=== PATIENT | female | born 1955 | race Caucasian/White ===

== ENCOUNTER 2022-11-21 08:20 | Outpatient (CLI) | payer MEDICARE, SELFPAY ==
[2022-11-21 09:29] LABS: EXAGEN MAILED SPECIMEN
[2022-11-21 10:18] LABS: Absolute Lymphocyte Count 1.66 X10^3/uL (0.83-4.51); Absolute Neutrophil Count 4.2 X10^3/uL (2.0-7.7); Basophil# 0.05 X10^3/uL; Basophil% 0.8 % (0-1); Eosinophil# 0.12 X10^3/uL; Eosinophils% 1.9 % (0-5); Hematocrit 39.2 % (37-47); Hemoglobin 12.9 g/dL (12.0-15.0); Lymphocyte # 1.66 X10^3/ul (0.83-4.51); Mean Corp Hgb Conc 32.9 g/dL (32-36); Mean Corpuscular Hgb 33.3 pg (27.0-32.0); Mean Corpuscular Volume 101.3 fL (81-99); Mean Platelet Vol. 9.1 fl (6.2-12.0); Monocyte# 0.36 X10^3/uL; Monocyte% 5.6 % (0-10); NRBC Flagged by Analyzer 0 % (0-5); Neutrophil # 4.19 X10^3/uL (2.7-7.7); Neutrophil % 65.5 % (47-70); Platelet Count 225 K/mm3 (150-450); RBC Distribution Width CV 12.3 % (11.6-14.6); RBC Distribution Width SD 46.5 fl (35.1-43.9); Red Blood Count 3.87 M/mm3 (4.2-5.4); White Blood Count 6.4 K/mm3 (4.4-11.0)
[2022-11-21 10:28] LABS: Color, Urine Yellow (Yellow); Glucose, Dipstick Normal (Normal); Ketone-Dipstick Negative (Negative); Leukocyte Esterase-Dipstick 25 /ul (Negative); Nitrite-Dipstick Negative (Negative); Occult Blood-Urine Negative /ul (Negative); Protein-Dipstick Negative (Negative); Urine Bilirubin Dipstick Negative (Negative); Urine Clarity Clear (Clear); Urine Urobilinogen Normal (Normal); Urine pH 6.5 (5.0 - 8.0)
[2022-11-21 10:38] LABS: International Normalized Ratio 1.1; Prothrombin Time (Protime)PT. 13.8 SECONDS (11.7-14.9)
[2022-11-21 10:39] LABS: ALB/GLOB Ratio 0.9 RATIO (0.9-2.4); AST(SGOT) 14 U/L (15-37); Alanine Aminotransfer ALT/SGPT 13 U/L (13-56); Albumin, Serum 3.7 g/dL (3.2-5.0); Alkaline Phosphatase 82 U/L (45-117); Anion Gap 4 (5-15); BUN 15 mg/dL (7-18); BUN/Creat Ratio 17.9 RATIO (10-20); Calcium,Total 9.2 mg/dL (8.5-10.1); Chloride 110 mmol/L (98-107); Creatinine, Serum 0.84 mg/dL (0.55-1.02); EST Glomerular Filtration Rate 72 mL/min (>60); Est Glom Filt Rate - Afr Amer 87 mL/min (>60); Globulin 4.3 g/dL (2.2-4.2); Glucose 90 mg/dL (74-106); Partial Thromboplast Time 30.1 Seconds (24.1-36.2); Potassium 3.7 mmol/L (3.5-5.1); Sodium Level 140 mmol/L (136-145)
[2022-11-21 10:48] LABS: Protein:Creat Ratio 202 mg/g CRE (0-200)
[2022-11-21 11:09] LABS: Hepatitis B Surface Antibody Reactive; Hepatitis B Surface Antigen Non-Reactive (Nonreactive); Hepatitis C Antibody Non-Reactive (Nonreactive)
[2022-11-22 16:10] LABS: Dilute Prothrombin Time (dPT) 37.4 sec (0.0-47.6); Hexagonal Phase Phospholipid 5 sec (0-11); Interpretation Comment: (.); PTT-LA 38.8 sec (0.0-43.5); Thrombin Time 16.9 sec (0.0-23.0); dPT Confirm Ratio 0.96 Ratio (0.00-1.34)
== END 2022-11-21 23:59 | disposition home or self-care (01) ==
LOC: MTLAB 08:24
PROVIDERS: Referring Provider Internal Medicine Rheumatology; Visit Provider Internal Medicine Rheumatology
DX: M05.79 Rheumatoid arthritis with rheumatoid factor of multiple sites without organ or systems involvement (principal); Z79.899 Other long term (current) drug therapy; R76.8 Other specified abnormal immunological findings in serum; M25.50 Pain in unspecified joint; M25.40 Effusion, unspecified joint; E03.9 Hypothyroidism, unspecified
CPT/HCPCS: 36415; 80053; 81002; 82570; 84156; 85025; 85598; 85610; 85730; 86706; 86803; 87340

== ENCOUNTER → 2022-12-12 | Outpatient (CLI) | payer MEDICARE, SELFPAY ==
[2022-12-12 15:16] LABS: Absolute Lymphocyte Count 2.52 X10^3/uL (0.83-4.51); Absolute Neutrophil Count 5.4 X10^3/uL (2.0-7.7); Basophil# 0.05 X10^3/uL; Basophil% 0.6 % (0-1); Eosinophil# 0.08 X10^3/uL; Eosinophils% 0.9 % (0-5); Hematocrit 39.4 % (37-47); Hemoglobin 12.6 g/dL (12.0-15.0); Lymphocyte # 2.52 X10^3/ul (0.83-4.51); Lymphocyte % 29.5 % (19-41); Mean Corpuscular Hgb 33.5 pg (27.0-32.0); Mean Corpuscular Volume 104.8 fL (81-99); Mean Platelet Vol. 9.1 fl (6.2-12.0); Monocyte# 0.45 X10^3/uL; Monocyte% 5.3 % (0-10); NRBC Flagged by Analyzer 0 % (0-5); Neutrophil # 5.43 X10^3/uL (2.7-7.7); Neutrophil % 63.5 % (47-70); Platelet Count 259 K/mm3 (150-450); RBC Distribution Width CV 12.5 % (11.6-14.6); RBC Distribution Width SD 48.3 fl (35.1-43.9); Red Blood Count 3.76 M/mm3 (4.2-5.4); White Blood Count 8.6 K/mm3 (4.4-11.0)
[2022-12-12 15:28] LABS: ALB/GLOB Ratio 0.9 RATIO (0.9-2.4); AST(SGOT) 19 U/L (15-37); Alanine Aminotransfer ALT/SGPT 17 U/L (13-56); Albumin, Serum 3.6 g/dL (3.2-5.0); Alkaline Phosphatase 73 U/L (45-117); Anion Gap 3 (5-15); BUN 18 mg/dL (7-18); BUN/Creat Ratio 19.7 RATIO (10-20); Calcium,Total 9.4 mg/dL (8.5-10.1); Chloride 111 mmol/L (98-107); Creatinine, Serum 0.92 mg/dL (0.55-1.02); EST Glomerular Filtration Rate 65 mL/min (>60); Est Glom Filt Rate - Afr Amer 79 mL/min (>60); Globulin 4.2 g/dL (2.2-4.2); Glucose 89 mg/dL (74-106); Potassium 4.9 mmol/L (3.5-5.1); Protein, Total 7.8 g/dL (6.4-8.2); Sodium Level 139 mmol/L (136-145)
== END | disposition home or self-care (01) ==
LOC: MTLAB 13:19
PROVIDERS: Referring Provider Internal Medicine Rheumatology; Visit Provider Internal Medicine Rheumatology
DX: M05.79 Rheumatoid arthritis with rheumatoid factor of multiple sites without organ or systems involvement (principal); R76.8 Other specified abnormal immunological findings in serum; Z79.899 Other long term (current) drug therapy
CPT/HCPCS: 36415; 80053; 85025

== ENCOUNTER → 2023-01-25 | Outpatient (CLI) | payer MEDICARE, SELFPAY ==
[2023-01-25 15:23] LABS: Absolute Lymphocyte Count 1.85 X10^3/uL (0.83-4.51); Absolute Neutrophil Count 3.9 X10^3/uL (2.0-7.7); Basophil# 0.05 X10^3/uL; Basophil% 0.8 % (0-1); Eosinophil# 0.06 X10^3/uL; Hemoglobin 12.5 g/dL (12.0-15.0); Lymphocyte # 1.85 X10^3/ul (0.83-4.51); Lymphocyte % 29.8 % (19-41); Mean Corp Hgb Conc 33.8 g/dL (32-36); Mean Corpuscular Hgb 34.9 pg (27.0-32.0); Mean Corpuscular Volume 103.4 fL (81-99); Mean Platelet Vol. 9.1 fl (6.2-12.0); Monocyte# 0.29 X10^3/uL; Monocyte% 4.7 % (0-10); NRBC Flagged by Analyzer 0 % (0-5); Neutrophil # 3.94 X10^3/uL (2.7-7.7); Neutrophil % 63.5 % (47-70); Platelet Count 213 K/mm3 (150-450); RBC Distribution Width CV 13.1 % (11.6-14.6); RBC Distribution Width SD 49.7 fl (35.1-43.9); Red Blood Count 3.58 M/mm3 (4.2-5.4); White Blood Count 6.2 K/mm3 (4.4-11.0)
[2023-01-25 15:57] LABS: AST(SGOT) 14 U/L (15-37); Alanine Aminotransfer ALT/SGPT 20 U/L (13-56); Albumin, Serum 3.6 g/dL (3.2-5.0); Alkaline Phosphatase 66 U/L (45-117); Anion Gap 6 (5-15); BUN 15 mg/dL (7-18); BUN/Creat Ratio 19.4 RATIO (10-20); Calcium,Total 8.8 mg/dL (8.5-10.1); Chloride 110 mmol/L (98-107); Creatinine, Serum 0.77 mg/dL (0.55-1.02); EST Glomerular Filtration Rate 80 mL/min (>60); Est Glom Filt Rate - Afr Amer 96 mL/min (>60); Globulin 3.7 g/dL (2.2-4.2); Glucose 94 mg/dL (74-106); Potassium 3.9 mmol/L (3.5-5.1); Protein, Total 7.3 g/dL (6.4-8.2); Sodium Level 141 mmol/L (136-145)
== END | disposition home or self-care (01) ==
LOC: MTLAB 13:56
PROVIDERS: Referring Provider Internal Medicine Rheumatology; Visit Provider Internal Medicine Rheumatology
DX: M05.79 Rheumatoid arthritis with rheumatoid factor of multiple sites without organ or systems involvement (principal); R76.8 Other specified abnormal immunological findings in serum; Z79.899 Other long term (current) drug therapy
CPT/HCPCS: 36415; 80053; 85025

== ENCOUNTER → 2023-04-12 | Outpatient (CLI) | payer MEDICARE, SELFPAY ==
[2023-04-12 15:00] LABS: Absolute Lymphocyte Count 2.16 X10^3/uL (0.83-4.51); Basophil# 0.06 X10^3/uL; Basophil% 1.1 % (0-1); Eosinophils% 1.8 % (0-5); Hematocrit 38.7 % (37-47); Hemoglobin 12.6 g/dL (12.0-15.0); Lymphocyte # 2.16 X10^3/ul (0.83-4.51); Lymphocyte % 38.3 % (19-41); Mean Corp Hgb Conc 32.6 g/dL (32-36); Mean Corpuscular Hgb 35.2 pg (27.0-32.0); Mean Corpuscular Volume 108.1 fL (81-99); Mean Platelet Vol. 9.1 fl (6.2-12.0); Monocyte# 0.27 X10^3/uL; Monocyte% 4.8 % (0-10); NRBC Flagged by Analyzer 0 % (0-5); Neutrophil # 3.04 X10^3/uL (2.7-7.7); Neutrophil % 53.8 % (47-70); Platelet Count 241 K/mm3 (150-450); RBC Distribution Width CV 12.5 % (11.6-14.6); RBC Distribution Width SD 49.3 fl (35.1-43.9); Red Blood Count 3.58 M/mm3 (4.2-5.4); White Blood Count 5.6 K/mm3 (4.4-11.0)
[2023-04-12 15:31] LABS: ALB/GLOB Ratio 0.9 RATIO (0.9-2.4); AST(SGOT) 14 U/L (15-37); Alanine Aminotransfer ALT/SGPT 17 U/L (13-56); Albumin, Serum 3.3 g/dL (3.2-5.0); Alkaline Phosphatase 68 U/L (45-117); Anion Gap 3 (5-15); BUN 12 mg/dL (7-18); BUN/Creat Ratio 17.3 RATIO (10-20); Calcium,Total 8.7 mg/dL (8.5-10.1); Chloride 111 mmol/L (98-107); Creatinine, Serum 0.69 mg/dL (0.55-1.02); EST Glomerular Filtration Rate 90 mL/min (>60); Est Glom Filt Rate - Afr Amer 109 mL/min (>60); Globulin 3.8 g/dL (2.2-4.2); Glucose 93 mg/dL (74-106); Potassium 4.2 mmol/L (3.5-5.1); Protein, Total 7.1 g/dL (6.4-8.2); Sodium Level 140 mmol/L (136-145)
== END | disposition home or self-care (01) ==
LOC: MTLAB 13:47
PROVIDERS: Referring Provider Internal Medicine Rheumatology; Visit Provider Internal Medicine Rheumatology
DX: M05.79 Rheumatoid arthritis with rheumatoid factor of multiple sites without organ or systems involvement (principal); R76.8 Other specified abnormal immunological findings in serum; E03.9 Hypothyroidism, unspecified; M81.0 Age-related osteoporosis without current pathological fracture; Z79.899 Other long term (current) drug therapy
CPT/HCPCS: 36415; 80053; 85025

== ENCOUNTER → 2023-06-28 | Outpatient (CLI) | payer MEDICARE, SELFPAY ==
[2023-06-28 16:30] LABS: Thyroid Stim Hormone (TSH) 0.54 uIU/mL (0.358-3.74)
== END | disposition home or self-care (01) ==
LOC: MFPLAB 14:13
PROVIDERS: PCP Family Medicine; Visit Provider Family Medicine
DX: E03.9 Hypothyroidism, unspecified (principal)
CPT/HCPCS: 36415; 84443

== ENCOUNTER → 2023-07-19 | Outpatient (CLI) | payer MEDICARE, SELFPAY ==
[2023-07-19 12:08] LABS: Absolute Lymphocyte Count 1.85 X10^3/uL (0.83-4.51); Absolute Neutrophil Count 3.4 X10^3/uL (2.0-7.7); Basophil# 0.05 X10^3/uL; Basophil% 0.9 % (0-1); Eosinophil# 0.14 X10^3/uL; Eosinophils% 2.5 % (0-5); Hematocrit 40.9 % (37-47); Hemoglobin 13.4 g/dL (12.0-15.0); Lymphocyte # 1.85 X10^3/ul (0.83-4.51); Lymphocyte % 32.7 % (19-41); Mean Corp Hgb Conc 32.8 g/dL (32-36); Mean Corpuscular Hgb 34.1 pg (27.0-32.0); Mean Corpuscular Volume 104.1 fL (81-99); Mean Platelet Vol. 9.6 fl (6.2-12.0); Monocyte# 0.23 X10^3/uL; Monocyte% 4.1 % (0-10); NRBC Flagged by Analyzer 0 % (0-5); Neutrophil # 3.38 X10^3/uL (2.7-7.7); Neutrophil % 59.6 % (47-70); Platelet Count 208 K/mm3 (150-450); RBC Distribution Width CV 12.5 % (11.6-14.6); RBC Distribution Width SD 47.8 fl (35.1-43.9); Red Blood Count 3.93 M/mm3 (4.2-5.4); White Blood Count 5.7 K/mm3 (4.4-11.0)
[2023-07-19 12:52] LABS: ALB/GLOB Ratio 0.9 RATIO (0.9-2.4); AST(SGOT) 20 U/L (15-37); Alanine Aminotransfer ALT/SGPT 15 U/L (13-56); Albumin, Serum 3.7 g/dL (3.2-5.0); Alkaline Phosphatase 72 U/L (45-117); Anion Gap 5 (5-15); BUN 20 mg/dL (7-18); BUN/Creat Ratio 23.6 RATIO (10-20); Calcium,Total 9.2 mg/dL (8.5-10.1); Chloride 113 mmol/L (98-107); Creatinine, Serum 0.85 mg/dL (0.55-1.02); EST Glomerular Filtration Rate 71 mL/min (>60); Est Glom Filt Rate - Afr Amer 86 mL/min (>60); Globulin 3.9 g/dL (2.2-4.2); Glucose 99 mg/dL (74-106); Potassium 4.6 mmol/L (3.5-5.1); Protein, Total 7.6 g/dL (6.4-8.2); Sodium Level 142 mmol/L (136-145)
== END | disposition home or self-care (01) ==
LOC: MTLAB 10:27
PROVIDERS: PCP Family Medicine; Referring Provider Internal Medicine Rheumatology; Visit Provider Internal Medicine Rheumatology
DX: M05.79 Rheumatoid arthritis with rheumatoid factor of multiple sites without organ or systems involvement (principal); R76.8 Other specified abnormal immunological findings in serum; Z79.899 Other long term (current) drug therapy
CPT/HCPCS: 36415; 80053; 85025

== ENCOUNTER → 2023-10-24 | Outpatient (CLI) | payer MEDICARE, SELFPAY ==
[2023-10-24 10:27] LABS: Absolute Lymphocyte Count 1.75 X10^3/uL (0.83-4.51); Absolute Neutrophil Count 3.4 X10^3/uL (2.0-7.7); Basophil# 0.05 X10^3/uL; Basophil% 0.9 % (0-1); Eosinophil# 0.14 X10^3/uL; Eosinophils% 2.4 % (0-5); Hematocrit 37.4 % (37-47); Hemoglobin 12.1 g/dL (12.0-15.0); Lymphocyte # 1.75 X10^3/ul (0.83-4.51); Lymphocyte % 30.5 % (19-41); Mean Corp Hgb Conc 32.4 g/dL (32-36); Mean Corpuscular Hgb 33.3 pg (27.0-32.0); Mean Platelet Vol. 9.4 fl (6.2-12.0); Monocyte# 0.35 X10^3/uL; Monocyte% 6.1 % (0-10); NRBC Flagged by Analyzer 0 % (0-5); Neutrophil # 3.42 X10^3/uL (2.7-7.7); Neutrophil % 59.8 % (47-70); Platelet Count 269 K/mm3 (150-450); RBC Distribution Width CV 12.7 % (11.6-14.6); RBC Distribution Width SD 47.8 fl (35.1-43.9); Red Blood Count 3.63 M/mm3 (4.2-5.4); White Blood Count 5.7 K/mm3 (4.4-11.0)
[2023-10-24 11:17] LABS: ALB/GLOB Ratio 0.9 RATIO (0.9-2.4); AST(SGOT) 16 U/L (15-37); Alanine Aminotransfer ALT/SGPT 16 U/L (13-56); Albumin, Serum 3.5 g/dL (3.2-5.0); Alkaline Phosphatase 71 U/L (45-117); Anion Gap 6 (5-15); BUN 22 mg/dL (7-18); BUN/Creat Ratio 28.6 RATIO (10-20); Chloride 111 mmol/L (98-107); Creatinine, Serum 0.77 mg/dL (0.55-1.02); EST Glomerular Filtration Rate 80 mL/min (>60); Est Glom Filt Rate - Afr Amer 97 mL/min (>60); Glucose 101 mg/dL (74-106); Potassium 4.3 mmol/L (3.5-5.1); Protein, Total 7.5 g/dL (6.4-8.2); Sodium Level 139 mmol/L (136-145)
== END | disposition home or self-care (01) ==
PROVIDERS: PCP Family Medicine; Referring Provider Internal Medicine Rheumatology; Visit Provider Internal Medicine Rheumatology
DX: M05.79 Rheumatoid arthritis with rheumatoid factor of multiple sites without organ or systems involvement (principal); R76.8 Other specified abnormal immunological findings in serum; Z79.899 Other long term (current) drug therapy
CPT/HCPCS: 36415; 80053; 85025

== ENCOUNTER → 2023-12-11 | Outpatient (CLI) | payer MEDICARE, SELFPAY ==
[2023-12-11 18:12] LABS: Cholesterol 156 mg/dL (200); High Density Lipoprotein 60 mg/dL; Triglycerides 56 mg/dL; Very Low Density Lipoprotein 11 mg/dL (5-40)
== END | disposition home or self-care (01) ==
LOC: MFPLAB 14:53
PROVIDERS: PCP Family Medicine; Visit Provider Family Medicine
DX: Z00.00 Encounter for general adult medical examination without abnormal findings (principal); Z12.11 Encounter for screening for malignant neoplasm of colon
CPT/HCPCS: 36415; 80061

== ENCOUNTER → 2023-12-26 | Outpatient (CLI) | payer MEDICARE, SELFPAY ==
--- NOTE | 2023-12-26 08:56 | BI_ITS ---
MAMMOGRAPHY - BILATERAL SCREENING REASON FOR EXAM: Female, 68 years old. Routine annual screening examination. PERTINENT HISTORY: Non-contributory. Occasional axillary tenderness. TECHNIQUE: Digital bilateral breast edd (3D mammographic acquisition) in the CC and MLO projections. 2-D mediolateral oblique (MLO) and craniocaudad (CC) views of both breasts were obtained. CAD: Full Field Digital Mammography with Computer Added Detection was performed. COMPARISON: Comparison is made with prior chest examination dated August 29, 2021. FINDINGS: Breast Composition: The breasts are heterogeneously dense, which may obscure small masses. There are no dominant masses or suspicious calcifications. No other significant abnormalities are identified. There has been no significant change since the prior study. BI/SCRN MAMM (CAD)W/EDD BILAT IMPRESSION: Stable bilateral screening mammogram. Yearly follow-up mammogram recommended. (A) ASSESSMENT CATEGORY: BIRADS Category 1: Negative. A letter regarding these results will be sent to the patient by the facility within 30 days. Approximately 10% of breast cancers are not detected by mammography. A normal mammogram should not delay biopsy of a clinically suspicious abnormality. [id number] Electronically Signed: Charles Muhammad MD at 15:15 EDT ,
== END | disposition home or self-care (01) ==
LOC: OPBI 08:55
PROVIDERS: PCP Family Medicine; Referring Provider Family Medicine; Visit Provider Family Medicine
DX: Z12.31 Encounter for screening mammogram for malignant neoplasm of breast (principal)
CPT/HCPCS: 77063; 77067

== ENCOUNTER → 2024-01-28 | Outpatient (CLI) | payer MEDICARE, SELFPAY ==
[2024-01-28 15:16] LABS: Absolute Lymphocyte Count 1.67 X10^3/uL (0.83-4.51); Basophil# 0.06 X10^3/uL; Basophil% 1.1 % (0-1); Eosinophil# 0.17 X10^3/uL; Eosinophils% 3.2 % (0-5); Hematocrit 37.7 % (37-47); Hemoglobin 12.3 g/dL (12.0-15.0); Lymphocyte # 1.67 X10^3/ul (0.83-4.51); Lymphocyte % 31.5 % (19-41); Mean Corp Hgb Conc 32.6 g/dL (32-36); Mean Corpuscular Hgb 32.8 pg (27.0-32.0); Mean Corpuscular Volume 100.5 fL (81-99); Mean Platelet Vol. 9.3 fl (6.2-12.0); Monocyte# 0.36 X10^3/uL; Monocyte% 6.8 % (0-10); NRBC Flagged by Analyzer 0 % (0-5); Neutrophil # 3.03 X10^3/uL (2.7-7.7); Neutrophil % 57.2 % (47-70); Platelet Count 264 K/mm3 (150-450); RBC Distribution Width CV 12.8 % (11.6-14.6); RBC Distribution Width SD 47.5 fl (35.1-43.9); Red Blood Count 3.75 M/mm3 (4.2-5.4); White Blood Count 5.3 K/mm3 (4.4-11.0)
[2024-01-28 15:49] LABS: ALB/GLOB Ratio 0.8 RATIO (0.9-2.4); AST(SGOT) 15 U/L (15-37); Alanine Aminotransfer ALT/SGPT 14 U/L (13-56); Albumin, Serum 3.5 g/dL (3.2-5.0); Alkaline Phosphatase 81 U/L (45-117); Anion Gap 7 (5-15); BUN 14 mg/dL (7-18); BUN/Creat Ratio 17.8 RATIO (10-20); Calcium,Total 9.3 mg/dL (8.5-10.1); Chloride 110 mmol/L (98-107); Creatinine, Serum 0.78 mg/dL (0.55-1.02); EST Glomerular Filtration Rate 78 mL/min (>60); Est Glom Filt Rate - Afr Amer 94 mL/min (>60); Globulin 4.3 g/dL (2.2-4.2); Glucose 82 mg/dL (74-106); Potassium 4.6 mmol/L (3.5-5.1); Protein, Total 7.8 g/dL (6.4-8.2); Sodium Level 141 mmol/L (136-145)
== END | disposition home or self-care (01) ==
LOC: MTLAB 11:04
PROVIDERS: PCP Family Medicine; Referring Provider Internal Medicine Rheumatology; Visit Provider Internal Medicine Rheumatology
DX: M05.79 Rheumatoid arthritis with rheumatoid factor of multiple sites without organ or systems involvement (principal); R76.8 Other specified abnormal immunological findings in serum; Z79.899 Other long term (current) drug therapy
CPT/HCPCS: 36415; 80053; 85025

== ENCOUNTER → 2024-04-23 | Outpatient (CLI) | payer MEDICARE, SELFPAY ==
[2024-04-23 12:19] LABS: Absolute Lymphocyte Count 1.39 X10^3/uL (0.83-4.51); Absolute Neutrophil Count 5.2 X10^3/uL (2.0-7.7); Basophil# 0.05 X10^3/uL; Basophil% 0.7 % (0-1); Eosinophils% 1.4 % (0-5); Hematocrit 36.8 % (37-47); Hemoglobin 12.2 g/dL (12.0-15.0); Lymphocyte # 1.39 X10^3/ul (0.83-4.51); Lymphocyte % 19.7 % (19-41); Mean Corp Hgb Conc 33.2 g/dL (32-36); Mean Corpuscular Hgb 33.5 pg (27.0-32.0); Mean Corpuscular Volume 101.1 fL (81-99); Mean Platelet Vol. 9.3 fl (6.2-12.0); Monocyte# 0.35 X10^3/uL; NRBC Flagged by Analyzer 0 % (0-5); Neutrophil # 5.15 X10^3/uL (2.7-7.7); Neutrophil % 72.8 % (47-70); Platelet Count 225 K/mm3 (150-450); RBC Distribution Width CV 12.5 % (11.6-14.6); RBC Distribution Width SD 46.6 fl (35.1-43.9); Red Blood Count 3.64 M/mm3 (4.2-5.4); White Blood Count 7.1 K/mm3 (4.4-11.0)
[2024-04-23 12:45] LABS: ALB/GLOB Ratio 0.9 RATIO (0.9-2.4); AST(SGOT) 18 U/L (15-37); Alanine Aminotransfer ALT/SGPT 15 U/L (13-56); Albumin, Serum 3.7 g/dL (3.2-5.0); Alkaline Phosphatase 78 U/L (45-117); Anion Gap 4 (5-15); BUN 16 mg/dL (7-18); BUN/Creat Ratio 20.4 RATIO (10-20); Chloride 111 mmol/L (98-107); Creatinine, Serum 0.78 mg/dL (0.55-1.02); EST Glomerular Filtration Rate 78 mL/min (>60); Est Glom Filt Rate - Afr Amer 94 mL/min (>60); Glucose 92 mg/dL (74-106); Protein, Total 7.7 g/dL (6.4-8.2); Sodium Level 139 mmol/L (136-145)
== END | disposition home or self-care (01) ==
LOC: MTLAB 09:25
PROVIDERS: PCP Family Medicine; Referring Provider Internal Medicine Rheumatology; Visit Provider Internal Medicine Rheumatology
DX: M05.79 Rheumatoid arthritis with rheumatoid factor of multiple sites without organ or systems involvement (principal); R76.8 Other specified abnormal immunological findings in serum; Z79.899 Other long term (current) drug therapy
CPT/HCPCS: 36415; 80053; 85025

== ENCOUNTER → 2024-07-15 | Outpatient (CLI) | payer MEDICARE, SELFPAY ==
[2024-07-15 11:54] LABS: Color, Urine Yellow (Yellow); Glucose, Dipstick Normal (Normal); Ketone-Dipstick Negative (Negative); Leukocyte Esterase-Dipstick Negative /ul (Negative); Nitrite-Dipstick Negative (Negative); Occult Blood-Urine Negative /ul (Negative); Protein-Dipstick Negative (Negative); Urine Bilirubin Dipstick Negative (Negative); Urine Clarity Clear (Clear); Urine Urobilinogen Normal (Normal)
[2024-07-15 12:36] LABS: Absolute Lymphocyte Count 1.58 X10^3/uL (0.83-4.51); Absolute Neutrophil Count 4.2 X10^3/uL (2.0-7.7); Basophil# 0.05 X10^3/uL; Basophil% 0.8 % (0-1); Eosinophil# 0.12 X10^3/uL; Eosinophils% 1.9 % (0-5); Hematocrit 37.3 % (37-47); Hemoglobin 12.6 g/dL (12.0-15.0); Lymphocyte # 1.58 X10^3/ul (0.83-4.51); Lymphocyte % 24.8 % (19-41); Mean Corp Hgb Conc 33.8 g/dL (32-36); Mean Corpuscular Hgb 33.8 pg (27.0-32.0); Mean Platelet Vol. 9.4 fl (6.2-12.0); Monocyte# 0.38 X10^3/uL; NRBC Flagged by Analyzer 0 % (0-5); Neutrophil # 4.24 X10^3/uL (2.7-7.7); Neutrophil % 66.3 % (47-70); Platelet Count 245 K/mm3 (150-450); RBC Distribution Width CV 12.3 % (11.6-14.6); RBC Distribution Width SD 44.9 fl (35.1-43.9); Red Blood Count 3.73 M/mm3 (4.2-5.4); White Blood Count 6.4 K/mm3 (4.4-11.0)
[2024-07-15 12:43] LABS: ALB/GLOB Ratio 0.8 RATIO (0.9-2.4); AST(SGOT) 16 U/L (15-37); Alanine Aminotransfer ALT/SGPT 15 U/L (13-56); Albumin, Serum 3.6 g/dL (3.2-5.0); Alkaline Phosphatase 78 U/L (45-117); Anion Gap 6 (5-15); BUN 13 mg/dL (7-18); BUN/Creat Ratio 16.9 RATIO (10-20); Calcium,Total 9.5 mg/dL (8.5-10.1); Chloride 108 mmol/L (98-107); Creatinine, Serum 0.77 mg/dL (0.55-1.02); EST Glomerular Filtration Rate 80 mL/min (>60); Est Glom Filt Rate - Afr Amer 96 mL/min (>60); Globulin 4.3 g/dL (2.2-4.2); Glucose 87 mg/dL (74-106); Potassium 4.1 mmol/L (3.5-5.1); Protein, Total 7.9 g/dL (6.4-8.2); Sodium Level 139 mmol/L (136-145)
[2024-07-15 12:55] LABS: Protein, Urine (Random) < 6.0 mg/dL (<11.9)
== END | disposition home or self-care (01) ==
LOC: MTLAB 10:26
PROVIDERS: PCP Family Medicine; Referring Provider Internal Medicine Rheumatology; Visit Provider Internal Medicine Rheumatology
DX: M05.79 Rheumatoid arthritis with rheumatoid factor of multiple sites without organ or systems involvement (principal); R76.8 Other specified abnormal immunological findings in serum; Z79.899 Other long term (current) drug therapy
CPT/HCPCS: 36415; 80053; 81002; 82570; 84156; 85025

== ENCOUNTER → 2024-10-08 | Outpatient (CLI) | payer MEDICARE, SELFPAY ==
[2024-10-08 15:29] LABS: Absolute Lymphocyte Count 2.04 X10^3/uL (0.83-4.51); Absolute Neutrophil Count 3.2 X10^3/uL (2.0-7.7); Basophil# 0.05 X10^3/uL; Basophil% 0.9 % (0-1); Eosinophil# 0.13 X10^3/uL; Eosinophils% 2.3 % (0-5); Hematocrit 36.3 % (37-47); Lymphocyte # 2.04 X10^3/ul (0.83-4.51); Lymphocyte % 35.6 % (19-41); Mean Corp Hgb Conc 33.1 g/dL (32-36); Mean Corpuscular Hgb 33.2 pg (27.0-32.0); Mean Corpuscular Volume 100.6 fL (81-99); Mean Platelet Vol. 9.1 fl (6.2-12.0); Monocyte# 0.35 X10^3/uL; Monocyte% 6.1 % (0-10); NRBC Flagged by Analyzer 0 % (0-5); Neutrophil # 3.15 X10^3/uL (2.7-7.7); Neutrophil % 54.9 % (47-70); Platelet Count 218 K/mm3 (150-450); RBC Distribution Width CV 12.5 % (11.6-14.6); RBC Distribution Width SD 46.3 fl (35.1-43.9); Red Blood Count 3.61 M/mm3 (4.2-5.4); White Blood Count 5.7 K/mm3 (4.4-11.0)
[2024-10-08 15:47] LABS: Color, Urine Yellow (Yellow); Glucose, Dipstick Normal (Normal); Ketone-Dipstick Negative (Negative); Leukocyte Esterase-Dipstick 25 /ul (Negative); Nitrite-Dipstick Negative (Negative); Occult Blood-Urine Negative /ul (Negative); Protein-Dipstick Negative (Negative); Specific Gravity, Urine 1.015 (1.002-1.030); Urine Bilirubin Dipstick Negative (Negative); Urine Clarity Clear (Clear); Urine Urobilinogen Normal (Normal)
[2024-10-08 15:55] LABS: Protein, Urine (Random) 9.7 mg/dL (0.0-12.0); Protein:Creat Ratio 114 mg/g CRE (0-200)
[2024-10-08 16:10] LABS: ALB/GLOB Ratio 1.1 RATIO (0.9-2.4); AST(SGOT) 17 U/L (<=31); Alanine Aminotransfer ALT/SGPT 7 U/L (<=34); Albumin, Serum 3.9 g/dL (3.4-4.8); Alkaline Phosphatase 75 U/L (35-104); Anion Gap 10 (5-15); BUN 10 mg/dL (4-19); BUN/Creat Ratio 13.4 RATIO (10-20); Calcium,Total 9.4 mg/dL (7.6-11.0); Chloride 107 mmol/L (98-108); Creatinine, Serum 0.73 mg/dL (0.70-1.20); EST Glomerular Filtration Rate 90 (>60); Globulin 3.5 g/dL (2.2-4.2); Glucose 99 mg/dL (70-99); Potassium 4.4 mmol/L (3.3-5.1); Protein, Total 7.4 g/dL (5.9-8.4); Sodium Level 140 mmol/L (133-145); Total Bilirubin 0.26 mg/dL (0.00-1.30)
== END | disposition home or self-care (01) ==
LOC: MTLAB 13:54
PROVIDERS: PCP Family Medicine; Referring Provider Internal Medicine Rheumatology; Visit Provider Internal Medicine Rheumatology
DX: M05.79 Rheumatoid arthritis with rheumatoid factor of multiple sites without organ or systems involvement (principal); R76.8 Other specified abnormal immunological findings in serum; Z79.899 Other long term (current) drug therapy
CPT/HCPCS: 36415; 80053; 81002; 82570; 84156; 85025

== ENCOUNTER → 2024-10-28 | Outpatient (CLI) | payer MEDICARE, SELFPAY ==
--- NOTE | 2024-10-28 15:05 | RAD_ITS ---
PROCEDURE: CHEST PA AND LATERAL 10/28/2024 REASON FOR EXAM: CONCERN FOR PNEUMONIA TECHNIQUE: Frontal and lateral views of the chest. COMPARISON: None available FINDINGS: Approximate 4.6 cm masslike right perihilar opacity mid lung on the frontal and appears marginated by the major fissure on the lateral may represent a pneumonia however mass is not excluded. A 9 mm nodule is seen at the right lower lung. Appearance of background of emphysema with hyperinflation. The left lung appears clear. The cardiac and mediastinal contours appear within limits. The visualized osseous structures appear within limits. No pleural effusion identified. RAD/Chest PA and Lateral IMPRESSION: Perihilar masslike right midlung opacity and right lower lung 9 mm nodule or de nsity as above. May further evaluate with chest CT. Clinically correlate Appearance of background of pulmonary emphysema. Reading Location: [id number]
== END | disposition home or self-care (01) ==
LOC: MTRAD 15:05
PROVIDERS: PCP Family Medicine; Referring Provider Family Medicine; Visit Provider Family Medicine
DX: R05.8 Other specified cough (principal)
CPT/HCPCS: 71046

== ENCOUNTER → 2024-11-20 | Outpatient (CLI) | payer MEDICARE, SELFPAY ==
--- NOTE | 2024-11-20 18:21 | CT_ITS ---
PROCEDURE: CHEST WITHOUT CONTRAST 11/20/2024 REASON FOR EXAM: OPACITY IN LUNGS SEEN ON CHEST X-RAY TECHNIQUE: Chest CT without contrast. Coronal and Sagittal reconstruction series were provided. One or more dose reduction techniques were used (e.g., Automated exposure control, adjustment of the mA and/or kV according to patient size, use of iterative reconstruction technique RADIATION DOSE SUMMARY: CTDlvol: 6.15 mGy DLP: 239.88 mGycm COMPARISON: Prior chest radiograph dated October 28, 2024. FINDINGS: Hardware: None Lymph nodes: Calcified bilateral hilar lymph nodes. Small mediastinal lymph nodes. Heart and Vasculature: The heart is nonenlarged. Coronary Artery Calcifications: Present Lungs and Airways: There is a 4.4 cm x 2.9 cm mass in the posterior aspect of the superior segment of the right lower lobe as seen on axial image number 68 mild increased markings in surrounding the mass most likely representing scarring. There is also evidence of a 8.6 mm calcified granuloma in the posterior aspect of the right lower lobe as seen on axial image number 81. There is also evidence of a 1.1 cm spiculated mass in the posterior medial segment of the right lower lobe. Mild scarring in the posterior aspect of the lingular segment of the left upper lobe. Pleura: No pleural effusion. Upper Abdomen: Unremarkable. Bones: Degenerative changes of the thoracic spine. CT/Chest without Contrast IMPRESSION: Coronary artery calcification (CAC) is is present 4.4 cm 2.9 cm mass in the posterior aspect of the superior segment of the right lower lobe. Biopsy recommended. 1.1 cm spiculated nodule in the posterior medial segment of the right lower lob e. 8.6 mm calcified granuloma in the posterior aspect of the right lower lobe. Reading Location: [place] [id number]
== END | disposition home or self-care (01) ==
LOC: CT 04-02 12:19
PROVIDERS: PCP Family Medicine; Referring Provider Family Medicine; Visit Provider Family Medicine
DX: R05.8 Other specified cough (principal)
CPT/HCPCS: 71250

== ENCOUNTER → 2024-12-03 | Outpatient (CLI) | payer MEDICARE, SELFPAY ==
--- OUTSIDE RECORDS SUMMARY | 2024-12-03 21:00 | XMS RPT_ITS | CCD ---
Author Organization [facility] Care Team Providers Care Research Food Technologist Name Role Phone Unavailable Primary Care Provider Unavailabl e HUNTER FERRARO Referring Unavailable HUNTER FERRARO Referring Unavailable Dania Beck MD Primary Care Provider Ayad HARRISON, Dr. Miller Attending Provider Ayad HARRISON, Dr. Miller Referring Provider Dania Beck MD Attending Provider Dania Beck MD Referring Provider Kiran, Chalon Primary Care Unavailable Kiran, Chalon Attending Unavailable Kiran, Chalon Referring Unavailable Kiran, Chalon Primary Care Unavailable Kiran, Chalon Attending Unavailable Kiran, Chalon Referring Unavailable Kiran, Chalon Primary Care Unavailable Kiran, Chalon Attending Unavailable Kiran, Chalon Referring Unavailable Kiran, Chalon Primary Care Unavailable Kiran, Chalon Attending Unavailable Vellanki, Angela Referring Unavailable Kiran, Chalon Primary Care Unavailable Vellanki, Angela Attending Unavailable Vellanki, Angela Referring Unavailable Kiran, Chalon Primary Care Unavailable Vellanki, Angela Attending Unavailable Vellanki, Angela Referring Unavailable Kiran, Chalon Primary Care Unavailable Vellanki, Angela Attending Unavailable Vellanki, Angela Referring Unavailable Vellanki, Angela Attending Unavailable Kiran, Chalon Primary Care Unavailable Kiran, Chalon Referring Unavailable Kiran, Chalon Primary Care Unavailable Kiran, Chalon Attending Unavailable Kiran , Dania Primary Care Provider [phone] Ayad HARRISON, Dr. Miller Attending Provider Ayad HARRISON, Dr. Miller Referring Provider Kehinde CRESPO-CToya Attending Provider Medications Current Medications Medication Drug Class(es) Dates Sig (Normalized) Sig (Original) 0.4 ml adalimumab 100 mg/ml prefilled syringe (1 source) Tumor Necrosis Factor Andres Start: 5 Adalimumab (Humira(Cf)) 40 mg/0.4 mL syringe kit Active 40 mg SC EVERY WEEK December 03, 2024 12:00am [id number] 200 actuat albuterol 0.09 mg/actuat metered dose inhaler (1 source) beta2-Adrenergic Agonist Start: 5 Albuterol Sulfate 90 mcg/actuation HFA aerosol inhaler Active 2 NMA INHALATION THREE TIMES A DAY as needed December 03, 2024 12:00am DULoxetine 60 mg delayed release oral capsule (1 source) Serotonin and Norepinephrine Reuptake Inhibitor Start: 5 take 1 capsule by mouth once daily Duloxetine 60 mg capsule,delayed release(DR/EC) Active 60 mg PO daily December 03, 2024 12:00am folic acid 1 mg oral tablet (1 source) Start: 5 take 1 tablet by mouth once daily Folic Acid 1 mg tablet Active 1 mg PO daily December 03, 2024 12:00am hydroxychloroquine sulfate 200 mg oral tablet (1 source) Antimalarial, Antirheumatic Agent Start: 5 Hydroxychloroquine 200 mg tablet Active 300 mg PO daily December 03, 2024 12:00am Ipratropium Patterson 42 mcg (0.06 %) spray,non-aerosol (1 source) Start: 5 Ipratropium Patterson 42 mcg (0.06 %) spray,non-aerosol Active 2 NMA INTRANASAL TWICE A DAY as needed December 03, 2024 12:00am levothyroxine sodium 0.112 mg oral tablet (1 source) l-Thyroxine Start: 5 take 1 tablet by mouth once daily Levothyroxine 112 mcg tablet Active 112 ug PO daily December 03, 2024 12:00am methotrexate 2.5 mg oral tablet (1 source) Folate Analog Metabolic Inhibitor Start: 5 Methotrexate Sodium 2.5 mg tablet Active 15 mg PO EVERY WEEK December 03, 2024 12:00am Problems Active Problems Problem Classification Problem Date Documented Da te Episodic/Chronic Chronic obstructive pulmonary disease and bronchiectasis (1 source) Chronic obstructive lung disease; Translations: [Chronic obstructive pulmonary disease, unspecified] 12-03-2024 Chronic Other eye disorders (2 sources) Limited eye movement; 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, unspecified orbit] 08-17-2023 Chronic Other eye disorders (1 source) Myopathy of extraocular muscles, unspecified orbit; Translations: [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, unspecified laterality] Onset: 08-17-2023 Chronic Other screening for suspected conditions (not mental disorders or infectious disease) (2 sources) CT of chest abnormal; Translations: [Abnormal findings on diagnostic imaging of other specified body structures] 12-03-2024 Chronic Rheumatoid arthritis and related disease (5 sources) Rheumatoid arthritis - ankle and/or foot; Translations: [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] Onset: 08-17-2023 08-17-2023 Chronic Thyroid disorders (1 source) Hypothyroidism; Translations: [Hypothyroidism, unspecified] 12-03-2024 Chronic Thyroid disorders (1 source) Disorder of thyroid, unspecified; Translations: [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, unspecified laterality] Onset: 08-17-2023 Episodic Unclassified (2 sources) Other specified cough; Translations: [Other specified cough] Onset: 11-02-2024 Past or Other Problems Problem Classification Problem Date Documented Da te Episodic/Chronic Other screening for suspected conditions (not mental disorders or infectious disease) (1 source) Encounter for screening mammogram for malignant neoplasm of breast; Translations: [Encounter for screening mammogram for malignant neoplasm of breast] Onset: 01-17-2024 Episodic Results Test Name Value Interpretation Reference Range Facility Chest without Contraston Chest without Contrast [facility] Imaging Services [address] [place] [address] Chest without Contrast MR#: [id number] Acct: [id number] Name: BLACK SHORT Rep #: [id number] : 1955 F 69 From: Charles boswell MD PCP: Dr. Dania Beck MD Status: PRE CLI Study: Chest without Contrast Date of Exam: 11/20/24 Exam# [id number] Ordering Dr: Dania Beck MD PROCEDURE: CHEST WITHOUT CONTRAST 11/20/2024 REASON FOR EXAM: OPACITY IN LUNGS SEEN ON CHEST X-RAY TECHNIQUE: Chest CT without contrast. Coronal and Sagittal reconstruction series were provided. One or more dose reduction techniques were used (e.g., Automated exposure control, adjustment of the mA and/or kV according to patient size, use of iterative reconstruction technique RADIATION DOSE SUMMARY: CTDlvol: 6.15 mGy DLP: 239.88 mGycm COMPARISON: Prior chest radiograph dated October 28, 2024. FINDINGS: Hardware: None Lymph nodes: Calcified bilateral hilar lymph nodes. Small mediastinal lymph nodes. Heart and Vasculature: The heart is nonenlarged. Coronary Artery Calcifications: Present Lungs and Airways: There is a 4.4 cm x 2.9 cm mass in the posterior aspect of the superior segment of the right lower lobe as seen on axial image number 68 mild increased markings in surrounding the mass most likely representing scarring. There is also evidence of a 8.6 mm calcified granuloma in the posterior aspect of the right lower lobe as seen on axial image number 81. There is also evidence of a 1.1 cm spiculated mass in the posterior medial segment of the right lower lobe. Mild scarring in the posterior aspect of the lingular segment of the left upper lobe. Pleura: No pleural effusion. Upper Abdomen: Unremarkable. Bones: Degenerative changes of the thoracic spine. CT/Chest without Contrast IMPRESSION: Coronary artery calcification (CAC) is is present 4.4 cm 2.9 cm mass in the posterior aspect of the superior segment of the right lower lobe. Biopsy recommended. 1.1 cm spiculated nodule in the posterior medial segment of the right lower lobe. 8.6 mm calcified granuloma in the posterior aspect of the right lower lobe. Reading Location: [place] [address] CC: Dr. Dania Beck MD Chemic Mangler: Signed Normal [facility] Chest PA and Lateralon 10-28 Chest PA and Lateral [facility] Imaging Services [address], [place] [id number] Chest PA and Lateral MR#: [id number] Acct: [id number] Name: BLACK SHORT Rep #: [id number] : 1955 F 69 From: Gilles Tamez MD PCP: Dr. Dania Beck MD Status: REG CLI Study: Chest PA and Lateral Date of Exam: 10/28/24 Exam# [id number] Ordering Dr: Dania Beck MD PROCEDURE: CHEST PA AND LATERAL 10/28/2024 REASON FOR EXAM: CONCERN FOR PNEUMONIA TECHNIQUE: Frontal and lateral views of the chest. COMPARISON: None available FINDINGS: Approximate 4.6 cm masslike right perihilar opacity mid lung on the frontal and appears marginated by the major fissure on the lateral may represent a pneumonia however mass is not excluded. A 9 mm nodule is seen at the right lower lung. Appearance of background of emphysema with hyperinflation. The left lung appears clear. The cardiac and mediastinal contours appear within limits. The visualized osseous structures appear within limits. No pleural effusion identified. RAD/Chest PA and Lateral IMPRESSION: Perihilar masslike right midlung opacity and right lower lung 9 mm nodule or density as above. May further evaluate with chest CT. Clinically correlate Appearance of background of pulmonary emphysema. Reading Location: [facility] CC: Dr. Dania Beck MD Chemic Mangler: Signed Normal [facility] Absolute lymphocyte countOrd ered By: Angela Lion on 10-08-2024 Lymphocytes Auto (Unsp spec) [#/Vol] 2.04 10*3/uL 0.83-4.51 [facility] Absolute neutrophil countOrd ered By: Angela Lion on 10-08-2024 Neutrophils (Bld) [#/Vol] 3.2 10*3/uL 2.0-7.7 [facility] Anion gap in Serum or Plasma Ordered By: Angela Lion on 10-08-2024 Anion gap [Moles/Vol] 10 mmol/L 5-15 [facility] Automated lymphocyte count a s percentage of total leukocytesOrdered By: Angela Lion on 10-08-2024 Lymphocytes/100 WBC Auto (Unsp spec) 35.6 % 19-41 [facility] BUN/creatinine ratioOrdered By: Angela Lion on 10-08-2024 Urea nitrogen/Creatinine [Mass ratio] 13.4 mg/mg 10-20 [facility] Basophil percentageOrdered B y: Angela Lion on 10-08-2024 Basophils/100 WBC (Bld) 0.9 % 0-1 [facility] Bilirubin Test strip Ql (U)O rdered By: Angela Lion on 10-08-2024 Bilirubin Ql (U) Negative Negative [facility] Bilirubin, totalOrdered By: Angela Lion on 10-08-2024 Bilirubin [Mass/Vol] 0.26 mg/dL 0.00-1.30 [facility] CBC W/Diff, Automatedon Absolute Lymph 2.04 X10 3/uL Normal 0.83-4.51 [facility] Comment on above: Performed By: #### L 100.0100, L500.4050 #### [facility] [address] [place], [address] Absolute Neut 3.2 X10 3/uL Normal 2.0-7.7 [facility] Comment on above: Performed By: #### L 100.0100, L500.4050 #### [facility] [address] [place], [address] Basophils/100 WBC (Bld) 0.9 % Normal 0-1 [facility] Comment on above: Performed By: #### L 100.0100, L500.4050 #### [facility] [address] [place], [address] Eosinophils/100 WBC (Bld) 2.3 % Normal 0-5 [facility] Comment on above: Performed By: #### L 100.0100, L500.4050 #### [facility] [address] [place], [address] Erythrocyte distribution width (RBC) [Ratio] 12.5 % Normal 11.6-14.6 [facility] Comment on above: Performed By: #### L 100.0100, L500.4050 #### [facility] [address] [place], [address] Hematocrit (Bld) [Volume fraction] 36.3 % Low 37-47 [facility] Comment on above: Performed By: #### L 100.0100, L500.4050 #### [facility] [address] [place], [address] Hemoglobin (Bld) [Mass/Vol] 12.0 g/dL Normal 12.0-15.0 [facility] Comment on above: Performed By: #### L 100.0100, L500.4050 #### [facility] [address] [place], [address] IG% 0.200 Normal 0.0-0.9 [facility] Comment on above: Result Comment: IG% - Immature Granulocytes (promyelocytes, myelocytes and metamyelocytes) > 1% indicates that a LEFT SHIFT is Present. Performed By: #### L 100.0100, L500.4050 #### [facility] [address] [place], [address] Lymphocytes/100 WBC (Bld) 35.6 % Normal 19-41 [facility] Comment on above: Performed By: #### L 100.0100, L500.4050 #### [facility] [address] [place], [address] MCH (RBC) [Entitic mass] 33.2 pg High 27.0-32.0 [facility] Comment on above: Performed By: #### L 100.0100, L500.4050 #### [facility] [address] [place], [address] MCHC (RBC) [Mass/Vol] 33.1 g/dL Normal 32-36 [facility] Comment on above: Performed By: #### L 100.0100, L500.4050 #### [facility] [address] [place], [address] MCV (RBC) [Entitic vol] 100.6 fL High 81-99 [facility] Comment on above: Performed By: #### L 100.0100, L500.4050 #### [facility] [address] [place], [address] Monocytes/100 WBC (Bld) 6.1 % Normal 0-10 [facility] Comment on above: Performed By: #### L 100.0100, L500.4050 #### [facility] [address] [place], [address] Neutrophils/100 WBC (Bld) 54.9 % Normal 47-70 [facility] Comment on above: Performed By: #### L 100.0100, L500.4050 #### [facility] [address] [place], [address] Nucleated RBC (Bld) [#/Vol] 0 10*3/uL Normal 0-5 [facility] Comment on above: Performed By: #### L 100.0100, L500.4050 #### [facility] [address] [place], [address] Platelet mean volume (Bld) [Entitic vol] 9.1 fL Normal 6.2-12.0 [facility] Comment on above: Performed By: #### L 100.0100, L500.4050 #### [facility] [address] [place], [address] Platelets (Bld) [#/Vol] 218 10*3/uL Normal 150-450 [facility] Comment on above: Performed By: #### L 100.0100, L500.4050 #### [facility] [address] [place], [address] RBC (Bld) [#/Vol] 3.61 10*6/uL Low 4.2-5.[address] [facility] Comment on above: Performed By: #### L 100.0100, L500.4050 #### [facility] [address] [place], [address] RDW SD 46.3 fl High 35.1-43.9 [facility] Comment on above: Performed By: #### L 100.0100, L500.4050 #### [facility] [address] [place], [address] WBC (Bld) [#/Vol] 5.7 10*3/uL Normal 4.4-11.0 [facility] Comment on above: Performed By: #### L 100.0100, L500.4050 #### [facility] [address] [place], [address] Carbon dioxide, total [Moles /volume] in Central venous bloodOrdered By: Angela Lion on 10-08-2024 CO2 [Moles/Vol] 23.0 mmol/L 21.0-32.0 [facility] Chloride assayOrdered By: Arias Lion on 10-08-2024 Chloride [Moles/Vol] 107 mmol/L 98-108 [facility] Comprehensive Metabolic Prof ilon 10-08-2024 Albumin [Mass/Vol] 3.9 g/dL Normal 3.4-4.8 [facility] Comment on above: Performed By: #### L 100.0100, L500.4050 #### [facility] [address] [place], [address] Albumin/Globulin [Mass ratio] 1.1 {ratio} Normal 0.9-2.4 [facility] Comment on above: Performed By: #### L 100.0100, L500.4050 #### [facility] [address] [place], [address] ALK PHOS 75 U/L Normal 35-104 [facility] Comment on above: Performed By: #### L 100.0100, L500.4050 #### [facility] [address] [place], [address] ALT [Catalytic activity/Vol] 7 U/L Normal <=34 [facility] Comment on above: Performed By: #### L 100.0100, L500.4050 #### [facility] [address] [place], [address] AST [Catalytic activity/Vol] 17 U/L Normal <=31 [facility] Comment on above: Performed By: #### L 100.0100, L500.4050 #### [facility] [address] [place], [address] Bilirubin [Mass/Vol] 0.26 mg/dL Normal 0.00-1.30 [facility] Comment on above: Performed By: #### L 100.0100, L500.4050 #### [facility] [address] [place], [address] BUN/CRE 13.4 RATIO Normal 10-20 [facility] Comment on above: Performed By: #### L 100.0100, L500.4050 #### [facility] [address] [place], [address] Calcium [Mass/Vol] 9.4 mg/dL Normal 7.6-11.0 [facility] Comment on above: Performed By: #### L 100.0100, L500.4050 #### [facility] [address] [place], [address] Chloride [Moles/Vol] 107 mmol/L Normal 98-108 [facility] Comment on above: Performed By: #### L 100.0100, L500.4050 #### [facility] [address] [place], [address] CO2 [Moles/Vol] 23.0 mmol/L Normal 21.0-32.0 [facility] Comment on above: Performed By: #### L 100.0100, L500.4050 #### [facility] [address] [place], [address] Creatinine [Mass/Vol] 0.73 mg/dL Normal 0.70-1.20 [facility] Comment on above: Performed By: #### L 100.0100, L500.4050 #### [facility] [address] [place], [address] GAP 10 Normal 5-15 [facility] Comment on above: Performed By: #### L 100.0100, L500.4050 #### [facility] [address] [place], [address] GFR/1.73 sq M.predicted among non-blacks MDRD (S/P/Bld) [Vol rate/Area] 90 mL/min/{1.73_m2} Normal >60 [facility] Comment on above: Result Comment: mL/m in/1.73m2 CKD-EPI Creatinine Equation (2020) Performed By: #### L 100.0100, L500.4050 #### [facility] [address] [place], [address] Globulin (S) [Mass/Vol] 3.5 g/dL Normal 2.2-4.2 [facility] Comment on above: Performed By: #### L 100.0100, L500.4050 #### [facility] [address] [place], [address] Glucose [Mass/Vol] 99 mg/dL Normal 70-99 [facility] Comment on above: Performed By: #### L 100.0100, L500.4050 #### [facility] [address] [place], [address] Potassium [Moles/Vol] 4.4 mmol/L Normal 3.3-5.1 [facility] Comment on above: Performed By: #### L 100.0100, L500.4050 #### [facility] [address] [place], [address] Sodium [Moles/Vol] 140 mmol/L Normal 133-145 [facility] Comment on above: Performed By: #### L 100.0100, L500.4050 #### [facility] [address] [place], [address] T PROT 7.4 g/dL Normal 5.9-8.4 [facility] Comment on above: Performed By: #### L 100.0100, L500.4050 #### [facility] [address] [place], [address] Urea nitrogen [Mass/Vol] 10 mg/dL Normal 4-19 [facility] Comment on above: Performed By: #### L 100.0100, L500.4050 #### [facility] [address] [place], [address] Eosinophil percentageOrdered By: Angela Lion on 10-08-2024 Eosinophils/100 WBC (Bld) 2.3 % 0-5 [facility] Erythrocyte distribution wid th ratioOrdered By: Angela Lion on 10-08-2024 Erythrocyte distribution width (RBC) [Ratio] 12.5 % 11.6-14.6 [facility] Erythrocyte distribution wid th standard deviationOrdered By: Angela Lion on 10-08-2024 Erythrocyte distribution width (RBC) [Ratio] 46.3 fl High 35.1-43.9 [facility] Glomerular filtration rate ( GFR) estimation/1.73 sq m using serum, plasma, or whole bOrdered By: Angela Lion on 10-08-2024 GFR/1.73 sq M.predicted among non-blacks MDRD (S/P/Bld) [Vol rate/Area] 90 mL/min/{1.73_m2} >60 [facility] Comment on above: mL/min/1.73m2 CKD-EP I Creatinine Equation (2020) Hematocrit Auto (Bld) [Volum e fraction]Ordered By: Angela Lion on 10-08-2024 Hematocrit (Bld) [Volume fraction] 36.3 % Low 37-47 [facility] Hemoglobin measurementOrdere d By: Angela Lion on 10-08-2024 Hemoglobin (Bld) [Mass/Vol] 12.0 g/dL 12.0-15.0 [facility] Immature granulocytes/100 WB C Auto (Bld)Ordered By: Angela Lion on 10-08-2024 Immature granulocytes/100 WBC (Bld) 0.200 % 0.0-0.9 [facility] Comment on above: IG% - Immature Granu locytes (promyelocytes, myelocytes and metamyelocytes) > 1% indicates that a LEFT SHIFT is Present. Ketones Test strip Ql (U)Ord ered By: Angela Lion on 10-08-2024 Ketones Ql (U) Negative Negative [facility] - Chemistry and C hemistry - challengeOrdered By: Angela Lion on 10-08-2024 AST [Catalytic activity/Vol] 17 U/L <32 [facility] MCV (mean corpuscular volume ) determinationOrdered By: Angela Lion on 10-08-2024 MCV (RBC) [Entitic vol] 100.6 fL High 81-99 [facility] Mean corpuscular hemoglobin (MCH) determinationOrdered By: Angela Lion on 10-08-2024 MCH (RBC) [Entitic mass] 33.2 pg High 27.0-32.0 [facility] Mean corpuscular hemoglobin concentration (MCHC) determinationOrdered By: Angela Lion on 10-08-2024 MCHC (RBC) [Mass/Vol] 33.1 g/dL 32-36 [facility] Mean platelet volume determi nationOrdered By: Angela Lion on 10-08-2024 Platelet mean volume (Bld) [Entitic vol] 9.1 fL 6.2-12.0 [facility] Monocyte percentageOrdered B y: Angela Lion on 10-08-2024 Monocytes/100 WBC (Bld) 6.1 % 0-10 [facility] Neutrophil percentageOrdered By: Angela Lion on 10-08-2024 Neutrophils/100 WBC (Bld) 54.9 % 47-70 [facility] Nitrite Test strip Ql (U)Ord ered By: Angela Lion on 10-08-2024 Nitrite Ql (U) Negative Negative [facility] Nucleated red blood cell per centageOrdered By: Angela Lion on 10-08-2024 Nucleated RBC/100 WBC (Bld) [Ratio] 0 % 0-5 [facility] Platelet countOrdered By: Arias Lion on 10-08-2024 Platelets (Bld) [#/Vol] 218 10*3/uL 150-450 [facility] Potassium measurement (mass/ volume)Ordered By: Angela Lion on 10-08-2024 Potassium (Unsp spec) [Mass/Vol] 4.4 mmol/L 3.3-5.1 [facility] Protein Test strip Ql (U)Ord ered By: Angela Loin on 10-08-2024 Protein Ql (U) Negative Negative [facility] Protein+Creatinine Ratio,Uri neon 10-08-2024 PROT:CRE RATIO 114 mg/g CRE Normal 0-200 [facility] Comment on above: Performed By: #### L 100.0100, L500.4050 #### [facility] [address] [place], [address] Protein (U) [Mass/Vol] 9.7 mg/dL Normal 0.0-12.0 [facility] Comment on above: Performed By: #### L 100.0100, L500.4050 #### [facility] [address] [place], [address] UR CREAT 85.20 mg/dL Normal 28.00-217.00 [facility] Comment on above: Performed By: #### L 100.0100, L500.4050 #### [facility] [address] [place], [address] RBC Auto (Bld) [#/Vol]Ordere d By: Angela Lion on 10-08-2024 RBC (Bld) [#/Vol] 3.61 10*6/uL Low 4.2-5.[address] [facility] Random urine creatinine ant urement (mass/volume)Ordered By: Angela Lion on 10-08-2024 Creatinine Unsp time (U) [Mass/Vol] 85.20 mg/dL 28.00-217.00 [facility] Serum creatinine measurement (mass/volume)Ordered By: Angela Lion on 10-08-2024 Creatinine [Mass/Vol] 0.73 mg/dL 0.70-1.20 [facility] Serum globulin measurementOr dered By: Angela Lion on 10-08-2024 Globulin (S) [Mass/Vol] 3.5 g/dL 2.2-4.2 [facility] Serum glucose measurement (m ass/volume)Ordered By: Angela Lion on 10-08-2024 Glucose [Mass/Vol] 99 mg/dL 70-99 [facility] Serum or plasma alanine sierra otransferase (ALT) measurementOrdered By: Angela Lion on 10-08-2024 ALT [Catalytic activity/Vol] 7 U/L <35 [facility] Serum or plasma albumin ant urement (mass/volume)Ordered By: Angela Lion on 10-08-2024 Albumin [Mass/Vol] 3.9 g/dL 3.4-4.8 [facility] Serum or plasma albumin/glob ulin mass ratioOrdered By: Angela Lion on 10-08-2024 Albumin/Globulin [Mass ratio] 1.1 {ratio} 0.9-2.4 [facility] Serum or plasma alkaline hailee sphatase measurementOrdered By: Angela Lion on 10-08-2024 ALP [Catalytic activity/Vol] 75 U/L 35-104 [facility] Serum or plasma calcium ant urement (mass/volume)Ordered By: Angela Lion on 10-08-2024 Calcium [Mass/Vol] 9.4 mg/dL 7.6-11.0 [facility] Serum or plasma urea nitroge n measurement (mass/volume)Ordered By: Angela Lion on 10-08-2024 Urea nitrogen [Mass/Vol] 10 mg/dL 4-19 [facility] Sodium levelOrdered By: Alis Lion on 10-08-2024 Sodium [Moles/Vol] 140 mmol/L 133-145 [facility] Total proteinOrdered By: Edmund Lion on 10-08-2024 Protein [Mass/Vol] 7.4 g/dL 5.9-8.4 [facility] Urinalysis, Routine (Dipstic k)on 10-08-2024 BILIRUBIN URINE Negative Normal Negative [facility] [facility] Comment on above: Order Comment: Urine , Random Performed By: #### L 100.0100, L500.4050 #### [facility] [address] [place], [address] Clarity (U) Clear Normal Clear [facility] Comment on above: Order Comment: Urine , Random Performed By: #### L 100.0100, L500.4050 #### [facility] [address] [place], [address] Color (U) Yellow Normal Yellow [facility] Comment on above: Order Comment: Urine , Random Performed By: #### L 100.0100, L500.4050 #### [facility] [address] [place], [address] GLUCOSE, UR Normal Normal Normal [facility] Comment on above: Order Comment: Urine , Random Performed By: #### L 100.0100, L500.4050 #### [facility] [address] [place], [address] KETONE UR Negative Normal Negative [facility] Comment on above: Order Comment: Urine , Random Performed By: #### L 100.0100, L500.4050 #### [facility] [address] [place], [address] LEUK ESTERASE 25 /ul Abnormal Negative [facility] Comment on above: Order Comment: Urine , Random Performed By: #### L 100.0100, L500.4050 #### [facility] [address] [place], [address] Nitrite Ql (U) Negative Normal Negative [facility] Comment on above: Order Comment: Urine , Random Performed By: #### L 100.0100, L500.4050 #### [facility] [address] [place], [address] OCCULT BLOOD-UR Negative Normal Negative [facility] Comment on above: Order Comment: Urine , Random Performed By: #### L 100.0100, L500.4050 #### [facility] [address] [place], [address] pH UR 6.0 Normal 5.0 - 8.0 [facility] Comment on above: Order Comment: Urine , Random Performed By: #### L 100.0100, L500.4050 #### [facility] [address] [place], [address] PROT DIPSTX Negative Normal Negative [facility] Comment on above: Order Comment: Urine , Random Performed By: #### L 100.0100, L500.4050 #### [facility] [address] [place], [address] SP.GR. DIPSTX 1.015 Normal 1.002-1.030 [facility] Comment on above: Order Comment: Urine , Random Performed By: #### L 100.0100, L500.4050 #### [facility] [address] [place], [address] UROBILI Normal Normal Normal [facility] Comment on above: Order Comment: Urine , Random Performed By: #### L 100.0100, L500.4050 #### [facility] [address] [place], [address] Urine clarityOrdered By: Edmund Lion on 10-08-2024 Clarity (U) Clear Clear [facility] Urine color determinationOrd ered By: Angela Lion on 10-08-2024 Color (U) Yellow Yellow [facility] Urine glucose detectionOrder ed By: Angela Lion on 10-08-2024 Glucose Ql (U) Normal mg/dl Normal [facility] Urine leukocyte esterase det ection by dipstickOrdered By: Angela Lion on 10-08-2024 Leukocyte esterase Test strip Ql (U) 25 /ul High Negative [facility] Urine pHOrdered By: Angela campa on 10-08-2024 pH (U) 6.0 [pH] 5.0 - 8.0 [facility] Urine protein measurement (m ass/volume)Ordered By: Angela Lion on 10-08-2024 Protein (U) [Mass/Vol] 9.7 mg/dL 0.0-12.0 [facility] Urine protein/creatinine mas s ratioOrdered By: Angela Lion on 10-08-2024 Protein/Creatinine (U) [Mass ratio] 114 mg/g CRE 0-200 [facility] Urine specific gravity measu rementOrdered By: Angela Lion on 10-08-2024 Specific gravity (U) [Rel density] 1.015 1.002-1.030 [facility] Urine urobilinogen measureme ntOrdered By: Angela Lion on 10-08-2024 Urobilinogen Ql (U) Normal mg/dl Normal [facility] White blood cell (WBC) count Ordered By: Angela Lion on 10-08-2024 WBC (Bld) [#/Vol] 5.7 10*3/uL 4.4-11.0 [facility] Absolute lymphocyte countOrd ered By: Angela Lion on 07-15-2024 Lymphocytes Auto (Unsp spec) [#/Vol] 1.58 10*3/uL 0.83-4.51 [facility] Absolute neutrophil countOrd ered By: Angela Lion on 07-15-2024 Neutrophils (Bld) [#/Vol] 4.2 10*3/uL 2.0-7.7 [facility] Albumin to globulin ratioOrd ered By: Angela Lion on 07-15-2024 Albumin/Globulin [Mass ratio] 0.8 {ratio} Low 0.9-2.4 [facility] Automated lymphocyte count a s percentage of total leukocytesOrdered By: Angela Lion on 07-15-2024 Lymphocytes/100 WBC Auto (Unsp spec) 24.8 % 19-41 [facility] Basophil percentageOrdered B y: Angela Lion on 07-15-2024 Basophils/100 WBC (Bld) 0.8 % 0-1 [facility] Bilirubin Test strip Ql (U)O rdered By: Angela Lion on 07-15-2024 Bilirubin Ql (U) Negative Negative [facility] Bilirubin, totalOrdered By: Angela Lion on 07-15-2024 Bilirubin [Mass/Vol] 0.50 mg/dL 0.20-1.00 [facility] Comment on above: For patients on eltr ombopag therapy, use of Dimension [place] TBIL is not recommended. Blood urea nitrogen (BUN)/cr eatinine ratioOrdered By: Angela Lion on 07-15-2024 Urea nitrogen/Creatinine [Mass ratio] 16.9 mg/mg 10-20 [facility] CBC W/Diff, Automatedon 07-05 Absolute Lymph 1.58 X10 3/uL Normal 0.83-4.51 [facility] Comment on above: Performed By: #### L 400.2010, L501.0900, L100.0100, L500.4050 #### [facility] [address] [place], [address] Absolute Neut 4.2 X10 3/uL Normal 2.0-7.7 [facility] Comment on above: Performed By: #### L 400.2010, L501.0900, L100.0100, L500.4050 #### [facility] [address] [place], [address] Basophils/100 WBC (Bld) 0.8 % Normal 0-1 [facility] Comment on above: Performed By: #### L 400.2010, L501.0900, L100.0100, L500.4050 #### [facility] [address] [place], [address] Eosinophils/100 WBC (Bld) 1.9 % Normal 0-5 [facility] Comment on above: Performed By: #### L 400.2010, L501.0900, L100.0100, L500.4050 #### [facility] [address] [place], [address] Erythrocyte distribution width (RBC) [Ratio] 12.3 % Normal 11.6-14.6 [facility] Comment on above: Performed By: #### L 400, L501.0900, L100.0100, L500.4050 #### [facility] [address] [place], [address] Hematocrit (Bld) [Volume fraction] 37.3 % Normal 37-47 [facility] Comment on above: Performed By: #### L 400, L501.0900, L100.0100, L500.4050 #### [facility] [address] [place], [address] Hemoglobin (Bld) [Mass/Vol] 12.6 g/dL Normal 12.0-15.0 [facility] Comment on above: Performed By: #### L 400, L501.0900, L100.0100, L500.4050 #### [facility] [address] [place], [address] IG% 0.200 Normal 0.0-0.9 [facility] Comment on above: Result Comment: IG% - Immature Granulocytes (promyelocytes, myelocytes and metamyelocytes) > 1% indicates that a LEFT SHIFT is Present. Performed By: #### L 400, L501.0900, L100.0100, L500.4050 #### [facility] [address] [place], [address] Lymphocytes/100 WBC (Bld) 24.8 % Normal 19-41 [facility] Comment on above: Performed By: #### L 400.2010, L501.0900, L100.0100, L500.4050 #### [facility] [address] [place], [address] MCH (RBC) [Entitic mass] 33.8 pg High 27.0-32.0 [facility] Comment on above: Performed By: #### L 400.2010, L501.0900, L100.0100, L500.4050 #### [facility] [address] [place], [address] MCHC (RBC) [Mass/Vol] 33.8 g/dL Normal 32-36 [facility] Comment on above: Performed By: #### L 400, L501.0900, L100.0100, L500.4050 #### [facility] [address] [place], [address] MCV (RBC) [Entitic vol] 100.0 fL High 81-99 [facility] Comment on above: Performed By: #### L 400, L501.0900, L100.0100, L500.4050 #### [facility] [address] [place], [address] Monocytes/100 WBC (Bld) 6.0 % Normal 0-10 [facility] Comment on above: Performed By: #### L 400, L501.0900, L100.0100, L500.4050 #### [facility] [address] [place], [address] Neutrophils/100 WBC (Bld) 66.3 % Normal 47-70 [facility] Comment on above: Performed By: #### L 400, L501.0900, L100.0100, L500.4050 #### [facility] [address] [place], [address] Nucleated RBC (Bld) [#/Vol] 0 10*3/uL Normal 0-5 [facility] Comment on above: Performed By: #### L 400.2010, L501.0900, L100.0100, L500.4050 #### [facility] [address] [place], [address] Platelet mean volume (Bld) [Entitic vol] 9.4 fL Normal 6.2-12.0 [facility] Comment on above: Performed By: #### L 400.2010, L501.0900, L100.0100, L500.4050 #### [facility] [address] [place], [address] Platelets (Bld) [#/Vol] 245 10*3/uL Normal 150-450 [facility] Comment on above: Performed By: #### L 400, L501.0900, L100.0100, L500.4050 #### [facility] [address] [place], [address] RBC (Bld) [#/Vol] 3.73 10*6/uL Low 4.2-5.[address] [facility] Comment on above: Performed By: #### L 400, L501.0900, L100.0100, L500.4050 #### [facility] [address] [place], [address] RDW SD 44.9 fl High 35.1-43.9 [facility] Comment on above: Performed By: #### L 400.2010, L501.0900, L100.0100, L500.4050 #### [facility] [address] [place], [address] WBC (Bld) [#/Vol] 6.4 10*3/uL Normal 4.4-11.0 [facility] Comment on above: Performed By: #### L 400.2010, L501.0900, L100.0100, L500.4050 #### [facility] [address] [place], [address] Carbon dioxide measurementOr dered By: Angela Lion on 07-15-2024 CO2 [Moles/Vol] 25.0 mmol/L 21.0-32.0 [facility] Chloride measurementOrdered By: Angela Lion on 07-15-2024 Chloride [Moles/Vol] 108 mmol/L High 98-107 [facility] Comprehensive Metabolic Prof ilon 07-15-2024 Albumin [Mass/Vol] 3.6 g/dL Normal 3.2-5.0 [facility] Comment on above: Performed By: #### L 100.0100, L500.4050 #### [facility] [address] [place], [address] Albumin/Globulin [Mass ratio] 0.8 {ratio} Low 0.9-2.4 [facility] Comment on above: Performed By: #### L 100.0100, L500.4050 #### [facility] [address] [place], [address] ALK P 78 U/L Normal 45-117 [facility] Comment on above: Performed By: #### L 100.0100, L500.4050 #### [facility] [address] [place], [address] ALT [Catalytic activity/Vol] 15 U/L Normal 13-56 [facility] Comment on above: Performed By: #### L 100.0100, L500.4050 #### [facility] [address] [place], [address] AST [Catalytic activity/Vol] 16 U/L Normal 15-37 [facility] Comment on above: Performed By: #### L 100.0100, L500.4050 #### [facility] [address] [place], [address] Bilirubin [Mass/Vol] 0.50 mg/dL Normal 0.20-1.00 [facility] Comment on above: Result Comment: For patients on eltrombopag therapy, use of Dimension [place] TBIL is not recommended. Performed By: #### L 100.0100, L500.4050 #### [facility] [address] [place], [address] BUN/CRE 16.9 RATIO Normal 10-20 [facility] Comment on above: Performed By: #### L 100.0100, L500.4050 #### [facility] [address] [place], [address] CA,Total 9.5 mg/dL Normal 8.5-10.1 [facility] Comment on above: Performed By: #### L 100.0100, L500.4050 #### [facility] [address] [place], [address] Chloride [Moles/Vol] 108 mmol/L High 98-107 [facility] Comment on above: Performed By: #### L 100.0100, L500.4050 #### [facility] [address] [place], [address] CO2 [Moles/Vol] 25.0 mmol/L Normal 21.0-32.0 [facility] Comment on above: Performed By: #### L 100.0100, L500.4050 #### [facility] [address] [place], [address] Creatinine [Mass/Vol] 0.77 mg/dL Normal 0.55-1.02 [facility] Comment on above: Result Comment: The validity of the calculated GFR GFRAA in patients over 70 years has not been determined. Clinical correlation is essential. Performed By: #### L 100.0100, L500.4050 #### [facility] [address] [place], [address] EST GFR - AA 96 mL/min Normal >60 [facility] Comment on above: Result Comment: Afri can [place] GFR Calc Performed By: #### L 100.0100, L500.4050 #### [facility] [address] [place], [address] GAP 6 Normal 5-15 [facility] Comment on above: Performed By: #### L 100.0100, L500.4050 #### [facility] [address] [place], [address] GFR/1.73 sq M.predicted among non-blacks MDRD (S/P/Bld) [Vol rate/Area] 80 mL/min/{1.73_m2} Normal >60 [facility] Comment on above: Result Comment: Non- GFR Calc Performed By: #### L 100.0100, L500.4050 #### [facility] [address] [place], [address] Globulin (S) [Mass/Vol] 4.3 g/dL High 2.2-4.2 [facility] Comment on above: Performed By: #### L 100.0100, L500.4050 #### [facility] [address] [place], [address] Glucose [Mass/Vol] 87 mg/dL Normal 74-106 [facility] Comment on above: Performed By: #### L 100.0100, L500.4050 #### [facility] [address] [place], [address] Potassium [Moles/Vol] 4.1 mmol/L Normal 3.5-5.1 [facility] Comment on above: Performed By: #### L 100.0100, L500.4050 #### [facility] [address] [place], [address] Sodium [Moles/Vol] 139 mmol/L Normal 136-145 [facility] Comment on above: Performed By: #### L 100.0100, L500.4050 #### [facility] [address] [place], [address] T PROT 7.9 g/dL Normal 6.4-8.2 [facility] Comment on above: Performed By: #### L 100.0100, L500.4050 #### [facility] [address] [place], [address] Urea nitrogen [Mass/Vol] 13 mg/dL Normal 7-18 [facility] Comment on above: Performed By: #### L 100.0100, L500.4050 #### [facility] [address] [place], [address] Eosinophil percentageOrdered By: Angela Lion on 07-15-2024 Eosinophils/100 WBC (Bld) 1.9 % 0-5 [facility] Erythrocyte distribution wid th ratioOrdered By: [facility] Ayad on 07-15-2024 Erythrocyte distribution width (RBC) [Ratio] 12.3 % 11.6-14.6 [facility] Erythrocyte distribution wid th standard deviationOrdered By: Angela Lion on 07-15-2024 Erythrocyte distribution width (RBC) [Ratio] 44.9 fl High 35.1-43.9 [facility] Glomerular filtration rate ( GFR) estimationOrdered By: Angela Lion on 07-15-2024 GFR/1.73 sq M.predicted among non-blacks MDRD (S/P/Bld) [Vol rate/Area] 80 mL/min/{1.73_m2} >60 [facility] Comment on above: Non- GFR Calc Glucose measurementOrdered B y: Angela Lion on 07-15-2024 Glucose [Mass/Vol] 87 mg/dL 74-106 [facility] Hematocrit Auto (Bld) [Volum e fraction]Ordered By: Angela Lion on 07-15-2024 Hematocrit (Bld) [Volume fraction] 37.3 % 37-47 [facility] Hemoglobin measurementOrdere d By: Angela Lion on 07-15-2024 Hemoglobin (Bld) [Mass/Vol] 12.6 g/dL 12.0-15.0 [facility] Immature granulocytes/100 WB C Auto (Bld)Ordered By: Angela Lion on 07-15-2024 Immature granulocytes/100 WBC (Bld) 0.200 % 0.0-0.9 [facility] Comment on above: IG% - Immature Granu locytes (promyelocytes, myelocytes and metamyelocytes) > 1% indicates that a LEFT SHIFT is Present. Ketones Test strip Ql (U)Ord ered By: Angela Lion on 07-15-2024 Ketones Ql (U) Negative Negative [facility] - Chemistry and C hemistry - challengeOrdered By: Angela Lion on 07-15-2024 AST [Catalytic activity/Vol] 16 U/L 15-37 [facility] MCV (mean corpuscular volume ) determinationOrdered By: Angela Lion on 07-15-2024 MCV (RBC) [Entitic vol] 100.0 fL High 81-99 [facility] Mean corpuscular hemoglobin (MCH) determinationOrdered By: Angela Lion on 07-15-2024 MCH (RBC) [Entitic mass] 33.8 pg High 27.0-32.0 [facility] Mean corpuscular hemoglobin concentration (MCHC) determinationOrdered By: Angela Lion on 07-15-2024 MCHC (RBC) [Mass/Vol] 33.8 g/dL 32-36 [facility] Mean platelet volume determi nationOrdered By: Angela Lion on 07-15-2024 Platelet mean volume (Bld) [Entitic vol] 9.4 fL 6.2-12.0 [facility] Monocyte percentageOrdered B y: Angela Lion on 07-15-2024 Monocytes/100 WBC (Bld) 6.0 % 0-10 [facility] Neutrophil percentageOrdered By: Angela Lion on 07-15-2024 Neutrophils/100 WBC (Bld) 66.3 % 47-70 [facility] Nitrite Test strip Ql (U)Ord ered By: Angela Lion on 07-15-2024 Nitrite Ql (U) Negative Negative [facility] Nucleated red blood cell per centageOrdered By: Angela Lion on 07-15-2024 Nucleated RBC/100 WBC (Bld) [Ratio] 0 % 0-5 [facility] Platelet countOrdered By: Arias Lion on 07-15-2024 Platelets (Bld) [#/Vol] 245 10*3/uL 150-450 [facility] Potassium measurementOrdered By: Angela Lion on 07-15-2024 Potassium [Moles/Vol] 4.1 mmol/L 3.5-5.1 [facility] Protein Test strip Ql (U)Ord ered By: Angela Lion on 07-15-2024 Protein Ql (U) Negative Negative [facility] Protein+Creatinine Ratio,Uri neon 07-15-2024 PROT:CRE RATIO TNP Normal 0-200 [facility] Comment on above: Performed By: #### L 100.0100, L500.4050 #### [facility] [address] [place], [address] PROTEIN,UR.RAN. < 6.0 Normal <11.9 [facility] Comment on above: Performed By: #### L 100.0100, L500.4050 #### [facility] [address] [place], [address] UR CREAT 14.40 mg/dL Normal NO RANGE EST. [facility] Comment on above: Performed By: #### L 100.0100, L500.4050 #### [facility] [address] [place], [address] RBC Auto (Bld) [#/Vol]Ordere d By: Angela Lion on 07-15-2024 RBC (Bld) [#/Vol] 3.73 10*6/uL Low 4.2-5.[address] [facility] Serum anion gap measurementO rdered By: Angela Lion on 07-15-2024 Anion gap [Moles/Vol] 6 mmol/L 5-15 [facility] Serum globulin measurementOr dered By: Angela Lion on 07-15-2024 Globulin (S) [Mass/Vol] 4.3 g/dL High 2.2-4.2 [facility] Serum or plasma alanine sierra otransferase (ALT) measurementOrdered By: Angela Lion on 07-15-2024 ALT [Catalytic activity/Vol] 15 U/L 13-56 [facility] Serum or plasma albumin ant urement (mass/volume)Ordered By: Angela Lion on 07-15-2024 Albumin [Mass/Vol] 3.6 g/dL 3.2-5.0 [facility] Serum or plasma alkaline hailee sphatase measurementOrdered By: Angela Lion on 07-15-2024 ALP [Catalytic activity/Vol] 78 U/L 45-117 [facility] Serum or plasma calcium ant urement (mass/volume)Ordered By: Angela Lion on 07-15-2024 Calcium [Mass/Vol] 9.5 mg/dL 8.5-10.1 [facility] Serum or plasma creatinine m easurement (mass/volume)Ordered By: Angela Lion on 07-15-2024 Creatinine [Mass/Vol] 0.77 mg/dL 0.55-1.02 [facility] Comment on above: The validity of the calculated GFR & GFRAA in patients over 70 years has not been determined. Clinical correlation is essential. Serum or plasma urea nitroge n measurement (mass/volume)Ordered By: Angela Lion on 07-15-2024 Urea nitrogen [Mass/Vol] 13 mg/dL 7-18 [facility] Sodium levelOrdered By: Alis Lion on 07-15-2024 Sodium [Moles/Vol] 139 mmol/L 136-145 [facility] Total proteinOrdered By: Edmund Lion on 07-15-2024 Protein [Mass/Vol] 7.9 g/dL 6.4-8.2 [facility] Urinalysis, Routine (Dipstic k)on 07-15-2024 BILIRUBIN URINE Negative Normal Negative [facility] Comment on above: Order Comment: Urine , Random Performed By: #### L 400.2010, L501.0900, L100.0100, L500.4050 #### [facility] [address] [place], [address] Clarity (U) Clear Normal Clear [facility] Comment on above: Order Comment: Urine , Random Performed By: #### L 400.2010, L501.0900, L100.0100, L500.4050 #### [facility] [address] [place], [address] Color (U) Yellow Normal Yellow [facility] Comment on above: Order Comment: Urine , Random Performed By: #### L 400.2010, L501.0900, L100.0100, L500.4050 #### [facility] [address] [place], [address] GLUCOSE, UR Normal Normal Normal [facility] Comment on above: Order Comment: Urine , Random Performed By: #### L 400.2010, L501.0900, L100.0100, L500.4050 #### [facility] [address] [place], [address] KETONE UR Negative Normal Negative [facility] Comment on above: Order Comment: Urine , Random Performed By: #### L 400.2010, L501.0900, L100.0100, L500.4050 #### [facility] [address] [place], [address] LEUK ESTERASE Negative Normal Negative [facility] Comment on above: Order Comment: Urine , Random Performed By: #### L 400.2010, L501.0900, L100.0100, L500.4050 #### [facility] [address] [place], [address] Nitrite Ql (U) Negative Normal Negative [facility] Comment on above: Order Comment: Urine , Random Performed By: #### L 400.2010, L501.0900, L100.0100, L500.4050 #### [facility] [address] [place], [address] OCCULT BLOOD-UR Negative Normal Negative [facility] Comment on above: Order Comment: Urine , Random Performed By: #### L 400.2010, L501.0900, L100.0100, L500.4050 #### [facility] [address] [place], [address] pH UR 7.0 Normal 5.0 - 8.0 [facility] Comment on above: Order Comment: Urine , Random Performed By: #### L 400.2010, L501.0900, L100.0100, L500.4050 #### [facility] [address] [place], [address] PROT DIPSTX Negative Normal Negative [facility] Comment on above: Order Comment: Urine , Random Performed By: #### L 400.2010, L501.0900, L100.0100, L500.4050 #### [facility] [address] [place], [address] SP.GR. DIPSTX 1.010 Normal 1.002-1.030 [facility] Comment on above: Order Comment: Urine , Random Performed By: #### L 400.2010, L501.0900, L100.0100, L500.4050 #### [facility] [address] [place], [address] UROBILI Normal Normal Normal [facility] Comment on above: Order Comment: Urine , Random Performed By: #### L 400.2010, L501.0900, L100.0100, L500.4050 #### [facility] [address] [place], [address] Urine clarityOrdered By: Edmund Lion on 07-15-2024 Clarity (U) Clear Clear [facility] Urine color determinationOrd ered By: Angela Lion on 07-15-2024 Color (U) Yellow Yellow [facility] Urine creatinine measurement (mass/volume)Ordered By: Angela Lion on 07-15-2024 Creatinine (U) [Mass/Vol] 14.40 mg/dL NO RANGE EST. [facility] Urine glucose detectionOrder ed By: Angela Lion on 07-15-2024 Glucose Ql (U) Normal mg/dl Normal [facility] Urine leukocyte esterase det ection by dipstickOrdered By: Angela Lion on 07-15-2024 Leukocyte esterase Test strip Ql (U) Negative Negative [facility] Urine pHOrdered By: Angela Reyes llankdereje on 07-15-2024 pH (U) 7.0 [pH] 5.0 - 8.0 [facility] Urine protein/creatinine mas s ratioOrdered By: Angela Lion on 07-15-2024 Protein/Creatinine (U) [Mass ratio] TNP [facility] Comment on above: Test not performed Urine specific gravity measu rementOrdered By: Angela Lion on 07-15-2024 Specific gravity (U) [Rel density] 1.010 1.002-1.030 [facility] Urine urobilinogen measureme ntOrdered By: Angela Lion on 07-15-2024 Urobilinogen Ql (U) Normal mg/dl Normal [facility] White blood cell (WBC) count Ordered By: Angela Lion on 07-15-2024 WBC (Bld) [#/Vol] 6.4 10*3/uL 4.4-11.0 [facility] CBC W/Diff, Automatedon 11-2 Absolute Lymph 1.39 X10 3/uL Normal 0.83-4.51 [facility] Comment on above: Performed By: #### L 100.0100, L500.4050 #### [facility] [address] [address]. [place], [place], [id number] Absolute Neut 5.2 X10 3/uL Normal 2.0-7.7 [facility] Comment on above: Performed By: #### L 100.0100, L500.4050 #### [facility] [address] [place], [address] Basophils/100 WBC (Bld) 0.7 % Normal 0-1 [facility] Comment on above: Performed By: #### L 100.0100, L500.4050 #### [facility] [address] [place], [address] Eosinophils/100 WBC (Bld) 1.4 % Normal 0-5 [facility] Comment on above: Performed By: #### L 100.0100, L500.4050 #### [facility] [address] [place], [address] Erythrocyte distribution width (RBC) [Ratio] 12.5 % Normal 11.6-14.6 [facility] Comment on above: Performed By: #### L 100.0100, L500.4050 #### [facility] [address] [place], [address] Hematocrit (Bld) [Volume fraction] 36.8 % Low 37-47 [facility] Comment on above: Performed By: #### L 100.0100, L500.4050 #### [facility] [address] [place], [address] Hemoglobin (Bld) [Mass/Vol] 12.2 g/dL Normal 12.0-15.0 [facility] Comment on above: Performed By: #### L 100.0100, L500.4050 #### [facility] [address] [place], [address] IG% 0.400 Normal 0.0-0.9 [facility] Comment on above: Result Comment: IG% - Immature Granulocytes (promyelocytes, myelocytes and metamyelocytes) > 1% indicates that a LEFT SHIFT is Present. Performed By: #### L 100.0100, L500.4050 #### [facility] [address] [place], [address] Lymphocytes/100 WBC (Bld) 19.7 % Normal 19-41 [facility] Comment on above: Performed By: #### L 100.0100, L500.4050 #### [facility] [address] [place], [address] MCH (RBC) [Entitic mass] 33.5 pg High 27.0-32.0 [facility] Comment on above: Performed By: #### L 100.0100, L500.4050 #### [facility] [address] [place], [address] MCHC (RBC) [Mass/Vol] 33.2 g/dL Normal 32-36 [facility] Comment on above: Performed By: #### L 100.0100, L500.4050 #### [facility] [address] [place], [address] MCV (RBC) [Entitic vol] 101.1 fL High 81-99 [facility] Comment on above: Performed By: #### L 100.0100, L500.4050 #### [facility] [address] [place], [address] Monocytes/100 WBC (Bld) 5.0 % Normal 0-10 [facility] Comment on above: Performed By: #### L 100.0100, L500.4050 #### [facility] [address] [place], [address] Neutrophils/100 WBC (Bld) 72.8 % High 47-70 [facility] Comment on above: Performed By: #### L 100.0100, L500.4050 #### [facility] [address] [place], [address] Nucleated RBC (Bld) [#/Vol] 0 10*3/uL Normal 0-5 [facility] Comment on above: Performed By: #### L 100.0100, L500.4050 #### [facility] [address] [place], [address] Platelet mean volume (Bld) [Entitic vol] 9.3 fL Normal 6.2-12.0 [facility] Comment on above: Performed By: #### L 100.0100, L500.4050 #### [facility] [address] [place], [address] Platelets (Bld) [#/Vol] 225 10*3/uL Normal 150-450 [facility] Comment on above: Performed By: #### L 100.0100, L500.4050 #### [facility] [address] [place], [address] RBC (Bld) [#/Vol] 3.64 10*6/uL Low 4.2-5.[address] [facility] Comment on above: Performed By: #### L 100.0100, L500.4050 #### [facility] [address] [place], [address] RDW SD 46.6 fl High 35.1-43.9 [facility] Comment on above: Performed By: #### L 100.0100, L500.4050 #### [facility] [address] [place], [address] WBC (Bld) [#/Vol] 7.1 10*3/uL Normal 4.4-11.0 [facility] Comment on above: Performed By: #### L 100.0100, L500.4050 #### [facility] [address] [place], [address] Comprehensive Metabolic Prof ilon 04-23-2024 Albumin [Mass/Vol] 3.7 g/dL Normal 3.2-5.0 [facility] Comment on above: Performed By: #### L 100.0100, L500.4050 #### [facility] [address] [place], [address] Albumin/Globulin [Mass ratio] 0.9 {ratio} Normal 0.9-2.4 [facility] Comment on above: Performed By: #### L 100.0100, L500.4050 #### [facility] [address] [place], [address] ALK P 78 U/L Normal 45-117 [facility] Comment on above: Performed By: #### L 100.0100, L500.4050 #### [facility] [address] [place], [address] ALT [Catalytic activity/Vol] 15 U/L Normal 13-56 [facility] Comment on above: Performed By: #### L 100.0100, L500.4050 #### [facility] [address] [place], [address] AST [Catalytic activity/Vol] 18 U/L Normal 15-37 [facility] Comment on above: Performed By: #### L 100.0100, L500.4050 #### [facility] [address] [place], [address] Bilirubin [Mass/Vol] 0.40 mg/dL Normal 0.20-1.00 [facility] Comment on above: Result Comment: For patients on eltrombopag therapy, use of Dimension [place] TBIL is not recommended. Performed By: #### L 100.0100, L500.4050 #### [facility] [address] [place], [address] BUN/CRE 20.4 RATIO High 10-20 [facility] Comment on above: Performed By: #### L 100.0100, L500.4050 #### [facility] [address] [place], [address] CA,Total 9.0 mg/dL Normal 8.5-10.1 [facility] Comment on above: Performed By: #### L 100.0100, L500.4050 #### [facility] [address] [place], [address] Chloride [Moles/Vol] 111 mmol/L High 98-107 [facility] Comment on above: Performed By: #### L 100.0100, L500.4050 #### [facility] [address] [place], [address] CO2 [Moles/Vol] 24.0 mmol/L Normal 21.0-32.0 [facility] Comment on above: Performed By: #### L 100.0100, L500.4050 #### [facility] [address] [place], [address] Creatinine [Mass/Vol] 0.78 mg/dL Normal 0.55-1.02 [facility] Comment on above: Result Comment: The validity of the calculated GFR GFRAA in patients over 70 years has not been determined. Clinical correlation is essential. Performed By: #### L 100.0100, L500.4050 #### [facility] [address] [place], [address] EST GFR - AA 94 mL/min Normal >60 [facility] Comment on above: Result Comment: Afri can [place] GFR Calc Performed By: #### L 100.0100, L500.4050 #### [facility] [address] [place], [address] GAP 4 Low 5-15 [facility] Comment on above: Performed By: #### L 100.0100, L500.4050 #### [facility] [address] [place], [address] GFR/1.73 sq M.predicted among non-blacks MDRD (S/P/Bld) [Vol rate/Area] 78 mL/min/{1.73_m2} Normal >60 [facility] Comment on above: Result Comment: Non- GFR Calc Performed By: #### L 100.0100, L500.4050 #### [facility] [address] [place], [address] Globulin (S) [Mass/Vol] 4.0 g/dL Normal 2.2-4.2 [facility] Comment on above: Performed By: #### L 100.0100, L500.4050 #### [facility] [address] [place], [address] Glucose [Mass/Vol] 92 mg/dL Normal 74-106 [facility] Comment on above: Performed By: #### L 100.0100, L500.4050 #### [facility] [address] [place], [address] Potassium [Moles/Vol] 4.0 mmol/L Normal 3.5-5.1 [facility] Comment on above: Performed By: #### L 100.0100, L500.4050 #### [facility] [address] [place], [address] Sodium [Moles/Vol] 139 mmol/L Normal 136-145 [facility] Comment on above: Performed By: #### L 100.0100, L500.4050 #### [facility] [address] [place], [address] T PROT 7.7 g/dL Normal 6.4-8.2 [facility] Comment on above: Performed By: #### L 100.0100, L500.4050 #### [facility] [address] [place], [address] Urea nitrogen [Mass/Vol] 16 mg/dL Normal 7-18 [facility] Comment on above: Performed By: #### L 100.0100, L500.4050 #### [facility] [address] [place], [address] CBC W/Diff, Automatedon 08-2 -2023 Absolute Lymph 1.67 X10 3/uL Normal 0.83-4.51 [facility] Comment on above: Performed By: #### L 100.0100, L500.4050 #### [facility] [address] [place], [address] Absolute Neut 3.0 X10 3/uL Normal 2.0-7.7 [facility] Comment on above: Performed By: #### L 100.0100, L500.4050 #### [facility] [address] [place], [address] Basophils/100 WBC (Bld) 1.1 % High 0-1 [facility] Comment on above: Performed By: #### L 100.0100, L500.4050 #### [facility] [address] [place], [address] Eosinophils/100 WBC (Bld) 3.2 % Normal 0-5 [facility] Comment on above: Performed By: #### L 100.0100, L500.4050 #### [facility] [address] [place], [address] Erythrocyte distribution width (RBC) [Ratio] 12.8 % Normal 11.6-14.6 [facility] Comment on above: Performed By: #### L 100.0100, L500.4050 #### [facility] [address] [place], [address] Hematocrit (Bld) [Volume fraction] 37.7 % Normal 37-47 [facility] Comment on above: Performed By: #### L 100.0100, L500.4050 #### [facility] [address] [place], [address] Hemoglobin (Bld) [Mass/Vol] 12.3 g/dL Normal 12.0-15.0 [facility] Comment on above: Performed By: #### L 100.0100, L500.4050 #### [facility] [address] [place], [address] IG% 0.200 Normal 0.0-0.9 [facility] Comment on above: Result Comment: IG% - Immature Granulocytes (promyelocytes, myelocytes and metamyelocytes) > 1% indicates that a LEFT SHIFT is Present. Performed By: #### L 100.0100, L500.4050 #### [facility] [address] [place], [address] Lymphocytes/100 WBC (Bld) 31.5 % Normal 19-41 [facility] Comment on above: Performed By: #### L 100.0100, L500.4050 #### [facility] [address] [place], [address] MCH (RBC) [Entitic mass] 32.8 pg High 27.0-32.0 [facility] Comment on above: Performed By: #### L 100.0100, L500.4050 #### [facility] [address] [place], [address] MCHC (RBC) [Mass/Vol] 32.6 g/dL Normal 32-36 [facility] Comment on above: Performed By: #### L 100.0100, L500.4050 #### [facility] [address] [place], [address] MCV (RBC) [Entitic vol] 100.5 fL High 81-99 [facility] Comment on above: Performed By: #### L 100.0100, L500.4050 #### [facility] [address] [place], [address] Monocytes/100 WBC (Bld) 6.8 % Normal 0-10 [facility] Comment on above: Performed By: #### L 100.0100, L500.4050 #### [facility] [address] [place], [address] Neutrophils/100 WBC (Bld) 57.2 % Normal 47-70 [facility] Comment on above: Performed By: #### L 100.0100, L500.4050 #### [facility] [address] [place], [address] Nucleated RBC (Bld) [#/Vol] 0 10*3/uL Normal 0-5 [facility] Comment on above: Performed By: #### L 100.0100, L500.4050 #### [facility] [address] [place], [address] Platelet mean volume (Bld) [Entitic vol] 9.3 fL Normal 6.2-12.0 [facility] Comment on above: Performed By: #### L 100.0100, L500.4050 #### [facility] [address] [place], [address] Platelets (Bld) [#/Vol] 264 10*3/uL Normal 150-450 [facility] Comment on above: Performed By: #### L 100.0100, L500.4050 #### [facility] [address] [place], [address] RBC (Bld) [#/Vol] 3.75 10*6/uL Low 4.2-5.[address] [facility] Comment on above: Performed By: #### L 100.0100, L500.4050 #### [facility] [address] [place], [address] RDW SD 47.5 fl High 35.1-43.9 [facility] Comment on above: Performed By: #### L 100.0100, L500.4050 #### [facility] [address] [place], [address] WBC (Bld) [#/Vol] 5.3 10*3/uL Normal 4.4-11.0 [facility] Comment on above: Performed By: #### L 100.0100, L500.4050 #### [facility] [address] [place], [address] Comprehensive Metabolic Prof ilon 01-28-2024 Albumin [Mass/Vol] 3.5 g/dL Normal 3.2-5.0 [facility] Comment on above: Performed By: #### L 100.0100, L500.4050 #### [facility] [address] [place], [address] Albumin/Globulin [Mass ratio] 0.8 {ratio} Low 0.9-2.4 [facility] Comment on above: Performed By: #### L 100.0100, L500.4050 #### [facility] [address] [place], [address] ALK P 81 U/L Normal 45-117 [facility] Comment on above: Performed By: #### L 100.0100, L500.4050 #### [facility] [address] [place], [address] ALT [Catalytic activity/Vol] 14 U/L Normal 13-56 [facility] Comment on above: Performed By: #### L 100.0100, L500.4050 #### [facility] [address] [place], [address] AST [Catalytic activity/Vol] 15 U/L Normal 15-37 [facility] Comment on above: Performed By: #### L 100.0100, L500.4050 #### [facility] [address] [place], [address] Bilirubin [Mass/Vol] 0.40 mg/dL Normal 0.20-1.00 [facility] Comment on above: Result Comment: For patients on eltrombopag therapy, use of Dimension [place] TBIL is not recommended. Performed By: #### L 100.0100, L500.4050 #### [facility] [address] [place], [address] BUN/CRE 17.8 RATIO Normal 10-20 [facility] Comment on above: Performed By: #### L 100.0100, L500.4050 #### [facility] [address] [place], [address] CA,Total 9.3 mg/dL Normal 8.5-10.1 [facility] Comment on above: Performed By: #### L 100.0100, L500.4050 #### [facility] [address] [place], [address] Chloride [Moles/Vol] 110 mmol/L High 98-107 [facility] Comment on above: Performed By: #### L 100.0100, L500.4050 #### [facility] [address] [place], [address] CO2 [Moles/Vol] 24.0 mmol/L Normal 21.0-32.0 [facility] Comment on above: Performed By: #### L 100.0100, L500.4050 #### [facility] [address] [place], [address] Creatinine [Mass/Vol] 0.78 mg/dL Normal 0.55-1.02 [facility] Comment on above: Result Comment: The validity of the calculated GFR GFRAA in patients over 70 years has not been determined. Clinical correlation is essential. Performed By: #### L 100.0100, L500.4050 #### [facility] [address] [place], [address] EST GFR - AA 94 mL/min Normal >60 [facility] Comment on above: Result Comment: Afri can [place] GFR Calc Performed By: #### L 100.0100, L500.4050 #### [facility] [address] [place], [address] GAP 7 Normal 5-15 [facility] Comment on above: Performed By: #### L 100.0100, L500.4050 #### [facility] [address] [place], [address] GFR/1.73 sq M.predicted among non-blacks MDRD (S/P/Bld) [Vol rate/Area] 78 mL/min/{1.73_m2} Normal >60 [facility] Comment on above: Result Comment: Non- GFR Calc Performed By: #### L 100.0100, L500.4050 #### [facility] [address] [place], [address] Globulin (S) [Mass/Vol] 4.3 g/dL High 2.2-4.2 [facility] Comment on above: Performed By: #### L 100.0100, L500.4050 #### [facility] [address] [place], [address] Glucose [Mass/Vol] 82 mg/dL Normal 74-106 [facility] Comment on above: Performed By: #### L 100.0100, L500.4050 #### [facility] [address] [place], [address] Potassium [Moles/Vol] 4.6 mmol/L Normal 3.5-5.1 [facility] Comment on above: Performed By: #### L 100.0100, L500.4050 #### [facility] [address] [place], [address] Sodium [Moles/Vol] 141 mmol/L Normal 136-145 [facility] Comment on above: Performed By: #### L 100.0100, L500.4050 #### [facility] [address] [place], [address] T PROT 7.8 g/dL Normal 6.4-8.2 [facility] Comment on above: Performed By: #### L 100.0100, L500.4050 #### [facility] [address] [place], [address] Urea nitrogen [Mass/Vol] 14 mg/dL Normal 7-18 [facility] Comment on above: Performed By: #### L 100.0100, L500.4050 #### [facility] [address] [place], [address] SCRN MAMM (CAD)W/EDD BILATo n 12-26-2023 SCRN MAMM (CAD)W/EDD BILAT [facility] Imaging Services [address] [place] [address] SCRN MAMM (CAD)W/EDD BILAT MR#: [id number] Acct: [id number] Name: BLACK SHORT Rep #: [id number] : 1955 F 68 From: Charles boswell MD PCP: Dr. Dania Beck MD Status: [facility] Study: SCRN MAMM (CAD)W/EDD BILAT Date of Exam: 12/03 09/25 Exam# [id number] Ordering Dr: Dania Beck MD [id number] MAMMOGRAPHY - BILATERAL SCREENING REASON FOR EXAM: Female, 68 years old. Routine annual screening examination. PERTINENT HISTORY: Non-contributory. Occasional axillary tenderness. TECHNIQUE: Digital bilateral breast edd (3D mammographic acquisition) in the CC and MLO projections. 2-D mediolateral oblique (MLO) and craniocaudad (CC) views of both breasts were obtained. CAD: Full Field Digital Mammography with Computer Added Detection was performed. COMPARISON: Comparison is made with prior chest examination dated August 29, 2021. FINDINGS: Breast Composition: The breasts are heterogeneously dense, which may obscure small masses. There are no dominant masses or suspicious calcifications. No other significant abnormalities are identified. There has been no significant change since the prior study. BI/SCRN MAMM (CAD)W/EDD BILAT IMPRESSION: Stable bilateral screening mammogram. Yearly follow-up mammogram recommended. (A) ASSESSMENT CATEGORY: BIRADS Category 1: Negative. A letter regarding these results will be sent to the patient by the facility within 30 days. Approximately 10% of breast cancers are not detected by mammography. A normal mammogram should not delay biopsy of a clinically suspicious abnormality. [id number] Electronically Signed: Charles Muhammad MD at 15:15 EDT Reading Location ID and State: [address] [place] [address] , Service support , CC: Dr. Dania Beck MD Chemic Mangler: Signed Normal [facility] Lipid Profileon 12-11-2023 Cholesterol [Mass/Vol] 156 mg/dL Normal 200 [facility] Comment on above: Result Comment: <200 mg/dL Desirable 200-240 mg/dL Borderline >240 mg/dL High Risk Performed By: #### L 500.5540 #### [facility] [address] [place], [place], [address] Cholesterol in HDL [Mass/Vol] 60 mg/dL Normal [facility] Comment on above: Result Comment: The drugs N-Acetylcysteine and Metamizole may falsely depress this assay. Reference Range HDL <40 mg/dL Low HDL Cholesterol HDL >or= 60 mg/dL High HDL Cholesterol Performed By: #### L 500.1840 #### [facility] [address] [place], [place], [address] Cholesterol in LDL [Mass/Vol] 85 mg/dL Normal 0-130 [facility] Comment on above: Performed By: #### L 500.4100 #### [facility] [address] [place], [place], [address] Cholesterol in VLDL [Mass/Vol] 11 mg/dL Normal 5-40 [facility] Comment on above: Performed By: #### L 500.4100 #### [facility] [address] [place], [address] Triglyceride [Mass/Vol] 56 mg/dL Normal [facility] Comment on above: Result Comment: The drugs N-Acetylcysteine and Metamizole may falsely depress this assay. Serum Triglycerides Reference Interval Normal <150 mg/dL Borderline high 150 - 199 mg/dL High 200 - 499 mg/dL Very High > or = 500 mg/dL Performed By: #### L 500.4100 #### [facility] [address] [place], [place], [address] Basic metabolic 2000 panelon 08-17-2023 Anion gap [Moles/Vol] 11 mmol/L Normal 9-18 [facility] Comment on above: Order Comment: Speci men Type: BLOOD SPECIMEN Ordering Facility: [facility] Address: [address] [place] [address] Performed By: #### 2 4321-2 #### [facility] CLIA [id number] [address] [place] [address] [place] Calcium [Mass/Vol] 9.8 mg/dL Normal 8.5-10.2 [facility] Comment on above: Order Comment: Speci men Type: BLOOD SPECIMEN Ordering Facility: [facility] Address: [address] [place] [address] Performed By: #### 2 4321-2 #### [facility] CLIA [id number] [address] [place] [address] [place] Chloride [Moles/Vol] 108 mmol/L High 97-105 [facility] Comment on above: Order Comment: Speci men Type: BLOOD SPECIMEN Ordering Facility: [facility] Address: [address] [place] [address] Performed By: #### 2 4321-2 #### [facility] CLIA [id number] [address] [place] [address] [place] CO2 [Moles/Vol] 24 mmol/L Normal 22-30 [facility] Comment on above: Order Comment: Speci men Type: BLOOD SPECIMEN Ordering Facility: [facility] Address: [address] [place] [address] Performed By: #### 2 4321-2 #### [facility] CLIA [id number] [address] [place] [address] [place] Creatinine [Mass/Vol] 0.75 mg/dL Normal 0.58-0.96 [facility] Comment on above: Order Comment: Speci men Type: BLOOD SPECIMEN Ordering Facility: [facility] Address: [address] [place] [address] Performed By: #### 2 4321-2 #### [facility] CLIA [id number] [address] [place] [address] OF [facility] Creatinine and Glomerular filtration rate.predicted panel (S/P/Bld) 88 mL/min/1.73m??? Normal >=60 [facility] Comment on above: Order Comment: Speci men Type: BLOOD SPECIMEN Ordering Facility: [facility] Address: [address] [place] [address] Result Comment: Maria A mated Glomerular Filtration Rate (eGFR) is calculated using the 2020 CKD-EPI creatinine equation. This equation utilizes serum creatinine, sex, and age as parameters. The creatinine assay has traceable calibration to isotope dilution-mass spectrometry. Refer to KDIGO guidelines for clinical interpretation. In patients with unstable renal function, e.g. those with acute kidney injury, the eGFR may not accurately reflect actual GFR. Performed By: #### 2 4321-2 #### [facility] CLIA [id number] [address] [place] [address] [place] Glucose [Mass/Vol] 81 mg/dL Normal 74-99 [facility] Comment on above: Order Comment: Ian jacqueline Type: BLOOD SPECIMEN [facility] Address: [address] [place] [address] Result Comment: The [place] Diabetes Association (ADA) provides guidance for cutoff values for fasting glucose and random glucose. The ADA defines fasting as no caloric intake for at least 8 hours. Fasting plasma glucose results between 100 to 125 mg/dL indicate increased risk for diabetes (prediabetes). Fasting plasma glucose results greater than or equal to 126 mg/dL meet the criteria for diagnosis of diabetes. In the absence of unequivocal hyperglycemia, results should be confirmed by repeat testing. In a patient with classic symptoms of hyperglycemia or hyperglycemic crisis, random plasma glucose results greater than or equal to 200 mg/dL meet the criteria for diagnosis of diabetes. Reference: Standards of Medical Care in Diabetes 2016, [employer]. Diabetes Care. 2016.39(Suppl 1). Performed By: #### 2 4321-2 #### [facility] CLIA [id number] [address] [place] [address] [place] Potassium [Moles/Vol] 4.2 mmol/L Normal 3.7-5.1 [facility] Comment on above: Order Comment: Ian jacqueline Type: BLOOD SPECIMEN [facility] Facility[facility] Address: [address] [place] [address] Performed By: #### 2 4321-2 #### [facility] CLIA [id number] [address] [place] [address] [place] Sodium [Moles/Vol] 143 mmol/L Normal 136-144 [facility] Comment on above: Order Comment: Ian jacqueline Type: BLOOD SPECIMEN Ordering Facility: [facility] Address: [address] [place] [address] Performed By: #### 2 4321-2 #### [facility] CLIA [id number] [address] [place] [address] [place] Urea nitrogen [Mass/Vol] 12 mg/dL Normal 7-21 [facility] Comment on above: Order Comment: Speci men Type: BLOOD SPECIMEN Ordering Facility: [facility] Address: [address] [place] [id number] Performed By: #### 2 4321-2 #### [facility] CLIA [id number] [address] [place] [address] [place] ECG COMPLETEon 08-17-2023 ECG COMPLETE Ventricular Rate : 56 BPM Atrial Rate : 56 BPM P-R Interval : 140 ms QRS Duration : 90 ms Q-T Interval : 456 ms QTC Calculation(Bazett) : 440 ms Calculated P [place] : 76 degrees Calculated R [place] : 71 degrees Calculated T [place] : 54 degrees Sinus bradycardia Otherwise normal ECG No previous ECGs available Confirmed by BOBBI HERNADEZ MD ([id number]) on 08/18/2023 1:16:08 PM NAME : BLACK SHORT PID : [id number] : 1955 Gender : Female Race : ORD : [id number] Procedure Date : Aug 17 2023 13:23:18 Edit Date : Aug 18 2023 13:16:13 Diagnosis: Sinus bradycardia Otherwise normal ECG No previous ECGs available Confirmed by BOBBI HERNADEZ MD ([id number]) on 08/18/2023 1:16:08 PM Test Reason : HCS Location : 7 : [facility] Overread By : BOBBI HERNADEZ MD Edited By : BOBBI HERNADEZ MD Referred By : HUNTER FERRARO Acquired by : KEV GUSMAN [facility] Hgb Bld-mCncon 08-17-2023 Hemoglobin (Bld) [Mass/Vol] 12.8 g/dL Normal 11.5-15.5 [facility] Comment on above: Order Comment: Speci men Type: BLOOD SPECIMEN Ordering Facility: [facility] Address: [address] [place] [address] Performed By: #### 7 18-7 #### [facility] CLIA [id number] [address] [place] [address] Absolute lymphocyte countOrd ered By: Angela Lion on 07-19-2023 Lymphocytes Auto (Unsp spec) [#/Vol] 1.85 10*3/uL 0.83-4.51 [facility] Automated lymphocyte count a s percentage of total leukocytesOrdered By: Angela Lion on 07-19-2023 Lymphocytes/100 WBC Auto (Unsp spec) 32.7 % 19-41 [facility] Basophil percentageOrdered B y: Angela Lion on 07-19-2023 Basophils/100 WBC (Bld) 0.9 % 0-1 [facility] Bilirubin [Mass/Vol] 0.30 mg/dL 0.20-1.00 [facility] Comment on above: For patients on eltr ombopag therapy, use of Dimension [place] TBIL is not recommended. Chloride [Moles/Vol] 113 mmol/L 98-107 [facility] Eosinophils/100 WBC (Bld) 2.5 % 0-5 [facility] Glucose [Mass/Vol] 99 mg/dL 74-106 [facility] Hemoglobin (Bld) [Mass/Vol] 13.4 g/dL 12.0-15.0 [facility] Monocytes/100 WBC (Bld) 4.1 % 0-10 [facility] Neutrophils (Bld) [#/Vol] 3.4 10*3/uL 2.0-7.7 [facility] Neutrophils/100 WBC (Bld) 59.6 % 47-70 [facility] Potassium [Moles/Vol] 4.6 mmol/L 3.5-5.1 [facility] Protein [Mass/Vol] 7.6 g/dL 6.4-8.2 [facility] Sodium [Moles/Vol] 142 mmol/L 136-145 [facility] WBC (Bld) [#/Vol] 5.7 10*3/uL 4.4-11.0 [facility] Determination of erythrocyte mean corpuscular volume (MCV)Ordered By: Angela Lion on 07-19-2023 MCV (RBC) [Entitic vol] 104.1 fL 81-99 [facility] Erythrocyte distribution wid th ratioOrdered By: Angela Lion on 07-19-2023 Erythrocyte distribution width (RBC) [Ratio] 12.5 % 11.6-14.6 [facility] Erythrocyte distribution wid th standard deviationOrdered By: Angela iLon on 07-19-2023 Erythrocyte distribution width (RBC) [Entitic vol] 47.8 fL 35.1-43.9 [facility] Hematocrit Auto (Bld) [Volum e fraction]Ordered By: Angela Lion on 07-19-2023 Hematocrit (Bld) [Volume fraction] 40.9 % 37-47 [facility] Immature granulocytes/100 WB C Auto (Bld)Ordered By: Angeladominick Lion on 07-19-2023 Immature granulocytes/100 WBC (Bld) 0.200 % 0.0-0.9 [facility] Comment on above: IG% - Immature Granu locytes (promyelocytes, myelocytes and metamyelocytes) > 1% indicates that a LEFT SHIFT is Present. Laboratory - Chemistry and C hemistry - challengeOrdered By: [facility] Ayad on 07-19-2023 Albumin/Globulin [Mass ratio] 0.9 {ratio} 0.9-2.4 [facility] ALP [Catalytic activity/Vol] 72 U/L 45-117 [facility] ALT [Catalytic activity/Vol] 15 U/L 13-56 [facility] CO2 [Moles/Vol] 24.0 mmol/L 21.0-32.0 [facility] Globulin (S) [Mass/Vol] 3.9 g/dL 2.2-4.2 [facility] Urea nitrogen/Creatinine [Mass ratio] 23.6 mg/mg 10-20 [facility] Laboratory - Hematology and Cell countsOrdered By: Angeladominick Lion on 07-19-2023 MCH (RBC) [Entitic mass] 34.1 pg 27.0-32.0 [facility] MCHC (RBC) [Mass/Vol] 32.8 g/dL 32-36 [facility] Nucleated RBC/100 WBC (Bld) [Ratio] 0 % 0-5 [facility] Platelet mean volume (Bld) [Entitic vol] 9.6 fL 6.2-12.0 [facility] Platelets (Bld) [#/Vol] 208 10*3/uL 150-450 [facility] No Panel InformationOrdered By: Angela Lion on 07-19-2023 Estimated GFR (MDRD) Amer 86 mL/min >60 [facility] Comment on above: GFR Calc Estimated GFR (MDRD) Non-Af Amer 71 mL/min >60 [facility] Comment on above: Non- GFR Calc RBC Auto (Bld) [#/Vol]Ordere d By: Angela Lion on 07-19-2023 RBC (Bld) [#/Vol] 3.93 10*6/uL 4.2-5.[address] [facility] Serum or plasma calcium ant urement (mass/volume)Ordered By: Angela Lion on 07-19-2023 Calcium [Mass/Vol] 9.2 mg/dL 8.5-10.1 [facility] Serum or plasma creatinine m easurement (mass/volume)Ordered By: Angela Lion on 07-19-2023 Creatinine [Mass/Vol] 0.85 mg/dL 0.55-1.02 [facility] Comment on above: The validity of the calculated GFR & GFRAA in patients over 70 years has not been determined. Clinical correlation is essential. Serum or plasma urea nitroge n measurement (mass/volume)Ordered By: Angela Lion on 07-19-2023 Urea nitrogen [Mass/Vol] 20 mg/dL 7-18 [facility] Thin prep Papanicolaou smear with manual screeningOrdered By: Angela Lion on 07-19-2023 Thin prep Papanicolaou smear with manual screening 3.7 g/dL 3.2-5.0 [facility] Thin prep Papanicolaou smear with manual screening 20 U/L 15-37 [facility] Thin prep Papanicolaou smear with manual screening 5 5-15 [facility] Serum or plasma thyroid stim ulating hormone (TSH) measurement (units/volume)Ordered By: Dania Beck on 06-28-2023 TSH Qn 0.54 uIU/mL 0.358-3.74 [facility] Absolute lymphocyte countOrd ered By: Angela Lion on 04-12-2023 Lymphocytes Auto (Unsp spec) [#/Vol] 2.16 10*3/uL 0.83-4.51 [facility] Basophil percentageOrdered B y: Angela Lion on 04-12-2023 Basophils/100 WBC (Bld) 1.1 % 0-1 [facility] Bilirubin [Mass/Vol] 0.50 mg/dL 0.20-1.00 [facility] Comment on above: For patients on eltr ombopag therapy, use of Dimension [place] TBIL is not recommended. Chloride [Moles/Vol] 111 mmol/L 98-107 [facility] Eosinophils/100 WBC (Bld) 1.8 % 0-5 [facility] Glucose [Mass/Vol] 93 mg/dL 74-106 [facility] Neutrophils (Bld) [#/Vol] 3.0 10*3/uL 2.0-7.7 [facility] Neutrophils/100 WBC (Bld) 53.8 % 47-70 [facility] Potassium [Moles/Vol] 4.2 mmol/L 3.5-5.1 [facility] Protein [Mass/Vol] 7.1 g/dL 6.4-8.2 [facility] Sodium [Moles/Vol] 140 mmol/L 136-145 [facility] WBC (Bld) [#/Vol] 5.6 10*3/uL 4.4-11.0 [facility] Blood erythrocytes count (nu mber/volume)Ordered By: Angela Lion on 04-12-2023 RBC (Bld) [#/Vol] 3.58 10*6/uL 4.2-5.[address] [facility] Blood hemoglobin measurement (mass/volume)Ordered By: Angela Lion on 04-12-2023 Hemoglobin (Bld) [Mass/Vol] 12.6 g/dL 12.0-15.0 [facility] Blood lymphocytes/100 leukoc ytesOrdered By: Angela Lion on 04-12-2023 Lymphocytes/100 WBC (Bld) 38.3 % 19-41 [facility] Blood monocytes/100 leukocyt esOrdered By: Angela Lion on 04-12-2023 Monocytes/100 WBC (Bld) 4.8 % 0-10 [facility] Blood platelet mean volumeOr dered By: Angela Lion on 04-12-2023 Platelet mean volume (Bld) [Entitic vol] 9.1 fL 6.2-12.0 [facility] Determination of erythrocyte mean corpuscular volume (MCV)Ordered By: Angela Lion on 04-12-2023 MCV (RBC) [Entitic vol] 108.1 fL 81-99 [facility] Hematocrit Auto (Bld) [Volum e fraction]Ordered By: Angeladominick Lion on 04-12-2023 Hematocrit (Bld) [Volume fraction] 38.7 % 37-47 [facility] Laboratory - Chemistry and C hemistry - challengeOrdered By: Angeladominick Lion on 04-12-2023 ALP [Catalytic activity/Vol] 68 U/L 45-117 [facility] ALT [Catalytic activity/Vol] 17 U/L 13-56 [facility] CO2 [Moles/Vol] 26.0 mmol/L 21.0-32.0 [facility] Globulin (S) [Mass/Vol] 3.8 g/dL 2.2-4.2 [facility] Urea nitrogen/Creatinine [Mass ratio] 17.3 mg/mg 10-20 [facility] - Hematology and Cell countsOrdered By: [facility] Ayad on 04-12-2023 Erythrocyte distribution width (RBC) [Entitic vol] 49.3 fL 35.1-43.9 [facility] Erythrocyte distribution width (RBC) [Ratio] 12.5 % 11.6-14.6 [facility] Immature granulocytes/100 WBC (Bld) 0.200 % 0.0-0.9 [facility] Comment on above: IG% - Immature Granu locytes (promyelocytes, myelocytes and metamyelocytes) > 1% indicates that a LEFT SHIFT is Present. MCH (RBC) [Entitic mass] 35.2 pg 27.0-32.0 [facility] Nucleated RBC/100 WBC (Bld) [Ratio] 0 % 0-5 [facility] MCHC Auto (RBC) [Mass/Vol]Or dered By: Angeladominick Lion on 04-12-2023 MCHC (RBC) [Mass/Vol] 32.6 g/dL 32-36 [facility] No Panel InformationOrdered By: Angeladominick Lion on 04-12-2023 Estimated GFR (MDRD) Amer 109 mL/min >60 [facility] Comment on above: GFR Calc Estimated GFR (MDRD) Non-Af Amer 90 mL/min >60 [facility] Comment on above: Non- GFR Calc Platelets bldOrdered By: Edmund Lion on 04-12-2023 Platelets (Bld) [#/Vol] 241 10*3/uL 150-450 [facility] Serum or plasma albumin ant urement (mass/volume)Ordered By: Angela Lion on 04-12-2023 Albumin [Mass/Vol] 3.3 g/dL 3.2-5.0 [facility] Serum or plasma albumin/glob ulin mass ratioOrdered By: Angela Lion on 04-12-2023 Albumin/Globulin [Mass ratio] 0.9 {ratio} 0.9-2.4 [facility] Serum or plasma calcium ant urement (mass/volume)Ordered By: Angela Lion on 04-12-2023 Calcium [Mass/Vol] 8.7 mg/dL 8.5-10.1 [facility] Serum or plasma creatinine m easurement (mass/volume)Ordered By: Angela Lion on 04-12-2023 Creatinine [Mass/Vol] 0.69 mg/dL 0.55-1.02 [facility] Comment on above: The validity of the calculated GFR & GFRAA in patients over 70 years has not been determined. Clinical correlation is essential. Serum or plasma urea nitroge n measurement (mass/volume)Ordered By: Angela Lion on 04-12-2023 Urea nitrogen [Mass/Vol] 12 mg/dL 7-18 [facility] Thin prep Papanicolaou smear with manual screeningOrdered By: Angela Lion on 04-12-2023 Thin prep Papanicolaou smear with manual screening 14 U/L 15-37 [facility] Thin prep Papanicolaou smear with manual screening 3 5-15 [facility] Absolute lymphocyte countOrd ered By: Angela Lion on 01-25-2023 Lymphocytes Auto (Unsp spec) [#/Vol] 1.85 10*3/uL 0.83-4.51 [facility] Basophil percentageOrdered B y: Angela Lion on 08-24-2023 Basophils/100 WBC (Bld) 0.8 % 0-1 [facility] Bilirubin [Mass/Vol] 0.40 mg/dL 0.20-1.00 [facility] Comment on above: For patients on eltr ombopag therapy, use of Dimension [place] TBIL is not recommended. Chloride [Moles/Vol] 110 mmol/L 98-107 [facility] Eosinophils/100 WBC (Bld) 1.0 % 0-5 [facility] Glucose [Mass/Vol] 94 mg/dL 74-106 [facility] Neutrophils (Bld) [#/Vol] 3.9 10*3/uL 2.0-7.7 [facility] Neutrophils/100 WBC (Bld) 63.5 % 47-70 [facility] Potassium [Moles/Vol] 3.9 mmol/L 3.5-5.1 [facility] Protein [Mass/Vol] 7.3 g/dL 6.4-8.2 [facility] Sodium [Moles/Vol] 141 mmol/L 136-145 [facility] WBC (Bld) [#/Vol] 6.2 10*3/uL 4.4-11.0 [facility] Blood erythrocytes count (nu mber/volume)Ordered By: Angela Lion on 01-25-2023 RBC (Bld) [#/Vol] 3.58 10*6/uL 4.2-5.[address] [facility] Blood hemoglobin measurement (mass/volume)Ordered By: Angela Lion on 01-25-2023 Hemoglobin (Bld) [Mass/Vol] 12.5 g/dL 12.0-15.0 [facility] Blood lymphocytes/100 leukoc ytesOrdered By: Angela Lion on 01-25-2023 Lymphocytes/100 WBC (Bld) 29.8 % 19-41 [facility] Blood monocytes/100 leukocyt esOrdered By: Angela Lion on 01-25-2023 Monocytes/100 WBC (Bld) 4.7 % 0-10 [facility] Blood platelet mean volumeOr dered By: Angela Lion on 01-25-2023 Platelet mean volume (Bld) [Entitic vol] 9.1 fL 6.2-12.0 [facility] Determination of erythrocyte mean corpuscular volume (MCV)Ordered By: Angela Lion on 01-25-2023 MCV (RBC) [Entitic vol] 103.4 fL 81-99 [facility] Hematocrit Auto (Bld) [Volum e fraction]Ordered By: Angela Lion on 01-25-2023 Hematocrit (Bld) [Volume fraction] 37.0 % 37-47 [facility] Laboratory - Chemistry and C hemistry - challengeOrdered By: Angela Lion on 01-25-2023 ALP [Catalytic activity/Vol] 66 U/L 45-117 [facility] ALT [Catalytic activity/Vol] 20 U/L 13-56 [facility] CO2 [Moles/Vol] 25.0 mmol/L 21.0-32.0 [facility] Globulin (S) [Mass/Vol] 3.7 g/dL 2.2-4.2 [facility] Urea nitrogen/Creatinine [Mass ratio] 19.4 mg/mg 10-20 [facility] - Hematology and Cell countsOrdered By: Angeladominick Lion on 01-25-2023 Erythrocyte distribution width (RBC) [Entitic vol] 49.7 fL 35.1-43.9 [facility] Erythrocyte distribution width (RBC) [Ratio] 13.1 % 11.6-14.6 [facility] Immature granulocytes/100 WBC (Bld) 0.200 % 0.0-0.9 [facility] Comment on above: IG% - Immature Granu locytes (promyelocytes, myelocytes and metamyelocytes) > 1% indicates that a LEFT SHIFT is Present. MCH (RBC) [Entitic mass] 34.9 pg 27.0-32.0 [facility] Nucleated RBC/100 WBC (Bld) [Ratio] 0 % 0-5 [facility] MCHC Auto (RBC) [Mass/Vol]Or dered By: Angela Lion on 01-25-2023 MCHC (RBC) [Mass/Vol] 33.8 g/dL 32-36 [facility] No Panel InformationOrdered By: Angeladominick Lion on 01-25-2023 Estimated GFR (MDRD) Amer 96 mL/min >60 [facility] Comment on above: GFR Calc Estimated GFR (MDRD) Non-Af Amer 80 mL/min >60 [facility] Comment on above: Non- GFR Calc Platelets bldOrdered By: Edmund Lion on 01-25-2023 Platelets (Bld) [#/Vol] 213 10*3/uL 150-450 [facility] Serum or plasma albumin ant urement (mass/volume)Ordered By: Angela Lion on 01-25-2023 Albumin [Mass/Vol] 3.6 g/dL 3.2-5.0 [facility] Serum or plasma albumin/glob ulin mass ratioOrdered By: Angela Lion on 01-25-2023 Albumin/Globulin [Mass ratio] 1.0 {ratio} 0.9-2.4 [facility] Serum or plasma calcium ant urement (mass/volume)Ordered By: Angela Lion on 01-25-2023 Calcium [Mass/Vol] 8.8 mg/dL 8.5-10.1 [facility] Serum or plasma creatinine m easurement (mass/volume)Ordered By: Angela Lion on 01-25-2023 Creatinine [Mass/Vol] 0.77 mg/dL 0.55-1.02 [facility] Comment on above: The validity of the calculated GFR & GFRAA in patients over 70 years has not been determined. Clinical correlation is essential. Serum or plasma urea nitroge n measurement (mass/volume)Ordered By: Angela Lion on 01-25-2023 Urea nitrogen [Mass/Vol] 15 mg/dL 7-18 [facility] Thin prep Papanicolaou smear with manual screeningOrdered By: Angela Lion on 01-25-2023 Thin prep Papanicolaou smear with manual screening 14 U/L 15-37 [facility] Thin prep Papanicolaou smear with manual screening 6 5-15 [facility] Absolute lymphocyte countOrd ered By: Angela Lion on 12-12-2022 Lymphocytes Auto (Unsp spec) [#/Vol] 2.52 10*3/uL 0.83-4.51 [facility] Basophil percentageOrdered B y: Angela Lion on 12-12-2022 Basophils/100 WBC (Bld) 0.6 % 0-1 [facility] Bilirubin [Mass/Vol] 0.30 mg/dL 0.20-1.00 [facility] Comment on above: For patients on eltr ombopag therapy, use of Dimension [place] TBIL is not recommended. Chloride [Moles/Vol] 111 mmol/L 98-107 [facility] Eosinophils/100 WBC (Bld) 0.9 % 0-5 [facility] Glucose [Mass/Vol] 89 mg/dL 74-106 [facility] Neutrophils (Bld) [#/Vol] 5.4 10*3/uL 2.0-7.7 [facility] Neutrophils/100 WBC (Bld) 63.5 % 47-70 [facility] Potassium [Moles/Vol] 4.9 mmol/L 3.5-5.1 [facility] Protein [Mass/Vol] 7.8 g/dL 6.4-8.2 [facility] Sodium [Moles/Vol] 139 mmol/L 136-145 [facility] WBC (Bld) [#/Vol] 8.6 10*3/uL 4.4-11.0 [facility] Blood erythrocytes count (nu mber/volume)Ordered By: Angela Lion on 12-12-2022 RBC (Bld) [#/Vol] 3.76 10*6/uL 4.2-5.[address] [facility] Blood hemoglobin measurement (mass/volume)Ordered By: Angela Lion on 12-12-2022 Hemoglobin (Bld) [Mass/Vol] 12.6 g/dL 12.0-15.0 [facility] Blood lymphocytes/100 leukoc ytesOrdered By: Angela Lion on 12-12-2022 Lymphocytes/100 WBC (Bld) 29.5 % 19-41 [facility] Blood monocytes/100 leukocyt esOrdered By: Angela Lion on 12-12-2022 Monocytes/100 WBC (Bld) 5.3 % 0-10 [facility] Blood platelet mean volumeOr dered By: Angela Lion on 12-12-2022 Platelet mean volume (Bld) [Entitic vol] 9.1 fL 6.2-12.0 [facility] Determination of erythrocyte mean corpuscular volume (MCV)Ordered By: Angela Lion on 12-12-2022 MCV (RBC) [Entitic vol] 104.8 fL 81-99 [facility] Hematocrit Auto (Bld) [Volum e fraction]Ordered By: Angela Lion on 12-12-2022 Hematocrit (Bld) [Volume fraction] 39.4 % 37-47 [facility] - Chemistry and C hemistry - challengeOrdered By: Angeladominick Lion on 12-12-2022 ALP [Catalytic activity/Vol] 73 U/L 45-117 [facility] ALT [Catalytic activity/Vol] 17 U/L 13-56 [facility] CO2 [Moles/Vol] 25.0 mmol/L 21.0-32.0 [facility] Globulin (S) [Mass/Vol] 4.2 g/dL 2.2-4.2 [facility] Urea nitrogen/Creatinine [Mass ratio] 19.7 mg/mg 10-20 [facility] - Hematology and Cell countsOrdered By: Angeladominick Lion on 12-12-2022 Erythrocyte distribution width (RBC) [Entitic vol] 48.3 fL 35.1-43.9 [facility] Erythrocyte distribution width (RBC) [Ratio] 12.5 % 11.6-14.6 [facility] Immature granulocytes/100 WBC (Bld) 0.200 % 0.0-0.9 [facility] Comment on above: IG% - Immature Granu locytes (promyelocytes, myelocytes and metamyelocytes) > 1% indicates that a LEFT SHIFT is Present. MCH (RBC) [Entitic mass] 33.5 pg 27.0-32.0 [facility] Nucleated RBC/100 WBC (Bld) [Ratio] 0 % 0-5 [facility] MCHC Auto (RBC) [Mass/Vol]Or dered By: Angeladominick Lion on 12-12-2022 MCHC (RBC) [Mass/Vol] 32.0 g/dL 32-36 [facility] No Panel InformationOrdered By: Angeladominick Lion on 12-12-2022 Estimated GFR (MDRD) Amer 79 mL/min >60 [facility] Comment on above: GFR Calc Estimated GFR (MDRD) Non-Af Amer 65 mL/min >60 [facility] Comment on above: Non- GFR Calc Platelets bldOrdered By: Edmund Lion on 12-12-2022 Platelets (Bld) [#/Vol] 259 10*3/uL 150-450 [facility] Serum or plasma albumin ant urement (mass/volume)Ordered By: Angela Lion on 12-12-2022 Albumin [Mass/Vol] 3.6 g/dL 3.2-5.0 [facility] Serum or plasma albumin/glob ulin mass ratioOrdered By: Angela Lion on 12-12-2022 Albumin/Globulin [Mass ratio] 0.9 {ratio} 0.9-2.4 [facility] Serum or plasma calcium ant urement (mass/volume)Ordered By: Angela Lion on 12-12-2022 Calcium [Mass/Vol] 9.4 mg/dL 8.5-10.1 [facility] Serum or plasma creatinine m easurement (mass/volume)Ordered By: Angela Lion on 12-12-2022 Creatinine [Mass/Vol] 0.92 mg/dL 0.55-1.02 [facility] Comment on above: The validity of the calculated GFR & GFRAA in patients over 70 years has not been determined. Clinical correlation is essential. Serum or plasma urea nitroge n measurement (mass/volume)Ordered By: Angela Lion on 12-12-2022 Urea nitrogen [Mass/Vol] 18 mg/dL 7-18 [facility] Thin prep Papanicolaou smear with manual screeningOrdered By: Angela Lion on 12-12-2022 Thin prep Papanicolaou smear with manual screening 19 U/L 15-37 [facility] Thin prep Papanicolaou smear with manual screening 3 5-15 [facility] Absolute lymphocyte countOrd ered By: Angela Lion on 11-21-2022 Lymphocytes Auto (Unsp spec) [#/Vol] 1.66 10*3/uL 0.83-4.51 [facility] Basophil percentageOrdered B y: Angela Lion on 11-21-2022 Basophils/100 WBC (Bld) 0.8 % 0-1 [facility] Bilirubin [Mass/Vol] 0.50 mg/dL 0.20-1.00 [facility] Comment on above: For patients on eltr ombopag therapy, use of Dimension [place] TBIL is not recommended. Chloride [Moles/Vol] 110 mmol/L 98-107 [facility] Eosinophils/100 WBC (Bld) 1.9 % 0-5 [facility] Glucose [Mass/Vol] 90 mg/dL 74-106 [facility] Neutrophils (Bld) [#/Vol] 4.2 10*3/uL 2.0-7.7 [facility] Neutrophils/100 WBC (Bld) 65.5 % 47-70 [facility] Potassium [Moles/Vol] 3.7 mmol/L 3.5-5.1 [facility] Protein [Mass/Vol] 8.0 g/dL 6.4-8.2 [facility] Sodium [Moles/Vol] 140 mmol/L 136-145 [facility] WBC (Bld) [#/Vol] 6.4 10*3/uL 4.4-11.0 [facility] Bilirubin Test strip Ql (U)O rdered By: Angela Lion on 11-21-2022 Bilirubin Ql (U) Negative Negative [facility] Blood erythrocytes count (nu mber/volume)Ordered By: Angela Lion on 11-21-2022 RBC (Bld) [#/Vol] 3.87 10*6/uL 4.2-5.[address] [facility] Blood hemoglobin measurement (mass/volume)Ordered By: Angela Lion on 11-21-2022 Hemoglobin (Bld) [Mass/Vol] 12.9 g/dL 12.0-15.0 [facility] Blood lymphocytes/100 leukoc ytesOrdered By: Angela Lion on 11-21-2022 Lymphocytes/100 WBC (Bld) 26.0 % 19-41 [facility] Blood monocytes/100 leukocyt esOrdered By: Angela Lion on 11-21-2022 Monocytes/100 WBC (Bld) 5.6 % 0-10 [facility] Blood platelet mean volumeOr dered By: Angela Lion on 11-21-2022 Platelet mean volume (Bld) [Entitic vol] 9.1 fL 6.2-12.0 [facility] Determination of erythrocyte mean corpuscular volume (MCV)Ordered By: Angela Lion on 11-21-2022 MCV (RBC) [Entitic vol] 101.3 fL 81-99 [facility] Dilute Nba's viper venom timeOrdered By: Angela Lion on 11-21-2022 dRVVT Coag (PPP) [Time] 38.0 s 0.0-47.0 [facility] Hematocrit Auto (Bld) [Volum e fraction]Ordered By: Angela Lion on 11-21-2022 Hematocrit (Bld) [Volume fraction] 39.2 % 37-47 [facility] INR in Blood by Coagulation assayOrdered By: Angela Lion on 11-21-2022 INR Coag (Bld) [Relative time] 1.1 {INR} [facility] Ketones Test strip Ql (U)Ord ered By: Angela Lion on 11-21-2022 Ketones Ql (U) Negative Negative [facility] Laboratory - Chemistry and C hemistry - challengeOrdered By: Angela Lion on 11-21-2022 ALP [Catalytic activity/Vol] 82 U/L 45-117 [facility] ALT [Catalytic activity/Vol] 13 U/L 13-56 [facility] CO2 [Moles/Vol] 26.0 mmol/L 21.0-32.0 [facility] Globulin (S) [Mass/Vol] 4.3 g/dL 2.2-4.2 [facility] Urea nitrogen/Creatinine [Mass ratio] 17.9 mg/mg 10-20 [facility] Laboratory - CoagulationOrde red By: Angela Lion on 11-21-2022 aPTT Coag (Bld) [Time] 30.1 s 24.1-36.2 [facility] PT Coag (PPP) [Time] 13.8 s 11.7-14.9 [facility] Laboratory - Hematology and Cell countsOrdered By: Angela Lion on 11-21-2022 Erythrocyte distribution width (RBC) [Entitic vol] 46.5 fL 35.1-43.9 [facility] Erythrocyte distribution width (RBC) [Ratio] 12.3 % 11.6-14.6 [facility] Immature granulocytes/100 WBC (Bld) 0.200 % 0.0-0.9 [facility] Comment on above: IG% - Immature Granu locytes (promyelocytes, myelocytes and metamyelocytes) > 1% indicates that a LEFT SHIFT is Present. MCH (RBC) [Entitic mass] 33.3 pg 27.0-32.0 [facility] Nucleated RBC/100 WBC (Bld) [Ratio] 0 % 0-5 [facility] - Miscellaneous t estsOrdered By: Angela Lion on 11-21-2022 Service comment (Unsp spec) [Interp] Comment . [facility] Comment on above: Results do not indic ate the presence of a LupusAnticoagulant: abnormal high screening results (PTT-LA,dRVVT, mixing studies), may be due to medication (heparin,warfarin, aspirin), Factor inhibitors, anticardiolipinantibodies, or poor specimen integrity.Performed at: [id number] [id number] Director: Chaya Davis MD, Phone: [phone] MCHC Auto (RBC) [Mass/Vol]Or dered By: Angela Lion on 11-21-2022 MCHC (RBC) [Mass/Vol] 32.9 g/dL 32-36 [facility] Nitrite Test strip Ql (U)Ord ered By: Angela Lion on 11-21-2022 Nitrite Ql (U) Negative Negative [facility] No Panel InformationOrdered By: Angela Lion on 11-21-2022 Miscellaneous Test Comment MAILED SPECIMEN [facility] Estimated GFR (MDRD) Amer 87 mL/min >60 [facility] Comment on above: GFR Calc Estimated GFR (MDRD) Non-Af Amer 72 mL/min >60 [facility] Comment on above: Non- GFR Calc Hepatitis B Surface Antigen Non-Reactive Nonreactive [facility] Hepatitis C Antibody Non-Reactive Nonreactive [facility] Comment on above: Non Reactive: < 0.8 Equivocal: >/= 0.8 to < 1.0 Reactive: >/= 1.0The CDC recommends that a reactive/equivocal HCV antibody result be followed up by the HCV Nucleic Acid Amplificationtest (839039) Platelets bldOrdered By: Edmund Lion on 11-21-2022 Platelets (Bld) [#/Vol] 225 10*3/uL 150-450 [facility] Protein Test strip Ql (U)Ord ered By: Angela Lion on 11-21-2022 Protein Ql (U) Negative Negative [facility] Serum hepatitis B virus surf kyle antibody IgG detectionOrdered By: Angela Lion on 11-21-2022 HBV surface IgG Ql (S) Reactive [facility] Comment on above: Non Reactive: Incons istent with immunity less than <10 mIU/mL Reactive: Consistent with immunity greater than or equal to 10 mIU/mL Serum or plasma albumin ant urement (mass/volume)Ordered By: Angela Lion on 11-21-2022 Albumin [Mass/Vol] 3.7 g/dL 3.2-5.0 [facility] Serum or plasma albumin/glob ulin mass ratioOrdered By: Angela Lion on 11-21-2022 Albumin/Globulin [Mass ratio] 0.9 {ratio} 0.9-2.4 [facility] Serum or plasma calcium ant urement (mass/volume)Ordered By: Angela Lion on 11-21-2022 Calcium [Mass/Vol] 9.2 mg/dL 8.5-10.1 [facility] Serum or plasma creatinine m easurement (mass/volume)Ordered By: Angela Lion on 11-21-2022 Creatinine [Mass/Vol] 0.84 mg/dL 0.55-1.02 [facility] Comment on above: The validity of the calculated GFR & GFRAA in patients over 70 years has not been determined. Clinical correlation is essential. Serum or plasma urea nitroge n measurement (mass/volume)Ordered By: Angela Lion on 11-21-2022 Urea nitrogen [Mass/Vol] 15 mg/dL 7-18 [facility] Thin prep Papanicolaou smear with manual screeningOrdered By: Angela Lion on 11-21-2022 Thin prep Papanicolaou smear with manual screening 14 U/L 15-37 [facility] Thin prep Papanicolaou smear with manual screening 4 5-15 [facility] Thin prep Papanicolaou smear with manual screening 37.4 sec 0.0-47.6 [facility] Thin prep Papanicolaou smear with manual screening 0.96 Ratio 0.00-1.34 [facility] Thin prep Papanicolaou smear with manual screening 38.8 sec 0.0-43.5 [facility] Thin prep Papanicolaou smear with manual screening Comment: . [facility] Comment on above: No lupus anticoagula nt was detected. Thrombin time in platelet po or plasmaOrdered By: Angela Lion on 11-21-2022 Thrombin time Coag (PPP) [Time] 16.9 sec 0.0-23.0 [facility] Urine blood detectionOrdered By: Angela Lion on 11-21-2022 RBC Ql (U) Negative Negative [facility] Urine clarityOrdered By: Edmund Lion on 11-21-2022 Clarity (U) Clear Clear [facility] Urine color determinationOrd ered By: Angela Lion on 11-21-2022 Color (U) Yellow Yellow [facility] Urine creatinine measurement (mass/volume)Ordered By: Angela Lion on 11-21-2022 Creatinine (U) [Mass/Vol] 49.40 mg/dL NO RANGE EST. [facility] Urine glucose detectionOrder ed By: Angela Lion on 11-21-2022 Glucose Ql (U) Normal mg/dl Normal [facility] Urine leukocyte esterase det ection by dipstickOrdered By: Angela Lion on 11-21-2022 Leukocyte esterase Test strip Ql (U) 25 /ul Negative [facility] Urine pHOrdered By: Angela campa on 11-21-2022 pH (U) 6.5 [pH] 5.0 - 8.0 [facility] Urine protein measurement (m ass/volume)Ordered By: Angela Lion on 11-21-2022 Protein (U) [Mass/Vol] 10.0 mg/dL 0.0-11.8 [facility] Urine protein/creatinine mas s ratioOrdered By: Angela Lion on 11-21-2022 Protein/Creatinine (U) [Mass ratio] 202 mg/g CRE 0-200 [facility] Urine specific gravity measu rementOrdered By: Angela Lion on 11-21-2022 Specific gravity (U) [Rel density] 1.010 1.002-1.030 [facility] Urobilinogen Auto test strip Ql (U)Ordered By: Angela Lion on 11-21-2022 Urobilinogen Ql (U) Normal mg/dl Normal [facility] Vital Signs Date Time Vital Sign Value Performing Clinician Faci lity 12-03-2024 10:40-0400 Body height 165.1 cm Dania Beck MD Work Phone: [facility] 12-03-2024 10:40-0400 Body mass index (BMI) [Ratio] 22.3 kg/m2 Dania Beck MD Work Phone: [facility] 12-03-2024 10:40-0400 Body temperature 97.5 [degF] Dania Beck MD Work Phone: [facility] 12-03-2024 10:40-0400 Body weight 60.78 kg Dania Beck MD Work Phone: [facility] 12-03-2024 10:40-0400 Diastolic blood pressure 76 mm[Hg] Dania Beck MD Work Phone: [facility] 12-03-2024 10:40-0400 Heart rate 60 /min Dania Beck MD Work Phone: [facility] 12-03-2024 10:40-0400 Respiratory rate 18 /min Dania Beck MD Work Phone: [facility] 12-03-2024 10:40-0400 SaO2% (BldA) [Mass fraction] 97 % Dania Beck MD Work Phone: [facility] 12-03-2024 10:40-0400 Systolic blood pressure 120 mm[Hg] Dania Beck MD Work Phone: [facility] Encounters Encounter Date Encounter Type Care Provider Facility Start: 12-03-2024 End: 12-03-2024 ambulatory Dania Beck MD Work Phone: -[facility] Start: 12-03-2024 End: 12-03-2024 Patient encounter procedure Toya MIR -[facility] Work Phone: Start: 12-03-2024 [facility] Start: 12-03-[address] Dania Beck MD -Pulmonary Services/Neurology Work Phone: Start: 11-20-2024 ambulatory [facility] Kiran Facility:[facility] Start: 10-28-2024 End: 10-28-2024 ambulatory Dania Beck MD Work Phone: [facility] Work Phone: Start: 10-28-2024 End: 10-28-[address] Dania Beck MD -Radiology [place] Work Phone: Start: 10-28-2024 End: 10-28-2024 [facility] Start: 10-08-2024 End: 10-08-2024 ambulatory Dania Beck MD Work Phone: [facility] Work Phone: Start: 10-08-2024 End: 10-08-[address] Angela Lion MD -Laboratory, [place] Work Phone: Start: 10-08-2024 End: 10-08-[facility] Start: 07-15-2024 End: 07-15-[address] Angela Lion MD -Laboratory, [place] Work Phone: Start: 07-15-2024 End: 07-15-[facility]24 [facility] Start: 04-23-2024 End: 04-23-2024 ambulatory [facility] Facility:[facility] Start: 01-28-2024 End: 01-28-2024 ambulatory [facility] Start: 12-26-2023 End: 12-26-2023 [facility] Start: 12-20-2023 Encounter for genera l adult medical examination without abnormal findings Dania Beck [facility] Start: 12-11-2023 End: 12-11-2023 ambulatory Dania Kiran Facility:[facility] Start: 08-17-2023 [facility] Start: 08-17-2023 End: 08-17-2023 Patient encounter status Hunter Ferraro MD Work Phone: 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] Start: 07-19-2023 End: 07-19-2023 ambulatory [facility] Work Phone: Start: 07-19-2023 End: 07-19-2023 Patient encounter procedure [facility] Work Phone: Start: 06-28-2023 End: 06-28-2023 Patient encounter procedure [facility] Start: 04-12-2023 End: 04-12-2023 ambulatory [facility] Work Phone: Start: 04-12-2023 End: 04-12-2023 Patient encounter procedure [facility] Work Phone: Start: 01-25-2023 End: 01-25-2023 Patient encounter procedure [facility] Work Phone: Start: 12-12-2022 End: 12-12-2022 ambulatory [facility] Work Phone: Start: 12-12-2022 End: 12-12-2022 Patient encounter procedure [facility] Work Phone: Start: 11-21-2022 End: 11-21-2022 Patient encounter procedure [facility] Work Phone: Procedures Date Procedure Procedure Detail Performing Clinician Start: 10-28-2024 X-ray of chest, PA a nd lateral views Dania Beck MD Work Phone: Start: 10-08-2024 Urnls dip stick/tabl et reagent auto microscopy Dania Beck MD Work Phone: Start: 07-15-2024 Measurement of renal function Dania Beck MD Work Phone: Comment on above: GFR Calc Start: 07-15-2024 Random urine protein level Dania Beck MD Work Phone: Start: 07-15-2024 Urnls dip stick/tabl et reagent auto microscopy Dania Beck MD Work Phone: Start: 08-17-2023 Ecg routine ecg w/le ast 12 lds i&r only Hunter Ferraro MD Work Phone: H/O: surgery History of bunio nectomy of both great toes Dania Beck MD Work Phone: H/O: tubal ligation H/O tubal ligation Dina Beck MD Work Phone: Plan of Treatment Date Care Activity Detail Author Start: 08-16-2026 Diabetes Screening Diabetes Screening [facility] Start: 10-10-2023 Screening for malignant neoplasm of breast Mammogram Screening [facility] Start: 06-04-2023 Advance Directive Discussion Advance Directive Discussion [facility] Start: 06-04-2023 Depression Assessment Depression Assessment [facility] Start: 2022 Pneumococcal Vaccine: 65+ (2 of 2 - PCV) Pneumococcal Vaccine: 65+ (2 of 2 - PCV) [facility] Start: 2022 Screening for osteoporosis Bone Density Screening [facility] Start: 06-05-2011 Urine microalbumin profile DTaP,Tdap,Td Vaccine (1 - Tdap) [facility] Start: 2007 Shingrix Vaccine (1 of 2) Shingrix Vaccine (1 of 2) [facility] Start: 2002 Lipid panel Lipid Screening [facility] Start: 2002 Screening for malignant neoplasm of colon [facility] Start: 1975 Hepatitis C screening Hepatitis C Screening 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, unspecified laterality Pre-operative cardiovascular examination 08/17/2023 1:23 PM EDT [facility] Work Phone: Positron emission tomography with computed tomography [facility] Walking distance 6 minutes [facility] Payers Date Payer Category Payer Self-pay 2023 Medicare [employer] MEDICARE [employer] GOLD PLUS [id number] 2023-Present [phone] [address] [address] [place] [address] HMO [id number] 2023 Private Health Insurance [id number] Self-pay [id number] Unknown [id number] Unknown [id number] Unknown [id number] Unknown [id number] Unknown [id number] Unknown [id number] Unknown [id number] Unknown [id number] Unknown [id number] Social History Date Type Detail Facility Tobacco smoking status NHIS Unknown if ever smoked [facility] Work Phone: Start: 1955 Sex Assigned At Female [facility] Tobacco smoking status SCIS Tobacco smoking consumption unknown [facility] Start: 1955 Sex Assigned At Not on file [facility] Gender identity Not on file [facility] Start: 12-03-2024 Tobacco smoking status NHIS Current Heavy tobacco smoker [facility] Radiology Diagnostic study note 10-29-2024 Note Date & Type Note Facility 10-29-2024 Radiology Diagnostic study note [facility] Imaging Services [address] [place] [address] [id number] Chest PA and Lateral MR#: [id number] Acct: [id number] Name: BLACK SHORT Rep #: [id number] : 1955 F 69 From: Hao Tamez MD PCP: Dr. Dania Beck MD Status: REG CL I Study:Chest PA and Lateral Date of Exam: 10/28/24 Exam# [id number] Ordering Dr: Lynette Beck MD PROCEDURE: CHEST PA AND LATERAL 10/28/2024 REASON FOR EXAM: CONCERN FOR PNEUMONIA TECHNIQUE: Frontal and lateral views of the chest. COMPARISON: None available FINDINGS: Approximate 4.6 cm masslike right perihilar opacity mid lung on the frontal and appears marginated by the major fissure on the lateral may represent a pneumonia however mass is not excluded. A 9 mm nodule is seen at the right lower lung. Appearance of background of emphysema with hyperinflation. The left lung appears clear. The cardiac and mediastinal contours appear within limits. The visualized osseous structures appear within limits. No pleural effusion identified. RAD/Chest PA and Lateral IMPRESSION: Perihilar masslike right midlung opacity and right lower lung 9 mm nodule or density as above. May further evaluate with chest CT. Clinically correlate Appearance of background of pulmonary emphysema. Reading Location: [id number] CC: Dr. 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 Chief Complaint and Reason for Visit Chief Complaint Pain PAIN- COPY PCP Chief Complaint Pain Chief Complaint Admit Date PAIN - COPY PCP July 15, 2024 10:25am PAIN- COPY PCP October 08, 2024 1:53pm Chief Complaint Admit Date PAIN - COPY PCP July 15, 2024 10:25am PAIN- COPY PCP October 08, 2024 1:53pm Concern for pneumonia October 28, 2024 3:0 3pm Chief Complaint Admit Date PAIN- COPY PCP October 08, 2024 1:53pm Concern for pneumonia October 28, 2024 3:0 3pm PRODUCTIVE COUGH December 03, 2024 9:22a m RLL Nodule December 03, 2024 10:33 am Reason for Visit Admit Date Abnormal CT scan, chest December 03, 2024 1 0:33am Summary Purpose Family History No Family History Records FoundNo Family History Records Found Advance Directives No Advanced Directives Records FoundNo Advanced Directives Records Found Additional Source Comments Care Teams (unrecognized sec tion and content) Team Status: Active Member Role Status Dates No Primary Care Physician Primary Care Provider Active Team Status: Inactive Member Role Status Dates No Primary Care Physician Primary Care Provider Active Dr. Angela Lion MD Attending Provider, Referring Provider Active Team Status: Active Member Role Status Giovanna Beck MD Primary Care Provider Active Team Status: Inactive Member Role Status Giovanna Beck MD Primary Care Provider, Attending Prov ider Active Team Status: Inactive Member Role Status Giovanna Beck MD Primary Care Provider Active Dr. Angela Lion MD Attending Provider, Referring Provider Active Team Status: Inactive Member Role Status Giovanna Beck MD Primary Care Provider Active St art: July 15, 2024 End: July 15, 2024 Dr. Angela Lion MD Attending Provider Active Start: July 15, 2024 End: July 15, 2024 Dr. Angela Lion MD Referring Provider Active Start: July 15, 2024 End: July 15, 2024 Team Status: Inactive Member Role Status Giovanna Beck MD Primary Care Provider Active St art: October 08, 2024 End: October 08, 2024 Dr. Angela Lion MD Attending Provider Active Start: October 08, 2024 End: October 08, 2024 Dr. Angela Lion MD Referring Provider Active Start: October 08, 2024 End: October 08, 2024 Team Status: Inactive Member Role Status Giovanna Beck MD Primary Care Provider Active St art: October 28, 2024 End: October 28, 2024 Dania Beck MD Attending Provider Active Start : October 28, 2024 End: October 28, 2024 Dania Beck MD Referring Provider Active Start : October 28, 2024 End: October 28, 2024 Team Status: Active Member Role/Relationship Status Giovanna Beck MD Primary Care Provider Active Team Status: Inactive Member Role/Relationship Status Giovanna Beck MD Primary Care Provider Active St art: October 08, 2024 End: October 08, 2024 Dr. Angela Lion MD Attending Provider Active Start: October 08, 2024 End: October 08, 2024 Dr. Angela Lion MD Referring Provider Active Start: October 08, 2024 End: October 08, 2024 Team Status: Inactive Member Role/Relationship Status Giovanna Beck MD Primary Care Provider Active St art: October 28, 2024 End: October 28, 2024 Dania Beck MD Attending Provider Active Start : October 28, 2024 End: October 28, 2024 Dania Beck MD Referring Provider Active Start : October 28, 2024 End: October 28, 2024 Team Status: Active Member Role/Relationship Status Giovanna Beck MD Primary Care Provider Active St art: December 03, 2024 Dania Beck MD Attending Provider Active Start : December 03, 2024 Dania Beck MD Referring Provider Active Start : December 03, 2024 Team Status: Inactive Member Role/Relationship Status Giovanna Beck MD Primary Care Provider Active St art: December 03, 2024 End: December 03, 2024 Dania Beck MD Referring Provider Active Start : December 03, 2024 End: December 03, 2024 Toya Busby TURPENTINE FARMER, TURPENTINE FARMER-C Attending Provider Active Start: December 03, 2024 End: December 03, 2024 Goals (unrecognized section and content) Goals may be documented in a n alternate sectionGoals may be documented in an alternate sectionGoals may be documented in an alternate sectionGoals may be documented in an alternate sectionGoals may be documented in an alternate sectionGoals may be documented in an alternate section Source Comments (unrecognize d section and content) In the event this informatio n is protected by the Federal Confidentiality of Alcohol and Drug Abuse Patient Records regulations: The Federal rules restrict any use of the information to criminally investigate or prosecute any alcohol or drug abuse patient.[facility] event this information is protected by the Federal Confidentiality of Alcohol and Drug Abuse Patient Records regulations: The Federal rules restrict any use of the information to criminally investigate or prosecute any alcohol or drug abuse patient.[facility] INFORMATION SOURCE (unrecogn ized section and content) DATE CREATED AUTHOR 08/18/2023 [facility] DATE CREATED AUTHOR AUTHOR'S WINTERIZ ATJESSICA 12/02/2024 [facility] FOR RECORDS PERTAINING TO PATIENTS WHO ARE OR HAVE BEEN ENROLLED IN A CHEMICAL DEPENDENCY/SUBSTANCEABUSE PROGRAM, SOME INFORMATION MAY BE OMITTED. This clinical summary was aggregated from multiple sources. Caution should be exercised in using it in the provision of clinical care. This summary normalizes information from multiple sources, and as a consequence, information in this document may materially change the coding, format and clinical context of patient data. In addition, data may be omitted in some cases. CLINICAL DECISIONS SHOULD BE BASED ON THE PRIMARY CLINICAL RECORDS. [employer] [facility]. provides no warranty or guarantee of the accuracy or completeness of information in this document.
--- OUTSIDE RECORDS SUMMARY | 2024-12-03 21:00 | XMS RPT_ITS | CCD ---
Author Organization [facility] CliniSypr Care Team Providers Care Crew Foreman Name Role Phone Unavailable Primary Care Provider Unavailabl e HUNTER FERRARO Referring Unavailable HUNTER FERRARO Referring Unavailable Dania Beck MD Primary Care Provider Ayad HARRISON, Dr. Miller Attending Provider Ayad HARRISON, Dr. Miller Referring Provider Dania Beck MD Attending Provider Dania Beck MD Referring Provider [phone] Kiran, Chalon Primary Care Unavailable Kiran, Chalon [...] Unavailable Kiran , Dania Primary Care Provider Ayad HARRISON, Dr. Miller Attending Provider Ayad HARRISON, Dr. Miller Referring Provider Kehinde CRESPO-CToya Attending Provider Medications Current Medications Medication Drug Class(es) Dates Sig (Normalized) Sig (Original) 0.4 ml adalimumab 100 mg/ml prefilled syringe (1 source) Tumor Necrosis Factor Andres Start: 5 Adalimumab (Humira(Cf)) 40 mg/0.4 mL syringe kit Active 40 mg SC EVERY WEEK December 03, 2024 12:00am [id number] 200 actuat albuterol 0.09 mg/actuat metered dose [...] PO daily December 03, 2024 12:00am Ipratropium [place] 42 mcg (0.06 %) spray,non-aerosol (1 source) Start: 5 Ipratropium [place] 42 mcg (0.06 %) spray,non-aerosol Active 2 [...] Facility Chest without Contraston Chest without Contrast [facility] Imaging Services [address] [place] [address] Chest without Contrast MR#: [id number] Acct: [id number] Name: BLACK SHORT Rep #: [id number] : 1955 F 69 From: Charles boswell MD PCP: Dr. Dania Beck MD Status: PRE CLI Study: Chest without Contrast Date of Exam: 11/20/24 Exam# [id number] Ordering Dr: Dania Beck MD PROCEDURE: CHEST [...] of the right lower lobe. 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 Dania Beck MD Status: REG CLI Study: Chest PA and Lateral Date of Exam: 10/28/24 Exam# [id number] Ordering Dr: Dania Beck MD PROCEDURE: CHEST [...] of background of pulmonary emphysema. Reading Location: [facility] CC: Dr. 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 Normal [facility] Absolute lymphocyte countOrd ered By: Angela Lion on 10-08-2024 Lymphocytes Auto (Unsp spec) [#/Vol] 2.04 10*3/uL 0.83-4.51 [facility] Absolute neutrophil countOrd ered By: Angela Lion on 10-08-2024 Neutrophils (Bld) [#/Vol] 3.2 10*3/uL 2.0-7.7 [facility] Anion gap in Serum or Plasma Ordered By: Angela Lion on 10-08-2024 Anion gap [Moles/Vol] 10 mmol/L 5-15 [facility] Automated lymphocyte count a s percentage of total leukocytesOrdered By: Angela Lion on 10-08-2024 Lymphocytes/100 WBC Auto (Unsp spec) 35.6 % 19-41 [facility] BUN/creatinine ratioOrdered By: Angela Lion on 10-08-2024 Urea nitrogen/Creatinine [Mass ratio] 13.4 mg/mg 10-20 [facility] Basophil percentageOrdered B y: Angela Lion on 10-08-2024 Basophils/100 WBC (Bld) 0.9 % 0-1 [facility] Bilirubin Test strip Ql (U)O rdered By: Angela Lion on 10-08-2024 Bilirubin Ql (U) Negative Negative [facility] Bilirubin, totalOrdered By: Angela Lion on 10-08-2024 Bilirubin [Mass/Vol] 0.26 mg/dL 0.00-1.30 [facility] CBC W/Diff, Automatedon Absolute Lymph 2.04 X10 3/uL Normal 0.83-4.51 [facility] Comment on above: Performed By: #### L 100.0100, L500.4050 #### [facility] [address] [place], [address] Absolute Neut 3.2 X10 3/uL Normal 2.0-7.7 [facility] Comment on above: Performed By: #### L 100.0100, L500.4050 #### [facility] [address] [place], [address] Basophils/100 WBC (Bld) 0.9 % Normal 0-1 [facility] Comment on above: Performed By: #### L 100.0100, L500.4050 #### [facility] [address] [place], [address] Eosinophils/100 WBC (Bld) 2.3 % Normal 0-5 [facility] Comment on above: Performed By: #### L 100.0100, L500.4050 #### [facility] [address] [place], [address] Erythrocyte distribution width (RBC) [Ratio] 12.5 % Normal 11.6-14.6 [facility] Comment on above: Performed By: #### L 100.0100, L500.4050 #### [facility] [address] [place], [address] Hematocrit (Bld) [Volume fraction] 36.3 % Low 37-47 [facility] Comment on above: Performed By: #### L 100.0100, L500.4050 #### [facility] [address] [place], [address] Hemoglobin (Bld) [Mass/Vol] 12.0 g/dL Normal 12.0-15.0 [facility] Comment on above: Performed By: #### L 100.0100, L500.4050 #### [facility] [address] [place], [address] IG% 0.200 Normal 0.0-0.9 [facility] Comment on above: Result Comment: IG% - Immature Granulocytes (promyelocytes, myelocytes and metamyelocytes) > 1% indicates that a LEFT SHIFT is Present. Performed By: #### L 100.0100, L500.4050 #### [facility] [address] [place], [address] Lymphocytes/100 WBC (Bld) 35.6 % Normal 19-41 [facility] Comment on above: Performed By: #### L 100.0100, L500.4050 #### [facility] [address] [place], [address] MCH (RBC) [Entitic mass] 33.2 pg High 27.0-32.0 [facility] Comment on above: Performed By: #### L 100.0100, L500.4050 #### [facility] [address] [place], [address] MCHC (RBC) [Mass/Vol] 33.1 g/dL Normal 32-36 [facility] Comment on above: Performed By: #### L 100.0100, L500.4050 #### [facility] [address] [place], [address] MCV (RBC) [Entitic vol] 100.6 fL High 81-99 [facility] Comment on above: Performed By: #### L 100.0100, L500.4050 #### [facility] [address] [place], [address] Monocytes/100 WBC (Bld) 6.1 % Normal 0-10 [facility] Comment on above: Performed By: #### L 100.0100, L500.4050 #### [facility] [address] [place], [address] Neutrophils/100 WBC (Bld) 54.9 % Normal 47-70 [facility] Comment on above: Performed By: #### L 100.0100, L500.4050 #### [facility] [address] [place], [address] Nucleated RBC (Bld) [#/Vol] 0 10*3/uL Normal 0-5 [facility] Comment on above: Performed By: #### L 100.0100, L500.4050 #### [facility] [address] [place], [address] Platelet mean volume (Bld) [Entitic vol] 9.1 fL Normal 6.2-12.0 [facility] Comment on above: Performed By: #### L 100.0100, L500.4050 #### [facility] [address] [place], [address] Platelets (Bld) [#/Vol] 218 10*3/uL Normal 150-450 [facility] Comment on above: Performed By: #### L 100.0100, L500.4050 #### [facility] [address] [place], [address] RBC (Bld) [#/Vol] 3.61 10*6/uL Low 4.2-5.4 [facility] Comment on above: Performed By: #### L 100.0100, L500.4050 #### [facility] [address] [place], [address] RDW SD 46.3 fl High 35.1-43.9 [facility] Comment on above: Performed By: #### L 100.0100, L500.4050 #### [facility] [address] [place], [address] WBC (Bld) [#/Vol] 5.7 10*3/uL Normal 4.4-11.0 [facility] Comment on above: Performed By: #### L 100.0100, L500.4050 #### [facility] [address] [place], [address] Carbon dioxide, total [Moles /volume] in Central venous bloodOrdered By: Angela Lion on 10-08-2024 CO2 [Moles/Vol] 23.0 mmol/L 21.0-32.0 [facility] Chloride assayOrdered By: Arias Lion on 10-08-2024 Chloride [Moles/Vol] 107 mmol/L 98-108 [facility] Comprehensive Metabolic Prof ilon 10-08-2024 Albumin [Mass/Vol] 3.9 g/dL Normal 3.4-4.8 [facility] Comment on above: Performed By: #### L 100.0100, L500.4050 #### [facility] [address] [place], [address] Albumin/Globulin [Mass ratio] 1.1 {ratio} Normal 0.9-2.4 [facility] Comment on above: Performed By: #### L 100.0100, L500.4050 #### [facility] [address] [place], [address] ALK PHOS 75 U/L Normal 35-104 [facility] Comment on above: Performed By: #### L 100.0100, L500.4050 #### [facility] [address] [place], [address] ALT [Catalytic activity/Vol] 7 U/L Normal <=34 [facility] Comment on above: Performed By: #### L 100.0100, L500.4050 #### [facility] [address] [place], [address] AST [Catalytic activity/Vol] 17 U/L Normal <=31 [facility] Comment on above: Performed By: #### L 100.0100, L500.4050 #### [facility] [address] [place], [address] Bilirubin [Mass/Vol] 0.26 mg/dL Normal 0.00-1.30 [facility] Comment on above: Performed By: #### L 100.0100, L500.4050 #### [facility] [address] [place], [address] BUN/CRE 13.4 RATIO Normal 10-20 [facility] Comment on above: Performed By: #### L 100.0100, L500.4050 #### [facility] [address] [place], [address] Calcium [Mass/Vol] 9.4 mg/dL Normal 7.6-11.0 [facility] Comment on above: Performed By: #### L 100.0100, L500.4050 #### [facility] [address] [place], [address] Chloride [Moles/Vol] 107 mmol/L Normal 98-108 [facility] Comment on above: Performed By: #### L 100.0100, L500.4050 #### [facility] [address] [place], [address] CO2 [Moles/Vol] 23.0 mmol/L Normal 21.0-32.0 [facility] Comment on above: Performed By: #### L 100.0100, L500.4050 #### [facility] [address] [place], [address] Creatinine [Mass/Vol] 0.73 mg/dL Normal 0.70-1.20 [facility] Comment on above: Performed By: #### L 100.0100, L500.4050 #### [facility] [address] [place], [address] GAP 10 Normal 5-15 [facility] Comment on above: Performed By: #### L 100.0100, L500.4050 #### [facility] [address] [place], [address] GFR/1.73 sq M.predicted among non-blacks MDRD (S/P/Bld) [Vol rate/Area] 90 mL/min/{1.73_m2} Normal >60 [facility] Comment on above: Result Comment: mL/m in/1.73m2 CKD-EPI Creatinine Equation (2020) Performed By: #### L 100.0100, L500.4050 #### [facility] [address] [place], [address] Globulin (S) [Mass/Vol] 3.5 g/dL Normal 2.2-4.2 [facility] Comment on above: Performed By: #### L 100.0100, L500.4050 #### [facility] [address] [place], [address] Glucose [Mass/Vol] 99 mg/dL Normal 70-99 [facility] Comment on above: Performed By: #### L 100.0100, L500.4050 #### [facility] [address] [place], [address] Potassium [Moles/Vol] 4.4 mmol/L Normal 3.3-5.1 [facility] Comment on above: Performed By: #### L 100.0100, L500.4050 #### [facility] [address] [place], [address] Sodium [Moles/Vol] 140 mmol/L Normal 133-145 [facility] Comment on above: Performed By: #### L 100.0100, L500.4050 #### [facility] [address] [place], [address] T PROT 7.4 g/dL Normal 5.9-8.4 [facility] Comment on above: Performed By: #### L 100.0100, L500.4050 #### [facility] [address] [place], [address] Urea nitrogen [Mass/Vol] 10 mg/dL Normal 4-19 [facility] Comment on above: Performed By: #### L 100.0100, L500.4050 #### [facility] [address] [place], [address] Eosinophil percentageOrdered By: Angela Lion on 10-08-2024 Eosinophils/100 WBC (Bld) 2.3 % 0-5 [facility] Erythrocyte distribution wid th ratioOrdered By: Angela Lion on 10-08-2024 Erythrocyte distribution width (RBC) [Ratio] 12.5 % 11.6-14.6 [facility] Erythrocyte distribution wid th standard deviationOrdered By: Angela Lion on 10-08-2024 Erythrocyte distribution width (RBC) [Ratio] 46.3 fl High 35.1-43.9 [facility] Glomerular filtration rate ( GFR) estimation/1.73 sq m using serum, plasma, or whole bOrdered By: Angela Lion on 10-08-2024 GFR/1.73 sq M.predicted among non-blacks MDRD (S/P/Bld) [Vol rate/Area] 90 mL/min/{1.73_m2} >60 [facility] Comment on above: mL/min/1.73m2 CKD-EP I Creatinine Equation (2020) Hematocrit Auto (Bld) [Volum e fraction]Ordered By: Angela Lion on 10-08-2024 Hematocrit (Bld) [Volume fraction] 36.3 % Low 37-47 [facility] Hemoglobin measurementOrdere d By: Angela Lion on 10-08-2024 Hemoglobin (Bld) [Mass/Vol] 12.0 g/dL 12.0-15.0 [facility] Immature granulocytes/100 WB C Auto (Bld)Ordered By: Angela Lion on 10-08-2024 Immature granulocytes/100 WBC (Bld) 0.200 % 0.0-0.9 [facility] Comment on above: IG% - Immature Granu locytes (promyelocytes, myelocytes and metamyelocytes) > 1% indicates that a LEFT SHIFT is Present. Ketones Test strip Ql (U)Ord ered By: Angela Lion on 10-08-2024 Ketones Ql (U) Negative Negative [facility] - Chemistry and C hemistry - challengeOrdered By: Angela Lion on 10-08-2024 AST [Catalytic activity/Vol] 17 U/L <32 [facility] MCV (mean corpuscular volume ) determinationOrdered By: Angela Lion on 10-08-2024 MCV (RBC) [Entitic vol] 100.6 fL High 81-99 [facility] Mean corpuscular hemoglobin (MCH) determinationOrdered By: Angela Lion on 10-08-2024 MCH (RBC) [Entitic mass] 33.2 pg High 27.0-32.0 [facility] Mean corpuscular hemoglobin concentration (MCHC) determinationOrdered By: Angela Lion on 10-08-2024 MCHC (RBC) [Mass/Vol] 33.1 g/dL 32-36 [facility] Mean platelet volume determi nationOrdered By: Angela Lion on 10-08-2024 Platelet mean volume (Bld) [Entitic vol] 9.1 fL 6.2-12.0 [facility] Monocyte percentageOrdered B y: Angela Lion on 10-08-2024 Monocytes/100 WBC (Bld) 6.1 % 0-10 [facility] Neutrophil percentageOrdered By: Angela Lion on 10-08-2024 Neutrophils/100 WBC (Bld) 54.9 % 47-70 [facility] Nitrite Test strip Ql (U)Ord ered By: Angela Lion on 10-08-2024 Nitrite Ql (U) Negative Negative [facility] Nucleated red blood cell per centageOrdered By: Angela Lion on 10-08-2024 Nucleated RBC/100 WBC (Bld) [Ratio] 0 % 0-5 [facility] Platelet countOrdered By: Arias Lion on 10-08-2024 Platelets (Bld) [#/Vol] 218 10*3/uL 150-450 [facility] Potassium measurement (mass/ volume)Ordered By: Angela Lion on 10-08-2024 Potassium (Unsp spec) [Mass/Vol] 4.4 mmol/L 3.3-5.1 [facility] Protein Test strip Ql (U)Ord ered By: Angela Lion on 10-08-2024 Protein Ql (U) Negative Negative [facility] Protein+Creatinine Ratio,Uri neon 10-08-2024 PROT:CRE RATIO 114 mg/g CRE Normal 0-200 [facility] Comment on above: Performed By: #### L 100.0100, L500.4050 #### [facility] [address] [place], [address] Protein (U) [Mass/Vol] 9.7 mg/dL Normal 0.0-12.0 [facility] Comment on above: Performed By: #### L 100.0100, L500.4050 #### [facility] [address] [place], [address] UR CREAT 85.20 mg/dL Normal 28.00-217.00 [facility] Comment on above: Performed By: #### L 100.0100, L500.4050 #### [facility] [address] [place], [address] RBC Auto (Bld) [#/Vol]Ordere d By: Angela Lion on 10-08-2024 RBC (Bld) [#/Vol] 3.61 10*6/uL Low 4.2-5.4 [facility] Random urine creatinine ant urement (mass/volume)Ordered By: Angela Lion on 10-08-2024 Creatinine Unsp time (U) [Mass/Vol] 85.20 mg/dL 28.00-217.00 [facility] Serum creatinine measurement (mass/volume)Ordered By: Angela Lion on 10-08-2024 Creatinine [Mass/Vol] 0.73 mg/dL 0.70-1.20 [facility] Serum globulin measurementOr dered By: Angela Lion on 10-08-2024 Globulin (S) [Mass/Vol] 3.5 g/dL 2.2-4.2 [facility] Serum glucose measurement (m ass/volume)Ordered By: Angela Lion on 10-08-2024 Glucose [Mass/Vol] 99 mg/dL 70-99 [facility] Serum or plasma alanine sierra otransferase (ALT) measurementOrdered By: Angela Lion on 10-08-2024 ALT [Catalytic activity/Vol] 7 U/L <35 [facility] Serum or plasma albumin ant urement (mass/volume)Ordered By: Angela Lion on 10-08-2024 Albumin [Mass/Vol] 3.9 g/dL 3.4-4.8 [facility] Serum or plasma albumin/glob ulin mass ratioOrdered By: Angela Lion on 10-08-2024 Albumin/Globulin [Mass ratio] 1.1 {ratio} 0.9-2.4 [facility] Serum or plasma alkaline hailee sphatase measurementOrdered By: Angela Lion on 10-08-2024 ALP [Catalytic activity/Vol] 75 U/L 35-104 [facility] Serum or plasma calcium ant urement (mass/volume)Ordered By: Angela Lion on 10-08-2024 Calcium [Mass/Vol] 9.4 mg/dL 7.6-11.0 [facility] Serum or plasma urea nitroge n measurement (mass/volume)Ordered By: Angela Lion on 10-08-2024 Urea nitrogen [Mass/Vol] 10 mg/dL 4-19 [facility] Sodium levelOrdered By: Alis Lion on 10-08-2024 Sodium [Moles/Vol] 140 mmol/L 133-145 [facility] Total proteinOrdered By: Edmund Lion on 10-08-2024 Protein [Mass/Vol] 7.4 g/dL 5.9-8.4 [facility] Urinalysis, Routine (Dipstic k)on 10-08-2024 BILIRUBIN URINE Negative Normal Negative [facility] Comment on above: Order Comment: Urine , Random Performed By: #### L 100.0100, L500.4050 #### [facility] [address] [place], [address] Clarity (U) Clear Normal Clear [facility] Comment on above: Order Comment: Urine , Random Performed By: #### L 100.0100, L500.4050 #### [facility] [address] [place], [address] Color (U) Yellow Normal Yellow [facility] Comment on above: Order Comment: Urine , Random Performed By: #### L 100.0100, L500.4050 #### [facility] [address] [place], [address] GLUCOSE, UR Normal Normal Normal [facility] Comment on above: Order Comment: Urine , Random Performed By: #### L 100.0100, L500.4050 #### [facility] [address] [place], [address] KETONE UR Negative Normal Negative [facility] Comment on above: Order Comment: Urine , Random Performed By: #### L 100.0100, L500.4050 #### [facility] [address] [place], [address] LEUK ESTERASE 25 /ul Abnormal Negative [facility] Comment on above: Order Comment: Urine , Random Performed By: #### L 100.0100, L500.4050 #### [facility] [address] [place], [address] Nitrite Ql (U) Negative Normal Negative [facility] Comment on above: Order Comment: Urine , Random Performed By: #### L 100.0100, L500.4050 #### [facility] [address] [place], [address] OCCULT BLOOD-UR Negative Normal Negative [facility] Comment on above: Order Comment: Urine , Random Performed By: #### L 100.0100, L500.4050 #### [facility] [address] [place], [address] pH UR 6.0 Normal 5.0 - 8.0 [facility] Comment on above: Order Comment: Urine , Random Performed By: #### L 100.0100, L500.4050 #### [facility] [address] [place], [address] PROT DIPSTX Negative Normal Negative [facility] Comment on above: Order Comment: Urine , Random Performed By: #### L 100.0100, L500.4050 #### [facility] [address] [place], [address] SP.GR. DIPSTX 1.015 Normal 1.002-1.030 [facility] Comment on above: Order Comment: Urine , Random Performed By: #### L 100.0100, L500.4050 #### [facility] [address] [place], [address] UROBILI Normal Normal Normal [facility] Comment on above: Order Comment: Urine , Random Performed By: #### L 100.0100, L500.4050 #### [facility] [address] [place], [address] Urine clarityOrdered By: Edmund Lion on 10-08-2024 Clarity (U) Clear Clear [facility] Urine color determinationOrd ered By: Angela Lion on 10-08-2024 Color (U) Yellow Yellow [facility] Urine glucose detectionOrder ed By: Angela Lion on 10-08-2024 Glucose Ql (U) Normal mg/dl Normal [facility] Urine leukocyte esterase det ection by dipstickOrdered By: Angela Lion on 10-08-2024 Leukocyte esterase Test strip Ql (U) 25 /ul High Negative [facility] Urine pHOrdered By: Angela campa on 10-08-2024 pH (U) 6.0 [pH] 5.0 - 8.0 [facility] Urine protein measurement (m ass/volume)Ordered By: Angela Lion on 10-08-2024 Protein (U) [Mass/Vol] 9.7 mg/dL 0.0-12.0 [facility] Urine protein/creatinine mas s ratioOrdered By: Angela Lion on 10-08-2024 Protein/Creatinine (U) [Mass ratio] 114 mg/g CRE 0-200 [facility] Urine specific gravity measu rementOrdered By: Angela Lion on 10-08-2024 Specific gravity (U) [Rel density] 1.015 1.002-1.030 [facility] Urine urobilinogen measureme ntOrdered By: Angela Lion on 10-08-2024 Urobilinogen Ql (U) Normal mg/dl Normal [facility] White blood cell (WBC) count Ordered By: Angela Lion on 10-08-2024 WBC (Bld) [#/Vol] 5.7 10*3/uL 4.4-11.0 [facility] Absolute lymphocyte countOrd ered By: Angela Lion on 07-15-2024 Lymphocytes Auto (Unsp spec) [#/Vol] 1.58 10*3/uL 0.83-4.51 [facility] Absolute neutrophil countOrd ered By: Angela Lion on 07-15-2024 Neutrophils (Bld) [#/Vol] 4.2 10*3/uL 2.0-7.7 [facility] Albumin to globulin ratioOrd ered By: Angela Lion on 07-15-2024 Albumin/Globulin [Mass ratio] 0.8 {ratio} Low 0.9-2.4 [facility] Automated lymphocyte count a s percentage of total leukocytesOrdered By: Angela Lion on 07-15-2024 Lymphocytes/100 WBC Auto (Unsp spec) 24.8 % 19-41 [facility] Basophil percentageOrdered B y: Angela Lion on 07-15-2024 Basophils/100 WBC (Bld) 0.8 % 0-1 [facility] Bilirubin Test strip Ql (U)O rdered By: Angela Lion on 07-15-2024 Bilirubin Ql (U) Negative Negative [facility] Bilirubin, totalOrdered By: Angela Lion on 07-15-2024 Bilirubin [Mass/Vol] 0.50 mg/dL 0.20-1.00 [facility] Comment on above: For patients on eltr ombopag therapy, use of Dimension [place] TBIL is not recommended. Blood urea nitrogen (BUN)/cr eatinine ratioOrdered By: Angela Lion on 07-15-2024 Urea nitrogen/Creatinine [Mass ratio] 16.9 mg/mg 10-20 [facility] CBC W/Diff, Automatedon 07-05 Absolute Lymph 1.58 X10 3/uL Normal 0.83-4.51 [facility] Comment on above: Performed By: #### L 400.2010, L501.0900, L100.0100, L500.4050 #### [facility] [address] [place], [address] Absolute Neut 4.2 X10 3/uL Normal 2.0-7.7 [facility] Comment on above: Performed By: #### L 400.2010, L501.0900, L100.0100, L500.4050 #### [facility] [address] [place], [address] Basophils/100 WBC (Bld) 0.8 % Normal 0-1 [facility] Comment on above: Performed By: #### L 400.2010, L501.0900, L100.0100, L500.4050 #### [facility] [address] [place], [address] Eosinophils/100 WBC (Bld) 1.9 % Normal 0-5 [facility] Comment on above: Performed By: #### L 400.2010, L501.0900, L100.0100, L500.4050 #### [facility] [address] [place], [address] Erythrocyte distribution width (RBC) [Ratio] 12.3 % Normal 11.6-14.6 [facility] Comment on above: Performed By: #### L 400, L501.0900, L100.0100, L500.4050 #### [facility] [address] [place], [address] Hematocrit (Bld) [Volume fraction] 37.3 % Normal 37-47 [facility] Comment on above: Performed By: #### L 400, L501.0900, L100.0100, L500.4050 #### [facility] [address] [place], [address] Hemoglobin (Bld) [Mass/Vol] 12.6 g/dL Normal 12.0-15.0 [facility] Comment on above: Performed By: #### L 400, L501.0900, L100.0100, L500.4050 #### [facility] [address] [place], [address] IG% 0.200 Normal 0.0-0.9 [facility] Comment on above: Result Comment: IG% - Immature Granulocytes (promyelocytes, myelocytes and metamyelocytes) > 1% indicates that a LEFT SHIFT is Present. Performed By: #### L 400, L501.0900, L100.0100, L500.4050 #### [facility] [address] [place], [address] Lymphocytes/100 WBC (Bld) 24.8 % Normal 19-41 [facility] Comment on above: Performed By: #### L 400.2010, L501.0900, L100.0100, L500.4050 #### [facility] [address] [place], [address] MCH (RBC) [Entitic mass] 33.8 pg High 27.0-32.0 [facility] Comment on above: Performed By: #### L 400.2010, L501.0900, L100.0100, L500.4050 #### [facility] [address] [place], [address] MCHC (RBC) [Mass/Vol] 33.8 g/dL Normal 32-36 [facility] Comment on above: Performed By: #### L 400, L501.0900, L100.0100, L500.4050 #### [facility] [address] [place], [address] MCV (RBC) [Entitic vol] 100.0 fL High 81-99 [facility] Comment on above: Performed By: #### L 400, L501.0900, L100.0100, L500.4050 #### [facility] [address] [place], [address] Monocytes/100 WBC (Bld) 6.0 % Normal 0-10 [facility] Comment on above: Performed By: #### L 400, L501.0900, L100.0100, L500.4050 #### [facility] [address] [place], [address] Neutrophils/100 WBC (Bld) 66.3 % Normal 47-70 [facility] Comment on above: Performed By: #### L 400, L501.0900, L100.0100, L500.4050 #### [facility] [address] [place], [address] Nucleated RBC (Bld) [#/Vol] 0 10*3/uL Normal 0-5 [facility] Comment on above: Performed By: #### L 400.2010, L501.0900, L100.0100, L500.4050 #### [facility] [address] [place], [address] Platelet mean volume (Bld) [Entitic vol] 9.4 fL Normal 6.2-12.0 [facility] Comment on above: Performed By: #### L 400.2010, L501.0900, L100.0100, L500.4050 #### [facility] [address] [place], [address] Platelets (Bld) [#/Vol] 245 10*3/uL Normal 150-450 [facility] Comment on above: Performed By: #### L 400, L501.0900, L100.0100, L500.4050 #### [facility] [address] [place], [address] RBC (Bld) [#/Vol] 3.73 10*6/uL Low 4.2-5.4 [facility] Comment on above: Performed By: #### L 400, L501.0900, L100.0100, L500.4050 #### [facility] [address] [place], [address] RDW SD 44.9 fl High 35.1-43.9 [facility] Comment on above: Performed By: #### L 400.2010, L501.0900, L100.0100, L500.4050 #### [facility] [address] [place], [address] WBC (Bld) [#/Vol] 6.4 10*3/uL Normal 4.4-11.0 [facility] Comment on above: Performed By: #### L 400.2010, L501.0900, L100.0100, L500.4050 #### [facility] [address] [place], [address] Carbon dioxide measurementOr dered By: Angela Lion on 07-15-2024 CO2 [Moles/Vol] 25.0 mmol/L 21.0-32.0 [facility] Chloride measurementOrdered By: Angela Lion on 07-15-2024 Chloride [Moles/Vol] 108 mmol/L High 98-107 [facility] Comprehensive Metabolic Prof ilon 07-15-2024 Albumin [Mass/Vol] 3.6 g/dL Normal 3.2-5.0 [facility] Comment on above: Performed By: #### L 100.0100, L500.4050 #### [facility] [address] [place], [address] Albumin/Globulin [Mass ratio] 0.8 {ratio} Low 0.9-2.4 [facility] Comment on above: Performed By: #### L 100.0100, L500.4050 #### [facility] [address] [place], [address] ALK P 78 U/L Normal 45-117 [facility] Comment on above: Performed By: #### L 100.0100, L500.4050 #### [facility] [address] [place], [address] ALT [Catalytic activity/Vol] 15 U/L Normal 13-56 [facility] Comment on above: Performed By: #### L 100.0100, L500.4050 #### [facility] [address] [place], [address] AST [Catalytic activity/Vol] 16 U/L Normal 15-37 [facility] Comment on above: Performed By: #### L 100.0100, L500.4050 #### [facility] [address] [place], [address] Bilirubin [Mass/Vol] 0.50 mg/dL Normal 0.20-1.00 [facility] Comment on above: Result Comment: For patients on eltrombopag therapy, use of Dimension [place] TBIL is not recommended. Performed By: #### L 100.0100, L500.4050 #### [facility] [address] [place], [address] BUN/CRE 16.9 RATIO Normal 10-20 [facility] Comment on above: Performed By: #### L 100.0100, L500.4050 #### [facility] [address] [place], [address] CA,Total 9.5 mg/dL Normal 8.5-10.1 [facility] Comment on above: Performed By: #### L 100.0100, L500.4050 #### [facility] [address] [place], [address] Chloride [Moles/Vol] 108 mmol/L High 98-107 [facility] Comment on above: Performed By: #### L 100.0100, L500.4050 #### [facility] [address] [place], [address] CO2 [Moles/Vol] 25.0 mmol/L Normal 21.0-32.0 [facility] Comment on above: Performed By: #### L 100.0100, L500.4050 #### [facility] [address] [place], [address] Creatinine [Mass/Vol] 0.77 mg/dL Normal 0.55-1.02 [facility] Comment on above: Result Comment: The validity of the calculated GFR GFRAA in patients over 70 years has not been determined. Clinical correlation is essential. Performed By: #### L 100.0100, L500.4050 #### [facility] [address] [place], [address] EST GFR - AA 96 mL/min Normal >60 [facility] Comment on above: Result Comment: Afri can [place] GFR Calc Performed By: #### L 100.0100, L500.4050 #### [facility] [address] [place], [address] GAP 6 Normal 5-15 [facility] Comment on above: Performed By: #### L 100.0100, L500.4050 #### [facility] [address] [place], [address] GFR/1.73 sq M.predicted among non-blacks MDRD (S/P/Bld) [Vol rate/Area] 80 mL/min/{1.73_m2} Normal >60 [facility] Comment on above: Result Comment: Non- GFR Calc Performed By: #### L 100.0100, L500.4050 #### [facility] [address] [place], [address] Globulin (S) [Mass/Vol] 4.3 g/dL High 2.2-4.2 [facility] Comment on above: Performed By: #### L 100.0100, L500.4050 #### [facility] [address] [place], [address] Glucose [Mass/Vol] 87 mg/dL Normal 74-106 [facility] Comment on above: Performed By: #### L 100.0100, L500.4050 #### [facility] [address] [place], [address] Potassium [Moles/Vol] 4.1 mmol/L Normal 3.5-5.1 [facility] Comment on above: Performed By: #### L 100.0100, L500.4050 #### [facility] [address] [place], [address] Sodium [Moles/Vol] 139 mmol/L Normal 136-145 [facility] Comment on above: Performed By: #### L 100.0100, L500.4050 #### [facility] [address] [place], [address] T PROT 7.9 g/dL Normal 6.4-8.2 [facility] Comment on above: Performed By: #### L 100.0100, L500.4050 #### [facility] [address] [place], [address] Urea nitrogen [Mass/Vol] 13 mg/dL Normal 7-18 [facility] Comment on above: Performed By: #### L 100.0100, L500.4050 #### [facility] [address] [place], [address] Eosinophil percentageOrdered By: Angela Lion on 07-15-2024 Eosinophils/100 WBC (Bld) 1.9 % 0-5 [facility] Erythrocyte distribution wid th ratioOrdered By: [facility] Ayad on 07-15-2024 Erythrocyte distribution width (RBC) [Ratio] 12.3 % 11.6-14.6 [facility] Erythrocyte distribution wid th standard deviationOrdered By: Angela Lion on 07-15-2024 Erythrocyte distribution width (RBC) [Ratio] 44.9 fl High 35.1-43.9 [facility] Glomerular filtration rate ( GFR) estimationOrdered By: Angela Lion on 07-15-2024 GFR/1.73 sq M.predicted among non-blacks MDRD (S/P/Bld) [Vol rate/Area] 80 mL/min/{1.73_m2} >60 [facility] Comment on above: Non- GFR Calc Glucose measurementOrdered B y: Angela Lion on 07-15-2024 Glucose [Mass/Vol] 87 mg/dL 74-106 [facility] Hematocrit Auto (Bld) [Volum e fraction]Ordered By: Angela Lion on 07-15-2024 Hematocrit (Bld) [Volume fraction] 37.3 % 37-47 [facility] Hemoglobin measurementOrdere d By: Angela Lion on 07-15-2024 Hemoglobin (Bld) [Mass/Vol] 12.6 g/dL 12.0-15.0 [facility] Immature granulocytes/100 WB C Auto (Bld)Ordered By: Angela Lion on 07-15-2024 Immature granulocytes/100 WBC (Bld) 0.200 % 0.0-0.9 [facility] Comment on above: IG% - Immature Granu locytes (promyelocytes, myelocytes and metamyelocytes) > 1% indicates that a LEFT SHIFT is Present. Ketones Test strip Ql (U)Ord ered By: Angela Lion on 07-15-2024 Ketones Ql (U) Negative Negative [facility] - Chemistry and C hemistry - challengeOrdered By: Angela Lion on 07-15-2024 AST [Catalytic activity/Vol] 16 U/L 15-37 [facility] MCV (mean corpuscular volume ) determinationOrdered By: Angela Lion on 07-15-2024 MCV (RBC) [Entitic vol] 100.0 fL High 81-99 [facility] Mean corpuscular hemoglobin (MCH) determinationOrdered By: Angela Lion on 07-15-2024 MCH (RBC) [Entitic mass] 33.8 pg High 27.0-32.0 [facility] Mean corpuscular hemoglobin concentration (MCHC) determinationOrdered By: Angela Lion on 07-15-2024 MCHC (RBC) [Mass/Vol] 33.8 g/dL 32-36 [facility] Mean platelet volume determi nationOrdered By: Angela Lion on 07-15-2024 Platelet mean volume (Bld) [Entitic vol] 9.4 fL 6.2-12.0 [facility] Monocyte percentageOrdered B y: Angela Lion on 07-15-2024 Monocytes/100 WBC (Bld) 6.0 % 0-10 [facility] Neutrophil percentageOrdered By: Angela Lion on 07-15-2024 Neutrophils/100 WBC (Bld) 66.3 % 47-70 [facility] Nitrite Test strip Ql (U)Ord ered By: Angela Lion on 07-15-2024 Nitrite Ql (U) Negative Negative [facility] Nucleated red blood cell per centageOrdered By: Angela Lion on 07-15-2024 Nucleated RBC/100 WBC (Bld) [Ratio] 0 % 0-5 [facility] Platelet countOrdered By: Arias Lion on 07-15-2024 Platelets (Bld) [#/Vol] 245 10*3/uL 150-450 [facility] Potassium measurementOrdered By: Angela Lion on 07-15-2024 Potassium [Moles/Vol] 4.1 mmol/L 3.5-5.1 [facility] Protein Test strip Ql (U)Ord ered By: Angela Lion on 07-15-2024 Protein Ql (U) Negative Negative [facility] Protein+Creatinine Ratio,Uri neon 07-15-2024 PROT:CRE RATIO TNP Normal 0-200 [facility] Comment on above: Performed By: #### L 100.0100, L500.4050 #### [facility] [address] [place], [address] PROTEIN,UR.RAN. < 6.0 Normal <11.9 [facility] Comment on above: Performed By: #### L 100.0100, L500.4050 #### [facility] [address] [place], [address] UR CREAT 14.40 mg/dL Normal NO RANGE EST. [facility] Comment on above: Performed By: #### L 100.0100, L500.4050 #### [facility] [address] [place], [address] RBC Auto (Bld) [#/Vol]Ordere d By: Angela Lion on 07-15-2024 RBC (Bld) [#/Vol] 3.73 10*6/uL Low 4.2-5.4 [facility] Serum anion gap measurementO rdered By: Angela Lion on 07-15-2024 Anion gap [Moles/Vol] 6 mmol/L 5-15 [facility] Serum globulin measurementOr dered By: Angela Lion on 07-15-2024 Globulin (S) [Mass/Vol] 4.3 g/dL High 2.2-4.2 [facility] Serum or plasma alanine sierra otransferase (ALT) measurementOrdered By: Angela Lion on 07-15-2024 ALT [Catalytic activity/Vol] 15 U/L 13-56 [facility] Serum or plasma albumin ant urement (mass/volume)Ordered By: Angela Lion on 07-15-2024 Albumin [Mass/Vol] 3.6 g/dL 3.2-5.0 [facility] Serum or plasma alkaline hailee sphatase measurementOrdered By: Angela Lion on 07-15-2024 ALP [Catalytic activity/Vol] 78 U/L 45-117 [facility] Serum or plasma calcium ant urement (mass/volume)Ordered By: Angela Lion on 07-15-2024 Calcium [Mass/Vol] 9.5 mg/dL 8.5-10.1 [facility] Serum or plasma creatinine m easurement (mass/volume)Ordered By: Angela Lion on 07-15-2024 Creatinine [Mass/Vol] 0.77 mg/dL 0.55-1.02 [facility] Comment on above: The validity of the calculated GFR & GFRAA in patients over 70 years has not been determined. Clinical correlation is essential. Serum or plasma urea nitroge n measurement (mass/volume)Ordered By: Angela Lion on 07-15-2024 Urea nitrogen [Mass/Vol] 13 mg/dL 7-18 [facility] Sodium levelOrdered By: Alis Lion on 07-15-2024 Sodium [Moles/Vol] 139 mmol/L 136-145 [facility] Total proteinOrdered By: Edmund Lion on 07-15-2024 Protein [Mass/Vol] 7.9 g/dL 6.4-8.2 [facility] Urinalysis, Routine (Dipstic k)on 07-15-2024 BILIRUBIN URINE Negative Normal Negative [facility] Comment on above: Order Comment: Urine , Random Performed By: #### L 400.2010, L501.0900, L100.0100, L500.4050 #### [facility] [address] [place], [address] Clarity (U) Clear Normal Clear [facility] Comment on above: Order Comment: Urine , Random Performed By: #### L 400.2010, L501.0900, L100.0100, L500.4050 #### [facility] [address] [place], [address] Color (U) Yellow Normal Yellow [facility] Comment on above: Order Comment: Urine , Random Performed By: #### L 400.2010, L501.0900, L100.0100, L500.4050 #### [facility] [address] [place], [address] GLUCOSE, UR Normal Normal Normal [facility] Comment on above: Order Comment: Urine , Random Performed By: #### L 400.2010, L501.0900, L100.0100, L500.4050 #### [facility] [address] [place], [address] KETONE UR Negative Normal Negative [facility] Comment on above: Order Comment: Urine , Random Performed By: #### L 400.2010, L501.0900, L100.0100, L500.4050 #### [facility] [address] [place], [address] LEUK ESTERASE Negative Normal Negative [facility] Comment on above: Order Comment: Urine , Random Performed By: #### L 400.2010, L501.0900, L100.0100, L500.4050 #### [facility] [address] [place], [address] Nitrite Ql (U) Negative Normal Negative [facility] Comment on above: Order Comment: Urine , Random Performed By: #### L 400.2010, L501.0900, L100.0100, L500.4050 #### [facility] [address] [place], [address] OCCULT BLOOD-UR Negative Normal Negative [facility] Comment on above: Order Comment: Urine , Random Performed By: #### L 400.2010, L501.0900, L100.0100, L500.4050 #### [facility] [address] [place], [address] pH UR 7.0 Normal 5.0 - 8.0 [facility] Comment on above: Order Comment: Urine , Random Performed By: #### L 400.2010, L501.0900, L100.0100, L500.4050 #### [facility] [address] [place], [address] PROT DIPSTX Negative Normal Negative [facility] Comment on above: Order Comment: Urine , Random Performed By: #### L 400.2010, L501.0900, L100.0100, L500.4050 #### [facility] [address] [place], [address] SP.GR. DIPSTX 1.010 Normal 1.002-1.030 [facility] Comment on above: Order Comment: Urine , Random Performed By: #### L 400.2010, L501.0900, L100.0100, L500.4050 #### [facility] [address] [place], [address] UROBILI Normal Normal Normal [facility] Comment on above: Order Comment: Urine , Random Performed By: #### L 400.2010, L501.0900, L100.0100, L500.4050 #### [facility] [address] [place], [address] Urine clarityOrdered By: Edmund Lion on 07-15-2024 Clarity (U) Clear Clear [facility] Urine color determinationOrd ered By: Angela Lion on 07-15-2024 Color (U) Yellow Yellow [facility] Urine creatinine measurement (mass/volume)Ordered By: Angela Lion on 07-15-2024 Creatinine (U) [Mass/Vol] 14.40 mg/dL NO RANGE EST. [facility] Urine glucose detectionOrder ed By: Angela Lion on 07-15-2024 Glucose Ql (U) Normal mg/dl Normal [facility] Urine leukocyte esterase det ection by dipstickOrdered By: Angela Lion on 07-15-2024 Leukocyte esterase Test strip Ql (U) Negative Negative [facility] Urine pHOrdered By: Angela Reyes llankdereje on 07-15-2024 pH (U) 7.0 [pH] 5.0 - 8.0 [facility] Urine protein/creatinine mas s ratioOrdered By: Angela Lion on 07-15-2024 Protein/Creatinine (U) [Mass ratio] TNP [facility] Comment on above: Test not performed Urine specific gravity measu rementOrdered By: Angela Lion on 07-15-2024 Specific gravity (U) [Rel density] 1.010 1.002-1.030 [facility] Urine urobilinogen measureme ntOrdered By: Angela Lion on 07-15-2024 Urobilinogen Ql (U) Normal mg/dl Normal [facility] White blood cell (WBC) count Ordered By: Angela Lion on 07-15-2024 WBC (Bld) [#/Vol] 6.4 10*3/uL 4.4-11.0 [facility] CBC W/Diff, Automatedon 11-2 Absolute Lymph 1.39 X10 3/uL Normal 0.83-4.51 [facility] Comment on above: Performed By: #### L 100.0100, L500.4050 #### [facility] [address] [place], [place], [address] Absolute Neut 5.2 X10 3/uL Normal 2.0-7.7 [facility] Comment on above: Performed By: #### L 100.0100, L500.4050 #### [facility] [address] [place], [address] Basophils/100 WBC (Bld) 0.7 % Normal 0-1 [facility] Comment on above: Performed By: #### L 100.0100, L500.4050 #### [facility] [address] [place], [address] Eosinophils/100 WBC (Bld) 1.4 % Normal 0-5 [facility] Comment on above: Performed By: #### L 100.0100, L500.4050 #### [facility] [address] [place], [address] Erythrocyte distribution width (RBC) [Ratio] 12.5 % Normal 11.6-14.6 [facility] Comment on above: Performed By: #### L 100.0100, L500.4050 #### [facility] [address] [place], [address] Hematocrit (Bld) [Volume fraction] 36.8 % Low 37-47 [facility] Comment on above: Performed By: #### L 100.0100, L500.4050 #### [facility] [address] [place], [address] Hemoglobin (Bld) [Mass/Vol] 12.2 g/dL Normal 12.0-15.0 [facility] Comment on above: Performed By: #### L 100.0100, L500.4050 #### [facility] [address] [place], [address] IG% 0.400 Normal 0.0-0.9 [facility] Comment on above: Result Comment: IG% - Immature Granulocytes (promyelocytes, myelocytes and metamyelocytes) > 1% indicates that a LEFT SHIFT is Present. Performed By: #### L 100.0100, L500.4050 #### [facility] [address] [place], [address] Lymphocytes/100 WBC (Bld) 19.7 % Normal 19-41 [facility] Comment on above: Performed By: #### L 100.0100, L500.4050 #### [facility] [address] [place], [address] MCH (RBC) [Entitic mass] 33.5 pg High 27.0-32.0 [facility] Comment on above: Performed By: #### L 100.0100, L500.4050 #### [facility] [address] [place], [address] MCHC (RBC) [Mass/Vol] 33.2 g/dL Normal 32-36 [facility] Comment on above: Performed By: #### L 100.0100, L500.4050 #### [facility] [address] [place], [address] MCV (RBC) [Entitic vol] 101.1 fL High 81-99 [facility] Comment on above: Performed By: #### L 100.0100, L500.4050 #### [facility] [address] [place], [address] Monocytes/100 WBC (Bld) 5.0 % Normal 0-10 [facility] Comment on above: Performed By: #### L 100.0100, L500.4050 #### [facility] [address] [place], [address] Neutrophils/100 WBC (Bld) 72.8 % High 47-70 [facility] Comment on above: Performed By: #### L 100.0100, L500.4050 #### [facility] [address] [place], [address] Nucleated RBC (Bld) [#/Vol] 0 10*3/uL Normal 0-5 [facility] Comment on above: Performed By: #### L 100.0100, L500.4050 #### [facility] [address] [place], [address] Platelet mean volume (Bld) [Entitic vol] 9.3 fL Normal 6.2-12.0 [facility] Comment on above: Performed By: #### L 100.0100, L500.4050 #### [facility] [address] [place], [address] Platelets (Bld) [#/Vol] 225 10*3/uL Normal 150-450 [facility] Comment on above: Performed By: #### L 100.0100, L500.4050 #### [facility] [address] [place], [address] RBC (Bld) [#/Vol] 3.64 10*6/uL Low 4.2-5.4 [facility] Comment on above: Performed By: #### L 100.0100, L500.4050 #### [facility] [address] [place], [address] RDW SD 46.6 fl High 35.1-43.9 [facility] Comment on above: Performed By: #### L 100.0100, L500.4050 #### [facility] [address] [place], [address] WBC (Bld) [#/Vol] 7.1 10*3/uL Normal 4.4-11.0 [facility] Comment on above: Performed By: #### L 100.0100, L500.4050 #### [facility] [address] [place], [address] Comprehensive Metabolic Prof ilon 04-23-2024 Albumin [Mass/Vol] 3.7 g/dL Normal 3.2-5.0 [facility] Comment on above: Performed By: #### L 100.0100, L500.4050 #### [facility] [address] [place], [address] Albumin/Globulin [Mass ratio] 0.9 {ratio} Normal 0.9-2.4 [facility] Comment on above: Performed By: #### L 100.0100, L500.4050 #### [facility] [address] [place], [address] ALK P 78 U/L Normal 45-117 [facility] Comment on above: Performed By: #### L 100.0100, L500.4050 #### [facility] [address] [place], [address] ALT [Catalytic activity/Vol] 15 U/L Normal 13-56 [facility] Comment on above: Performed By: #### L 100.0100, L500.4050 #### [facility] [address] [place], [address] AST [Catalytic activity/Vol] 18 U/L Normal 15-37 [facility] Comment on above: Performed By: #### L 100.0100, L500.4050 #### [facility] [address] [place], [address] Bilirubin [Mass/Vol] 0.40 mg/dL Normal 0.20-1.00 [facility] Comment on above: Result Comment: For patients on eltrombopag therapy, use of Dimension [place] TBIL is not recommended. Performed By: #### L 100.0100, L500.4050 #### [facility] [address] [place], [address] BUN/CRE 20.4 RATIO High 10-20 [facility] Comment on above: Performed By: #### L 100.0100, L500.4050 #### [facility] [address] [place], [address] CA,Total 9.0 mg/dL Normal 8.5-10.1 [facility] Comment on above: Performed By: #### L 100.0100, L500.4050 #### [facility] [address] [place], [address] Chloride [Moles/Vol] 111 mmol/L High 98-107 [facility] Comment on above: Performed By: #### L 100.0100, L500.4050 #### [facility] [address] [place], [address] CO2 [Moles/Vol] 24.0 mmol/L Normal 21.0-32.0 [facility] Comment on above: Performed By: #### L 100.0100, L500.4050 #### [facility] [address] [place], [address] Creatinine [Mass/Vol] 0.78 mg/dL Normal 0.55-1.02 [facility] Comment on above: Result Comment: The validity of the calculated GFR GFRAA in patients over 70 years has not been determined. Clinical correlation is essential. Performed By: #### L 100.0100, L500.4050 #### [facility] [address] [place], [address] EST GFR - AA 94 mL/min Normal >60 [facility] Comment on above: Result Comment: Afri can [place] GFR Calc Performed By: #### L 100.0100, L500.4050 #### [facility] [address] [place], [address] GAP 4 Low 5-15 [facility] Comment on above: Performed By: #### L 100.0100, L500.4050 #### [facility] [address] [place], [address] GFR/1.73 sq M.predicted among non-blacks MDRD (S/P/Bld) [Vol rate/Area] 78 mL/min/{1.73_m2} Normal >60 [facility] Comment on above: Result Comment: Non- GFR Calc Performed By: #### L 100.0100, L500.4050 #### [facility] [address] [place], [address] Globulin (S) [Mass/Vol] 4.0 g/dL Normal 2.2-4.2 [facility] Comment on above: Performed By: #### L 100.0100, L500.4050 #### [facility] [address] [place], [address] Glucose [Mass/Vol] 92 mg/dL Normal 74-106 [facility] Comment on above: Performed By: #### L 100.0100, L500.4050 #### [facility] [address] [place], [address] Potassium [Moles/Vol] 4.0 mmol/L Normal 3.5-5.1 [facility] Comment on above: Performed By: #### L 100.0100, L500.4050 #### [facility] [address] [place], [address] Sodium [Moles/Vol] 139 mmol/L Normal 136-145 [facility] Comment on above: Performed By: #### L 100.0100, L500.4050 #### [facility] [address] [place], [address] T PROT 7.7 g/dL Normal 6.4-8.2 [facility] Comment on above: Performed By: #### L 100.0100, L500.4050 #### [facility] [address] [place], [address] Urea nitrogen [Mass/Vol] 16 mg/dL Normal 7-18 [facility] Comment on above: Performed By: #### L 100.0100, L500.4050 #### [facility] [address] [place], [address] CBC W/Diff, Automatedon 08-2 -2023 Absolute Lymph 1.67 X10 3/uL Normal 0.83-4.51 [facility] Comment on above: Performed By: #### L 100.0100, L500.4050 #### [facility] [address] [place], [address] Absolute Neut 3.0 X10 3/uL Normal 2.0-7.7 [facility] Comment on above: Performed By: #### L 100.0100, L500.4050 #### [facility] [address] [place], [address] Basophils/100 WBC (Bld) 1.1 % High 0-1 [facility] Comment on above: Performed By: #### L 100.0100, L500.4050 #### [facility] [address] [place], [address] Eosinophils/100 WBC (Bld) 3.2 % Normal 0-5 [facility] Comment on above: Performed By: #### L 100.0100, L500.4050 #### [facility] [address] [place], [address] Erythrocyte distribution width (RBC) [Ratio] 12.8 % Normal 11.6-14.6 [facility] Comment on above: Performed By: #### L 100.0100, L500.4050 #### [facility] [address] [place], [address] Hematocrit (Bld) [Volume fraction] 37.7 % Normal 37-47 [facility] Comment on above: Performed By: #### L 100.0100, L500.4050 #### [facility] [address] [place], [address] Hemoglobin (Bld) [Mass/Vol] 12.3 g/dL Normal 12.0-15.0 [facility] Comment on above: Performed By: #### L 100.0100, L500.4050 #### [facility] [address], [address] IG% 0.200 Normal 0.0-0.9 [facility] Comment on above: Result Comment: IG% - Immature Granulocytes (promyelocytes, myelocytes and metamyelocytes) > 1% indicates that a LEFT SHIFT is Present. Performed By: #### L 100.0100, L500.4050 #### [facility] [address] [place], [address] Lymphocytes/100 WBC (Bld) 31.5 % Normal 19-41 [facility] Comment on above: Performed By: #### L 100.0100, L500.4050 #### [facility] [address] [place], [address] MCH (RBC) [Entitic mass] 32.8 pg High 27.0-32.0 [facility] Comment on above: Performed By: #### L 100.0100, L500.4050 #### [facility] [address] [place], [address] MCHC (RBC) [Mass/Vol] 32.6 g/dL Normal 32-36 [facility] Comment on above: Performed By: #### L 100.0100, L500.4050 #### [facility] [address] [place], [address] MCV (RBC) [Entitic vol] 100.5 fL High 81-99 [facility] Comment on above: Performed By: #### L 100.0100, L500.4050 #### [facility] [address] [place], [address] Monocytes/100 WBC (Bld) 6.8 % Normal 0-10 [facility] Comment on above: Performed By: #### L 100.0100, L500.4050 #### [facility] [address] [place], [address] Neutrophils/100 WBC (Bld) 57.2 % Normal 47-70 [facility] Comment on above: Performed By: #### L 100.0100, L500.4050 #### [facility] [address] [place], [address] Nucleated RBC (Bld) [#/Vol] 0 10*3/uL Normal 0-5 [facility] Comment on above: Performed By: #### L 100.0100, L500.4050 #### [facility] [address] [place], [address] Platelet mean volume (Bld) [Entitic vol] 9.3 fL Normal 6.2-12.0 [facility] Comment on above: Performed By: #### L 100.0100, L500.4050 #### [facility] [address] [place], [address] Platelets (Bld) [#/Vol] 264 10*3/uL Normal 150-450 [facility] Comment on above: Performed By: #### L 100.0100, L500.4050 #### [facility] [address] [place], [address] RBC (Bld) [#/Vol] 3.75 10*6/uL Low 4.2-5.4 [facility] Comment on above: Performed By: #### L 100.0100, L500.4050 #### [facility] [address] [place], [address] RDW SD 47.5 fl High 35.1-43.9 [facility] Comment on above: Performed By: #### L 100.0100, L500.4050 #### [facility] [address] [place], [address] WBC (Bld) [#/Vol] 5.3 10*3/uL Normal 4.4-11.0 [facility] Comment on above: Performed By: #### L 100.0100, L500.4050 #### [facility] [address], [address] Comprehensive Metabolic Prof ilon 01-28-2024 Albumin [Mass/Vol] 3.5 g/dL Normal 3.2-5.0 [facility] Comment on above: Performed By: #### L 100.0100, L500.4050 #### [facility] [address] [place], [address] Albumin/Globulin [Mass ratio] 0.8 {ratio} Low 0.9-2.4 [facility] Comment on above: Performed By: #### L 100.0100, L500.4050 #### [facility] [address] [place], [address] ALK P 81 U/L Normal 45-117 [facility] Comment on above: Performed By: #### L 100.0100, L500.4050 #### [facility] [address] [place], [address] ALT [Catalytic activity/Vol] 14 U/L Normal 13-56 [facility] Comment on above: Performed By: #### L 100.0100, L500.4050 #### [facility] [address] [place], [address] AST [Catalytic activity/Vol] 15 U/L Normal 15-37 [facility] Comment on above: Performed By: #### L 100.0100, L500.4050 #### [facility] [address] [place], [address] Bilirubin [Mass/Vol] 0.40 mg/dL Normal 0.20-1.00 [facility] Comment on above: Result Comment: For patients on eltrombopag therapy, use of Dimension [place] TBIL is not recommended. Performed By: #### L 100.0100, L500.4050 #### [facility] [address] [place], [address] BUN/CRE 17.8 RATIO Normal 10-20 [facility] Comment on above: Performed By: #### L 100.0100, L500.4050 #### [facility] [address] [place], [address] CA,Total 9.3 mg/dL Normal 8.5-10.1 [facility] Comment on above: Performed By: #### L 100.0100, L500.4050 #### [facility] [address] [place], [address] Chloride [Moles/Vol] 110 mmol/L High 98-107 [facility] Comment on above: Performed By: #### L 100.0100, L500.4050 #### [facility] [address] [place], [address] CO2 [Moles/Vol] 24.0 mmol/L Normal 21.0-32.0 [facility] Comment on above: Performed By: #### L 100.0100, L500.4050 #### [facility] [address] [place], [address] Creatinine [Mass/Vol] 0.78 mg/dL Normal 0.55-1.02 [facility] Comment on above: Result Comment: The validity of the calculated GFR GFRAA in patients over 70 years has not been determined. Clinical correlation is essential. Performed By: #### L 100.0100, L500.4050 #### [facility] [address] [place], [address] EST GFR - AA 94 mL/min Normal >60 [facility] Comment on above: Result Comment: Afri can [place] GFR Calc Performed By: #### L 100.0100, L500.4050 #### [facility] [address] [place], [address] GAP 7 Normal 5-15 [facility] Comment on above: Performed By: #### L 100.0100, L500.4050 #### [facility] [address] [place], [address] GFR/1.73 sq M.predicted among non-blacks MDRD (S/P/Bld) [Vol rate/Area] 78 mL/min/{1.73_m2} Normal >60 [facility] Comment on above: Result Comment: Non- GFR Calc Performed By: #### L 100.0100, L500.4050 #### [facility] [address] [place], [address] Globulin (S) [Mass/Vol] 4.3 g/dL High 2.2-4.2 [facility] Comment on above: Performed By: #### L 100.0100, L500.4050 #### [facility] [address] [place], [address] Glucose [Mass/Vol] 82 mg/dL Normal 74-106 [facility] Comment on above: Performed By: #### L 100.0100, L500.4050 #### [facility] [address] [place], [address] Potassium [Moles/Vol] 4.6 mmol/L Normal 3.5-5.1 [facility] Comment on above: Performed By: #### L 100.0100, L500.4050 #### [facility] [address] [place], [address] Sodium [Moles/Vol] 141 mmol/L Normal 136-145 [facility] Comment on above: Performed By: #### L 100.0100, L500.4050 #### [facility] [address] [place], [address] T PROT 7.8 g/dL Normal 6.4-8.2 [facility] Comment on above: Performed By: #### L 100.0100, L500.4050 #### [facility] [address] [place], [address] Urea nitrogen [Mass/Vol] 14 mg/dL Normal 7-18 [facility] Comment on above: Performed By: #### L 100.0100, L500.4050 #### [facility] [address] [place], [address] SCRN MAMM (CAD)W/EDD BILATo n 12-26-2023 SCRN MAMM (CAD)W/EDD BILAT [facility] Services [address] [place] [address] SCRN MAMM (CAD)W/EDD BILAT MR#: [id number] Acct: [id number] Name: BLACK SHORT Rep #: [id number] : 1955 F 68 From: Charles boswell MD PCP: Dr. Dania Beck MD Status: [facility] Study: SCRN MAMM (CAD)W/EDD BILAT Date of Exam: 12/03 09/25 Exam# [id number] Ordering Dr: Dania Beck MD [id number] MAMMOGRAPHY - BILATERAL SCREENING REASON FOR EXAM: [...] delay biopsy of a clinically suspicious abnormality. [id number] Electronically Signed: Charles Muhammad MD at 15:15 EDT Reading Location ID and State: [address] [place] [address] , Service support , CC: Dr. 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 Normal [facility] Lipid Profileon 12-11-2023 Cholesterol [Mass/Vol] 156 mg/dL Normal 200 [facility] Comment on above: Result Comment: <200 mg/dL Desirable 200-240 mg/dL Borderline >240 mg/dL High Risk Performed By: #### L 500.2360 #### [facility] [address] [place], [place], [address] Cholesterol in HDL [Mass/Vol] 60 mg/dL Normal [facility] Comment on above: Result Comment: The drugs N-Acetylcysteine and Metamizole may falsely depress this assay. Reference Range HDL <40 mg/dL Low HDL Cholesterol HDL >or= 60 mg/dL High HDL Cholesterol Performed By: #### L 500.6170 #### [facility] [address] [place], [place], [address] Cholesterol in LDL [Mass/Vol] 85 mg/dL Normal 0-130 [facility] Comment on above: Performed By: #### L 500.4100 #### [facility] [address] [place], [place], [address] Cholesterol in VLDL [Mass/Vol] 11 mg/dL Normal 5-40 [facility] Comment on above: Performed By: #### L 500.4100 #### [facility] [address] [place], [address] Triglyceride [Mass/Vol] 56 mg/dL Normal [facility] Comment on above: Result Comment: The drugs N-Acetylcysteine and Metamizole may falsely depress this assay. Serum Triglycerides Reference Interval Normal <150 mg/dL Borderline high 150 - 199 mg/dL High 200 - 499 mg/dL Very High > or = 500 mg/dL Performed By: #### L 500.4100 #### [facility] [address] [place], [place], [address] Basic metabolic 2000 panelon 08-17-2023 Anion gap [Moles/Vol] 11 mmol/L Normal 9-18 [facility] Comment on above: Order Comment: Speci men Type: BLOOD SPECIMEN Ordering Facility: [facility] Address: [address] [place] [address] Performed By: #### 2 4321-2 #### [facility] CLIA [id number] [address] [place] [address] [place] Calcium [Mass/Vol] 9.8 mg/dL Normal 8.5-10.2 [facility] Comment on above: Order Comment: Speci men Type: BLOOD SPECIMEN Ordering Facility: [facility] Address: [address] [place] [address] Performed By: #### 2 4321-2 #### [facility] CLIA [id number] [address] [place] [address] [place] Chloride [Moles/Vol] 108 mmol/L High 97-105 [facility] Comment on above: Order Comment: Speci men Type: BLOOD SPECIMEN Ordering Facility: [facility] Address: [address] [place] [address] Performed By: #### 2 4321-2 #### [facility] CLIA [id number] [address] [place] [address] [place] CO2 [Moles/Vol] 24 mmol/L Normal 22-30 [facility] Comment on above: Order Comment: Speci men Type: BLOOD SPECIMEN Ordering Facility: [facility] Address: [address] [place] [address] Performed By: #### 2 4321-2 #### [facility] CLIA [id number] [address] [place] [address] [place] Creatinine [Mass/Vol] 0.75 mg/dL Normal 0.58-0.96 [facility] Comment on above: Order Comment: Speci men Type: BLOOD SPECIMEN Ordering Facility: [facility] Address: [address] [place] [address] Performed By: #### 2 4321-2 #### [facility] CLIA [id number] [address] [place] [address] OF [facility] Creatinine and Glomerular filtration rate.predicted panel (S/P/Bld) 88 mL/min/1.73m??? Normal >=60 [facility] Comment on above: Order Comment: Speci men Type: BLOOD SPECIMEN Ordering Facility: [facility] Address: [address] [place] [address] Result Comment: Maria A mated Glomerular Filtration [...] GFR. Performed By: #### 2 4321-2 #### [facility] CLIA [id number] [address] [place] [address] [place] Glucose [Mass/Vol] 81 mg/dL Normal 74-99 [facility] Comment on above: Order Comment: Ian jacqueline Type: BLOOD SPECIMEN [facility] Address: [address] [place] [address] Result Comment: The [place] Diabetes Association (ADA) provides guidance for cutoff [...] Standards of Medical Care in Diabetes 2016, [place] [employer] Association. Diabetes Care. 2016.39(Suppl 1). Performed By: #### 2 4321-2 #### [facility] CLIA [id number] [address] [place] [address] [place] Potassium [Moles/Vol] 4.2 mmol/L Normal 3.7-5.1 [facility] Comment on above: Order Comment: Ian jacqueline Type: BLOOD SPECIMEN [facility] Address: [address] [place] [address] Performed By: #### 2 4321-2 #### [facility] CLIA [id number] [address] [place] [address] [place] Sodium [Moles/Vol] 143 mmol/L Normal 136-144 [facility] Comment on above: Order Comment: Ian jacqueline Type: BLOOD SPECIMEN Ordering Facility: [facility] Address: [address] [place] [address] Performed By: #### 2 4321-2 #### [facility] CLIA [id number] [address] [place] [address] [place] Urea nitrogen [Mass/Vol] 12 mg/dL Normal 7-21 [facility] Comment on above: Order Comment: Speci men Type: BLOOD SPECIMEN Ordering Facility: [facility] Address: [address] [place] [address] Performed By: #### 2 4321-2 #### [facility] CLIA [id number] [address] [place] [address] [place] ECG COMPLETEon 08-17-2023 ECG COMPLETE Ventricular Rate : 56 BPM Atrial Rate : 56 BPM P-R Interval : 140 ms QRS Duration : 90 ms Q-T Interval : 456 ms QTC Calculation(Bazett) : 440 ms Calculated P [place] : 76 degrees Calculated R [place] : 71 degrees Calculated T [place] : 54 degrees Sinus bradycardia Otherwise normal ECG No previous ECGs available Confirmed by BOBBI HERNADEZ MD ([id number]) on 08/18/2023 1:16:08 PM NAME : BLACK SHORT PID : [id number] : 1955 Gender : Female Race : ORD : [id number] Procedure Date : Aug 17 2023 13:23:18 Edit Date : Aug 18 2023 13:16:13 Diagnosis: Sinus bradycardia Otherwise normal ECG No previous ECGs available Confirmed by BOBBI HERNADEZ MD ([id number]) on 08/18/2023 1:16:08 PM Test Reason : HCS Location : 7 : [facility] Overread By : BOBBI HERNADEZ MD Edited By : BOBBI HERNADEZ MD Referred By : HUNTER FERRARO Acquired by : KEV GUSMAN [facility] Hgb Bld-mCncon 08-17-2023 Hemoglobin (Bld) [Mass/Vol] 12.8 g/dL Normal 11.5-15.5 [facility] Comment on above: Order Comment: Speci men Type: BLOOD SPECIMEN Ordering Facility: [facility] Address: [address] [place] [id number] Performed By: #### 7 18-7 #### [facility] CLIA [id number] [address] [place] [address] Absolute lymphocyte countOrd ered By: Angela Lion on 07-19-2023 Lymphocytes Auto (Unsp spec) [#/Vol] 1.85 10*3/uL 0.83-4.51 [facility] Automated lymphocyte count a s percentage of total leukocytesOrdered By: Angela Lion on 07-19-2023 Lymphocytes/100 WBC Auto (Unsp spec) 32.7 % 19-41 [facility] Basophil percentageOrdered B y: Angela Lion on 07-19-2023 Basophils/100 WBC (Bld) 0.9 % 0-1 [facility] Bilirubin [Mass/Vol] 0.30 mg/dL 0.20-1.00 [facility] Comment on above: For patients on eltr ombopag therapy, use of Dimension [place] TBIL is not recommended. Chloride [Moles/Vol] 113 mmol/L 98-107 [facility] Eosinophils/100 WBC (Bld) 2.5 % 0-5 [facility] Glucose [Mass/Vol] 99 mg/dL 74-106 [facility] Hemoglobin (Bld) [Mass/Vol] 13.4 g/dL 12.0-15.0 [facility] Monocytes/100 WBC (Bld) 4.1 % 0-10 [facility] Neutrophils (Bld) [#/Vol] 3.4 10*3/uL 2.0-7.7 [facility] Neutrophils/100 WBC (Bld) 59.6 % 47-70 [facility] Potassium [Moles/Vol] 4.6 mmol/L 3.5-5.1 [facility] Protein [Mass/Vol] 7.6 g/dL 6.4-8.2 [facility] Sodium [Moles/Vol] 142 mmol/L 136-145 [facility] WBC (Bld) [#/Vol] 5.7 10*3/uL 4.4-11.0 [facility] Determination of erythrocyte mean corpuscular volume (MCV)Ordered By: Angela Lion on 07-19-2023 MCV (RBC) [Entitic vol] 104.1 fL 81-99 [facility] Erythrocyte distribution wid th ratioOrdered By: Angela Lion on 07-19-2023 Erythrocyte distribution width (RBC) [Ratio] 12.5 % 11.6-14.6 [facility] Erythrocyte distribution wid th standard deviationOrdered By: Angela Lion on 07-19-2023 Erythrocyte distribution width (RBC) [Entitic vol] 47.8 fL 35.1-43.9 [facility] Hematocrit Auto (Bld) [Volum e fraction]Ordered By: Angela Lion on 07-19-2023 Hematocrit (Bld) [Volume fraction] 40.9 % 37-47 [facility] Immature granulocytes/100 WB C Auto (Bld)Ordered By: Angeladominick Lion on 07-19-2023 Immature granulocytes/100 WBC (Bld) 0.200 % 0.0-0.9 [facility] Comment on above: IG% - Immature Granu locytes (promyelocytes, myelocytes and metamyelocytes) > 1% indicates that a LEFT SHIFT is Present. Laboratory - Chemistry and C hemistry - challengeOrdered By: [facility] Ayad on 07-19-2023 Albumin/Globulin [Mass ratio] 0.9 {ratio} 0.9-2.4 [facility] ALP [Catalytic activity/Vol] 72 U/L 45-117 [facility] ALT [Catalytic activity/Vol] 15 U/L 13-56 [facility] CO2 [Moles/Vol] 24.0 mmol/L 21.0-32.0 [facility] Globulin (S) [Mass/Vol] 3.9 g/dL 2.2-4.2 [facility] Urea nitrogen/Creatinine [Mass ratio] 23.6 mg/mg 10-20 [facility] Laboratory - Hematology and Cell countsOrdered By: Angeladominick Lion on 07-19-2023 MCH (RBC) [Entitic mass] 34.1 pg 27.0-32.0 [facility] MCHC (RBC) [Mass/Vol] 32.8 g/dL 32-36 [facility] Nucleated RBC/100 WBC (Bld) [Ratio] 0 % 0-5 [facility] Platelet mean volume (Bld) [Entitic vol] 9.6 fL 6.2-12.0 [facility] Platelets (Bld) [#/Vol] 208 10*3/uL 150-450 [facility] No Panel InformationOrdered By: Angela Lion on 07-19-2023 Estimated GFR (MDRD) Amer 86 mL/min >60 [facility] Comment on above: GFR Calc Estimated GFR (MDRD) Non-Af Amer 71 mL/min >60 [facility] Comment on above: Non- GFR Calc RBC Auto (Bld) [#/Vol]Ordere d By: Angela Lion on 07-19-2023 RBC (Bld) [#/Vol] 3.93 10*6/uL 4.2-5.4 [facility] Serum or plasma calcium ant urement (mass/volume)Ordered By: Angela Lion on 07-19-2023 Calcium [Mass/Vol] 9.2 mg/dL 8.5-10.1 [facility] Serum or plasma creatinine m easurement (mass/volume)Ordered By: Angela Lion on 07-19-2023 Creatinine [Mass/Vol] 0.85 mg/dL 0.55-1.02 [facility] Comment on above: The validity of the calculated GFR & GFRAA in patients over 70 years has not been determined. Clinical correlation is essential. Serum or plasma urea nitroge n measurement (mass/volume)Ordered By: Angela Lion on 07-19-2023 Urea nitrogen [Mass/Vol] 20 mg/dL 7-18 [facility] Thin prep Papanicolaou smear with manual screeningOrdered By: Angela Lion on 07-19-2023 Thin prep Papanicolaou smear with manual screening 3.7 g/dL 3.2-5.0 [facility] Thin prep Papanicolaou smear with manual screening 20 U/L 15-37 [facility] Thin prep Papanicolaou smear with manual screening 5 5-15 [facility] Serum or plasma thyroid stim ulating hormone (TSH) measurement (units/volume)Ordered By: Dania Beck on 06-28-2023 TSH Qn 0.54 uIU/mL 0.358-3.74 [facility] Absolute lymphocyte countOrd ered By: Angela Lion on 04-12-2023 Lymphocytes Auto (Unsp spec) [#/Vol] 2.16 10*3/uL 0.83-4.51 [facility] Basophil percentageOrdered B y: Angela Lion on 04-12-2023 Basophils/100 WBC (Bld) 1.1 % 0-1 [facility] Bilirubin [Mass/Vol] 0.50 mg/dL 0.20-1.00 [facility] Comment on above: For patients on eltr ombopag therapy, use of Dimension [place] TBIL is not recommended. Chloride [Moles/Vol] 111 mmol/L 98-107 [facility] Eosinophils/100 WBC (Bld) 1.8 % 0-5 [facility] Glucose [Mass/Vol] 93 mg/dL 74-106 [facility] Neutrophils (Bld) [#/Vol] 3.0 10*3/uL 2.0-7.7 [facility] Neutrophils/100 WBC (Bld) 53.8 % 47-70 [facility] Potassium [Moles/Vol] 4.2 mmol/L 3.5-5.1 [facility] Protein [Mass/Vol] 7.1 g/dL 6.4-8.2 [facility] Sodium [Moles/Vol] 140 mmol/L 136-145 [facility] WBC (Bld) [#/Vol] 5.6 10*3/uL 4.4-11.0 [facility] Blood erythrocytes count (nu mber/volume)Ordered By: Angela Lion on 04-12-2023 RBC (Bld) [#/Vol] 3.58 10*6/uL 4.2-5.4 [facility] Blood hemoglobin measurement (mass/volume)Ordered By: Angela Lion on 04-12-2023 Hemoglobin (Bld) [Mass/Vol] 12.6 g/dL 12.0-15.0 [facility] Blood lymphocytes/100 leukoc ytesOrdered By: Angela Lion on 04-12-2023 Lymphocytes/100 WBC (Bld) 38.3 % 19-41 [facility] Blood monocytes/100 leukocyt esOrdered By: Angela Lion on 04-12-2023 Monocytes/100 WBC (Bld) 4.8 % 0-10 [facility] Blood platelet mean volumeOr dered By: Angela Lion on 04-12-2023 Platelet mean volume (Bld) [Entitic vol] 9.1 fL 6.2-12.0 [facility] Determination of erythrocyte mean corpuscular volume (MCV)Ordered By: Angela Lion on 04-12-2023 MCV (RBC) [Entitic vol] 108.1 fL 81-99 [facility] Hematocrit Auto (Bld) [Volum e fraction]Ordered By: Angeladominick Lion on 04-12-2023 Hematocrit (Bld) [Volume fraction] 38.7 % 37-47 [facility] Laboratory - Chemistry and C hemistry - challengeOrdered By: Angeladominick Lion on 04-12-2023 ALP [Catalytic activity/Vol] 68 U/L 45-117 [facility] ALT [Catalytic activity/Vol] 17 U/L 13-56 [facility] CO2 [Moles/Vol] 26.0 mmol/L 21.0-32.0 [facility] Globulin (S) [Mass/Vol] 3.8 g/dL 2.2-4.2 [facility] Urea nitrogen/Creatinine [Mass ratio] 17.3 mg/mg 10-20 [facility] Laboratory - Hematology and Cell countsOrdered By: [facility] Ayad on 04-12-2023 Erythrocyte distribution width (RBC) [Entitic vol] 49.3 fL 35.1-43.9 [facility] Erythrocyte distribution width (RBC) [Ratio] 12.5 % 11.6-14.6 [facility] Immature granulocytes/100 WBC (Bld) 0.200 % 0.0-0.9 [facility] Comment on above: IG% - Immature Granu locytes (promyelocytes, myelocytes and metamyelocytes) > 1% indicates that a LEFT SHIFT is Present. MCH (RBC) [Entitic mass] 35.2 pg 27.0-32.0 [facility] Nucleated RBC/100 WBC (Bld) [Ratio] 0 % 0-5 [facility] MCHC Auto (RBC) [Mass/Vol]Or dered By: Angeladominick Lion on 04-12-2023 MCHC (RBC) [Mass/Vol] 32.6 g/dL 32-36 [facility] No Panel InformationOrdered By: Angeladominick Lion on 04-12-2023 Estimated GFR (MDRD) Amer 109 mL/min >60 [facility] Comment on above: GFR Calc Estimated GFR (MDRD) Non-Af Amer 90 mL/min >60 [facility] Comment on above: Non- GFR Calc Platelets bldOrdered By: Edmund Lion on 04-12-2023 Platelets (Bld) [#/Vol] 241 10*3/uL 150-450 [facility] Serum or plasma albumin ant urement (mass/volume)Ordered By: Angela Lion on 04-12-2023 Albumin [Mass/Vol] 3.3 g/dL 3.2-5.0 [facility] Serum or plasma albumin/glob ulin mass ratioOrdered By: Angela Lion on 04-12-2023 Albumin/Globulin [Mass ratio] 0.9 {ratio} 0.9-2.4 [facility] Serum or plasma calcium ant urement (mass/volume)Ordered By: Angela Lion on 04-12-2023 Calcium [Mass/Vol] 8.7 mg/dL 8.5-10.1 [facility] Serum or plasma creatinine m easurement (mass/volume)Ordered By: Angela Lion on 04-12-2023 Creatinine [Mass/Vol] 0.69 mg/dL 0.55-1.02 [facility] Comment on above: The validity of the calculated GFR & GFRAA in patients over 70 years has not been determined. Clinical correlation is essential. Serum or plasma urea nitroge n measurement (mass/volume)Ordered By: Angela Lion on 04-12-2023 Urea nitrogen [Mass/Vol] 12 mg/dL 7-18 [facility] Thin prep Papanicolaou smear with manual screeningOrdered By: Angela Lion on 04-12-2023 Thin prep Papanicolaou smear with manual screening 14 U/L 15-37 [facility] Thin prep Papanicolaou smear with manual screening 3 5-15 [facility] Absolute lymphocyte countOrd ered By: Angela Lion on 01-25-2023 Lymphocytes Auto (Unsp spec) [#/Vol] 1.85 10*3/uL 0.83-4.51 [facility] Basophil percentageOrdered B y: Angela Lion on 08-24-2023 Basophils/100 WBC (Bld) 0.8 % 0-1 [facility] Bilirubin [Mass/Vol] 0.40 mg/dL 0.20-1.00 [facility] Comment on above: For patients on eltr ombopag therapy, use of Dimension [place] TBIL is not recommended. Chloride [Moles/Vol] 110 mmol/L 98-107 [facility] Eosinophils/100 WBC (Bld) 1.0 % 0-5 [facility] Glucose [Mass/Vol] 94 mg/dL 74-106 [facility] Neutrophils (Bld) [#/Vol] 3.9 10*3/uL 2.0-7.7 [facility] Neutrophils/100 WBC (Bld) 63.5 % 47-70 [facility] Potassium [Moles/Vol] 3.9 mmol/L 3.5-5.1 [facility] Protein [Mass/Vol] 7.3 g/dL 6.4-8.2 [facility] Sodium [Moles/Vol] 141 mmol/L 136-145 [facility] WBC (Bld) [#/Vol] 6.2 10*3/uL 4.4-11.0 [facility] Blood erythrocytes count (nu mber/volume)Ordered By: Angela Lion on 01-25-2023 RBC (Bld) [#/Vol] 3.58 10*6/uL 4.2-5.4 [facility] Blood hemoglobin measurement (mass/volume)Ordered By: Angela Lion on 01-25-2023 Hemoglobin (Bld) [Mass/Vol] 12.5 g/dL 12.0-15.0 [facility] Blood lymphocytes/100 leukoc ytesOrdered By: Angela Lion on 01-25-2023 Lymphocytes/100 WBC (Bld) 29.8 % 19-41 [facility] Blood monocytes/100 leukocyt esOrdered By: Angela Lion on 01-25-2023 Monocytes/100 WBC (Bld) 4.7 % 0-10 [facility] Blood platelet mean volumeOr dered By: Angela Lion on 01-25-2023 Platelet mean volume (Bld) [Entitic vol] 9.1 fL 6.2-12.0 [facility] Determination of erythrocyte mean corpuscular volume (MCV)Ordered By: Angela Lion on 01-25-2023 MCV (RBC) [Entitic vol] 103.4 fL 81-99 [facility] Hematocrit Auto (Bld) [Volum e fraction]Ordered By: Angela Lion on 01-25-2023 Hematocrit (Bld) [Volume fraction] 37.0 % 37-47 [facility] Laboratory - Chemistry and C hemistry - challengeOrdered By: Angela Lion on 01-25-2023 ALP [Catalytic activity/Vol] 66 U/L 45-117 [facility] ALT [Catalytic activity/Vol] 20 U/L 13-56 [facility] CO2 [Moles/Vol] 25.0 mmol/L 21.0-32.0 [facility] Globulin (S) [Mass/Vol] 3.7 g/dL 2.2-4.2 [facility] Urea nitrogen/Creatinine [Mass ratio] 19.4 mg/mg 10-20 [facility] Laboratory - Hematology and Cell countsOrdered By: Angeladominick Lion on 01-25-2023 Erythrocyte distribution width (RBC) [Entitic vol] 49.7 fL 35.1-43.9 [facility] Erythrocyte distribution width (RBC) [Ratio] 13.1 % 11.6-14.6 [facility] Immature granulocytes/100 WBC (Bld) 0.200 % 0.0-0.9 [facility] Comment on above: IG% - Immature Granu locytes (promyelocytes, myelocytes and metamyelocytes) > 1% indicates that a LEFT SHIFT is Present. MCH (RBC) [Entitic mass] 34.9 pg 27.0-32.0 [facility] Nucleated RBC/100 WBC (Bld) [Ratio] 0 % 0-5 [facility] MCHC Auto (RBC) [Mass/Vol]Or dered By: Angela Lion on 01-25-2023 MCHC (RBC) [Mass/Vol] 33.8 g/dL 32-36 [facility] No Panel InformationOrdered By: Angeladominick Lion on 01-25-2023 Estimated GFR (MDRD) Amer 96 mL/min >60 [facility] Comment on above: GFR Calc Estimated GFR (MDRD) Non-Af Amer 80 mL/min >60 [facility] Comment on above: Non- GFR Calc Platelets bldOrdered By: Edmund Lion on 01-25-2023 Platelets (Bld) [#/Vol] 213 10*3/uL 150-450 [facility] Serum or plasma albumin ant urement (mass/volume)Ordered By: Angela Lion on 01-25-2023 Albumin [Mass/Vol] 3.6 g/dL 3.2-5.0 [facility] Serum or plasma albumin/glob ulin mass ratioOrdered By: Angela Lion on 01-25-2023 Albumin/Globulin [Mass ratio] 1.0 {ratio} 0.9-2.4 [facility] Serum or plasma calcium ant urement (mass/volume)Ordered By: Angela Lion on 01-25-2023 Calcium [Mass/Vol] 8.8 mg/dL 8.5-10.1 [facility] Serum or plasma creatinine m easurement (mass/volume)Ordered By: Angela Lion on 01-25-2023 Creatinine [Mass/Vol] 0.77 mg/dL 0.55-1.02 [facility] Comment on above: The validity of the calculated GFR & GFRAA in patients over 70 years has not been determined. Clinical correlation is essential. Serum or plasma urea nitroge n measurement (mass/volume)Ordered By: Angela Lion on 01-25-2023 Urea nitrogen [Mass/Vol] 15 mg/dL 7-18 [facility] Thin prep Papanicolaou smear with manual screeningOrdered By: Angela Lion on 01-25-2023 Thin prep Papanicolaou smear with manual screening 14 U/L 15-37 [facility] Thin prep Papanicolaou smear with manual screening 6 5-15 [facility] Absolute lymphocyte countOrd ered By: Angela Lion on 12-12-2022 Lymphocytes Auto (Unsp spec) [#/Vol] 2.52 10*3/uL 0.83-4.51 [facility] Basophil percentageOrdered B y: Angela Lion on 12-12-2022 Basophils/100 WBC (Bld) 0.6 % 0-1 [facility] Bilirubin [Mass/Vol] 0.30 mg/dL 0.20-1.00 [facility] Comment on above: For patients on eltr ombopag therapy, use of Dimension [place] TBIL is not recommended. Chloride [Moles/Vol] 111 mmol/L 98-107 [facility] Eosinophils/100 WBC (Bld) 0.9 % 0-5 [facility] Glucose [Mass/Vol] 89 mg/dL 74-106 [facility] Neutrophils (Bld) [#/Vol] 5.4 10*3/uL 2.0-7.7 [facility] Neutrophils/100 WBC (Bld) 63.5 % 47-70 [facility] Potassium [Moles/Vol] 4.9 mmol/L 3.5-5.1 [facility] Protein [Mass/Vol] 7.8 g/dL 6.4-8.2 [facility] Sodium [Moles/Vol] 139 mmol/L 136-145 [facility] WBC (Bld) [#/Vol] 8.6 10*3/uL 4.4-11.0 [facility] Blood erythrocytes count (nu mber/volume)Ordered By: Angela Lion on 12-12-2022 RBC (Bld) [#/Vol] 3.76 10*6/uL 4.2-5.4 [facility] Blood hemoglobin measurement (mass/volume)Ordered By: Angela Lion on 12-12-2022 Hemoglobin (Bld) [Mass/Vol] 12.6 g/dL 12.0-15.0 [facility] Blood lymphocytes/100 leukoc ytesOrdered By: Angela Lion on 12-12-2022 Lymphocytes/100 WBC (Bld) 29.5 % 19-41 [facility] Blood monocytes/100 leukocyt esOrdered By: Angela Lion on 12-12-2022 Monocytes/100 WBC (Bld) 5.3 % 0-10 [facility] Blood platelet mean volumeOr dered By: Angela Lion on 12-12-2022 Platelet mean volume (Bld) [Entitic vol] 9.1 fL 6.2-12.0 [facility] Determination of erythrocyte mean corpuscular volume (MCV)Ordered By: Angela Lion on 12-12-2022 MCV (RBC) [Entitic vol] 104.8 fL 81-99 [facility] Hematocrit Auto (Bld) [Volum e fraction]Ordered By: Angela Lion on 12-12-2022 Hematocrit (Bld) [Volume fraction] 39.4 % 37-47 [facility] Laboratory - Chemistry and C hemistry - challengeOrdered By: Angeladominick Lion on 12-12-2022 ALP [Catalytic activity/Vol] 73 U/L 45-117 [facility] ALT [Catalytic activity/Vol] 17 U/L 13-56 [facility] CO2 [Moles/Vol] 25.0 mmol/L 21.0-32.0 [facility] Globulin (S) [Mass/Vol] 4.2 g/dL 2.2-4.2 [facility] Urea nitrogen/Creatinine [Mass ratio] 19.7 mg/mg 10-20 [facility] Laboratory - Hematology and Cell countsOrdered By: Angeladominick Lion on 12-12-2022 Erythrocyte distribution width (RBC) [Entitic vol] 48.3 fL 35.1-43.9 [facility] Erythrocyte distribution width (RBC) [Ratio] 12.5 % 11.6-14.6 [facility] Immature granulocytes/100 WBC (Bld) 0.200 % 0.0-0.9 [facility] Comment on above: IG% - Immature Granu locytes (promyelocytes, myelocytes and metamyelocytes) > 1% indicates that a LEFT SHIFT is Present. MCH (RBC) [Entitic mass] 33.5 pg 27.0-32.0 [facility] Nucleated RBC/100 WBC (Bld) [Ratio] 0 % 0-5 [facility] MCHC Auto (RBC) [Mass/Vol]Or dered By: Angeladominick Lion on 12-12-2022 MCHC (RBC) [Mass/Vol] 32.0 g/dL 32-36 [facility] No Panel InformationOrdered By: Angeladominick Lion on 12-12-2022 Estimated GFR (MDRD) Amer 79 mL/min >60 [facility] Comment on above: GFR Calc Estimated GFR (MDRD) Non-Af Amer 65 mL/min >60 [facility] Comment on above: Non- GFR Calc Platelets bldOrdered By: Edmund Lion on 12-12-2022 Platelets (Bld) [#/Vol] 259 10*3/uL 150-450 [facility] Serum or plasma albumin ant urement (mass/volume)Ordered By: Angela Lion on 12-12-2022 Albumin [Mass/Vol] 3.6 g/dL 3.2-5.0 [facility] Serum or plasma albumin/glob ulin mass ratioOrdered By: Angela Lion on 12-12-2022 Albumin/Globulin [Mass ratio] 0.9 {ratio} 0.9-2.4 [facility] Serum or plasma calcium ant urement (mass/volume)Ordered By: Angela Lion on 12-12-2022 Calcium [Mass/Vol] 9.4 mg/dL 8.5-10.1 [facility] Serum or plasma creatinine m easurement (mass/volume)Ordered By: Angela Lion on 12-12-2022 Creatinine [Mass/Vol] 0.92 mg/dL 0.55-1.02 [facility] Comment on above: The validity of the calculated GFR & GFRAA in patients over 70 years has not been determined. Clinical correlation is essential. Serum or plasma urea nitroge n measurement (mass/volume)Ordered By: Angela Lion on 12-12-2022 Urea nitrogen [Mass/Vol] 18 mg/dL 7-18 [facility] Thin prep Papanicolaou smear with manual screeningOrdered By: Angela Lion on 12-12-2022 Thin prep Papanicolaou smear with manual screening 19 U/L 15-37 [facility] Thin prep Papanicolaou smear with manual screening 3 5-15 [facility] Absolute lymphocyte countOrd ered By: Angela Lion on 11-21-2022 Lymphocytes Auto (Unsp spec) [#/Vol] 1.66 10*3/uL 0.83-4.51 [facility] Basophil percentageOrdered B y: Angela Lion on 11-21-2022 Basophils/100 WBC (Bld) 0.8 % 0-1 [facility] Bilirubin [Mass/Vol] 0.50 mg/dL 0.20-1.00 [facility] Comment on above: For patients on eltr ombopag therapy, use of Dimension [place] TBIL is not recommended. Chloride [Moles/Vol] 110 mmol/L 98-107 [facility] Eosinophils/100 WBC (Bld) 1.9 % 0-5 [facility] Glucose [Mass/Vol] 90 mg/dL 74-106 [facility] Neutrophils (Bld) [#/Vol] 4.2 10*3/uL 2.0-7.7 [facility] Neutrophils/100 WBC (Bld) 65.5 % 47-70 [facility] Potassium [Moles/Vol] 3.7 mmol/L 3.5-5.1 [facility] Protein [Mass/Vol] 8.0 g/dL 6.4-8.2 [facility] Sodium [Moles/Vol] 140 mmol/L 136-145 [facility] WBC (Bld) [#/Vol] 6.4 10*3/uL 4.4-11.0 [facility] Bilirubin Test strip Ql (U)O rdered By: Angela Lion on 11-21-2022 Bilirubin Ql (U) Negative Negative [facility] Blood erythrocytes count (nu mber/volume)Ordered By: Angela Lion on 11-21-2022 RBC (Bld) [#/Vol] 3.87 10*6/uL 4.2-5.4 [facility] Blood hemoglobin measurement (mass/volume)Ordered By: Angela Lion on 11-21-2022 Hemoglobin (Bld) [Mass/Vol] 12.9 g/dL 12.0-15.0 [facility] Blood lymphocytes/100 leukoc ytesOrdered By: Angela Lion on 11-21-2022 Lymphocytes/100 WBC (Bld) 26.0 % 19-41 [facility] Blood monocytes/100 leukocyt esOrdered By: Angela Lion on 11-21-2022 Monocytes/100 WBC (Bld) 5.6 % 0-10 [facility] Blood platelet mean volumeOr dered By: Angela Lion on 11-21-2022 Platelet mean volume (Bld) [Entitic vol] 9.1 fL 6.2-12.0 [facility] Determination of erythrocyte mean corpuscular volume (MCV)Ordered By: Angela Lion on 11-21-2022 MCV (RBC) [Entitic vol] 101.3 fL 81-99 [facility] Dilute Nba's viper venom timeOrdered By: Angela Lion on 11-21-2022 dRVVT Coag (PPP) [Time] 38.0 s 0.0-47.0 [facility] Hematocrit Auto (Bld) [Volum e fraction]Ordered By: Angela Lion on 11-21-2022 Hematocrit (Bld) [Volume fraction] 39.2 % 37-47 [facility] INR in Blood by Coagulation assayOrdered By: Angela Lion on 11-21-2022 INR Coag (Bld) [Relative time] 1.1 {INR} [facility] Ketones Test strip Ql (U)Ord ered By: Angela Lion on 11-21-2022 Ketones Ql (U) Negative Negative [facility] Laboratory - Chemistry and C hemistry - challengeOrdered By: Angela Lion on 11-21-2022 ALP [Catalytic activity/Vol] 82 U/L 45-117 [facility] ALT [Catalytic activity/Vol] 13 U/L 13-56 [facility] CO2 [Moles/Vol] 26.0 mmol/L 21.0-32.0 [facility] Globulin (S) [Mass/Vol] 4.3 g/dL 2.2-4.2 [facility] Urea nitrogen/Creatinine [Mass ratio] 17.9 mg/mg 10-20 [facility] Laboratory - CoagulationOrde red By: Angela Lion on 11-21-2022 aPTT Coag (Bld) [Time] 30.1 s 24.1-36.2 [facility] PT Coag (PPP) [Time] 13.8 s 11.7-14.9 [facility] Laboratory - Hematology and Cell countsOrdered By: Angela Lion on 11-21-2022 Erythrocyte distribution width (RBC) [Entitic vol] 46.5 fL 35.1-43.9 [facility] Erythrocyte distribution width (RBC) [Ratio] 12.3 % 11.6-14.6 [facility] Immature granulocytes/100 WBC (Bld) 0.200 % 0.0-0.9 [facility] Comment on above: IG% - Immature Granu locytes (promyelocytes, myelocytes and metamyelocytes) > 1% indicates that a LEFT SHIFT is Present. MCH (RBC) [Entitic mass] 33.3 pg 27.0-32.0 [facility] Nucleated RBC/100 WBC (Bld) [Ratio] 0 % 0-5 [facility] - Miscellaneous t estsOrdered By: Angela Lion on 11-21-2022 Service comment (Unsp spec) [Interp] Comment . [facility] Comment on above: Results do not indic ate the presence of a LupusAnticoagulant: abnormal high screening results (PTT-LA,dRVVT, mixing studies), may be due to medication (heparin,warfarin, aspirin), Factor inhibitors, anticardiolipinantibodies, or poor specimen integrity.Performed at: [facility] [id number] Director: Chaya Davis MD, Phone: [phone] MCHC Auto (RBC) [Mass/Vol]Or dered By: Angela Lion on 11-21-2022 MCHC (RBC) [Mass/Vol] 32.9 g/dL 32-36 [facility] Nitrite Test strip Ql (U)Ord ered By: Angela Lion on 11-21-2022 Nitrite Ql (U) Negative Negative [facility] No Panel InformationOrdered By: Angela Lion on 11-21-2022 Miscellaneous Test Comment MAILED SPECIMEN [facility] Estimated GFR (MDRD) Amer 87 mL/min >60 [facility] Comment on above: GFR Calc Estimated GFR (MDRD) Non-Af Amer 72 mL/min >60 [facility] Comment on above: Non- GFR Calc Hepatitis B Surface Antigen Non-Reactive Nonreactive [facility] Hepatitis C Antibody Non-Reactive Nonreactive [facility] Comment on above: Non Reactive: < 0.8 Equivocal: >/= 0.8 to < 1.0 Reactive: >/= 1.0The CDC recommends that a reactive/equivocal HCV antibody result be followed up by the HCV Nucleic Acid Amplificationtest (421978) Platelets bldOrdered By: Edmund Lion on 11-21-2022 Platelets (Bld) [#/Vol] 225 10*3/uL 150-450 [facility] Protein Test strip Ql (U)Ord ered By: Angela Lion on 11-21-2022 Protein Ql (U) Negative Negative [facility] Serum hepatitis B virus surf kyle antibody IgG detectionOrdered By: Angela Lion on 11-21-2022 HBV surface IgG Ql (S) Reactive [facility] Comment on above: Non Reactive: Incons istent with immunity less than <10 mIU/mL Reactive: Consistent with immunity greater than or equal to 10 mIU/mL Serum or plasma albumin ant urement (mass/volume)Ordered By: Angela Lion on 11-21-2022 Albumin [Mass/Vol] 3.7 g/dL 3.2-5.0 [facility] Serum or plasma albumin/glob ulin mass ratioOrdered By: Angela Lion on 11-21-2022 Albumin/Globulin [Mass ratio] 0.9 {ratio} 0.9-2.4 [facility] Serum or plasma calcium ant urement (mass/volume)Ordered By: Angela Lion on 11-21-2022 Calcium [Mass/Vol] 9.2 mg/dL 8.5-10.1 [facility] Serum or plasma creatinine m easurement (mass/volume)Ordered By: Angela Lion on 11-21-2022 Creatinine [Mass/Vol] 0.84 mg/dL 0.55-1.02 [facility] Comment on above: The validity of the calculated GFR & GFRAA in patients over 70 years has not been determined. Clinical correlation is essential. Serum or plasma urea nitroge n measurement (mass/volume)Ordered By: Angela Lion on 11-21-2022 Urea nitrogen [Mass/Vol] 15 mg/dL 7-18 [facility] Thin prep Papanicolaou smear with manual screeningOrdered By: Anglea Lion on 11-21-2022 Thin prep Papanicolaou smear with manual screening 14 U/L 15-37 [facility] Thin prep Papanicolaou smear with manual screening 4 5-15 [facility] Thin prep Papanicolaou smear with manual screening 37.4 sec 0.0-47.6 [facility] Thin prep Papanicolaou smear with manual screening 0.96 Ratio 0.00-1.34 [facility] Thin prep Papanicolaou smear with manual screening 38.8 sec 0.0-43.5 [facility] Thin prep Papanicolaou smear with manual screening Comment: . [facility] Comment on above: No lupus anticoagula nt was detected. Thrombin time in platelet po or plasmaOrdered By: Angela Lion on 11-21-2022 Thrombin time Coag (PPP) [Time] 16.9 sec 0.0-23.0 [facility] Urine blood detectionOrdered By: Angela Lion on 11-21-2022 RBC Ql (U) Negative Negative [facility] Urine clarityOrdered By: Edmund Lion on 11-21-2022 Clarity (U) Clear Clear [facility] Urine color determinationOrd ered By: Angela Lion on 11-21-2022 Color (U) Yellow Yellow [facility] Urine creatinine measurement (mass/volume)Ordered By: Angela Lion on 11-21-2022 Creatinine (U) [Mass/Vol] 49.40 mg/dL NO RANGE EST. [facility] Urine glucose detectionOrder ed By: Angela Lion on 11-21-2022 Glucose Ql (U) Normal mg/dl Normal [facility] Urine leukocyte esterase det ection by dipstickOrdered By: Angela Lion on 11-21-2022 Leukocyte esterase Test strip Ql (U) 25 /ul Negative [facility] Urine pHOrdered By: Angela campa on 11-21-2022 pH (U) 6.5 [pH] 5.0 - 8.0 [facility] Urine protein measurement (m ass/volume)Ordered By: Angela Lion on 11-21-2022 Protein (U) [Mass/Vol] 10.0 mg/dL 0.0-11.8 [facility] Urine protein/creatinine mas s ratioOrdered By: Angela Lion on 11-21-2022 Protein/Creatinine (U) [Mass ratio] 202 mg/g CRE 0-200 [facility] Urine specific gravity measu rementOrdered By: Angela Lion on 11-21-2022 Specific gravity (U) [Rel density] 1.010 1.002-1.030 [facility] Urobilinogen Auto test strip Ql (U)Ordered By: Angela Lion on 11-21-2022 Urobilinogen Ql (U) Normal mg/dl Normal [facility] Vital Signs Date Time Vital Sign Value Performing Clinician Faci lity 12-03-2024 10:40-0400 Body height 165.1 cm Dania Beck MD Work Phone: [facility] 12-03-2024 10:40-0400 Body mass index (BMI) [Ratio] 22.3 kg/m2 Dania Beck MD Work Phone: [facility] 12-03-2024 10:40-0400 Body temperature 97.5 [degF] Dania Beck MD Work Phone: [facility] 12-03-2024 10:40-0400 Body weight 60.78 kg Dania Beck MD Work Phone: [facility] 12-03-2024 10:40-0400 Diastolic blood pressure 76 mm[Hg] Dania Beck MD Work Phone: [facility] 12-03-2024 10:40-0400 Heart rate 60 /min Dania Beck MD Work Phone: [facility] 12-03-2024 10:40-0400 Respiratory rate 18 /min Dania Beck MD Work Phone: [facility] 12-03-2024 10:40-0400 SaO2% (BldA) [Mass fraction] 97 % Dania Beck MD Work Phone: [facility] 12-03-2024 10:40-0400 Systolic blood pressure 120 mm[Hg] Dania Beck MD Work Phone: [facility] Encounters Encounter Date Encounter Type Care Provider Facility Start: 12-03-2024 End: 12-03-2024 ambulatory Dania Beck MD Work Phone: -[facility] Start: 12-03-2024 End: 12-03-2024 Patient encounter procedure Toya MIR -[facility] Work Phone: Start: 12-03-[facility] Start: 12-03-[address] Dania Beck MD -Pulmonary Services/Neurology Work Phone: Start: 11-20-2024 ambulatory [facility] Kiran Facility:[facility] Start: 10-28-2024 End: 10-28-2024 ambulatory Dania Beck MD Work Phone: [facility] Work Phone: Start: 10-28-2024 End: 10-28-[address] Dania Beck MD -Radiology [place] Work Phone: Start: 10-28-2024 End: 10-28-2024 [facility] Start: 10-08-2024 End: 10-08-2024 ambulatory Dania Beck MD Work Phone: [facility] Work Phone: Start: 10-08-2024 End: 10-08-[address] Angela Lion MD -Laboratory, [place] Work Phone: Start: 10-08-2024 End: 10-08-[facility] Start: 07-15-2024 End: 07-15-[address] Angela Lion MD -Laboratory, [place] Work Phone: Start: 07-15-2024 End: 07-15-2024 [facility] Start: 04-23-2024 End: 04-23-2024 ambulatory [facility] Facility:[facility] Start: 01-28-2024 End: 01-28-2024 ambulatory [facility] Start: 12-26-2023 End: 12-26-2023 [facility] Start: 12-20-2023 Encounter for genera l adult medical examination without abnormal findings Dania Beck [facility] Start: 12-11-2023 End: 12-11-2023 ambulatory Dania Kiran Facility:[facility] Start: 08-17-2023 [facility] Start: 08-17-2023 End: 08-17-2023 Patient encounter status Hunter Ferraro MD Work Phone: [facility] Start: 08-17-2023 End: 08-18-2023 Transcribe Orders Hunter Ferraro MD Work Phone: [facility] CARDIAC TESTING Comment on above: Rheu arthrileonel zhou rheu factor of left ank/ft w/o org/sys involv (HCC) (Primary Dx); 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, unspecified laterality; Pre-operative cardiovascular examination Bradley zhou rheu factor of left ank/ft w/o org/sys involv (HCC) [M05.772] Start: 07-19-2023 End: 07-19-2023 ambulatory [facility] Work Phone: Start: 07-19-2023 End: 07-19-2023 Patient encounter procedure [facility] Work Phone: Start: 06-28-2023 End: 06-28-2023 Patient encounter procedure [facility] Start: 04-12-2023 End: 04-12-2023 ambulatory [facility] Work Phone: Start: 04-12-2023 End: 04-12-2023 Patient encounter procedure [facility] Work Phone: Start: 01-25-2023 End: 01-25-2023 Patient encounter procedure [facility] Work Phone: Start: 12-12-2022 End: 12-12-2022 ambulatory [facility] Work Phone: Start: 12-12-2022 End: 12-12-2022 Patient encounter procedure [facility] Work Phone: Start: 11-21-2022 End: 11-21-2022 Patient encounter procedure [facility] Work Phone: Procedures Date Procedure Procedure [...] Author Start: 08-16-2026 Diabetes Screening Diabetes Screening [facility] Start: 10-10-2023 Screening for malignant neoplasm of breast Mammogram Screening [facility] Start: 06-04-2023 Advance Directive Discussion Advance Directive Discussion [facility] Start: 06-04-2023 Depression Assessment Depression Assessment [facility] Start: 2022 Pneumococcal Vaccine: 65+ (2 of 2 - PCV) Pneumococcal Vaccine: 65+ (2 of 2 - PCV) [facility] Start: 2022 Screening for osteoporosis Bone Density Screening [facility] Start: 06-05-2011 Urine microalbumin profile DTaP,Tdap,Td Vaccine (1 - Tdap) [facility] Start: 2007 Shingrix Vaccine (1 of 2) Shingrix Vaccine (1 of 2) [facility] Start: 2002 Lipid panel Lipid Screening [facility] Start: 2002 Screening for malignant neoplasm of colon [facility] Start: 1975 Hepatitis C screening Hepatitis C Screening [facility] ECG COMPLETE ECG COMPLETE ECG Routine 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/o org/sys involv (HCC) 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, unspecified laterality Pre-operative cardiovascular examination 08/17/2023 1:23 PM EDT [facility] Work Phone: Positron emission tomography with computed tomography [facility] Walking distance 6 minutes [facility] Payers Date Payer Category Payer Self-pay 2023 Medicare HU[employer]NA MEDICARE HU[employer]NA GOLD PLUS [id number] 2023-Present [phone] [address] [address] [place] [address] HMO [id number] 2023 Private Health Insurance [id number] Self-pay [id number] Unknown [id number] Unknown [id number] Unknown [id number] Unknown [id number] Unknown [id number] Unknown [id number] Unknown [id number] Unknown [id number] Unknown [id number] Social History Date Type Detail Facility Tobacco smoking status NHIS Unknown if ever smoked [facility] Work Phone: Start: 1955 Sex Assigned At Female [facility] Tobacco smoking status DCIS Tobacco smoking consumption unknown [facility] Start: 1955 Sex Assigned At Not on file [facility] Gender identity Not on file [facility] Start: 12-03-2024 Tobacco smoking status NHIS Current Heavy tobacco smoker [facility] Radiology Diagnostic study note 10-29-2024 Note Date & Type Note Facility 10-29-2024 Radiology Diagnostic study note [facility] Imaging Services [address] [place] [address] [id number] Chest PA and Lateral MR#: [id number] Acct: [id number] Name: BLACK SHORT Rep #: [id number] : 1955 F 69 From: Hao Tamez MD PCP: Dr. Dania Beck MD Status: REG CL I Study:Chest PA and Lateral Date of Exam: 10/28/24 Exam# [id number] Ordering Dr: Lynette Beck MD PROCEDURE: CHEST [...] of background of pulmonary emphysema. Reading Location: [id number] CC: Dr. 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, unspecified laterality Pre-operative cardiovascular examination documented in this encounter [facility] Evaluation note Note Date & Type Note Facility Evaluation note Diagnosis 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/o org/sys involv (HCC) 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, unspecified laterality Pre-operative cardiovascular examination documented in this encounter [facility] Evaluation note Note Date & Type Note Facility Evaluation note Diagnosis Onset Date Resolution Abnormal CT scan, chest acute December 03, 2024 1 0:33am [facility] Work Phone: Reason for referral (narrative) [...] W/LEAST 12 LDS W/I&R Hunter Ferraro MD [address] [place] [address] [facility] [place] [address] Referral ID Status Reason Start Date Expiration Date V isits Requested Visits Authorized [id number] Closed Auto-Generate d Referral 08/17/2023 08/16/2024 1 1 [facility] Reason for referral (narrative) Note Date & Type Note Facility Reason for referral (narrative) No reason for referral information available [facility] Work Phone: Reason for visit Narrative [...] W/LEAST 12 LDS W/I&R Hunter Ferraro MD [address] [place] [address] [facility] [place] [address] Referral ID Status Reason Start Date Expiration Date V isits Requested Visits Authorized [id number] Closed Auto-Generate d Referral 08/17/2023 08/16/2024 1 1 [facility] Chief Complaint and Reason for Visit [...] 2024 End: December 03, 2024 Toya Busby [employer] Attending Provider Active Start: December 03, 2024 [...] or prosecute any alcohol or drug abuse patient.[facility] the event this information is protected by the Federal Confidentiality of Alcohol and Drug Abuse Patient Records regulations: The Federal rules restrict any use of the information to criminally investigate or prosecute any alcohol or drug abuse patient.[facility] INFORMATION SOURCE (unrecogn ized section and content) DATE CREATED AUTHOR 08/18/2023 [facility] DATE CREATED AUTHOR AUTHOR'S WINTERIZ ATJESSICA 12/02/2024 [facility] FOR RECORDS PERTAINING TO PATIENTS WHO ARE [...] BE BASED ON THE PRIMARY CLINICAL RECORDS. [employer] [facility]. provides no warranty or guarantee of the accuracy or completeness of information in this document.
== END | disposition home or self-care (01) ==
LOC: PSN 09:23
PROVIDERS: PCP Family Medicine; Referring Provider Family Medicine; Visit Provider Family Medicine
DX: R05.8 Other specified cough (principal)
CPT/HCPCS: 94060; 94726; 94729

== ENCOUNTER → 2024-12-16 | Outpatient (CLI) | payer MEDICARE, SELFPAY ==
--- NOTE | 2024-12-16 08:30 | PET_ITS ---
PROCEDURE: PET/CT TUMOR BASE -THIGH INIT 12/16/2024 REASON FOR EXAM: 69 y/o F with LUNG TECHNIQUE: Following the intravenous administration of radionucleotide, image acquisition on a dedicated PET/CT unit was performed at one hour post injection. A preliminary CT study encompassing the Skull base, neck, chest, abdomen, pelvis, and proximal thighs was performed for purposes of attenuation correction and anatomic localization. The proximal thighs were also included. The patient's blood glucose level was 73 mg/dL (allowable range: 50-180 mg/dL). RADIOPHARMACEUTICAL: 14.496 MCi 18F-FDG (Fluorodeoxyglucose F18) IV was injected into he patient. RADIATION DOSE SUMMARY: Effective Dose: Approximately 7 mSv for a standard whole-body PET scan Organ Doses: Varies by organ, with higher doses typically to the bladder, liver, and brain COMPARISON: COMPARISON FROM CT, PET OR OTHER PERTINENT EXAMS: . FINDINGS: Physiologic uptake: There may be expected metabolic uptake within the brain, tongue and floor of the mouth and larynx/vocal cords, heart, kayla (many normal individuals have hilar uptake in less than 3 nodes with mildly avid hilar nodes less than 2.7 SUV), liver and spleen, system, and GI tract and symmetric muscle uptake. FDG AVID AND NON-AVID LESIONS. Reported avid SUV values (g/mL*) are maximum SUV. NECK: Small 1 cm subclavicular lesion measures 4.08 SUV t here are no significant neck abnormalities. CHEST: Chest wall- There is a pleural based lesion an to the 8th right (posterior rib) showing 15.36 Max SUV. there are no other significant chest wall abnormalities. Axilla- There are no significant axillary abnormalities. Lung parenchyma- There are no significant lung parenchyma abnormalities. Mediastinum- There are no significant hilar or mediastinal adenopathy. Pleura- There are no significant pleural abnormalities. ABDOMEN: Stomach- No significant abnormalities. Liver- No significant abnormalities. Spleen- No significant abnormalities. Pancrease- No significant abnormalities. Kidneys- No significant abnormalities. Bowel- Normal bowel activity. Spine- No significant abnormalities. PELVIS: Bowel- Normal physiologic bowel activity is identified. Masses- 8 mm nodule deep in the pelvis wxxwnric to the right presacral area measures LOWER EXTREMITIES: Bones- With the use of bone window settings, there are no osteolytic or osteoblastic lesions. There are no FDG avid lesions within the visualized portion of the axial skeleton. PET/PET/CT Tumor Base -Thigh Init IMPRESSION: FDG avid- No significant avid lesions. Suspicious- No significant suspicious abnormalities. Non-FDG avid- No non-FDG avid cysts. Other: No additional comments. Please note the low-dose CT scan was performed to facilitate PET image reconstr uction and anatomic localization and does not replace a diagnostic CT. Any diagnostic CT requested and performed at the time of the PET will be reported separately. Reading Location[facility]
== END | disposition home or self-care (01) ==
LOC: ONC 08:17
PROVIDERS: PCP Family Medicine; Referring Provider Nurse Practitioner Acute Care; Visit Provider Nurse Practitioner Acute Care
DX: R91.8 Other nonspecific abnormal finding of lung field (principal); R93.89 Abnormal findings on diagnostic imaging of other specified body structures
CPT/HCPCS: 78815; A9552

== ENCOUNTER → 2024-12-16 | Outpatient (CLI) | payer MEDICARE, SELFPAY ==
[2024-12-16 12:39] VITALS: PULSE 74; PULSE 78; PULSE 81; PULSE 87; PULSE 88; PULSE 90; PULSE 92; O2SAT 91; O2SAT 92; O2SAT 93; O2SAT 94
--- NOTE | 2024-12-18 08:52 | PCM.PSN.6M ---
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 Assistive device None used: Pre-test Oxygen Delivery Room Air Method Pulse Ox (%) 94 Pulse Rate (60-100 74 beats/min) Dyspnea Carla Scale ( 3 0-10) 1st minute Oxygen Delivery Room Air Method Pulse Ox (%) 93 Pulse Rate (60-100 81 beats/min) Dyspnea Carla Scale ( 3 0-10) Number of Rests 0 Taken Reported Symptoms Increased Work of Breathing 2nd minute Oxygen Delivery Room Air Method Pulse Ox (%) 92 Pulse Rate (60-100 87 beats/min) Dyspnea Carla Scale ( 4 0-10) Number of Rests 0 Taken Reported Symptoms Increased Work of Breathing 3rd minute Oxygen Delivery Room Air Method Pulse Ox (%) 92 Pulse Rate (60-100 88 beats/min) Dyspnea Carla Scale ( 4 0-10) Number of Rests 0 Taken Reported Symptoms Increased Work of Breathing 4th minute Oxygen Delivery Room Air Method Pulse Ox (%) 91 Pulse Rate (60-100 90 beats/min) Dyspnea Carla Scale ( 4 0-10) Number of Rests 0 Taken Reported Symptoms Increased Work of Breathing 5th minute Oxygen Delivery Room Air Method Pulse Ox (%) 91 Pulse Rate (60-100 92 beats/min) Dyspnea Carla Scale ( 4 0-10) Number of Rests 0 Taken Reported Symptoms Increased Work of Breathing 6th minute Oxygen Delivery Room Air Method Pulse Ox (%) 92 Pulse Rate (60-100 92 beats/min) Dyspnea Carla Scale ( 4 0-10) Number of Rests 0 Taken Reported Symptoms Increased Work of Breathing Post-test Oxygen Delivery Room Air Method Pulse Ox (%) 94 Pulse Rate (60-100 78 beats/min) Dyspnea Carla Scale ( 3 0-10) Exertion Carla Scale 6 (6-20) Reported Symptoms Increased Work of Breathing Full Laps Walked 18 Partial Lap, Number 0 of Tiles Walked Total Distance 1062 Walked (ft) Interpretation Interpretation: The patient ambulated 1062 feet over the course of 6 minutes beginning on room air without assistive devices. Pretesting oxygen saturation was noted to be 94% on room air. With ambulation, the armand oxygen saturation was 91%. There was no significant exertional oxygen desaturation. Recommendations Recommendations: There is no indication for the use of supplemental oxygen at this time.
--- NOTE | 2024-12-18 08:52 | PCM.PSN.6M ---
PSN 6 Minute Walk Test 6 Minute Walk Test 6 Minute Walk Test: 6 Minute Walk Test PSN:6-Minute Walk Test Start: 12/16/24 12:38 Freq: Status: Active Protocol: [id number] Document 12/16/24 12:39 [facility] (Rec: 12/16/24 12:42 [facility] [id number]) 6 Minute Walk Test Date Performed 12/16/24 Time Performed 12:15 Height 5 ft 5 in Weight: 135 lb Weight in Pounds 135.[address]: Toya Busby [employer] Assistive device None used: Pre-test Oxygen Delivery Room Air Method Pulse Ox (%) 94 Pulse Rate (60-100 74 beats/min) Dyspnea Carla Scale ( 3 0-10) 1st minute Oxygen Delivery Room Air Method Pulse Ox (%) 93 Pulse Rate (60-100 81 beats/min) Dyspnea Carla Scale ( 3 0-10) Number of Rests 0 Taken Reported Symptoms Increased Work of Breathing 2nd minute Oxygen Delivery Room Air Method Pulse Ox (%) 92 Pulse Rate (60-100 87 beats/min) Dyspnea Carla Scale ( 4 0-10) Number of Rests 0 Taken Reported Symptoms Increased Work of Breathing 3rd minute Oxygen Delivery Room Air Method Pulse Ox (%) 92 Pulse Rate (60-100 88 beats/min) Dyspnea Carla Scale ( 4 0-10) Number of Rests 0 Taken Reported Symptoms Increased Work of Breathing 4th minute Oxygen Delivery Room Air Method Pulse Ox (%) 91 Pulse Rate (60-100 90 beats/min) Dyspnea Carla Scale ( 4 0-10) Number of Rests 0 Taken Reported Symptoms Increased Work of Breathing 5th minute Oxygen Delivery Room Air Method Pulse Ox (%) 91 Pulse Rate (60-100 92 beats/min) Dyspnea Carla Scale ( 4 0-10) Number of Rests 0 Taken Reported Symptoms Increased Work of Breathing 6th minute Oxygen Delivery Room Air Method Pulse Ox (%) 92 Pulse Rate (60-100 92 beats/min) Dyspnea Carla Scale ( 4 0-10) Number of Rests 0 Taken Reported Symptoms Increased Work of Breathing Post-test Oxygen Delivery Room Air Method Pulse Ox (%) 94 Pulse Rate (60-100 78 beats/min) Dyspnea Carla Scale ( 3 0-10) Exertion Carla Scale 6 (6-20) Reported Symptoms Increased Work of Breathing Full Laps Walked 18 Partial Lap, Number 0 of Tiles Walked Total Distance 1062 Walked (ft) Interpretation Interpretation: The patient ambulated 1062 feet over the course of 6 minutes beginning on room air without assistive devices. Pretesting oxygen saturation was noted to be 94% on room air. With ambulation, the armand oxygen saturation was 91%. There was no significant exertional oxygen desaturation. Recommendations Recommendations: There is no indication for the use of supplemental oxygen at this time.
== END | disposition home or self-care (01) ==
LOC: PSN 11:56
PROVIDERS: PCP Family Medicine; Referring Provider Nurse Practitioner Acute Care; Visit Provider Nurse Practitioner Acute Care
DX: J44.9 Chronic obstructive pulmonary disease, unspecified (principal)
CPT/HCPCS: 94618

== ENCOUNTER → 2025-01-16 | Outpatient (CLI) | payer MEDICARE, SELFPAY ==
[2025-01-16 10:30] LABS: Hematocrit 33.1 % (37-47); Hemoglobin 10.9 g/dL (12.0-15.0); Immature Granulocytes Count 0.020 X10^3/uL (0.0-0.0); Mean Corp Hgb Conc 32.9 g/dL (32-36); Mean Corpuscular Volume 100.3 fL (81-99); Mean Platelet Vol. 8.9 fl (6.2-12.0); NRBC Flagged by Analyzer 0 % (0-5); Platelet Count 280 K/mm3 (150-450); RBC Distribution Width CV 13.3 % (11.6-14.6); RBC Distribution Width SD 49.0 fl (35.1-43.9); Red Blood Count 3.30 M/mm3 (4.2-5.4); White Blood Count 7.1 K/mm3 (4.4-11.0)
[2025-01-16 10:59] LABS: AST(SGOT) 16 U/L (<=31); Alanine Aminotransfer ALT/SGPT 8 U/L (<=34); Albumin, Serum 3.8 g/dL (3.4-4.8); Alkaline Phosphatase 85 U/L (35-104); Anion Gap 12 (5-15); BUN 17 mg/dL (4-19); BUN/Creat Ratio 21.5 RATIO (10-20); Calcium,Total 9.2 mg/dL (7.6-11.0); Carbon Dioxide 20.5 mmol/L (21.0-32.0); Chloride 108 mmol/L (98-108); Globulin 3.5 g/dL (2.2-4.2); Glucose 76 mg/dL (70-99); Potassium 3.9 mmol/L (3.3-5.1)
== END | disposition home or self-care (01) ==
LOC: MTLAB 08:58
PROVIDERS: PCP Family Medicine; Referring Provider Internal Medicine Rheumatology; Visit Provider Internal Medicine Rheumatology
DX: M05.79 Rheumatoid arthritis with rheumatoid factor of multiple sites without organ or systems involvement (principal); R76.8 Other specified abnormal immunological findings in serum; Z79.899 Other long term (current) drug therapy
CPT/HCPCS: 36415; 80053; 85025

== ENCOUNTER → 2025-04-13 | Outpatient (CLI) | payer MEDICARE, SELFPAY ==
[2025-04-13 10:33] LABS: Hematocrit 34.2 % (37-47); Hemoglobin 10.9 g/dL (12.0-15.0); Immature Granulocytes Count 0.050 X10^3/uL (0.0-0.0); Mean Corp Hgb Conc 31.9 g/dL (32-36); Mean Corpuscular Volume 100.6 fL (81-99); Mean Platelet Vol. 8.9 fl (6.2-12.0); NRBC Flagged by Analyzer 0 % (0-5); Platelet Count 323 K/mm3 (150-450); RBC Distribution Width CV 13.2 % (11.6-14.6); RBC Distribution Width SD 48.7 fl (35.1-43.9); Red Blood Count 3.40 M/mm3 (4.2-5.4); White Blood Count 9.7 K/mm3 (4.4-11.0)
[2025-04-13 10:54] LABS: AST(SGOT) 15 U/L (<=31); Alanine Aminotransfer ALT/SGPT 8 U/L (<=34); Albumin, Serum 3.7 g/dL (3.4-4.8); Alkaline Phosphatase 69 U/L (35-104); Anion Gap 12 (5-15); BUN 17 mg/dL (4-19); BUN/Creat Ratio 21.2 RATIO (10-20); Calcium,Total 9.0 mg/dL (7.6-11.0); Carbon Dioxide 20.9 mmol/L (21.0-32.0); Chloride 109 mmol/L (98-108); Globulin 3.4 g/dL (2.2-4.2); Glucose 90 mg/dL (70-99); Potassium 3.8 mmol/L (3.3-5.1)
== END | disposition home or self-care (01) ==
LOC: MTLAB 08:47
PROVIDERS: PCP Family Medicine; Referring Provider Internal Medicine Rheumatology; Visit Provider Internal Medicine Rheumatology
DX: Z79.899 Other long term (current) drug therapy (principal); R76.89 Other specified abnormal immunological findings in serum
CPT/HCPCS: 36415; 80053; 85025

== ENCOUNTER → 2025-04-22 | Outpatient (CLI) | payer MEDICARE, SELFPAY ==
[2025-04-22 14:52] LABS: Platelet Count 300 K/mm3 (150-450)
[2025-04-22 15:19] LABS: Prothrombin Time (Protime)PT. 14.1 SECONDS (11.7-14.9)
[2025-04-22 15:21] LABS: Partial Thromboplast Time 26.8 Seconds (24.1-36.2)
== END | disposition home or self-care (01) ==
LOC: PAVLAB 14:42
PROVIDERS: PCP Family Medicine; Referring Provider Nurse Practitioner Acute Care; Visit Provider Nurse Practitioner Acute Care
DX: I48.91 Unspecified atrial fibrillation (principal); R06.02 Shortness of breath
CPT/HCPCS: 36415; 85049; 85610; 85730

== ENCOUNTER 2025-05-08 07:58 | Outpatient (CLI) | payer MEDICARE, SELFPAY ==
--- NOTE | 2025-05-07 09:10 | ASPIGT_PTH ---
PATIENT: BLACK SHORT LOC: CT U#:[id number] AGE/SX: 69/F ROOM: RE05/08/[address]: ADEOLA Vaz : 1955 BED: DIS: 05/08/2025 SPEC #: [id number] RECD: 05/08/25 09:30 STATUS: KEN KENROY #: [id number] JEN: 05/07/25 09:[address]: Toya Busby NP DEPT: SURGICAL PATHOLOGY RECD BY: Dewayne Echols ENTERED: 05/08/25 09:42 SP TYPE: ASP RAD OTHR DR: Dania Beck MD Tissues: A - Lung, NOS Procedures: FNA Specimen Adequacy Immunohistochemical Stains Special Stain Group II Surgery Specimen Level V Imprint (control) IHC Stain ADDITIONAL HEADER OPERATION: CT guided lung biopsy PRE-OP DIAGNOSIS: Right lower lobe nodule, smoker TISSUE SUBMITTED: A- Right lower lobe biopsy MICROSCOPIC DIAGNOSIS A. Lung, right lower lobe nodule, CT-guided biopsy: - Scant atypical squamous epithelium - see note. - IHC for CK5/6 and p40 (positive) and TTF-1 (negative) support the histologic impression. Note: Scant atypical squamous epithelium is suspicious for carcinoma, but not diagnostic. Additional tissue is recommended, if clinically indicated. COMMENT The specimen is evaluated at the time of biopsy by Dr. Wray. Immediate Evaluation = 1. Adequate. 2. Adequate. MICROSCOPIC DESCRIPTION Slides are reviewed. All matched controls reacted appropriately. These tests were developed and their performance characteristics determined by [facility]. They may not have been cleared or approved by the U.[place]. Food and Drug Administration. The FDA has determined that such clearance or approval is not necessary. The above immunohistochemical markers and/or special?stains have been reviewed by the Pathologist. GROSS DESCRIPTION A. Received in formalin labeled the patient's name and date of are multiple anthony-red wispy portions of tissue, collectively measuring 0.5 x 0.3 x <0.1 cm in aggregate. Touch preparations are made. Entirely submitted in 2 cassettes. NV 05/08/2025PT:[id number]
[2025-05-08] VITALS (14 sets, daily range): BP systolic 90–117; BP diastolic 59–77; PULSE 61–68; RESP 14–21; O2SAT 90–99; BMI 22.4
--- NOTE | 2025-05-08 08:03 | CT_ITS ---
PROCEDURE: BIOPSY/INJ OR NEEDLE PLACEMENT 05/08/2025 REASON FOR EXAM: RIGHT LOWER LOBE NODULE SMOKER TECHNIQUE: The procedure as well as the benefits and possible complications including infection, bleeding and pneumothorax were explained to the patient in the patient's has been. Informed consent was obtained. The patient was in the prone position. The overlying skin was prepped and draped in the usual sterile fashion. Conscious sedation was performed. The patient received 2 mg of Versed and 50 mcg of fentanyl intravenously. Conscious sedation was started at 8:54 a.m. and terminated at 9:15 a.m.. The patient was independently monitored by the department nurse. Following local anesthetic application, a 20 gauge core biopsy needle was placed into the right lower lobe nodular mass. 5 core biopsies were obtained. The specimen were deemed adequate by the pathologist. The patient tolerated the procedure well. RADIATION DOSE SUMMARY: CTDlvol: 14.4 mGy DLP: 255.76 mGycm COMPARISON: Prior study dated November 21, 2024. FINDINGS: Successful CT-guided core biopsies of the pulmonary nodular density in the right lower lobe. The patient tolerated the procedure well. CT/Biopsy/Inj or Needle Placement IMPRESSION: Successful CT-guided core biopsies of the pulmonary nodular density in the righ t lower lobe. The patient tolerated the procedure well. No immediate complication noted. Reading Location: [place] [id number]
[2025-05-08 08:23] LABS: Hematocrit 34.8 % (37-47); Hemoglobin 11.2 g/dL (12.0-15.0); Immature Granulocytes Count 0.030 X10^3/uL (0.0-0.0); Mean Corp Hgb Conc 32.2 g/dL (32-36); Mean Corpuscular Volume 99.7 fL (81-99); Mean Platelet Vol. 8.8 fl (6.2-12.0); NRBC Flagged by Analyzer 0 % (0-5); Platelet Count 305 K/mm3 (150-450); RBC Distribution Width CV 13.2 % (11.6-14.6); RBC Distribution Width SD 48.1 fl (35.1-43.9); Red Blood Count 3.49 M/mm3 (4.2-5.4); White Blood Count 6.8 K/mm3 (4.4-11.0)
[2025-05-08 08:27] LABS: Prothrombin Time (Protime)PT. 15.1 SECONDS (11.7-14.9)
[2025-05-08 08:28] LABS: Partial Thromboplast Time 29.8 Seconds (24.1-36.2)
[2025-05-08] MEDS: Midazolam 2 MG/2 ML Syringe IV (08:54)
[2025-05-08] MEDS: 0.9% Saline Lock 10 ML Syringe IV (08:55)
[2025-05-08] MEDS: fentaNYL 100 MCG/2 ML Ampul IV (08:55)
[2025-05-08] MEDS: Lidocaine 2% (20 ml mdv) 20 ML Vial INFILT (09:05)
--- NOTE | 2025-05-08 09:20 | RAD_ITS ---
PROCEDURE: CHEST INSP/EXP 2 VIEW 05/08/2025 REASON FOR EXAM: POST LUNG BIOPSY Immediate post right lung biopsy radiographs. TECHNIQUE: Procedure Code: RADCXRINSPEXP Modality: DX Procedure: CHEST INSP/EXP 2 VIEW Expiration inspiration views. COMPARISON: Prior chest radiograph dated October 28, 2024. FINDINGS: No evidence of pneumothorax on the immediate post right lung biopsy radiographs. RAD/Chest Insp/Exp 2 View IMPRESSION: No evidence of pneumothorax on the immediate post right lung biopsy radiographs . Reading Location: [place] [id number]
--- NOTE | 2025-05-08 11:20 | RAD_ITS ---
PROCEDURE: CHEST INSP/EXP 2 VIEW 05/08/2025 REASON FOR EXAM: 2HR POST LUNG BIOSPY TECHNIQUE: Procedure Code: RADCXRINSPEXP Modality: DX Procedure: CHEST INSP/EXP 2 VIEW Inspiration expiration views were obtained. COMPARISON: Prior study done earlier in the day. FINDINGS: No evidence of pneumothorax in the 2 hour post right lung biopsy radiographs. RAD/Chest Insp/Exp 2 View IMPRESSION: No evidence of pneumothorax on the 2 hour post right lung biopsy radiographs. Reading Location: [place] [id number]
== END 2025-05-08 23:59 | disposition home or self-care (01) ==
PROVIDERS: Radiology Diagnostic Radiology; PCP Family Medicine; Referring Provider Nurse Practitioner Acute Care; Visit Provider Nurse Practitioner Acute Care
DX: Z01.812 Encounter for preprocedural laboratory examination (principal); R91.1 Solitary pulmonary nodule; F17.210 Nicotine dependence, cigarettes, uncomplicated; R91.8 Other nonspecific abnormal finding of lung field; R06.02 Shortness of breath
CPT/HCPCS: 32408; 36415; 71046; 77012; 85025; 85610; 85730; 88172; 88307; 88313; 88341; 88342; 99156; A4216; C2613

== ENCOUNTER → 2025-06-02 | Outpatient (CLI) | payer MEDICARE, SELFPAY ==
--- NOTE | 2025-06-02 07:00 | PET_ITS ---
PROCEDURE: PET/CT TUMOR BASE -THIGH INIT 06/02/2025 REASON FOR EXAM: 70 y/o F with LUNG cancer, right lower lobe TECHNIQUE: Procedure Code: PETPTCTINIT Modality: PT Procedure: PET/CT TUMOR BASE -THIGH INIT Following the intravenous administration of radionucleotide, image acquisition on a dedicated PET/CT unit was performed at one hour post injection. A preliminary CT study encompassing the Skull base, neck, chest, abdomen, pelvis, and proximal thighs was performed for purposes of attenuation correction and anatomic localization. The proximal thighs were also included. The patient's blood glucose level was 101 mg/dL (allowable range: 50-180 mg/dL). RADIOPHARMACEUTICAL: 12.91 mCi 18F-FDG (Fluorodeoxyglucose F18) IV was injected into he patient. RADIATION DOSE SUMMARY: Effective Dose: Approximately 7 mSv for a standard whole-body PET scan Organ Doses: Varies by organ, with higher doses typically to the bladder, liver, and brain COMPARISON: COMPARISON FROM CT, PET OR OTHER PERTINENT EXAMS: PET-CT of 12/16/2024.. FINDINGS: Physiologic uptake: There may be expected metabolic uptake within the brain, tongue and floor of the mouth and larynx/vocal cords, heart, kayla (many normal individuals have hilar uptake in less than 3 nodes with mildly avid hilar nodes less than 2.7 SUV), liver and spleen, system, and GI tract and symmetric muscle uptake. FDG AVID AND NON-AVID LESIONS. Reported avid SUV values (g/mL*) are maximum SUV. NECK: There are no significant neck abnormalities. CHEST: Chest wall- There are no significant chest wall abnormalities. Axilla- There are no significant axillary abnormalities. Lung parenchyma- The hypermetabolic posterior right lower lobe mass has increased substantially in size compared with the study of 12/16/2024, now measured at a proximally 4.0 by 8.2 by 7 cm.. SUV max is 19.6, increased from the prior value of 15.4. Also, adjacent small area of pleural thickening pleural fluid collection does not show hypermetabolic activity. Mediastinum- There are no significant hilar or mediastinal adenopathy. Pleura- There are no significant areas of abnormal pleural activity. ABDOMEN: Moderate aortic calcification is seen; no evidence of abdominal aortic aneurysm.. Stomach- No significant abnormalities. Liver- No significant abnormalities. Spleen- No significant abnormalities. Pancrease- No significant abnormalities. Kidneys- No significant abnormalities. Bowel- Normal bowel activity. Spine- No significant abnormalities. PELVIS: Bowel- Normal physiologic bowel activity is identified. Masses- There are no pelvic masses. Bones- Degenerative changes are seen throughout the spine. With the use of bone window settings, there are no osteolytic or osteoblastic lesions. There are no FDG avid lesions within the visualized portion of the axial skeleton. PET/PET/CT Tumor Base -Thigh Init IMPRESSION: FDG avid- Interval substantial enlargement of the hypermetabolic posterior right lower lo be mass, again highly concerning for malignancy. Other: Moderate aortic calcification; no evidence of abdominal aortic aneurysm. Please note the low-dose CT scan was performed to facilitate PET image reconstr uction and anatomic localization and does not replace a diagnostic CT. Any diagnostic CT requested and performed at the time of the PET will be reported separately. Reading Location: [place] [id number]
--- OUTSIDE RECORDS SUMMARY | 2025-06-02 07:22 | XMS RPT_ITS | CCD ---
Author Organization [facility] Care Team Providers Care Appraisal Technician Name Role Phone Unavailable Primary Care Provider Unavailabl e Kiran HARRISON, Dania Primary Care Provider Ayad HARRISON, Dr. Miller Attending Provider Ayad HARRISON, Dr. Miller Referring Provider Kiran HARRISON, Dania Attending Provider Kiran HARRISON, Dania Referring Provider Kiran HARRISON, Dania Primary Care Provider Ayad HARRISON, Dr. Miller Attending Provider Ayad HARRISON, Dr. Miller Referring Provider Kehinde MOTORCOACH OPERATOR-C, Toya Attending Provider Busby MOTORCOACH OPERATOR-C, Toya Referring Provider Busby MOTORCOACH OPERATOR-C, Toya Other Provider Dr. Christian Estrella DO Attending Provider NATIVIDAD BRADLEY Attending Unavailable Kehinde MOTORCOACH OPERATOR, Toya Attending Unavailable Busby MOTORCOACH OPERATOR, Toya Referring Unavailable Kiran, Chalon Primary Care Unavailable Busby MOTORCOACH OPERATOR, Toya Referring Unavailable Busby MOTORCOACH OPERATOR, Toya Attending Unavailable Kiran, Chalon Primary Care Unavailable Vellanki, Angela Referring Unavailable Vellanki, Angela Attending Unavailable Kiran, Chalon Primary Care Unavailable Kiran, Chalon Attending Unavailable Kiran, Chalon Referring Unavailable Kiran, Chalon Primary Care Unavailable Vellanki, Angela Referring Unavailable Vellanki, Angela Attending Unavailable Kiran, Chalon Primary Care Unavailable Christian Estrella Attending Unavailable Kiran, Chalon Referring Unavailable Kiran, Chalon Primary Care Unavailable Busby MOTORCOACH OPERATOR, Toya Referring Unavailable Christian Estrella Attending Unavailable Busby MOTORCOACH OPERATOR, Toya Consulting Unavailable Kiran, Chalon Primary Care Unavailable Busby MOTORCOACH OPERATOR, Toya Attending Unavailable Kiran, Chalon Referring Unavailable Kiran, Chalon Primary Care Unavailable Kiran, Chalon Primary Care Unavailable Vellanki, Angela Attending Unavailable Vellanki, Angela Referring Unavailable Kiran, Chalon Primary Care Unavailable Vellanki, Angela Attending Unavailable Vellanki, Angela Referring Unavailable Vellanki, Angela Referring Unavailable Vellanki, Angela Attending Unavailable Kiran, Chalon Primary Care Unavailable Kiran, Chalon Attending Unavailable Kiran, Chalon Referring Unavailable Kiran, Chalon Primary Care Unavailable Kiran, Chalon Attending Unavailable Medications Current Medications Medication Drug Class(es) Dates Sig (Normalized) Sig (Original) 0.4 ml adalimumab 100 mg/ml prefilled syringe (5 sources) Tumor Necrosis Factor Andres Start: 5 Adalimumab (Humira(Cf)) 40 mg/0.4 mL syringe kit Active 40 mg SC EVERY WEEK December 03, 2024 12:00am [id number] 200 actuat albuterol 0.09 mg/actuat metered dose inhaler (5 sources) beta2-Adrenergic Agonist Start: 5 Albuterol Sulfate 90 mcg/actuation HFA aerosol inhaler Active 2 NMA INHALATION THREE TIMES A DAY as needed December 03, 2024 12:00am DULoxetine 60 mg delayed release oral capsule (5 sources) Serotonin and Norepinephrine Reuptake Inhibitor Start: 5 take 1 capsule by mouth once daily Duloxetine 60 mg capsule,delayed release(DR/EC) Active 60 mg PO daily December 03, 2024 12:00am folic acid 1 mg oral tablet (5 sources) Start: 5 take 1 tablet by mouth once daily Folic Acid 1 mg tablet Active 1 mg PO daily December 03, 2024 12:00am hydroxychloroquine sulfate 200 mg oral tablet (5 sources) Antimalarial, Antirheumatic Agent Start: 5 Hydroxychloroquine 200 mg tablet Active 300 mg PO daily December 03, 2024 12:00am Ipratropium Butler 42 mcg (0.06 %) spray,non-aerosol (5 sources) Start: 5 Ipratropium Butler 42 mcg (0.06 %) spray,non-aerosol Active 2 NMA INTRANASAL TWICE A DAY as needed December 03, 2024 12:00am levothyroxine sodium 0.112 mg oral tablet (5 sources) l-Thyroxine Start: take 1 tablet by mouth once daily Levothyroxine 112 mcg tablet Active 112 ug PO daily December 03, 2024 12:00am methotrexate 2.5 mg oral tablet (5 sources) Folate Analog Metabolic Inhibitor Start: 5 Methotrexate Sodium 2.5 mg tablet Active 15 mg PO EVERY WEEK December 03, 2024 12:00am Problems Active Problems Problem Classification Problem Date Documented Da te Episodic/Chronic Chronic obstructive pulmonary disease and bronchiectasis (11 sources) Chronic obstructive lung disease; Translations: [Chronic obstructive pulmonary disease, unspecified] Onset: 01-13-2025 12-03-2024 Chronic Comment on above: FEV1 74% of predicte d Deficiency and other anemia (1 source) Anemia, unspecified; Translations: [Anemia, unspecified type] Onset: 04-09-2025 Episodic Non-Hodgkin`s lymphoma (8 sources) History of malignant lymphoma; Translations: [Personal history of non-Hodgkin lymphomas] 12-03-2024 Episodic Other aftercare (1 source) Other chcf (current) drug therapy; Translations: [Other intermediate project manager (current) drug therapy] Onset: 04-13-2025 Episodic Other eye disorders (2 sources) Limited eye movement; 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, unspecified orbit] 08-17-2023 Chronic Other screening for suspected conditions (not mental disorders or infectious disease) (10 sources) CT of chest abnormal; Translations: [Abnormal findings on diagnostic imaging of other specified body structures] 12-03-2024 Chronic Pneumonia (except that caused by tuberculosis or sexually transmitted disease) (1 source) Pneumonia, unspecified organism; Translations: [Pneumonia of right lung due to infectious organism, unspecified part of lung] Onset: 04-09-2025 Episodic Residual codes; unclassified (8 sources) Harmful pattern of use of nicotine; Translations: [Tobacco use] 12-03-2024 Episodic Comment on above: 1 PPD Rheumatoid arthritis and related disease (12 sources) Rheumatoid arthritis - ankle and/or foot; Translations: [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] Onset: 01-23-2025 08-17-2023 Chronic Substance-related disorders (1 source) Nicotine dependence, unspecified, uncomplicated; Translations: [Tobacco use disorder] Onset: 04-09-2025 Chronic Thyroid disorders (5 sources) Hypothyroidism; Translations: [Hypothyroidism, unspecified] 12-03-2024 Chronic Unclassified (2 sources) Other specified cough; Translations: [Other specified cough] Onset: 01-29-2025 Past or Other Problems Problem Classification Problem Date Documented Da te Episodic/Chronic Other lower respiratory disease (1 source) Other nonspecific abnormal finding of lung field; Translations: [Other nonspecific abnormal finding of lung field] Onset: 12-22-2024 Episodic Results Test Name Value Interpretation Reference Range Facility CBC W/Diff, Automatedon 11- Absolute Lymph 1.17 X10 3/uL Normal 0.83-4.51 [facility] Comment on above: Performed By: #### L 500.4050, L100.0100 #### [facility] [address] [place], [address] Absolute Neut 8.1 X10 3/uL High 2.0-7.7 [facility] Comment on above: Performed By: #### L 500.4050, L100.0100 #### [facility] [address] [place], [address] Basophils/100 WBC (Bld) 0.4 % Normal 0-1 [facility] Comment on above: Performed By: #### L 500.4050, L100.0100 #### [facility] [address] [place], [address] Eosinophils/100 WBC (Bld) 0.2 % Normal 0-5 [facility] Comment on above: Performed By: #### L 500.4050, L100.0100 #### [facility] [address] [place], [address] Erythrocyte distribution width (RBC) [Ratio] 13.2 % Normal 11.6-14.6 [facility] Comment on above: Performed By: #### L 500.4050, L100.0100 #### [facility] [address] [place], [address] Hematocrit (Bld) [Volume fraction] 34.2 % Low 37-47 [facility] Comment on above: Performed By: #### L 500.4050, L100.0100 #### [facility] [address] [place], [address] Hemoglobin (Bld) [Mass/Vol] 10.9 g/dL Low 12.0-15.0 [facility] Comment on above: Performed By: #### L 500.4050, L100.0100 #### [facility] [address] [place], [address] IG% 0.500 Normal 0.0-0.9 [facility] Comment on above: Result Comment: IG% - Immature Granulocytes (promyelocytes, myelocytes and metamyelocytes) > 1% indicates that a LEFT SHIFT is Present. Performed By: #### L 500.4050, L100.0100 #### [facility] [address] [place], [address] Lymphocytes/100 WBC (Bld) 12.1 % Low 19-41 [facility] Comment on above: Performed By: #### L 500.4050, L100.0100 #### [facility] [address] [place], [address] MCH (RBC) [Entitic mass] 32.1 pg High 27.0-32.0 [facility] Comment on above: Performed By: #### L 500.4050, L100.0100 #### [facility] [address] [place], [address] MCHC (RBC) [Mass/Vol] 31.9 g/dL Low 32-36 [facility] Comment on above: Performed By: #### L 500.4050, L100.0100 #### [facility] [address] [place], [address] MCV (RBC) [Entitic vol] 100.6 fL High 81-99 [facility] Comment on above: Performed By: #### L 500.4050, L100.0100 #### [facility] [address] [place], [address] Monocytes/100 WBC (Bld) 2.9 % Normal 0-10 [facility] Comment on above: Performed By: #### L 500.4050, L100.0100 #### [facility] [address] [place], [address] Neutrophils/100 WBC (Bld) 83.9 % High 47-70 [facility] Comment on above: Performed By: #### L 500.4050, L100.0100 #### [facility] [address] [place], [address] Nucleated RBC (Bld) [#/Vol] 0 10*3/uL Normal 0-5 [facility] Comment on above: Performed By: #### L 500.4050, L100.0100 #### [facility] [address] [place], [address] Platelet mean volume (Bld) [Entitic vol] 8.9 fL Normal 6.2-12.0 [facility] Comment on above: Performed By: #### L 500.4050, L100.0100 #### [facility] [address] [place], [address] Platelets (Bld) [#/Vol] 323 10*3/uL Normal 150-450 [facility] Comment on above: Performed By: #### L 500.4050, L100.0100 #### [facility] [address] [place], [address] RBC (Bld) [#/Vol] 3.40 10*6/uL Low 4.2-5.4 [facility] Comment on above: Performed By: #### L 500.4050, L100.0100 #### [facility] [address] [place], [address] RDW SD 48.7 fl High 35.1-43.9 [facility] Comment on above: Performed By: #### L 500.4050, L100.0100 #### [facility] [address] [place], [address] WBC (Bld) [#/Vol] 9.7 10*3/uL Normal 4.4-11.0 [facility] Comment on above: Performed By: #### L 500.4050, L100.0100 #### [facility] [address] [place], [address] Comprehensive Metabolic Prof ilon 04-13-2025 Albumin [Mass/Vol] 3.7 g/dL Normal 3.4-4.8 [facility] Comment on above: Performed By: #### L 400.2010, L501.0900, L100.0100, L500.4050 #### [facility] [address] [place], [address] Albumin/Globulin [Mass ratio] 1.1 {ratio} Normal 0.9-2.4 [facility] Comment on above: Performed By: #### L 400.2010, L501.0900, L100.0100, L500.4050 #### [facility] [address] [place], [address] ALK PHOS 69 U/L Normal 35-104 [facility] Comment on above: Performed By: #### L 400.2010, L501.0900, L100.0100, L500.4050 #### [facility] [address] [place], [address] ALT [Catalytic activity/Vol] 8 U/L Normal <=34 [facility] Comment on above: Performed By: #### L 400.2010, L501.0900, L100.0100, L500.4050 #### [facility] [address] [place], [address] AST [Catalytic activity/Vol] 15 U/L Normal <=31 [facility] Comment on above: Performed By: #### L 400.2010, L501.0900, L100.0100, L500.4050 #### [facility] [address] [place], [address] Bilirubin [Mass/Vol] 0.23 mg/dL Normal 0.00-1.[address] [facility] Comment on above: Performed By: #### L 400.2010, L501.0900, L100.0100, L500.4050 #### [facility] [address] [place], [address] BUN/CRE 21.2 RATIO High 10-20 [facility] Comment on above: Performed By: #### L 400.2010, L501.0900, L100.0100, L500.4050 #### [facility] [address] [place], [address] Calcium [Mass/Vol] 9.0 mg/dL Normal 7.6-11.0 [facility] Comment on above: Performed By: #### L 400.2010, L501.0900, L100.0100, L500.4050 #### [facility] [address] [place], [address] Chloride [Moles/Vol] 109 mmol/L High 98-[address] [facility] Comment on above: Performed By: #### L 400.2010, L501.0900, L100.0100, L500.4050 #### [facility] [address] [place], [address] CO2 [Moles/Vol] 20.9 mmol/L Low 21.0-32.0 [facility] Comment on above: Performed By: #### L 400.2010, L501.0900, L100.0100, L500.4050 #### [facility] [address] [place], [address] Creatinine [Mass/Vol] 0.79 mg/dL Normal 0.70-1.20 [facility] Comment on above: Performed By: #### L 400.2010, L501.0900, L100.0100, L500.4050 #### [facility] [address] [place], [address] GAP 12 Normal 5-15 [facility] Comment on above: Performed By: #### L 400, L501.0900, L100.0100, L500.4050 #### [facility] [address] [place], [address] GFR/1.73 sq M.predicted among non-blacks MDRD (S/P/Bld) [Vol rate/Area] 82 mL/min/{1.73_m2} Normal >60 [facility] Comment on above: Result Comment: mL/m in/1.73m2 CKD-EPI Creatinine Equation (2020) Performed By: #### L 400, L501.0900, L100.0100, L500.4050 #### [facility] [address] [place], [address] Globulin (S) [Mass/Vol] 3.4 g/dL Normal 2.2-4.2 [facility] Comment on above: Performed By: #### L 400, L501.0900, L100.0100, L500.4050 #### [facility] [address] [place], [address] Glucose [Mass/Vol] 90 mg/dL Normal 70-99 [facility] Comment on above: Performed By: #### L 400, L501.0900, L100.0100, L500.4050 #### [facility] [address] [place], [address] Potassium [Moles/Vol] 3.8 mmol/L Normal 3.3-5.1 [facility] Comment on above: Performed By: #### L 400.2010, L501.0900, L100.0100, L500.4050 #### [facility] [address] [place], [address] Sodium [Moles/Vol] 142 mmol/L Normal 133-145 [facility] Comment on above: Performed By: #### L 400.2010, L501.0900, L100.0100, L500.4050 #### [facility] [address] [place], [address] T PROT 7.1 g/dL Normal 5.9-8.4 [facility] Comment on above: Performed By: #### L 400.2010, L501.0900, L100.0100, L500.4050 #### [facility] [address] [place], [address] Urea nitrogen [Mass/Vol] 17 mg/dL Normal 4-19 [facility] Comment on above: Performed By: #### L 400.2010, L501.0900, L100.0100, L500.4050 #### [facility] [address] [place], [address] CTA CHEST (NON GATED) W IVCO N PEon 04-10-2025 CTA CHEST (NON GATED) W IVCON PE * * *Final Report* * * DATE OF EXAM: Apr 10 2025 12:33AM [facility] [id number] - CTA CHEST (NON GATED) W IVCON PE / PROCEDURE REASON: Pulmonary embolism (PE) suspected, high prob * * * * Physician Interpretation * * * * EXAMINATION: CHEST CTA (NON GATED) WITH CONTRAST (PULMONARY EMBOLISM PROTOCOL) Clinical History: PE suspected, high pretest probability. Increased shortness of breath. Pain in the back and ribs from coughing. Technique: Spiral CT acquisition of the chest from the thoracic inlet to the upper abdomen following IV contrast. Axial 1 and 3 mm thick slices plus coronal and sagittal reformatted images. MQ: CTCP_5 Contrast: 100 mL Omnipaque [address] Radiation dose: Integrated Dose-length product (DLP) for this visit = 127.1 mGy*cm CT Dose Reduction Employed: Iterative recon and mAs-kVp adjusted using patient size-age CTA: Post-processed images (Maximum intensity Projection (MIP), Volume-rendered (VR), or Surface shaded display images (SSD) were created, reviewed and archived. Comparison: No relevant prior studies available. RESULT: Limitations: None. Evaluation for thromboembolic disease: - Right heart chambers: No thromboembolic disease. - Main pulmonary arteries: No thromboembolic disease. - Lobar pulmonary arteries: No thromboembolic disease. - Segmental pulmonary arteries: No thromboembolic disease. - Subsegmental pulmonary arteries: No thromboembolic disease. - Additional pulmonary artery findings: The main pulmonary artery is normal in caliber. Lines, tubes, and devices: None. Lung parenchyma and airways: There is dense consolidation involving the posterior and superior segment of the right lower lobe with additional patchy consolidation on the posterior inferior aspect of the right lower lobe. There is a calcified granuloma the right lower lobe. There are no endobronchial lesions. No pneumothorax. There is mild centrilobular emphysema. Pleural space: No pleural effusion. No pleural thickening. Lower neck, lymph nodes, and mediastinum: The imaged thyroid gland is normal. No lymphadenopathy in the supraclavicular, axillary, mediastinal, or left hilar regions. There is an enlarged right hilar lymph node measuring 1.9 x 2.0 cm which is likely reactive Heart, pericardium, and thoracic vessels: The thoracic aorta is normal in caliber. The cardiac chambers are normal in size. Scattered coronary artery atherosclerotic calcifications are noted, although the study is not optimized for coronary assessment. No pericardial effusion or thickening. Bones and soft tissues: No acute fracture or osseous lesions are identified. There are degenerative changes in the spine. Upper abdomen: No abnormality in the imaged upper abdomen. Localizer images: No additional findings. IMPRESSION: 1. No CT evidence of pulmonary embolism. 2. Right lower lobe consolidation as detailed above. Findings are compatible with pneumonia. 3. Emphysema. Maintenance Shop Clerk: SAMANTHA Transcribe Date/Time: Apr 10 2025 2:24A Dictated by : JENN ZABALA MD This examination was interpreted and the report reviewed and electronically signed by: JENN ZABALA MD on Apr 10 2025 2:29AM EST [id number] CN Normal [facility] HIGH SENSITIVITY TROPONIN T (SECOND)on 04-10-2025 Troponin T.cardiac High sensitivity method [Mass/Vol] 8 ng/L Normal <12 [facility] Comment on above: Order Comment: Speci men Type: BLOOD SPECIMEN Ordering Facility: [facility] Address: [address] [place] [address] Performed By: #### L [id number] #### [facility] CLIA [id number] [address] [place] [address] [place] CBC W Auto Differential pane l (Bld)on 04-09-2025 Basophils (Bld) [#/Vol] 0.06 10*3/uL Normal <0.11 [facility] Comment on above: Order Comment: Speci men Type: BLOOD SPECIMEN Ordering Facility: [facility] Address: [address] [place] [address] Performed By: #### 5 7021-8 #### [facility] CLIA [id number] [address] [place] [address] [place] Basophils/100 WBC (Bld) 0.6 % Normal [facility] Comment on above: Order Comment: Speci men Type: BLOOD SPECIMEN Ordering Facility: [facility] Address: [address] [place] [address] Performed By: #### 5 7021-8 #### [facility] CLIA [id number] [address] [place] [address] [place] Differential cell count method Nom (Bld) Auto Normal [facility] Comment on above: Order Comment: Speci men Type: BLOOD SPECIMEN Ordering Facility: [facility] Address: [address] [place] [address] Performed By: #### 5 7021-8 #### [facility] CLIA [id number] [address] [place] [address] [place] Eosinophils (Bld) [#/Vol] 0.11 10*3/uL Normal <0.46 [facility] Comment on above: Order Comment: Speci men Type: BLOOD SPECIMEN Ordering Facility: [facility] Address: [address] [place] [address] Performed By: #### 5 7021-8 #### [facility] CLIA [id number] [address] [place] [address] [place] Eosinophils/100 WBC (Bld) 1.1 % Normal [facility] Comment on above: Order Comment: Speci men Type: BLOOD SPECIMEN Ordering Facility: [facility] Address: [address] [place] [address] Performed By: #### 5 7021-8 #### [facility] CLIA [id number] [address] [place] [address] [place] Erythrocyte distribution width (RBC) [Ratio] 13.3 % Normal 11.5-15.0 [facility] Comment on above: Order Comment: Speci men Type: BLOOD SPECIMEN Ordering Facility: [facility] Address: [address] [place] [address] Performed By: #### 5 7021-8 #### [facility] CLIA [id number] [address] [place] [address] [place] Hematocrit (Bld) [Volume fraction] 34.7 % Low 36.0-46.0 [facility] Comment on above: Order Comment: Speci men Type: BLOOD SPECIMEN Ordering Facility: [facility] Address: [address] [place] [address] Performed By: #### 5 7021-8 #### [facility] CLIA [id number] [address] [place] [address] [place] Hemoglobin (Bld) [Mass/Vol] 11.0 g/dL Low 11.5-15.5 [facility] Comment on above: Order Comment: Speci men Type: BLOOD SPECIMEN Ordering Facility: [facility] Address: [address] [place] [address] Performed By: #### 5 7021-8 #### [facility] CLIA [id number] [address] [place] [address] [place] Immature granulocytes (Bld) [#/Vol] 0.03 10*3/uL Normal <0.10 [facility] Comment on above: Order Comment: Speci men Type: BLOOD SPECIMEN Ordering Facility: [facility] Address: [address] [place] [address] Performed By: #### 5 7021-8 #### [facility] CLIA [id number] [address] [place] [address] [place] Immature granulocytes/100 WBC (Bld) 0.3 % Normal [facility] Comment on above: Order Comment: Speci men Type: BLOOD SPECIMEN Ordering Facility: [facility] Address: [address] [place] [address] Performed By: #### 5 7021-8 #### [facility] CLIA [id number] [address] [place] [address] [place] Lymphocytes (Bld) [#/Vol] 1.89 10*3/uL Normal 1.00-4.00 [facility] Comment on above: Order Comment: Speci men Type: BLOOD SPECIMEN Ordering Facility: [facility] Address: [address] [place] [address] Performed By: #### 5 7021-8 #### [facility] CLIA [id number] [address] [place] [address] [place] Lymphocytes/100 WBC (Bld) 19.1 % Normal [facility] Comment on above: Order Comment: Speci men Type: BLOOD SPECIMEN Ordering Facility: [facility] Address: [address] [place] [address] Performed By: #### 5 7021-8 #### [facility] CLIA [id number] [address] [place] [address] [place] MCH (RBC) [Entitic mass] 32.4 pg Normal 26.0-34.0 [facility] Comment on above: Order Comment: Speci men Type: BLOOD SPECIMEN Ordering Facility: [facility] Address: [address] [place] [address] Performed By: #### 5 7021-8 #### [facility] CLIA [id number] [address] [place] [address] [place] MCHC (RBC) [Mass/Vol] 31.7 g/dL Normal 30.5-36.0 [facility] Comment on above: Order Comment: Speci men Type: BLOOD SPECIMEN Ordering Facility: [facility] Address: [address] [place] [address] Performed By: #### 5 7021-8 #### [facility] CLIA [id number] [address] [place] [address] [place] MCV (RBC) [Entitic vol] 102.1 fL High 80.0-100.0 [facility] Comment on above: Order Comment: Speci men Type: BLOOD SPECIMEN Ordering Facility: [facility] Address: [address] [place] [address] Performed By: #### 5 7021-8 #### [facility] CLIA [id number] [address] [place] [address] [place] Monocytes (Bld) [#/Vol] 0.55 10*3/uL Normal <0.87 [facility] Comment on above: Order Comment: Speci men Type: BLOOD SPECIMEN Ordering Facility: [facility] Address: [address] [place] [address] Performed By: #### 5 7021-8 #### [facility] CLIA [id number] [address] [place] [address] [place] Monocytes/100 WBC (Bld) 5.6 % Normal [facility] Comment on above: Order Comment: Speci men Type: BLOOD SPECIMEN Ordering Facility: [facility] Address: [address] [place] [address] Performed By: #### 5 7021-8 #### [facility] CLIA [id number] [address] [place] [address] [place] Neutrophils (Bld) [#/Vol] 7.26 10*3/uL Normal 1.45-7.50 [facility] Comment on above: Order Comment: Speci men Type: BLOOD SPECIMEN Ordering Facility: [facility] Address: [address] [place] [address] Performed By: #### 5 7021-8 #### [facility] CLIA [id number] [address] [place] [address] [place] Neutrophils/100 WBC (Bld) 73.3 % Normal [facility] Comment on above: Order Comment: Speci men Type: BLOOD SPECIMEN Ordering Facility: [facility] Address: [address] [place] [address] Performed By: #### 5 7021-8 #### [facility] CLIA [id number] [address] [place] [address] [place] Nucleated RBC (Bld) [#/Vol] 10*3/uL Normal <0.01 [facility] Comment on above: Order Comment: Speci men Type: BLOOD SPECIMEN Ordering Facility: [facility] Address: [address] [place] [address] Performed By: #### 5 7021-8 #### [facility] CLIA [id number] [address] [place] [address] [place] Nucleated RBC/100 WBC (Bld) [Ratio] 0.0 /100 WBC Normal [facility] Comment on above: Order Comment: Speci men Type: BLOOD SPECIMEN Ordering Facility: [facility] Address: [address] [place] [address] Performed By: #### 5 7021-8 #### [facility] CLIA [id number] [address] [place] [address] [place] Platelet mean volume (Bld) [Entitic vol] 9.5 fL Normal 9.0-12.7 [facility] Comment on above: Order Comment: Speci men Type: BLOOD SPECIMEN Ordering Facility: [facility] Address: [address] [place] [address] Performed By: #### 5 7021-8 #### [facility] CLIA [id number] [address] [place] [address] [place] Platelets (Bld) [#/Vol] 298 10*3/uL Normal 150-400 [facility] Comment on above: Order Comment: Speci men Type: BLOOD SPECIMEN Ordering Facility: [facility] Address: [address] [place] [address] Performed By: #### 5 7021-8 #### [facility] CLIA [id number] [address] [place] [address] [place] RBC (Bld) [#/Vol] 3.40 10*6/uL Low 3.90-5.20 [facility] Comment on above: Order Comment: Speci men Type: BLOOD SPECIMEN Ordering Facility: [facility] Address: [address] [place] [address] Performed By: #### 5 7021-8 #### [facility] CLIA [id number] [address] [place] [address] [place] WBC (Bld) [#/Vol] 9.90 10*3/uL Normal 3.70-11.00 [facility] Comment on above: Order Comment: Speci men Type: BLOOD SPECIMEN Ordering Facility: [facility] Address: [address] [place] [address] Performed By: #### 5 7021-8 #### [facility] CLIA [id number] [address] [place] [address] [place] Comprehensive metabolic 2000 panelon 04-09-2025 Albumin [Mass/Vol] 3.6 g/dL Low 3.9-4.9 [facility] Comment on above: Order Comment: Speci men Type: BLOOD SPECIMEN Ordering Facility: [facility] Address: [address] [place] [address] Performed By: #### L [id number], 62769-8, 06970-0 #### [facility] CLIA [id number] [address] [place] [address] [place] ALP [Catalytic activity/Vol] 75 U/L Normal 34-123 [facility] Comment on above: Order Comment: Speci men Type: BLOOD SPECIMEN Ordering Facility: [facility] Address: [address] [place] [address] Performed By: #### L [id number], 40825-2, 94140-7 #### [facility] CLIA [id number] [address] [place] [address] [place] ALT [Catalytic activity/Vol] 9 U/L Normal 7-38 [facility] Comment on above: Order Comment: Speci men Type: BLOOD SPECIMEN Ordering Facility: [facility] Address: [address] [place] [address] Performed By: #### L [id number], , 50096-4 #### [facility] CLIA [id number] [address] [place] [address] [place] Anion gap [Moles/Vol] 13 mmol/L Normal 8-15 [facility] Comment on above: Order Comment: Speci men Type: BLOOD SPECIMEN Ordering Facility: [facility] Address: [address] [place] [address] Performed By: #### L [id number], , 49028-2 #### [facility] CLIA [id number] [address] [place] [address] [place] AST [Catalytic activity/Vol] 17 U/L Normal 13-35 [facility] Comment on above: Order Comment: Speci men Type: BLOOD SPECIMEN Ordering Facility: [facility] Address: [address] [place] [address] Performed By: #### L [id number], , 63708-7 #### [facility] CLIA [id number] [address] [place] [address] [place] Bilirubin [Mass/Vol] 0.2 mg/dL Normal 0.2-1.3 [facility] Comment on above: Order Comment: Speci men Type: BLOOD SPECIMEN Ordering Facility: [facility] Address: [address] [place] [address] Performed By: #### L [id number], , 15676-9 #### [facility] CLIA [id number] [address] [place] [address] [place] Calcium [Mass/Vol] 9.2 mg/dL Normal 8.5-10.2 [facility] Comment on above: Order Comment: Speci men Type: BLOOD SPECIMEN Ordering Facility: [facility] Address: [address] [place] [address] Performed By: #### L [id number], 32538-0, 87662-2 #### [facility] CLIA [id number] [address] [place] [address] [place] Chloride [Moles/Vol] 108 mmol/L High 98-107 [facility] Comment on above: Order Comment: Speci men Type: BLOOD SPECIMEN Ordering Facility: [facility] Address: [address] [place] [address] Performed By: #### L [id number], 86079-0, 94293-1 #### [facility] CLIA [id number] [address] [place] [address] [place] CO2 [Moles/Vol] 20 mmol/L Low 22-30 [facility] Comment on above: Order Comment: Speci men Type: BLOOD SPECIMEN Ordering Facility: [facility] Address: [address] [place] [address] Performed By: #### L [id number], 68759-9, 57821-0 #### [facility] CLIA [id number] [address] [place] [address] [place] Creatinine [Mass/Vol] 0.94 mg/dL Normal 0.58-0.96 [facility] Comment on above: Order Comment: Speci men Type: BLOOD SPECIMEN Ordering Facility: [facility] Address: [address] [place] [address] Performed By: #### L [id number], 06427-2, 75339-6 #### [facility] CLIA [id number] [address] [place] [address] [place] eGFRcr SerPlBld CKD-EPI 2020 67 mL/min/1.73m??? Normal >=60 [facility] Comment on above: Order Comment: Speci men Type: BLOOD SPECIMEN Ordering Facility: [facility] Address: [address] [place] [address] Result Comment: Maria A mated Glomerular Filtration [...] accurately reflect actual GFR. Performed By: #### L [id number], 00840-9, 34460-2 #### [facility] CLIA [id number] [address] [place] [address] [place] Glucose [Mass/Vol] 80 mg/dL Normal 74-99 [facility] Comment on above: Order Comment: Ian phillips Type: BLOOD SPECIMEN Ordering Facility: [facility] Address: [address] [place] [address] Result Comment: The [place] Diabetes [employer] (ADA) provides guidance for cutoff [...] Standards of Medical Care in Diabetes 2016, [place] [employer]. Diabetes Care. 2016.39(Suppl 1). Performed By: #### L [id number], 44965-5, 55499-9 #### [facility] CLIA [id number] [address] [place] [address] [place] Potassium [Moles/Vol] 4.3 mmol/L Normal 3.7-5.1 [facility] Comment on above: Order Comment: Ian phillips Type: BLOOD SPECIMEN Ordering Facility: [facility] Address: [address] [place] [address] Performed By: #### L [id number], 44161-4, 60691-4 #### [facility] CLIA [id number] [address] [place] [address] [place] Protein [Mass/Vol] 7.6 g/dL Normal 6.3-8.0 [facility] Comment on above: Order Comment: Speci men Type: BLOOD SPECIMEN Ordering Facility: [facility] Address: [address] [place] [address] Performed By: #### L [id number], 71526-5, 60466-2 #### [facility] CLIA [id number] [address] [place] [address] [place] Sodium [Moles/Vol] 141 mmol/L Normal 136-144 [facility] Comment on above: Order Comment: Speci men Type: BLOOD SPECIMEN Ordering Facility: [facility] Address: [address] [place] [address] Performed By: #### L [id number], 90498-9, 10248-0 #### [facility] CLIA [id number] [address] [place] [address] [place] [facility] Urea nitrogen [Mass/Vol] 19 mg/dL Normal 7-21 [facility] Comment on above: Order Comment: Speci men Type: BLOOD SPECIMEN Ordering Facility: [facility] Address: [address] [place] [address] Performed By: #### L [id number], 33750-7, 09189-2 #### [facility] CLIA [id number] [address] [place] [address] [place] [id number] 04-09-2025 ECG01 Ventricular Rate : 66 BPM Atrial Rate : 66 BPM P-R Interval : 150 ms QRS Duration : 78 ms Q-T Interval : 424 ms QTC Calculation(Bazett) : 444 ms Calculated P Mahaffey : 72 degrees Calculated R Mahaffey : 53 degrees Calculated T Mahaffey : 52 degrees Normal sinus rhythm Nonspecific ST abnormality Abnormal ECG When compared with ECG of 17-Aug-2023 13:23, No significant change was found Confirmed by NATIVIDAD BRADLEY DO ([id number]) on 04/10/2025 3:49:59 AM NAME : BLACK SHORT PID : [id number] : 1955 Gender : Female Race : ORD : Procedure Date : Apr 09 2025 23:09:32 Edit Date : Apr 10 2025 03:50:06 Diagnosis: Normal sinus rhythm Nonspecific ST abnormality Abnormal ECG When compared with ECG of 17-Aug-2023 13:23, No significant change was found Confirmed by NATIVIDAD BRADLEY DO ([id number]) on 04/10/2025 3:49:59 AM Test Reason : Location : 3 : ED ED Overread By : NATIVIDAD BRADLEY DO Edited By : NATIVIDAD BRADLEY DO Referred By : , Acquired by : DEEPA ROJAS [facility] ED NOTEon 04-09-2025 ED NOTE HNO ID: [id number] Author: CHANDANA JACKSON HUC Service: ? Author Type: ? Type: ED Notes Filed: 04/10/2025 00:00 Note Text: CT SBAR PRINTED AND PLACED IN ROOM 10 RACK. [facility] ED NOTE HNO ID: [id number] Author: CHANDANA JACKSON HUC Service: ? Author Type: ? Type: ED Notes Filed: 04/09/2025 23:09 Note Text: XRAY SBAR PRINTED AND PLACED IN ROOM 10 RACK. [facility] ED NOTE HNO ID: [id number] Author: LASHAE LOYA, MICHELLE Service: Nursing Author Type: Registered Nurse Type: ED Notes Filed: 04/09/2025 22:15 Note Text: Pt reports that she is having increased shortness of breath over the past few days, but she has been having shortness of breath for the past couple of months. She has had a chest xray, PET scan, follow up with pulmonology. Pt c/o pain in her ribs and back from coughing, and some heaviness in her chest. She has been taking robitussin and motrin but they have not given her any relief. [facility] ED PROV NOTEon 04-09-2025 ED PROV NOTE HNO ID: [id number] Author: NATIVIDAD BRADLEY DO Service: ? Author Type: Physician Type: ED Provider Notes Filed: 04/10/2025 03:50 Note Text: ED Provider Note Patient Name: Black Short : 1955 SERVICE DATE: 04/09/25 History Patient presents with: Cough Shortness of Breath: C/O COUGH THE PAST 5 MONTHS WITH Shortness of Breath THAT STARTED 2 WEEKS AGO AND HAS GOTTEN WORSE HPI This is a pleasant 69-year-old female who presents to the emergency department with shortness of breath. She says she has been noticing this for about the last 5 months. She saw her PCP, had a chest x-ray which was abnormal, had a CT and PET scan she thinks that there was no cancer on those images. She was referred to pulmonology and she said they did not end up putting her on any treatments. She has not had a fever. Her weight has been stable. In the last week she has been feeling shortness of breath with exertion and now in the last 2 days she has been here feeling a heaviness in her chest. The heaviness does not radiate anywhere. It does not make her nauseated sweaty or diaphoretic. She has no history of coronary artery disease. She thinks her mom had coronary disease but she is not sure the nature of it exactly. Mom in her 60s. Patient is a smoker. She denies any risk factors for pulmonary embolus. She has not been having any calf pain. She denies any abdominal pain change in bowel habits urinary symptoms or other complaints. No past medical history on file. No past surgical history on file. No family history on file. Social History[1] ALLERGIES No Known Allergies Review of Systems All other systems reviewed and are negative. Physical Exam Vitals [04/09/25 2201] BP Pulse Temp Temp src Resp SpO2 Weight Height 121/73 73 36.6 ?C (97.9 ?F) Oral 20 98 % 61.1 kg (134 lb 11.2 oz) 1.651 m (5' 5) Physical Exam Vitals reviewed. Constitutional: General: She is not in acute distress. Appearance: She is well-developed. She is not ill-appearing, toxic-appearing or diaphoretic. HENT: Head: Normocephalic. Mouth/Throat: Mouth: Mucous membranes are moist. Eyes: Extraocular Movements: Extraocular movements intact. Cardiovascular: Rate and Rhythm: Normal rate and regular rhythm. Pulmonary: Effort: Pulmonary effort is normal. Breath sounds: Decreased breath sounds and wheezing present. No rhonchi or rales. Abdominal: General: Bowel sounds are normal. Palpations: Abdomen is soft. Musculoskeletal: General: Normal range of motion. Cervical back: Normal range of motion and neck supple. Right lower leg: No tenderness. No edema. Left lower leg: No tenderness. No edema. Skin: Capillary Refill: Capillary refill takes less than 2 seconds. Neurological: General: No focal deficit present. Mental Status: She is alert and oriented to person, place, and time. Cranial Nerves: No cranial nerve deficit. Motor: No weakness. Psychiatric: Mood and Affect: Mood normal. Behavior: Behavior normal. Diagnostic Testing ED Labs Ordered and Reviewed COMPLETE BLOOD COUNT AND DIFFERENTIAL - Abnormal; Notable for the following components: Result Value Ref Range RBC 3.40 (*) 3.90 - 5.20 m/uL Hemoglobin 11.0 (*) 11.5 - 15.5 g/dL Hematocrit 34.7 (*) 36.0 - 46.0 % MCV 102.1 (*) 80.0 - 100.0 fL All other components within normal limits COMPREHENSIVE METABOLIC PANEL - Abnormal; Notable for the following components: Albumin 3.6 (*) 3.9 - 4.9 g/dL Chloride 108 (*) 98 - 107 mmol/L CO2 20 (*) 22 - 30 mmol/L All other components within normal limits NT PRO BNP - Abnormal; Notable for the following components: NT Pro BNP 205 (*) <125 pg/mL All other components within normal limits SEPSIS LACTATE W/ REFLEX (INITIAL) - Normal HIGH SENSITIVITY TROPONIN T (INITIAL) - Normal HIGH SENSITIVITY TROPONIN T (SECOND) - Normal Procedures ED Course / Clinical Impression Clinical Impressions as of 04/10/25 0350 Pneumonia of right lung due to infectious organism, unspecified part of lung Tobacco use disorder Anemia, unspecified type MDM / Disposition / Plan Differential would include but not be limited to pneumonia, CHF, asthma, CAD, malignancy amongst others. I was able to get the imaging that the patient had in November at [facility]. She did have an abnormal CT T of the chest at that time and a biopsy was recommended. She said she followed up with pulmonology and a PET scan was ordered. There is a pleural based lesion near the 8th rib posteriorly. Patient says that she was told in the pulm office that this is not cancer and that she should be seen again in 3 months. She has not yet made that appointment. EKG shows sinus rhythm at [address] segments. Chest x-ray shows no acute process but there is a hazy opacity in the right perihilar region. I did do a CT of the chest given the significant abnormalities on the previous CT several months ago (more content not included)... Normal [facility] HIGH SENSITIVITY TROPONIN T (INITIAL)on 04-09-2025 Troponin T.cardiac High sensitivity method [Mass/Vol] 9 ng/L Normal <12 [facility] Comment on above: Order Comment: Ian phillips Type: BLOOD SPECIMEN Ordering Facility: [facility] Address: [address] [place] [address] Performed By: #### L [id number], 07009-9, 66742-9 #### [facility] CLIA [id number] [address] [place] [address] [place] [facility] Natriuretic peptide.B prohormone N-Terminal [Mass/Vol] 205 pg/mL High <125 [facility] Comment on above: Order Comment: Ian phillips Type: BLOOD SPECIMEN Ordering Facility: [facility] Address: [address] [place] [address] Performed By: #### L [id number], 96288-7, 67212-8 #### [facility] CLIA [id number] [address] [place] [address] [place] SEPSIS LACTATE W/ REFLEX (IN ITIAL)on 04-09-2025 Lactate [Moles/Vol] 0.9 mmol/L Normal <=2.0 [facility] Comment on above: Order Comment: Ian phillips Type: BLOOD SPECIMEN Ordering Facility: [facility] Address: [address] [place] [address] Performed By: #### S LACTR #### [facility] CLIA [id number] [address] [place] [address] [place] XR CHEST 1V FRONTAL PORTon 1 06-09-2024 XR CHEST 1V FRONTAL PORT * * *Final Repo rt* * * DATE OF EXAM: Apr 09 2025 11:39PM UDX [id number] - XR CHEST 1V FRONTAL PORT / PROCEDURE REASON: Shortness of breath * * * * Physician Interpretation * * * * EXAMINATION: CHEST RADIOGRAPH (PORTABLE SINGLE VIEW AP) Exam Date/Time: 04/09/2025 11:39 PM CLINICAL HISTORY: Shortness of breath with pain in the back and the ribs from coughing. MQ: [id number] Comparison: None RESULT: Lines, tubes, and devices: None. Lungs and pleura: Symmetric lung volumes without visible consolidation, pleural effusion, or pneumothorax. Nonspecific hazy opacity underneath the EKG lead over the right hilum. Emphysematous changes. Cardiomediastinal silhouette: Nonenlarged cardiomediastinal silhouette. Other: No acute congestion. Degenerative changes of the shoulders with inferior spurring of the right AC joint. IMPRESSION: 1. No acute congestion. 2. Hazy opacity in the right perihilar region, beneath the EKG lead, concerning for developing infiltrate. Recommend follow-up to resolution with a 2 view chest. 3. Emphysematous changes. Maintenance Shop Clerk: SAMANTHA Transcribe Date/Time: Apr 10 2025 1:15A Dictated by : FAVIAN GONZALEZ MD This examination was interpreted and the report reviewed and electronically signed by: FAVIAN GONZALEZ MD on Apr 10 2025 1:19AM EST [id number] [facility] Absolute lymphocyte countOrd ered By: Angela Lion on 01-16-2025 Lymphocytes Auto (Unsp spec) [#/Vol] 2.28 10*3/uL 0.83-4.51 [facility] Absolute neutrophil countOrd ered By: Angela Lion on 01-16-2025 Neutrophils (Bld) [#/Vol] 4.3 10*3/uL 2.0-7.7 [facility] Anion gap in Serum or Plasma Ordered By: Angela Lion on 01-16-2025 Anion gap [Moles/Vol] 12 mmol/L 10-16 [facility] Automated blood erythrocyte countOrdered By: Anglea Lion on 01-16-2025 RBC (Bld) [#/Vol] 3.30 10*6/uL Low 4.2-5.4 [facility] Comment on above: Performed By: #### L 400.2011, L501.0900, L100.0100, L500.4050 #### [facility] [place], [address] Automated blood hematocrit ( percentage)Ordered By: Angela Lion on 01-16-2025 Hematocrit (Bld) [Volume fraction] 33.1 % Low 37-47 [facility] Comment on above: Performed By: #### L 400.2010, L501.0900, L100.0100, L500.4050 #### [facility] [address] [place], [address] Automated lymphocyte count a s percentage of total leukocytesOrdered By: Angela Lion on 01-16-2025 Lymphocytes/100 WBC Auto (Unsp spec) 32.0 % 19-41 [facility] BUN/creatinine ratioOrdered By: Angela Lion on 01-16-2025 Urea nitrogen/Creatinine [Mass ratio] 21.5 mg/mg High 10-20 [facility] Basophil percentageOrdered B y: Angela Lion on 01-16-2025 Basophils/100 WBC (Bld) 0.4 % Normal 0-1 [facility] Comment on above: Performed By: #### L 400.2010, L501.0900, L100.0100, L500.4050 #### [facility] [address] [place], [address] Bilirubin, totalOrdered By: Angela Lion on 01-16-2025 Bilirubin [Mass/Vol] 0.25 mg/dL Normal 0.00-1.[address] [facility] Comment on above: Performed By: #### L 400.2010, L501.0900, L100.0100, L500.4050 #### [facility] [address] [place], [address] CBC W/Diff, Automatedon 01-02 Absolute Lymph 2.28 X10 3/uL Normal 0.83-4.51 [facility] Comment on above: Performed By: #### L 400.2010, L501.0900, L100.0100, L500.4050 #### [facility] [address] [place], [address] Absolute Neut 4.3 X10 3/uL Normal 2.0-7.7 [facility] Comment on above: Performed By: #### L 400.2010, L501.0900, L100.0100, L500.4050 #### [facility] [address] [place], [address] IG% 0.300 Normal 0.0-0.9 [facility] Comment on above: Result Comment: IG% - Immature Granulocytes (promyelocytes, myelocytes and metamyelocytes) > 1% indicates that a LEFT SHIFT is Present. Performed By: #### L 400.2010, L501.0900, L100.0100, L500.4050 #### [facility] [address] [place], [address] Lymphocytes/100 WBC (Bld) 32.0 % Normal 19-41 [facility] Comment on above: Performed By: #### L 400.2010, L501.0900, L100.0100, L500.4050 #### [facility] [address] [place], [address] Nucleated RBC (Bld) [#/Vol] 0 10*3/uL Normal 0-5 [facility] Comment on above: Performed By: #### L 400, L501.0900, L100.0100, L500.4050 #### [facility] [address] [place], [address] RDW SD 49.0 fl High 35.1-43.9 [facility] Comment on above: Performed By: #### L 400, L501.0900, L100.0100, L500.4050 #### [facility] [address] [place], [address] Carbon dioxide, total [Moles /volume] in Central venous bloodOrdered By: Angela Lion on 01-16-2025 CO2 [Moles/Vol] 20.5 mmol/L Low 21.0-32.0 [facility] Comment on above: Performed By: #### L 400.2010, L501.0900, L100.0100, L500.4050 #### [facility] [address] [place], [address] Chloride assayOrdered By: Arias Lion on 01-16-2025 Chloride [Moles/Vol] 108 mmol/L Normal 98-[address] [facility] Comment on above: Performed By: #### L 400.2010, L501.0900, L100.0100, L500.4050 #### [facility] [address] [place], [address] Comprehensive Metabolic Prof ilon 01-16-2025 ALK PHOS 85 U/L Normal 35-104 [facility] Comment on above: Performed By: #### L 400.2010, L501.0900, L100.0100, L500.4050 #### [facility] [address] [place], [address] BUN/CRE 21.5 RATIO High 10-20 [facility] Comment on above: Performed By: #### L 400.2010, L501.0900, L100.0100, L500.4050 #### [facility] [address] [place], [address] GAP 12 Normal 5-15 [facility] Comment on above: Performed By: #### L 400.2010, L501.0900, L100.0100, L500.4050 #### [facility] [address] [place], [address] Potassium [Moles/Vol] 3.9 mmol/L Normal 3.3-5.1 [facility] Comment on above: Performed By: #### L 400.2010, L501.0900, L100.0100, L500.4050 #### [facility] [address] [place], [address] T PROT 7.3 g/dL Normal 5.9-8.4 [facility] Comment on above: Performed By: #### L 400.2010, L501.0900, L100.0100, L500.4050 #### [facility] [address] [place], [address] Comprehensive Metabolic Prof ilOrdered By: Angela Lion on 01-16-2025 AST [Catalytic activity/Vol] 16 U/L Normal <=31 [facility] Comment on above: Performed By: #### L 400.2010, L501.0900, L100.0100, L500.4050 #### [facility] [address] [place], [address] Eosinophil percentageOrdered By: Angela Lion on 01-16-2025 Eosinophils/100 WBC (Bld) 1.0 % Normal 0-5 [facility] Comment on above: Performed By: #### L 400.2010, L501.0900, L100.0100, L500.4050 #### [facility] [address] [place], [address] Erythrocyte distribution wid th ratioOrdered By: Angela Lion on 01-16-2025 Erythrocyte distribution width (RBC) [Ratio] 13.3 % Normal 11.6-14.6 [facility] Comment on above: Performed By: #### L 400.2010, L501.0900, L100.0100, L500.4050 #### [facility] [address] [place], [address] Erythrocyte distribution wid th standard deviationOrdered By: Angela Lion on 01-16-2025 Erythrocyte distribution width (RBC) [Ratio] 49.0 fl High 35.1-43.9 [facility] Glomerular filtration rate ( GFR) estimation/1.73 sq m using serum, plasma, or whole bOrdered By: Angela Lion on 01-16-2025 GFR/1.73 sq M.predicted among non-blacks MDRD (S/P/Bld) [Vol rate/Area] 84 mL/min/{1.73_m2} Normal >60 [facility] Comment on above: mL/min/1.73m2 CKD-EP I Creatinine Equation (2020) Result Comment: mL/m in/1.73m2 CKD-EPI Creatinine Equation (2020) Performed By: #### L 400.2010, L501.0900, L100.0100, L500.4050 #### [facility] [address] [place], [address] Hemoglobin measurementOrdere d By: Angela Lion on 01-16-2025 Hemoglobin (Bld) [Mass/Vol] 10.9 g/dL Low 12.0-15.0 [facility] Comment on above: Performed By: #### L 400, L501.09, L100.0100, L500.4050 #### [facility] [address] [place], [address] Immature granulocytes/100 WB C Auto (Bld)Ordered By: Angela Lion on 01-16-2025 Immature granulocytes/100 WBC (Bld) 0.300 % 0.0-0.9 [facility] Comment on above: IG% - Immature Granu locytes (promyelocytes, myelocytes and metamyelocytes) > 1% indicates that a LEFT SHIFT is Present. MCV (mean corpuscular volume ) determinationOrdered By: Angela Lion on 01-16-2025 MCV (RBC) [Entitic vol] 100.3 fL High 81-99 [facility] Comment on above: Performed By: #### L 400.2010, L501.09, L100.0100, L500.4050 #### [facility] [address] [place], [address] Mean corpuscular hemoglobin (MCH) determinationOrdered By: Angela Lion on 01-16-2025 MCH (RBC) [Entitic mass] 33.0 pg High 27.0-32.0 [facility] Comment on above: Performed By: #### L 400.2010, L501.0900, L100.0100, L500.4050 #### [facility] [address] [place], [address] Mean corpuscular hemoglobin concentration (MCHC) determinationOrdered By: Angela Lion on 01-16-2025 MCHC (RBC) [Mass/Vol] 32.9 g/dL Normal 32-36 [facility] Comment on above: Performed By: #### L 400.2010, L501.0900, L100.0100, L500.4050 #### [facility] [address] [place], [address] Mean platelet volume determi nationOrdered By: Angela Lion on 01-16-2025 Platelet mean volume (Bld) [Entitic vol] 8.9 fL Normal 6.2-12.0 [facility] Comment on above: Performed By: #### L 400.2010, L501.0900, L100.0100, L500.4050 #### [facility] [address] [place], [address] Monocyte percentageOrdered B y: Angela Lion on 01-16-2025 Monocytes/100 WBC (Bld) 5.8 % Normal 0-10 [facility] Comment on above: Performed By: #### L 400.2010, L501.0900, L100.0100, L500.4050 #### [facility] [address] [place], [address] Neutrophil percentageOrdered By: Angela Lion on 01-16-2025 Neutrophils/100 WBC (Bld) 60.5 % Normal 47-70 [facility] Comment on above: Performed By: #### L 400.2010, L501.0900, L100.0100, L500.4050 #### [facility] [address] [place], [address] Nucleated red blood cell per centageOrdered By: Angela Lion on 01-16-2025 Nucleated RBC/100 WBC (Bld) [Ratio] 0 % 0-5 [facility] Platelet countOrdered By: Arias Lion on 01-16-2025 Platelets (Bld) [#/Vol] 280 10*3/uL Normal 150-450 [facility] Comment on above: Performed By: #### L 400.2010, L501.0900, L100.0100, L500.4050 #### [facility] [address] [place], [address] Potassium measurement (mass/ volume)Ordered By: Angela Lion on 01-16-2025 Potassium (Unsp spec) [Mass/Vol] 3.9 mmol/L 3.3-5.1 [facility] Serum creatinine measurement (mass/volume)Ordered By: Angela Lion on 01-16-2025 Creatinine [Mass/Vol] 0.77 mg/dL Normal 0.70-1.20 [facility] Comment on above: Performed By: #### L 400.2010, L501.0900, L100.0100, L500.4050 #### [facility] [address] [place], [address] Serum globulin measurementOr dered By: Angela Lion on 01-16-2025 Globulin (S) [Mass/Vol] 3.5 g/dL Normal 2.2-4.2 [facility] Comment on above: Performed By: #### L 400.2010, L501.0900, L100.0100, L500.4050 #### [facility] [address] [place], [address] Serum glucose measurement (m ass/volume)Ordered By: Angela Lion on 01-16-2025 Glucose [Mass/Vol] 76 mg/dL Normal 70-99 [facility] Comment on above: Performed By: #### L 400.2010, L501.0900, L100.0100, L500.4050 #### [facility] [address] [place], [address] Serum or plasma alanine sierra otransferase (ALT) measurementOrdered By: Angela Lion on 01-16-2025 ALT [Catalytic activity/Vol] 8 U/L Normal <=34 [facility] Comment on above: Performed By: #### L 400.2010, L501.0900, L100.0100, L500.4050 #### [facility] [address] [place], [address] Serum or plasma albumin ant urement (mass/volume)Ordered By: Angela Lion on 01-16-2025 Albumin [Mass/Vol] 3.8 g/dL Normal 3.4-4.8 [facility] Comment on above: Performed By: #### L 400.2010, L501.09, L100.0100, L500.4050 #### [facility] [address] [place], [address] Serum or plasma albumin/glob ulin mass ratioOrdered By: Angela Lion on 01-16-2025 Albumin/Globulin [Mass ratio] 1.1 {ratio} Normal 0.9-2.4 [facility] Comment on above: Performed By: #### L 400, L501.09, L100.0100, L500.4050 #### [facility] [address] [place], [address] Serum or plasma alkaline hailee sphatase measurementOrdered By: Angela Lion on 01-16-2025 ALP [Catalytic activity/Vol] 85 U/L 35-104 [facility] Serum or plasma calcium ant urement (mass/volume)Ordered By: Angela Lion on 01-16-2025 Calcium [Mass/Vol] 9.2 mg/dL Normal 7.6-11.0 [facility] Comment on above: Performed By: #### L 400, L501.0900, L100.0100, L500.4050 #### [facility] [address] [place], [address] Serum or plasma urea nitroge n measurement (mass/volume)Ordered By: Angela Lion on 01-16-2025 Urea nitrogen [Mass/Vol] 17 mg/dL Normal 4-19 [facility] Comment on above: Performed By: #### L 400.2010, L501.0900, L100.0100, L500.4050 #### [facility] [address] [place], [address] Sodium levelOrdered By: Alis Lion on 01-16-2025 Sodium [Moles/Vol] 141 mmol/L Normal 133-145 [facility] Comment on above: Performed By: #### L 400.2010, L501.0900, L100.0100, L500.4050 #### [facility] [address] [facility] [place], [address] Total proteinOrdered By: Edmund Lion on 01-16-2025 Protein [Mass/Vol] 7.3 g/dL 5.9-8.4 [facility] White blood cell (WBC) count Ordered By: Angela Lion on 01-16-2025 WBC (Bld) [#/Vol] 7.1 10*3/uL Normal 4.4-11.0 [facility] Comment on above: Performed By: #### L 400.2010, L501.09, L100.0100, L500.4050 #### [facility] [address], [address] 6 Minute Walk Teston 025 6 Minute Walk Test y [facility]Neurology [address] [place] [address] MR#: [id number] Acct: [id number] Name: BLACK SHORT Rep #: [id number] : 1955 69 From: Christian Estrella DO Referring Dr: Toya Busby MOTORCOACH OPERATOR MOTORCOACH OPERATOR-C Status: REG CLI Location: PSN Date: Sex: F C PSN 6 Minute Walk Test 6 Minute Walk Test 6 Minute Walk Test: 6 Minute Walk Test PSN:6-Minute Walk Test Start: 12/16/24 12:38 Freq: Status: Active Protocol: RESP.6MINW Document 12/16/24 12:39 [facility] (Rec: 12/16/24 12:42 [facility] [id number]) 6 Minute Walk Test Date Performed 12/16/24 Time Performed 12:15 Height 5 ft 5 in Weight: 135 lb Weight in Pounds 135.[address]: Toya Busby MOTORCOACH OPERATOR Assistive device None used: Pre-test Oxygen Delivery Room Air Method Pulse Ox (%) 94 Pulse Rate (60-100 74 beats/min) Dyspnea Carla Scale ( 3 0-10) 1st minute Oxygen Delivery Room Air Method Pulse Ox (%) 93 Pulse Rate (60-100 81 beats/min) Dyspnea Carla Scale ( 3 0-10) Number of Rests 0 Taken Reported Symptoms Increased Work of Breathing 2nd minute Oxygen Delivery Room Air Method Pulse Ox (%) 92 Pulse Rate (60-100 87 beats/min) Dyspnea Carla Scale ( 4 0-10) Number of Rests 0 Taken Reported Symptoms Increased Work of Breathing 3rd minute Oxygen Delivery Room Air Method Pulse Ox (%) 92 Pulse Rate (60-100 88 beats/min) Dyspnea Carla Scale ( 4 0-10) Number of Rests 0 Taken Reported Symptoms Increased Work of Breathing 4th minute Oxygen Delivery Room Air Method Pulse Ox (%) 91 Pulse Rate (60-100 90 beats/min) Dyspnea Carla Scale ( 4 0-10) Number of Rests 0 Taken Reported Symptoms Increased Work of Breathing 5th minute Oxygen Delivery Room Air Method Pulse Ox (%) 91 Pulse Rate (60-100 92 beats/min) Dyspnea Carla Scale ( 4 0-10) Number of Rests 0 Taken Reported Symptoms Increased Work of Breathing 6th minute Oxygen Delivery Room Air Method Pulse Ox (%) 92 Pulse Rate (60-100 92 beats/min) Dyspnea Carla Scale ( 4 0-10) Number of Rests 0 Taken Reported Symptoms Increased Work of Breathing Post-test Oxygen Delivery Room Air Method Pulse Ox (%) 94 Pulse Rate (60-100 78 beats/min) Dyspnea Carla Scale ( 3 0-10) Exertion Carla Scale 6 (6-20) Reported Symptoms Increased Work of Breathing Full Laps Walked 18 Partial Lap, Number 0 of Tiles Walked Total Distance 1062 Walked (ft) Interpretation Interpretation: The patient ambulated 1062 feet over the course of 6 minutes beginning on room air without assistive devices. Pretesting oxygen saturation was noted to be 94% on room air. With ambulation, the armand oxygen saturation was 91%. There was no significant exertional oxygen desaturation. Recommendations Recommendations: There is no indication for the use of supplemental oxygen at this time. 12/18/2453 Date Christian Estrella DO CC: Date Dictated: 12/18/24851 Date Transcribed: 12/18/24851 Maintenance Shop Clerk: Dr. Christian Estrella DO Signed Normal [facility] Positron emission tomography scan reportOrdered By: Jbaari Recio on 12-18-2024 PT Unspecified body region [facility] Services [address] [place], [place] [address] PET/CT Tumor Base -Thigh Init MR#: [id number] Acct: [id number] Name: BLACK SHORT Rep #: [id number] : 1955 F 69 From: Pet er Elva RUBIO PCP: Dr. Dania Beck MD Status: REG CL I Study:PET/CT Tumor Base -Thigh Init Date of E xam: 12/16/24 Exam# [id number] Ordering Dr: Nas Busby NP MOTORCOACH OPERATOR-C PROCEDURE: PET/CT TUMOR BASE -THIGH INIT 12/16/2024 REASON FOR EXAM: 69 y/o F with LUNG TECHNIQUE: Following the intravenous administration of radionucleotide, image acquisition on a dedicated PET/CT unit was performed at one hour post injection. A preliminary CT study encompassing the Skull base, neck, chest, abdomen, pelvis, and proximal thighs was performed for purposes of attenuation correction and anatomic localization. The proximal thighs were also included. The patient's blood glucose level was 73 mg/dL (allowable range: 50-180 mg/dL). RADIOPHARMACEUTICAL: 14.496 MCi 18F-FDG (Fluorodeoxyglucose F18) IV was injected into he patient. RADIATION DOSE SUMMARY: Effective Dose: Approximately 7 mSv for a standard whole-body PET scan Organ Doses: Varies by organ, with higher doses typically to the bladder, liver,and brain COMPARISON: COMPARISON FROM CT, PET OR OTHER PERTINENT EXAMS: . FINDINGS: Physiologic uptake: There may be expected metabolic uptake within the brain, tongue and floor of the mouth and larynx/vocal cords, heart, kayla (many normal individuals have hilar uptake in less than 3 nodes with mildly avid hilar nodes less than 2.7 SUV), liver and spleen, system, and GI tract and symmetric muscle uptake. FDG AVID AND NON-AVID LESIONS. Reported avid SUV values (g/mL*) are maximum SUV. NECK: Small 1 cm subclavicular lesion measures 4.08 SUV t here are no significant neck abnormalities. CHEST: Chest wall- There is a pleural based lesion an to the 8th right (posterior rib) showing 15.36 Max SUV. there are no other significant chest wall abnormalities. Axilla- There are no significant axillary abnormalities. Lung parenchyma- There are no significant lung parenchyma abnormalities. Mediastinum- There are no significant hilar or mediastinal adenopathy. Pleura- There are no significant pleural abnormalities. ABDOMEN: Stomach- No significant abnormalities. Liver- No significant abnormalities. Spleen- No significant abnormalities. Pancrease- No significant abnormalities. Kidneys- No significant abnormalities. Bowel- Normal bowel activity. Spine- No significant abnormalities. PELVIS: Bowel- Normal physiologic bowel activity is identified. Masses- 8 mm nodule deep in the pelvis wxxwnric to the right presacral area measures LOWER EXTREMITIES: Bones- With the use of bone window settings, there are no osteolytic or osteoblastic lesions. There are no FDG avid lesions within the visualized portion of the axial skeleton. PET/PET/CT Tumor Base -Thigh Init IMPRESSION: FDG avid- No significant avid lesions. Suspicious- No significant suspicious abnormalities. Non-FDG avid- No non-FDG avid cysts. Other: No additional comments. Please note the low-dose CT scan was performed to facilitate PET image reconstruction and anatomic localization and does not replace a diagnostic CT. Any diagnostic CT requested and performed at the time of the PET will be reported separately. Reading Location[facility] CC: CHERIE-Nas Busby; Dr. 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 Clerk: Signed [facility] PET/CT Tumor Base -Thigh Ini ton 12-16-2024 PET/CT Tumor Base -Thigh Init [facility] [address] [place], [place] [id number] PET/CT Tumor Base -Thigh Init MR#: [id number] Acct: [id number] Name: BLACK SHORT Rep #: [id number] : 1955 F 69 From: Jabari Recio DO PCP: Dr. Dania Beck MD Status: REG CLI Study: PET/CT Tumor Base -Thigh Init Date of Exam: Exam# [id number] Ordering Dr: Toya Busby NP MOTORCOACH OPERATOR-C PROCEDURE: PET/CT TUMOR BASE -THIGH INIT 12/16/2024 REASON FOR EXAM: 69 y/o F with LUNG TECHNIQUE: Following the intravenous administration of radionucleotide, image acquisition on a dedicated PET/CT unit was performed at one hour post injection. A preliminary CT study encompassing the Skull base, neck, chest, abdomen, pelvis, and proximal thighs was performed for purposes of attenuation correction and anatomic localization. The proximal thighs were also included. The patient's blood glucose level was 73 mg/dL (allowable range: 50-180 mg/dL). RADIOPHARMACEUTICAL: 14.496 MCi 18F-FDG (Fluorodeoxyglucose F18) IV was injected into he patient. RADIATION DOSE SUMMARY: Effective Dose: Approximately 7 mSv for a standard whole-body PET scan Organ Doses: Varies by organ, with higher doses typically to the bladder, liver, and brain COMPARISON: COMPARISON FROM CT, PET OR OTHER PERTINENT EXAMS: . FINDINGS: Physiologic uptake: There may be expected metabolic uptake within the brain, tongue and floor of the mouth and larynx/vocal cords, heart, kayla (many normal individuals have hilar uptake in less than 3 nodes with mildly avid hilar nodes less than 2.7 SUV), liver and spleen, system, and GI tract and symmetric muscle uptake. FDG AVID AND NON-AVID LESIONS. Reported avid SUV values (g/mL*) are maximum SUV. NECK: Small 1 cm subclavicular lesion measures 4.08 SUV t here are no significant neck abnormalities. CHEST: Chest wall- There is a pleural based lesion an to the 8th right (posterior rib) showing 15.36 Max SUV. there are no other significant chest wall abnormalities. Axilla- There are no significant axillary abnormalities. Lung parenchyma- There are no significant lung parenchyma abnormalities. Mediastinum- There are no significant hilar or mediastinal adenopathy. Pleura- There are no significant pleural abnormalities. ABDOMEN: Stomach- No significant abnormalities. Liver- No significant abnormalities. Spleen- No significant abnormalities. Pancrease- No significant abnormalities. Kidneys- No significant abnormalities. Bowel- Normal bowel activity. Spine- No significant abnormalities. PELVIS: Bowel- Normal physiologic bowel activity is identified. Masses- 8 mm nodule deep in the pelvis wxxwnric to the right presacral area measures LOWER EXTREMITIES: Bones- With the use of bone window settings, there are no osteolytic or osteoblastic lesions. There are no FDG avid lesions within the visualized portion of the axial skeleton. PET/PET/CT Tumor Base -Thigh Init IMPRESSION: FDG avid- No significant avid lesions. Suspicious- No significant suspicious abnormalities. Non-FDG avid- No non-FDG avid cysts. Other: No additional comments. Please note the low-dose CT scan was performed to facilitate PET image reconstruction and anatomic localization and does not replace a diagnostic CT. Any diagnostic CT requested and performed at the time of the PET will be reported separately. Reading Location: [facility] CC: ADEOLA Busby; Dr. Dania Beck MD Maintenance Shop Clerk: Signed Normal [facility] Pulmonary Visit Reporton Pulmonary Visit Report [facility] Pulmonary Medicine of [address] [place] [address] OFFICE VISIT Date of Service: 12/03/24 MR#: [id number] Acct: [id number] Name: BLACK SHORT Rep #: [id number] : 1955 Provider: ADEOLA Busby Age/Sex: 69/F Location: [facility] Status: Signed Assessment and Plan Assessment and Plan (1) Abnormal CT scan, chest: Status: Acute Plan: Several areas of abnormality. Most concerning is the 1.1 cm mass in the posterior medial segment of the right lower lobe. Given that there are multiple areas of abnormality I believe that the next best step would be to perform a pet scan. This case was also discussed with Dr Christian Estrella, who agrees with PET. This will help us determine if the patient would benefit from a CT-guided biopsy, and will help the performing provider locate most optimal area of concern. Return to the office once PET scan is available for review. If the PET scan is negative we will continue monitoring by repeating a diagnostic CT scan in 3 months. If the PET scan is positive we will discuss tissue biopsy. (2) COPD (chronic obstructive pulmonary disease): Status: Chronic Qualifiers: COPD type: emphysema Emphysema type: centrilobular Qualified Code(s): J43.2 - Centrilobular emphysema Comment: FEV1 74% of predicted Plan: Preliminary pulmonary function test indicates at least mild COPD. The patient bided with a sample of Trelegy, she is familiar with the Ellipta device. I asked her to use this medication for a few days or a week. She is to contact the office if she would like a prescription written. She conveys understanding. She was reminded to rinse her mouth out after each use. 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 This complicates exam, plan, care and prognosis. This needs to be kept in consideration when evaluating pulmonary nodules. (4) History of lymphoma: Status: Chronic Plan: Self reported by the patient. This would have occurred while she lived in [place], no records on file. She stated it only needed radiation. This complicates exam, plan, care and prognosis. History of cancer in a current smoker places this patient at more risk for recurrent types of cancer. (5) Nicotine abuse: Status: Chronic Comment: 1 PPD Plan: She seems to be motivated towards smoking cessation at this time. She has previously tried and failed Wellbutrin. The patient is currently on duloxetine, therefore I am hesitant to order Chantix. I did explain that Chantix can be more successful but also can have serious side effects in patients with a history of depression or anxiety. I educated the patient on nicotine withdrawal, and to expect symptoms to last 4 to 7 days after cold turkey. I suggested that she would benefit from some other type of hand to mouth activity, such as using a sucker or a wooden cinnamon stick when she experiences triggers that would normally cause her to want to smoke cigarettes. The patient conveys understanding. Highly encouraged at complete smoking cessation. Currently the patient plans to stop smoking after the 1 pack that I have at home. Orders: Orders PET/CT Tumor Base -Thigh Init Today R91.8 - Other nonspecific abnormal finding of lung field, R93.89 - Abnormal findings on diagnostic imaging of other specified body structures Simple Pulmonary Exercise Test 12/16/24 J44.9 - Chronic obstructive pulmonary disease, unspecified Plan Details Additional Comments: This note was generated with [employer] dictation software. It may contain incorrect words, spelling, and punctuation that were not noted in checking the note before signing. Follow Up: 1 Month HPI RLL Nodule Chief Complaint: test results HPI Comments Details: This patient presents to the office today for initial consultation regarding abnormal CT of the chest complicated by a recent cough with concern for pneumonia while currently being treated for RA. She is ambulatory and on room air. She is accompanied today by her . She recently had a CT scan of the chest, this is the first and only CT scan of the chest that she has never completed. She is aware that there was a lesion in the right lower lobe. She is currently smoking 1 pack/day. In the past she has tried Wellbutrin without success. She has concerns at being successful at quitting smoking. She states that she has 1 more pack left and that is it she is motivated to quit smoking. The patient reports that a few years ag (more content not included)... Normal [facility] Chest without Contraston Chest without Contrast [facility] [address] [place] [id number] Chest without Contrast MR#: [id number] Acct: [id number] Name: BLACK SHORT Rep #: [id number] : 1955 F 69 From: Charles boswell MD PCP: Dr. Dania Beck MD Status: PRE CLI Study: Chest without Contrast Date of Exam: 11/20/24 Exam# [id number] Ordering Dr: Dania Beck MD PROCEDURE: CHEST [...] of the right lower lobe. Reading Location: [place] [address] CC: Dr. Dania Beck MD Maintenance Shop Clerk: Signed Normal [facility] Chest PA and Lateralon 10-28 Chest PA and Lateral [facility] [address] [place], [place] [address] Chest PA and Lateral MR#: [id number] Acct: [id number] Name: BLACK SHORT Rep #: [id number] : 1955 F 69 From: Gilles Tamez MD PCP: Dr. Dania Beck MD Status: REG CLI Study: Chest PA and Lateral Date of Exam: 10/28/24 Exam# [id number] Ordering Dr: Dania Beck MD PROCEDURE: CHEST [...] of background of pulmonary emphysema. Reading Location: [facility] CC: Dr. Dania Beck MD Maintenance Shop Clerk: Signed Normal [facility] Absolute lymphocyte countOrd ered By: Angela Lion on 10-08-2024 Lymphocytes Auto (Unsp spec) [#/Vol] 2.04 10*3/uL 0.83-4.51 [facility] Absolute neutrophil countOrd ered By: Angela Lion on 10-08-2024 Neutrophils (Bld) [#/Vol] 3.2 10*3/uL 2.0-7.7 [facility] Anion gap in Serum or Plasma Ordered By: Angela Lion on 10-08-2024 Anion gap [Moles/Vol] 10 mmol/L 5-15 [facility] Automated lymphocyte count a s percentage of total leukocytesOrdered By: Angela Lion on 10-08-2024 Lymphocytes/100 WBC Auto (Unsp spec) 35.6 % 19- [facility] BUN/creatinine ratioOrdered By: Angela Lion on 10-08-2024 Urea nitrogen/Creatinine [Mass ratio] 13.4 mg/mg 10-20 [facility] Basophil percentageOrdered B y: Angela Lion on 10-08-2024 Basophils/100 WBC (Bld) 0.9 % 0-1 [facility] Bilirubin Test strip Ql (U)O rdered By: Angela Lion on 10-08-2024 Bilirubin Ql (U) Negative Negative [facility] Bilirubin, totalOrdered By: Angela Lion on 10-08-2024 Bilirubin [Mass/Vol] 0.26 mg/dL 0.00-1.[address] [facility] CBC W/Diff, Automatedon Absolute Lymph 2.04 X10 3/uL Normal 0.83-4.51 [facility] Comment on above: Performed By: #### L 400.2010, L501.0900, L100.0100, L500.4050 #### [facility] [address] [place], [address] Absolute Neut 3.2 X10 3/uL Normal 2.0-7.7 [facility] Comment on above: Performed By: #### L 400.2010, L501.0900, L100.0100, L500.4050 #### [facility] [address] [place], [address] Basophils/100 WBC (Bld) 0.9 % Normal 0-1 [facility] Comment on above: Performed By: #### L 400.2010, L501.0900, L100.0100, L500.4050 #### [facility] [address] [place], [address] Eosinophils/100 WBC (Bld) 2.3 % Normal 0-5 [facility] Comment on above: Performed By: #### L 400.2010, L501.0900, L100.0100, L500.4050 #### [facility] [address] [place], [address] Erythrocyte distribution width (RBC) [Ratio] 12.5 % Normal 11.6-14.6 [facility] Comment on above: Performed By: #### L 400.2010, L501.0900, L100.0100, L500.4050 #### [facility] [address] [place], [address] Hematocrit (Bld) [Volume fraction] 36.3 % Low 37-47 [facility] Comment on above: Performed By: #### L 400, L501.0900, L100.0100, L500.4050 #### [facility] [address] [place], [address] Hemoglobin (Bld) [Mass/Vol] 12.0 g/dL Normal 12.0-15.0 [facility] Comment on above: Performed By: #### L 400, L501.0900, L100.0100, L500.4050 #### [facility] [address] [place], [address] IG% 0.200 Normal 0.0-0.9 [facility] Comment on above: Result Comment: IG% - Immature Granulocytes (promyelocytes, myelocytes and metamyelocytes) > 1% indicates that a LEFT SHIFT is Present. Performed By: #### L 400, L501.0900, L100.0100, L500.4050 #### [facility] [address] [place], [address] Lymphocytes/100 WBC (Bld) 35.6 % Normal 19-41 [facility] Comment on above: Performed By: #### L 400, L501.0900, L100.0100, L500.4050 #### [facility] [address] [place], [address] MCH (RBC) [Entitic mass] 33.2 pg High 27.0-32.0 [facility] Comment on above: Performed By: #### L 400.2010, L501.0900, L100.0100, L500.4050 #### [facility] [address] [place], [address] MCHC (RBC) [Mass/Vol] 33.1 g/dL Normal 32-36 [facility] Comment on above: Performed By: #### L 400.2010, L501.0900, L100.0100, L500.4050 #### [facility] [address] [place], [address] MCV (RBC) [Entitic vol] 100.6 fL High 81-99 [facility] Comment on above: Performed By: #### L 400.2010, L501.0900, L100.0100, L500.4050 #### [facility] [address] [place], [address] Monocytes/100 WBC (Bld) 6.1 % Normal 0-10 [facility] Comment on above: Performed By: #### L 400.2010, L501.0900, L100.0100, L500.4050 #### [facility] [address] [place], [address] Neutrophils/100 WBC (Bld) 54.9 % Normal 47-70 [facility] Comment on above: Performed By: #### L 400, L501.0900, L100.0100, L500.4050 #### [facility] [address] [place], [address] Nucleated RBC (Bld) [#/Vol] 0 10*3/uL Normal 0-5 [facility] Comment on above: Performed By: #### L 400.2010, L501.0900, L100.0100, L500.4050 #### [facility] [address] [place], [address] Platelet mean volume (Bld) [Entitic vol] 9.1 fL Normal 6.2-12.0 [facility] Comment on above: Performed By: #### L 400.2010, L501.0900, L100.0100, L500.4050 #### [facility] [address] [place], [address] Platelets (Bld) [#/Vol] 218 10*3/uL Normal 150-450 [facility] Comment on above: Performed By: #### L 400, L501.0900, L100.0100, L500.4050 #### [facility] [address] [place], [address] RBC (Bld) [#/Vol] 3.61 10*6/uL Low 4.2-5.4 [facility] Comment on above: Performed By: #### L 400, L501.0900, L100.0100, L500.4050 #### [facility] [address] [place], [address] RDW SD 46.3 fl High 35.1-43.9 [facility] Comment on above: Performed By: #### L 400.2010, L501.0900, L100.0100, L500.4050 #### [facility] [address] [place], [address] WBC (Bld) [#/Vol] 5.7 10*3/uL Normal 4.4-11.0 [facility] Comment on above: Performed By: #### L 400, L501.0900, L100.0100, L500.4050 #### [facility] [address] [place], [address] Carbon dioxide, total [Moles /volume] in Central venous bloodOrdered By: Angela Lion on 10-08-2024 CO2 [Moles/Vol] 23.0 mmol/L 21.0-32.0 [facility] Chloride assayOrdered By: Arias Lion on 10-08-2024 Chloride [Moles/Vol] 107 mmol/L 98-[address] [facility] Comprehensive Metabolic Prof ilon 10-08-2024 Albumin [Mass/Vol] 3.9 g/dL Normal 3.4-4.8 [facility] Comment on above: Performed By: #### L 400.2010, L501.0900, L100.0100, L500.4050 #### [facility] [address] [place], [address] Albumin/Globulin [Mass ratio] 1.1 {ratio} Normal 0.9-2.4 [facility] Comment on above: Performed By: #### L 400.2010, L501.0900, L100.0100, L500.4050 #### [facility] [address] [place], [address] ALK PHOS 75 U/L Normal 35-104 [facility] Comment on above: Performed By: #### L 400, L501.0900, L100.0100, L500.4050 #### [facility] [address] [place], [address] ALT [Catalytic activity/Vol] 7 U/L Normal <=34 [facility] Comment on above: Performed By: #### L 400.2010, L501.0900, L100.0100, L500.4050 #### [facility] [address] [place], [address] AST [Catalytic activity/Vol] 17 U/L Normal <=31 [facility] Comment on above: Performed By: #### L 400, L501.0900, L100.0100, L500.4050 #### [facility] [address] [place], [address] Bilirubin [Mass/Vol] 0.26 mg/dL Normal 0.00-1.[address] [facility] Comment on above: Performed By: #### L 400.2010, L501.0900, L100.0100, L500.4050 #### [facility] [address] [place], [address] BUN/CRE 13.4 RATIO Normal 10-20 [facility] Comment on above: Performed By: #### L 400, L501.0900, L100.0100, L500.4050 #### [facility] [address] [place], [address] Calcium [Mass/Vol] 9.4 mg/dL Normal 7.6-11.0 [facility] Comment on above: Performed By: #### L 400, L501.0900, L100.0100, L500.4050 #### [facility] [address] [place], [address] Chloride [Moles/Vol] 107 mmol/L Normal 98-[address] [facility] Comment on above: Performed By: #### L 400, L501.0900, L100.0100, L500.4050 #### [facility] [address] [place], [address] CO2 [Moles/Vol] 23.0 mmol/L Normal 21.0-32.0 [facility] Comment on above: Performed By: #### L 400, L501.0900, L100.0100, L500.4050 #### [facility] [address] [place], [address] Creatinine [Mass/Vol] 0.73 mg/dL Normal 0.70-1.20 [facility] Comment on above: Performed By: #### L 400.2010, L501.0900, L100.0100, L500.4050 #### [facility] [address] [place], [address] GAP 10 Normal 5-15 [facility] Comment on above: Performed By: #### L 400.2010, L501.0900, L100.0100, L500.4050 #### [facility] [address] [place], [address] GFR/1.73 sq M.predicted among non-blacks MDRD (S/P/Bld) [Vol rate/Area] 90 mL/min/{1.73_m2} Normal >60 [facility] Comment on above: Result Comment: mL/m in/1.73m2 CKD-EPI Creatinine Equation (2020) Performed By: #### L 400, L501.0900, L100.0100, L500.4050 #### [facility] [address] [place], [address] Globulin (S) [Mass/Vol] 3.5 g/dL Normal 2.2-4.2 [facility] Comment on above: Performed By: #### L 400, L501.0900, L100.0100, L500.4050 #### [facility] [address] [place], [address] Glucose [Mass/Vol] 99 mg/dL Normal 70-99 [facility] Comment on above: Performed By: #### L 400, L501.0900, L100.0100, L500.4050 #### [facility] [address] [place], [address] Potassium [Moles/Vol] 4.4 mmol/L Normal 3.3-5.1 [facility] Comment on above: Performed By: #### L 400, L501.0900, L100.0100, L500.4050 #### [facility] [address] [place], [address] Sodium [Moles/Vol] 140 mmol/L Normal 133-145 [facility] Comment on above: Performed By: #### L 400.2010, L501.0900, L100.0100, L500.4050 #### [facility] [address] [place], [address] T PROT 7.4 g/dL Normal 5.9-8.4 [facility] Comment on above: Performed By: #### L 400.2010, L501.0900, L100.0100, L500.4050 #### [facility] [address] [place], [address] Urea nitrogen [Mass/Vol] 10 mg/dL Normal 4-19 [facility] Comment on above: Performed By: #### L 400.2010, L501.0900, L100.0100, L500.4050 #### [facility] [address] [place], [address] Eosinophil percentageOrdered By: Angela Lion on 10-08-2024 Eosinophils/100 WBC (Bld) 2.3 % 0-5 [facility] Erythrocyte distribution wid th ratioOrdered By: Angela Lion on 10-08-2024 Erythrocyte distribution width (RBC) [Ratio] 12.5 % 11.6-14.6 [facility] Erythrocyte distribution wid th standard deviationOrdered By: Angela Lion on 10-08-2024 Erythrocyte distribution width (RBC) [Ratio] 46.3 fl High 35.1-43.9 [facility] Glomerular filtration rate ( GFR) estimation/1.73 sq m using serum, plasma, or whole bOrdered By: Angela Lion on 10-08-2024 GFR/1.73 sq M.predicted among non-blacks MDRD (S/P/Bld) [Vol rate/Area] 90 mL/min/{1.73_m2} >60 [facility] Comment on above: mL/min/1.73m2 CKD-EP I Creatinine Equation (2020) Hematocrit Auto (Bld) [Volum e fraction]Ordered By: Angela Lion on 10-08-2024 Hematocrit (Bld) [Volume fraction] 36.3 % Low 37-47 [facility] Hemoglobin measurementOrdere d By: Angela Lion on 10-08-2024 Hemoglobin (Bld) [Mass/Vol] 12.0 g/dL 12.0-15.0 [facility] Immature granulocytes/100 WB C Auto (Bld)Ordered By: Angela Lion on 10-08-2024 Immature granulocytes/100 WBC (Bld) 0.200 % 0.0-0.9 [facility] Comment on above: IG% - Immature Granu locytes (promyelocytes, myelocytes and metamyelocytes) > 1% indicates that a LEFT SHIFT is Present. Ketones Test strip Ql (U)Ord ered By: Angela Lion on 10-08-2024 Ketones Ql (U) Negative Negative [facility] - Chemistry and C hemistry - challengeOrdered By: Angela Lion on 10-08-2024 AST [Catalytic activity/Vol] 17 U/L <32 [facility] MCV (mean corpuscular volume ) determinationOrdered By: Angela Lion on 10-08-2024 MCV (RBC) [Entitic vol] 100.6 fL High 81-99 [facility] Mean corpuscular hemoglobin (MCH) determinationOrdered By: Angela Lion on 10-08-2024 MCH (RBC) [Entitic mass] 33.2 pg High 27.0-32.0 [facility] Mean corpuscular hemoglobin concentration (MCHC) determinationOrdered By: Angela Lion on 10-08-2024 MCHC (RBC) [Mass/Vol] 33.1 g/dL 32-36 [facility] Mean platelet volume determi nationOrdered By: Angela Lion on 10-08-2024 Platelet mean volume (Bld) [Entitic vol] 9.1 fL 6.2-12.0 [facility] Monocyte percentageOrdered B y: Angela Lion on 10-08-2024 Monocytes/100 WBC (Bld) 6.1 % 0-10 [facility] Neutrophil percentageOrdered By: Angela Lion on 10-08-2024 Neutrophils/100 WBC (Bld) 54.9 % 47-70 [facility] Nitrite Test strip Ql (U)Ord ered By: Angela Lion on 10-08-2024 Nitrite Ql (U) Negative Negative [facility] Nucleated red blood cell per centageOrdered By: Angela Lion on 10-08-2024 Nucleated RBC/100 WBC (Bld) [Ratio] 0 % 0-5 [facility] Platelet countOrdered By: Arias Lion on 10-08-2024 Platelets (Bld) [#/Vol] 218 10*3/uL 150-450 [facility] Potassium measurement (mass/ volume)Ordered By: Angela Lion on 10-08-2024 Potassium (Unsp spec) [Mass/Vol] 4.4 mmol/L 3.3-5.1 [facility] Protein Test strip Ql (U)Ord ered By: Angela Lion on 10-08-2024 Protein Ql (U) Negative Negative [facility] Protein+Creatinine Ratio,Uri neon 10-08-2024 PROT:CRE RATIO 114 mg/g CRE Normal 0-200 [facility] Comment on above: Performed By: #### L 400.2010, L501.0900, L100.0100, L500.4050 #### [facility] [address] [place], [address] Protein (U) [Mass/Vol] 9.7 mg/dL Normal 0.0-12.0 [facility] Comment on above: Performed By: #### L 400.2010, L501.0900, L100.0100, L500.4050 #### [facility] [address] [place], [address] UR CREAT 85.20 mg/dL Normal 28.00-217.00 [facility] Comment on above: Performed By: #### L 400.2010, L501.0900, L100.0100, L500.4050 #### [facility] [place], [address] RBC Auto (Bld) [#/Vol]Ordere d By: Angela Lion on 10-08-2024 RBC (Bld) [#/Vol] 3.61 10*6/uL Low 4.2-5.4 [facility] Random urine creatinine ant urement (mass/volume)Ordered By: Angela Lion on 10-08-2024 Creatinine Unsp time (U) [Mass/Vol] 85.20 mg/dL 28.00-217.00 [facility] Serum creatinine measurement (mass/volume)Ordered By: Angela Lion on 10-08-2024 Creatinine [Mass/Vol] 0.73 mg/dL 0.70-1.20 [facility] Serum globulin measurementOr dered By: Angela Lion on 10-08-2024 Globulin (S) [Mass/Vol] 3.5 g/dL 2.2-4.2 [facility] Serum glucose measurement (m ass/volume)Ordered By: Angela Lion on 10-08-2024 Glucose [Mass/Vol] 99 mg/dL 70-99 [facility] Serum or plasma alanine sierra otransferase (ALT) measurementOrdered By: Angela Lion on 10-08-2024 ALT [Catalytic activity/Vol] 7 U/L <35 [facility] Serum or plasma albumin ant urement (mass/volume)Ordered By: Angela Lion on 10-08-2024 Albumin [Mass/Vol] 3.9 g/dL 3.4-4.8 [facility] Serum or plasma albumin/glob ulin mass ratioOrdered By: Angela Lion on 10-08-2024 Albumin/Globulin [Mass ratio] 1.1 {ratio} 0.9-2.4 [facility] Serum or plasma alkaline hailee sphatase measurementOrdered By: Angela Lion on 10-08-2024 ALP [Catalytic activity/Vol] 75 U/L 35-104 [facility] Serum or plasma calcium ant urement (mass/volume)Ordered By: Angela Lion on 10-08-2024 Calcium [Mass/Vol] 9.4 mg/dL 7.6-11.0 [facility] Serum or plasma urea nitroge n measurement (mass/volume)Ordered By: Angela Lion on 10-08-2024 Urea nitrogen [Mass/Vol] 10 mg/dL 4-19 [facility] Sodium levelOrdered By: Alis Lion on 10-08-2024 Sodium [Moles/Vol] 140 mmol/L 133-145 [facility] Total proteinOrdered By: Edmund Lion on 10-08-2024 Protein [Mass/Vol] 7.4 g/dL 5.9-8.4 [facility] Urinalysis, Routine (Dipstic k)on 10-08-2024 BILIRUBIN URINE Negative Normal Negative [facility] Comment on above: Order Comment: Urine , Random Performed By: #### L 400.2010, L501.0900, L100.0100, L500.4050 #### [facility] [address] [place], [address] Clarity (U) Clear Normal Clear [facility] Comment on above: Order Comment: Urine , Random Performed By: #### L 400.2010, L501.0900, L100.0100, L500.4050 #### [facility] [address] [place], [address] Color (U) Yellow Normal Yellow [facility] Comment on above: Order Comment: Urine , Random Performed By: #### L 400.2010, L501.0900, L100.0100, L500.4050 #### [facility] [address] [place], [address] GLUCOSE, UR Normal Normal Normal [facility] Comment on above: Order Comment: Urine , Random Performed By: #### L 400.2010, L501.0900, L100.0100, L500.4050 #### [facility] [address] [place], [address] KETONE UR Negative Normal Negative [facility] Comment on above: Order Comment: Urine , Random Performed By: #### L 400.2010, L501.0900, L100.0100, L500.4050 #### [facility] [address] [place], [address] LEUK ESTERASE 25 /ul Abnormal Negative [facility] Comment on above: Order Comment: Urine , Random Performed By: #### L 400.2010, L501.0900, L100.0100, L500.4050 #### [facility] [address] [place], [address] Nitrite Ql (U) Negative Normal Negative [facility] Comment on above: Order Comment: Urine , Random Performed By: #### L 400.2010, L501.0900, L100.0100, L500.4050 #### [facility] [address] [place], [address] OCCULT BLOOD-UR Negative Normal Negative [facility] Comment on above: Order Comment: Urine , Random Performed By: #### L 400.2010, L501.0900, L100.0100, L500.4050 #### [facility] [address] [place], [address] pH UR 6.0 Normal 5.0 - 8.0 [facility] Comment on above: Order Comment: Urine , Random Performed By: #### L 400.2010, L501.0900, L100.0100, L500.4050 #### [facility] [address] [place], [address] PROT DIPSTX Negative Normal Negative [facility] Comment on above: Order Comment: Urine , Random Performed By: #### L 400.2010, L501.0900, L100.0100, L500.4050 #### [facility] [address] [place], [address] SP.GR. DIPSTX 1.015 Normal 1.002-1.030 [facility] Comment on above: Order Comment: Urine , Random Performed By: #### L 400.2010, L501.0900, L100.0100, L500.4050 #### [facility] [address] [place], [address] UROBILI Normal Normal Normal [facility] Comment on above: Order Comment: Urine , Random Performed By: #### L 400.2010, L501.0900, L100.0100, L500.4050 #### [facility] [address] [place], [address] Urine clarityOrdered By: Edmund Lion on 10-08-2024 Clarity (U) Clear Clear [facility] Urine color determinationOrd ered By: Angela Lion on 10-08-2024 Color (U) Yellow Yellow [facility] Urine glucose detectionOrder ed By: Angela Lion on 10-08-2024 Glucose Ql (U) Normal mg/dl Normal [facility] Urine leukocyte esterase det ection by dipstickOrdered By: Angela Lion on 10-08-2024 Leukocyte esterase Test strip Ql (U) 25 /ul High Negative [facility] Urine pHOrdered By: Angela campa on 10-08-2024 pH (U) 6.0 [pH] 5.0 - 8.0 [facility] Urine protein measurement (m ass/volume)Ordered By: Angela Lion on 10-08-2024 Protein (U) [Mass/Vol] 9.7 mg/dL 0.0-12.0 [facility] Urine protein/creatinine mas s ratioOrdered By: Angela Lion on 10-08-2024 Protein/Creatinine (U) [Mass ratio] 114 mg/g CRE 0-200 [facility] Urine specific gravity measu rementOrdered By: Angela Lion on 10-08-2024 Specific gravity (U) [Rel density] 1.015 1.002-1.030 [facility] Urine urobilinogen measureme ntOrdered By: Angela Lion on 10-08-2024 Urobilinogen Ql (U) Normal mg/dl Normal [facility] White blood cell (WBC) count Ordered By: Angela Lion on 10-08-2024 WBC (Bld) [#/Vol] 5.7 10*3/uL 4.4-11.0 [facility] Absolute lymphocyte countOrd ered By: Angela Lion on 07-15-2024 Lymphocytes Auto (Unsp spec) [#/Vol] 1.58 10*3/uL 0.83-4.51 [facility] Absolute neutrophil countOrd ered By: Angeladominick Lion on 07-15-2024 Neutrophils (Bld) [#/Vol] 4.2 10*3/uL 2.0-7.7 [facility] Albumin to globulin ratioOrd ered By: Angeladominick Lion on 07-15-2024 Albumin/Globulin [Mass ratio] 0.8 {ratio} Low 0.9-2.4 [facility] Automated lymphocyte count a s percentage of total leukocytesOrdered By: Angela Lion on 07-15-2024 Lymphocytes/100 WBC Auto (Unsp spec) 24.8 % 19-41 [facility] Basophil percentageOrdered B y: Angela Lion on 07-15-2024 Basophils/100 WBC (Bld) 0.8 % 0-1 [facility] Bilirubin Test strip Ql (U)O rdered By: Angela Lion on 07-15-2024 Bilirubin Ql (U) Negative Negative [facility] Bilirubin, totalOrdered By: Angela Lion on 07-15-2024 Bilirubin [Mass/Vol] 0.50 mg/dL 0.20-1.[address] [facility] [address] [facility] Comment on above: For patients on eltr ombopag therapy, use of Dimension [place] TBIL is not recommended. Blood urea nitrogen (BUN)/cr eatinine ratioOrdered By: Angela Lion on 07-15-2024 Urea nitrogen/Creatinine [Mass ratio] 16.9 mg/mg 10-20 [facility] CBC W/Diff, Automatedon 07-05 Absolute Lymph 1.58 X10 3/uL Normal 0.83-4.51 [facility] Comment on above: Performed By: #### L 400.2010, L501.0900, L100.0100, L500.4050 #### [facility] [address] [place], [address] Absolute Neut 4.2 X10 3/uL Normal 2.0-7.7 [facility] Comment on above: Performed By: #### L 400.2010, L501.0900, L100.0100, L500.4050 #### [facility] [address] [place], [address] Basophils/100 WBC (Bld) 0.8 % Normal 0-1 [facility] Comment on above: Performed By: #### L 400.2010, L501.0900, L100.0100, L500.4050 #### [facility] [address] [place], [address] Eosinophils/100 WBC (Bld) 1.9 % Normal 0-5 [facility] Comment on above: Performed By: #### L 400.2010, L501.0900, L100.0100, L500.4050 #### [facility] [address] [place], [address] Erythrocyte distribution width (RBC) [Ratio] 12.3 % Normal 11.6-14.6 [facility] Comment on above: Performed By: #### L 400.2010, L501.0900, L100.0100, L500.4050 #### [facility] [address] [place], [address] Hematocrit (Bld) [Volume fraction] 37.3 % Normal 37-47 [facility] Comment on above: Performed By: #### L 400, L501.0900, L100.0100, L500.4050 #### [facility] [address] [place], [address] Hemoglobin (Bld) [Mass/Vol] 12.6 g/dL Normal 12.0-15.0 [facility] Comment on above: Performed By: #### L 400.2010, L501.0900, L100.0100, L500.4050 #### [facility] [address] [place], [address] IG% 0.200 Normal 0.0-0.9 [facility] Comment on above: Result Comment: IG% - Immature Granulocytes (promyelocytes, myelocytes and metamyelocytes) > 1% indicates that a LEFT SHIFT is Present. Performed By: #### L 400.2010, L501.0900, L100.0100, L500.4050 #### [facility] [address] [place], [address] Lymphocytes/100 WBC (Bld) 24.8 % Normal 19-41 [facility] Comment on above: Performed By: #### L 400, L501.0900, L100.0100, L500.4050 #### [facility] [address] [place], [address] MCH (RBC) [Entitic mass] 33.8 pg High 27.0-32.0 [facility] Comment on above: Performed By: #### L 400, L501.0900, L100.0100, L500.4050 #### [facility] [address] [place], [address] MCHC (RBC) [Mass/Vol] 33.8 g/dL Normal 32-36 [facility] Comment on above: Performed By: #### L 400, L501.0900, L100.0100, L500.4050 #### [facility] [address] [place], [address] MCV (RBC) [Entitic vol] 100.0 fL High 81-99 [facility] Comment on above: Performed By: #### L 400, L501.0900, L100.0100, L500.4050 #### [facility] [address] [place], [address] Monocytes/100 WBC (Bld) 6.0 % Normal 0-10 [facility] Comment on above: Performed By: #### L 400.2010, L501.0900, L100.0100, L500.4050 #### [facility] [address] [place], [address] Neutrophils/100 WBC (Bld) 66.3 % Normal 47-70 [facility] Comment on above: Performed By: #### L 400.2010, L501.0900, L100.0100, L500.4050 #### [facility] [address] [place], [address] Nucleated RBC (Bld) [#/Vol] 0 10*3/uL Normal 0-5 [facility] Comment on above: Performed By: #### L 400, L501.0900, L100.0100, L500.4050 #### [facility] [address] [place], [address] Platelet mean volume (Bld) [Entitic vol] 9.4 fL Normal 6.2-12.0 [facility] Comment on above: Performed By: #### L 400, L501.0900, L100.0100, L500.4050 #### [facility] [address] [place], [address] Platelets (Bld) [#/Vol] 245 10*3/uL Normal 150-450 [facility] Comment on above: Performed By: #### L 400, L501.0900, L100.0100, L500.4050 #### [facility] [address] [place], [address] RBC (Bld) [#/Vol] 3.73 10*6/uL Low 4.2-5.4 [facility] Comment on above: Performed By: #### L 400.2010, L501.0900, L100.0100, L500.4050 #### [facility] [address] [place], [address] RDW SD 44.9 fl High 35.1-43.9 [facility] Comment on above: Performed By: #### L 400, L501.0900, L100.0100, L500.4050 #### [facility] [address] [place], [address] WBC (Bld) [#/Vol] 6.4 10*3/uL Normal 4.4-11.0 [facility] Comment on above: Performed By: #### L 400, L501.0900, L100.0100, L500.4050 #### [facility] [address] [place], [address] Carbon dioxide measurementOr dered By: Angela Lion on 07-15-2024 CO2 [Moles/Vol] 25.0 mmol/L 21.0-32.0 [facility] Chloride measurementOrdered By: Angela Lion on 07-15-2024 Chloride [Moles/Vol] 108 mmol/L High 98-[address] [facility] Comprehensive Metabolic Prof ilon 07-15-2024 Albumin [Mass/Vol] 3.6 g/dL Normal 3.2-5.0 [facility] Comment on above: Performed By: #### L 400, L501.0900, L100.0100, L500.4050 #### [facility] [address] [place], [address] Albumin/Globulin [Mass ratio] 0.8 {ratio} Low 0.9-2.4 [facility] Comment on above: Performed By: #### L 400, L501.0900, L100.0100, L500.4050 #### [facility] [address] [place], [address] ALK P 78 U/L Normal 45-117 [facility] Comment on above: Performed By: #### L 400.2010, L501.0900, L100.0100, L500.4050 #### [facility] [address] [place], [address] ALT [Catalytic activity/Vol] 15 U/L Normal 13-56 [facility] Comment on above: Performed By: #### L 400.2010, L501.0900, L100.0100, L500.4050 #### [facility] [address] [place], [address] AST [Catalytic activity/Vol] 16 U/L Normal 15-37 [facility] Comment on above: Performed By: #### L 400, L501.0900, L100.0100, L500.4050 #### [facility] [address] [place], [address] Bilirubin [Mass/Vol] 0.50 mg/dL Normal 0.20-1.[address] [facility] Comment on above: Result Comment: For patients on eltrombopag therapy, use of Dimension [place] TBIL is not recommended. Performed By: #### L 400, L501.0900, L100.0100, L500.4050 #### [facility] [address] [place], [address] BUN/CRE 16.9 RATIO Normal 10-20 [facility] Comment on above: Performed By: #### L 400, L501.0900, L100.0100, L500.4050 #### [facility] [address] [place], [address] CA,Total 9.5 mg/dL Normal 8.5-10.1 [facility] Comment on above: Performed By: #### L 400, L501.0900, L100.0100, L500.4050 #### [facility] [address] [place], [address] Chloride [Moles/Vol] 108 mmol/L High 98-[address] [facility] Comment on above: Performed By: #### L 400.2010, L501.0900, L100.0100, L500.4050 #### [facility] [address] [place], [address] CO2 [Moles/Vol] 25.0 mmol/L Normal 21.0-32.0 [facility] Comment on above: Performed By: #### L 400, L501.0900, L100.0100, L500.4050 #### [facility] [address] [place], [address] Creatinine [Mass/Vol] 0.77 mg/dL Normal 0.55-1.02 [facility] Comment on above: Result Comment: The validity of the calculated GFR GFRAA in patients over 70 years has not been determined. Clinical correlation is essential. Performed By: #### L 400.2010, L501.0900, L100.0100, L500.4050 #### [facility] [address] [place], [address] EST GFR - AA 96 mL/min Normal >60 [facility] Comment on above: Result Comment: Afri can [place] GFR Calc Performed By: #### L 400, L501.0900, L100.0100, L500.4050 #### [facility] [address] [place], [address] GAP 6 Normal 5-15 [facility] Comment on above: Performed By: #### L 400, L501.0900, L100.0100, L500.4050 #### [facility] [address] [place], [address] GFR/1.73 sq M.predicted among non-blacks MDRD (S/P/Bld) [Vol rate/Area] 80 mL/min/{1.73_m2} Normal >60 [facility] Comment on above: Result Comment: Non- GFR Calc Performed By: #### L 400.2010, L501.0900, L100.0100, L500.4050 #### [facility] [address] [place], [address] Globulin (S) [Mass/Vol] 4.3 g/dL High 2.2-4.2 [facility] Comment on above: Performed By: #### L 400, L501.0900, L100.0100, L500.4050 #### [facility] [address] [place], [address] Glucose [Mass/Vol] 87 mg/dL Normal 74-106 [facility] Comment on above: Performed By: #### L 400, L501.0900, L100.0100, L500.4050 #### [facility] [address] [place], [address] Potassium [Moles/Vol] 4.1 mmol/L Normal 3.5-5.1 [facility] Comment on above: Performed By: #### L 400, L501.0900, L100.0100, L500.4050 #### [facility] [address] [place], [address] Sodium [Moles/Vol] 139 mmol/L Normal 136-145 [facility] Comment on above: Performed By: #### L 400, L501.0900, L100.0100, L500.4050 #### [facility] [address] [place], [address] T PROT 7.9 g/dL Normal 6.4-8.2 [facility] Comment on above: Performed By: #### L 400, L501.0900, L100.0100, L500.4050 #### [facility] [facility] [address] [place], [address] Urea nitrogen [Mass/Vol] 13 mg/dL Normal 7-18 [facility] Comment on above: Performed By: #### L 400.2011, L501.0900, L100.0100, L500.4050 #### [facility] [address] [place], [address] Eosinophil percentageOrdered By: Angela Lion on 07-15-2024 Eosinophils/100 WBC (Bld) 1.9 % 0-5 [facility] Erythrocyte distribution wid th ratioOrdered By: Angeladominick Lion on 07-15-2024 Erythrocyte distribution width (RBC) [Ratio] 12.3 % 11.6-14.6 [facility] Erythrocyte distribution wid th standard deviationOrdered By: Angela Lion on 07-15-2024 Erythrocyte distribution width (RBC) [Ratio] 44.9 fl High 35.1-43.9 [facility] Glomerular filtration rate ( GFR) estimationOrdered By: Angela Lion on 07-15-2024 GFR/1.73 sq M.predicted among non-blacks MDRD (S/P/Bld) [Vol rate/Area] 80 mL/min/{1.73_m2} >60 [facility] Comment on above: Non- GFR Calc Glucose measurementOrdered B y: Angela Lion on 07-15-2024 Glucose [Mass/Vol] 87 mg/dL 74-106 [facility] Hematocrit Auto (Bld) [Volum e fraction]Ordered By: Angela Lion on 07-15-2024 Hematocrit (Bld) [Volume fraction] 37.3 % 37-47 [facility] Hemoglobin measurementOrdere d By: Angela Lion on 07-15-2024 Hemoglobin (Bld) [Mass/Vol] 12.6 g/dL 12.0-15.0 [facility] Immature granulocytes/100 WB C Auto (Bld)Ordered By: Angela Lion on 07-15-2024 Immature granulocytes/100 WBC (Bld) 0.200 % 0.0-0.9 [facility] Comment on above: IG% - Immature Granu locytes (promyelocytes, myelocytes and metamyelocytes) > 1% indicates that a LEFT SHIFT is Present. Ketones Test strip Ql (U)Ord ered By: Angela Lion on 07-15-2024 Ketones Ql (U) Negative Negative [facility] - Chemistry and C hemistry - challengeOrdered By: Angela Lion on 07-15-2024 AST [Catalytic activity/Vol] 16 U/L 15-37 [facility] MCV (mean corpuscular volume ) determinationOrdered By: Angela Lion on 07-15-2024 MCV (RBC) [Entitic vol] 100.0 fL High 81-99 [facility] Mean corpuscular hemoglobin (MCH) determinationOrdered By: Angela Lion on 07-15-2024 MCH (RBC) [Entitic mass] 33.8 pg High 27.0-32.0 [facility] Mean corpuscular hemoglobin concentration (MCHC) determinationOrdered By: Angela Lion on 07-15-2024 MCHC (RBC) [Mass/Vol] 33.8 g/dL 32-36 [facility] Mean platelet volume determi nationOrdered By: Angela Lion on 07-15-2024 Platelet mean volume (Bld) [Entitic vol] 9.4 fL 6.2-12.0 [facility] Monocyte percentageOrdered B y: Angela Lion on 07-15-2024 Monocytes/100 WBC (Bld) 6.0 % 0-10 [facility] Neutrophil percentageOrdered By: Angela Lion on 07-15-2024 Neutrophils/100 WBC (Bld) 66.3 % 47-70 [facility] Nitrite Test strip Ql (U)Ord ered By: Angela Lion on 07-15-2024 Nitrite Ql (U) Negative Negative [facility] Nucleated red blood cell per centageOrdered By: Angela Lion on 07-15-2024 Nucleated RBC/100 WBC (Bld) [Ratio] 0 % 0-5 [facility] Platelet countOrdered By: Arias Lion on 07-15-2024 Platelets (Bld) [#/Vol] 245 10*3/uL 150-450 [facility] Potassium measurementOrdered By: Angela Lion on 07-15-2024 Potassium [Moles/Vol] 4.1 mmol/L 3.5-5.1 [facility] Protein Test strip Ql (U)Ord ered By: Angela Lion on 07-15-2024 Protein Ql (U) Negative Negative [facility] Protein+Creatinine Ratio,Uri neon 07-15-2024 PROT:CRE RATIO TNP Normal 0-200 [facility] Comment on above: Performed By: #### L 400.2010, L501.0900, L100.0100, L500.4050 #### [facility] [address] [place], [address] PROTEIN,UR.RAN. < 6.0 Normal <11.9 [facility] Comment on above: Performed By: #### L 400.2010, L501.0900, L100.0100, L500.4050 #### [facility] [address] [place], [address] UR CREAT 14.40 mg/dL Normal NO RANGE EST. [facility] Comment on above: Performed By: #### L 400.2010, L501.0900, L100.0100, L500.4050 #### [facility] [address] [place], [address] RBC Auto (Bld) [#/Vol]Ordere d By: Angela Lion on 07-15-2024 RBC (Bld) [#/Vol] 3.73 10*6/uL Low 4.2-5.4 [facility] Serum anion gap measurementO rdered By: Angela Lion on 07-15-2024 Anion gap [Moles/Vol] 6 mmol/L 5-15 [facility] Serum globulin measurementOr dered By: Angela Lion on 07-15-2024 Globulin (S) [Mass/Vol] 4.3 g/dL High 2.2-4.2 [facility] Serum or plasma alanine sierra otransferase (ALT) measurementOrdered By: Angela Lion on 07-15-2024 ALT [Catalytic activity/Vol] 15 U/L 13-56 [facility] Serum or plasma albumin ant urement (mass/volume)Ordered By: Angela Lion on 07-15-2024 Albumin [Mass/Vol] 3.6 g/dL 3.2-5.0 [facility] Serum or plasma alkaline hailee sphatase measurementOrdered By: Angela Lion on 07-15-2024 ALP [Catalytic activity/Vol] 78 U/L 45-117 [facility] Serum or plasma calcium ant urement (mass/volume)Ordered By: Angela Lion on 07-15-2024 Calcium [Mass/Vol] 9.5 mg/dL 8.5-10.1 [facility] Serum or plasma creatinine m easurement (mass/volume)Ordered By: Angela Lion on 07-15-2024 Creatinine [Mass/Vol] 0.77 mg/dL 0.55-1.02 [facility] Comment on above: The validity of the calculated GFR & GFRAA in patients over 70 years has not been determined. Clinical correlation is essential. Serum or plasma urea nitroge n measurement (mass/volume)Ordered By: Angela Lion on 07-15-2024 Urea nitrogen [Mass/Vol] 13 mg/dL 7-18 [facility] Sodium levelOrdered By: Alis Lion on 07-15-2024 Sodium [Moles/Vol] 139 mmol/L 136-145 [facility] Total proteinOrdered By: Edmund Lion on 07-15-2024 Protein [Mass/Vol] 7.9 g/dL 6.4-8.2 [facility] Urinalysis, Routine (Dipstic k)on 07-15-2024 BILIRUBIN URINE Negative Normal Negative [facility] Comment on above: Order Comment: Urine , Random Performed By: #### L 400.2010, L501.0900, L100.0100, L500.4050 #### [facility] [place], [address] Clarity (U) Clear Normal Clear [facility] Comment on above: Order Comment: Urine , Random Performed By: #### L 400.2010, L501.0900, L100.0100, L500.4050 #### [facility] [address] [place], [address] Color (U) Yellow Normal Yellow [facility] Comment on above: Order Comment: Urine , Random Performed By: #### L 400.2010, L501.0900, L100.0100, L500.4050 #### [facility] [address] [place], [address] GLUCOSE, UR Normal Normal Normal [facility] Comment on above: Order Comment: Urine , Random Performed By: #### L 400.2010, L501.0900, L100.0100, L500.4050 #### [facility] [address] [place], [address] KETONE UR Negative Normal Negative [facility] Comment on above: Order Comment: Urine , Random Performed By: #### L 400.2010, L501.0900, L100.0100, L500.4050 #### [facility] [address] [place], [address] LEUK ESTERASE Negative Normal Negative [facility] Comment on above: Order Comment: Urine , Random Performed By: #### L 400.2010, L501.0900, L100.0100, L500.4050 #### [facility] [address] [place], [address] Nitrite Ql (U) Negative Normal Negative [facility] Comment on above: Order Comment: Urine , Random Performed By: #### L 400.2010, L501.0900, L100.0100, L500.4050 #### [facility] [address] [place], [address] OCCULT BLOOD-UR Negative Normal Negative [facility] Comment on above: Order Comment: Urine , Random Performed By: #### L 400.2010, L501.0900, L100.0100, L500.4050 #### [facility] [address] [place], [address] pH UR 7.0 Normal 5.0 - 8.0 [facility] Comment on above: Order Comment: Urine , Random Performed By: #### L 400.2010, L501.0900, L100.0100, L500.4050 #### [facility] [address] [place], [address] PROT DIPSTX Negative Normal Negative [facility] Comment on above: Order Comment: Urine , Random Performed By: #### L 400.2010, L501.0900, L100.0100, L500.4050 #### [facility] [address] [place], [address] SP.GR. DIPSTX 1.010 Normal 1.002-1.030 [facility] Comment on above: Order Comment: Urine , Random Performed By: #### L 400.2010, L501.0900, L100.0100, L500.4050 #### [facility] [address] [place], [address] UROBILI Normal Normal Normal [facility] Comment on above: Order Comment: Urine , Random Performed By: #### L 400.2010, L501.0900, L100.0100, L500.4050 #### [facility] [address] [place], [address] Urine clarityOrdered By: Edmund Lion on 07-15-2024 Clarity (U) Clear Clear [facility] Urine color determinationOrd ered By: Angela Lion on 07-15-2024 Color (U) Yellow Yellow [facility] Urine creatinine measurement (mass/volume)Ordered By: Angela Lion on 07-15-2024 Creatinine (U) [Mass/Vol] 14.40 mg/dL NO RANGE EST. [facility] Urine glucose detectionOrder ed By: Angela Lion on 07-15-2024 Glucose Ql (U) Normal mg/dl Normal [facility] Urine leukocyte esterase det ection by dipstickOrdered By: Angela Lion on 07-15-2024 Leukocyte esterase Test strip Ql (U) Negative Negative [facility] Urine pHOrdered By: Angela campa on 07-15-2024 pH (U) 7.0 [pH] 5.0 - 8.0 [facility] Urine protein/creatinine mas s ratioOrdered By: Angela Lion on 07-15-2024 Protein/Creatinine (U) [Mass ratio] TNP [facility] Comment on above: Test not performed Urine specific gravity measu rementOrdered By: Angela Lion on 07-15-2024 Specific gravity (U) [Rel density] 1.010 1.002-1.030 [facility] Urine urobilinogen measureme ntOrdered By: Angela Lion on 07-15-2024 Urobilinogen Ql (U) Normal mg/dl Normal [facility] White blood cell (WBC) count Ordered By: Angela Lion on 07-15-2024 WBC (Bld) [#/Vol] 6.4 10*3/uL 4.4-11.0 [facility] CBC W/Diff, Automatedon 11- Absolute Lymph 1.39 X10 3/uL Normal 0.83-4.51 [facility] Comment on above: Performed By: #### L 400.2010, L501.0900, L100.0100, L500.4050 #### [facility] [address] [place], [address] Absolute Neut 5.2 X10 3/uL Normal 2.0-7.7 [facility] Comment on above: Performed By: #### L 400.2010, L501.0900, L100.0100, L500.4050 #### [facility] [address] [place], [address] Basophils/100 WBC (Bld) 0.7 % Normal 0-1 [facility] Comment on above: Performed By: #### L 400, L501.0900, L100.0100, L500.4050 #### [facility] [address] [place], [address] Eosinophils/100 WBC (Bld) 1.4 % Normal 0-5 [facility] Comment on above: Performed By: #### L 400, L501.0900, L100.0100, L500.4050 #### [facility] [address] [place], [address] Erythrocyte distribution width (RBC) [Ratio] 12.5 % Normal 11.6-14.6 [facility] Comment on above: Performed By: #### L 400, L501.0900, L100.0100, L500.4050 #### [facility] [address] [place], [address] Hematocrit (Bld) [Volume fraction] 36.8 % Low 37-47 [facility] Comment on above: Performed By: #### L 400, L501.0900, L100.0100, L500.4050 #### [facility] [address] [place], [address] Hemoglobin (Bld) [Mass/Vol] 12.2 g/dL Normal 12.0-15.0 [facility] Comment on above: Performed By: #### L 400, L501.0900, L100.0100, L500.4050 #### [facility] [address] [place], [address] IG% 0.400 Normal 0.0-0.9 [facility] Comment on above: Result Comment: IG% - Immature Granulocytes (promyelocytes, myelocytes and metamyelocytes) > 1% indicates that a LEFT SHIFT is Present. Performed By: #### L 400, L501.0900, L100.0100, L500.4050 #### [facility] [address] [place], [address] Lymphocytes/100 WBC (Bld) 19.7 % Normal 19-41 [facility] Comment on above: Performed By: #### L 400.2010, L501.0900, L100.0100, L500.4050 #### [facility] [address] [place], [address] MCH (RBC) [Entitic mass] 33.5 pg High 27.0-32.0 [facility] Comment on above: Performed By: #### L 400.2010, L501.0900, L100.0100, L500.4050 #### [facility] [address] [place], [address] MCHC (RBC) [Mass/Vol] 33.2 g/dL Normal 32-36 [facility] Comment on above: Performed By: #### L 400.2010, L501.0900, L100.0100, L500.4050 #### [facility] [address] [place], [address] MCV (RBC) [Entitic vol] 101.1 fL High 81-99 [facility] Comment on above: Performed By: #### L 400, L501.0900, L100.0100, L500.4050 #### [facility] [address] [place], [address] Monocytes/100 WBC (Bld) 5.0 % Normal 0-10 [facility] Comment on above: Performed By: #### L 400.2010, L501.0900, L100.0100, L500.4050 #### [facility] [address] [place], [address] Neutrophils/100 WBC (Bld) 72.8 % High 47-70 [facility] Comment on above: Performed By: #### L 400.2010, L501.0900, L100.0100, L500.4050 #### [facility] [address] [place], [address] Nucleated RBC (Bld) [#/Vol] 0 10*3/uL Normal 0-5 [facility] Comment on above: Performed By: #### L 400.2010, L501.0900, L100.0100, L500.4050 #### [facility] [address] [place], [address] Platelet mean volume (Bld) [Entitic vol] 9.3 fL Normal 6.2-12.0 [facility] Comment on above: Performed By: #### L 400.2010, L501.0900, L100.0100, [id number] #### [facility] [address] [place], [address] Platelets (Bld) [#/Vol] 225 10*3/uL Normal 150-450 [facility] Comment on above: Performed By: #### L 400.2010, L501.0900, L100.0100, [id number] #### [facility] [address] [place], [address] RBC (Bld) [#/Vol] 3.64 10*6/uL Low 4.2-5.4 [facility] Comment on above: Performed By: #### L 400.2010, L501.0900, L100.0100, [id number] #### [facility] [address] [place], [address] RDW SD 46.6 fl High 35.1-43.9 [facility] Comment on above: Performed By: #### L 400.2010, L501.0900, L100.0100, [id number] #### [facility] [address] [place], [address] WBC (Bld) [#/Vol] 7.1 10*3/uL Normal 4.4-11.0 [facility] Comment on above: Performed By: #### L 400.2010, L501.0900, L100.0100, [id number] #### [facility] [address] [place], [address] [facility] ilon 04-23-2024 Albumin [Mass/Vol] 3.7 g/dL Normal 3.2-5.0 [facility] Comment on above: Performed By: #### L 400.2010, L501.0900, L100.0100, [id number] #### [facility] [address] [place], [address] Albumin/Globulin [Mass ratio] 0.9 {ratio} Normal 0.9-2.4 [facility] Comment on above: Performed By: #### L 400, L501.0900, L100.0100, [id number] #### [facility] [address] [place], [address] ALK P 78 U/L Normal 45-117 [facility] Comment on above: Performed By: #### L 400, L501.0900, L100.0100, [id number] #### [facility] [address] [place], [address] ALT [Catalytic activity/Vol] 15 U/L Normal 13-56 [facility] Comment on above: Performed By: #### L 400, L501.0900, L100.0100, [id number] #### [facility] [address] [place], [address] AST [Catalytic activity/Vol] 18 U/L Normal 15-37 [facility] Comment on above: Performed By: #### L 400, L501.0900, L100.0100, [id number] #### [facility] [address] [place], [address] Bilirubin [Mass/Vol] 0.40 mg/dL Normal 0.20-1.[address] [facility] Comment on above: Result Comment: For patients on eltrombopag therapy, use of Dimension [place] TBIL is not recommended. Performed By: #### L 400.2010, L501.0900, L100.0100, [id number] #### [facility] [address] [place], [address] BUN/CRE 20.4 RATIO High 10-20 [facility] Comment on above: Performed By: #### L 400, L501.0900, L100.0100, [id number] #### [facility] [address] [place], [address] CA,Total 9.0 mg/dL Normal 8.5-10.1 [facility] Comment on above: Performed By: #### L 400.2010, L501.0900, L100.0100, [id number] #### [facility] [address] [place], [address] Chloride [Moles/Vol] 111 mmol/L High 98-[address] [facility] Comment on above: Performed By: #### L 400, L501.0900, L100.0100, [id number] #### [facility] [address] [place], [address] CO2 [Moles/Vol] 24.0 mmol/L Normal 21.0-32.0 [facility] Comment on above: Performed By: #### L 400, L501.0900, L100.0100, [id number] #### [facility] [address] [place], [address] Creatinine [Mass/Vol] 0.78 mg/dL Normal 0.55-1.02 [facility] Comment on above: Result Comment: The validity of the calculated GFR GFRAA in patients over 70 years has not been determined. Clinical correlation is essential. Performed By: #### L 400.2010, L501.0900, L100.0100, L500.4050 #### [facility] [address] [place], [address] EST GFR - AA 94 mL/min Normal >60 [facility] Comment on above: Result Comment: Afri can [place] GFR Calc Performed By: #### L 400.2010, L501.0900, L100.0100, [id number] #### [facility] [address] [place], [address] GAP 4 Low 5-15 [facility] Comment on above: Performed By: #### L 400, L501.0900, L100.0100, [id number] #### [facility] [address] [place], [address] GFR/1.73 sq M.predicted among non-blacks MDRD (S/P/Bld) [Vol rate/Area] 78 mL/min/{1.73_m2} Normal >60 [facility] Comment on above: Result Comment: Non- GFR Calc Performed By: #### L 400, L501.0900, L100.0100, [id number] #### [facility] [address] [place], [address] Globulin (S) [Mass/Vol] 4.0 g/dL Normal 2.2-4.2 [facility] Comment on above: Performed By: #### L 400, L501.0900, L100.0100, [id number] #### [facility] [address] [place], [address] Glucose [Mass/Vol] 92 mg/dL Normal 74-106 [facility] Comment on above: Performed By: #### L 400, L501.0900, L100.0100, [id number] #### [facility] [address] [place], [address] Potassium [Moles/Vol] 4.0 mmol/L Normal 3.5-5.1 [facility] Comment on above: Performed By: #### L 400.2010, L501.0900, L100.0100, [id number] #### [facility] [address] [place], [address] Sodium [Moles/Vol] 139 mmol/L Normal 136-145 [facility] Comment on above: Performed By: #### L 400.2010, L501.0900, L100.0100, [id number] #### [facility] [address] [place], [address] T PROT 7.7 g/dL Normal 6.4-8.2 [facility] Comment on above: Performed By: #### L 400.2010, L501.0900, L100.0100, [id number] #### [facility] [address] [place], [address] Urea nitrogen [Mass/Vol] 16 mg/dL Normal 7-18 [facility] Comment on above: Performed By: #### L 400.2010, L501.0900, L100.0100, [id number] #### [facility] [address] [place], [address] Absolute lymphocyte countOrd ered By: Angela Lion on 07-19-2023 Lymphocytes Auto (Unsp spec) [#/Vol] 1.85 10*3/uL 0.83-4.51 [facility] Automated lymphocyte count a s percentage of total leukocytesOrdered By: Angela Lion on 07-19-2023 Lymphocytes/100 WBC Auto (Unsp spec) 32.7 % 19-41 [facility] Basophil percentageOrdered B y: Angela Lion on 07-19-2023 Basophils/100 WBC (Bld) 0.9 % 0-1 [facility] Bilirubin [Mass/Vol] 0.30 mg/dL 0.20-1.[address] [facility] Comment on above: For patients on eltr ombopag therapy, use of Dimension [place] TBIL is not recommended. Chloride [Moles/Vol] 113 mmol/L 98-[address] [facility] Eosinophils/100 WBC (Bld) 2.5 % 0-5 [facility] Glucose [Mass/Vol] 99 mg/dL 74-106 [facility] Hemoglobin (Bld) [Mass/Vol] 13.4 g/dL 12.0-15.0 [facility] Monocytes/100 WBC (Bld) 4.1 % 0-10 [facility] Neutrophils (Bld) [#/Vol] 3.4 10*3/uL 2.0-7.7 [facility] Neutrophils/100 WBC (Bld) 59.6 % 47-70 [facility] Potassium [Moles/Vol] 4.6 mmol/L 3.5-5.1 [facility] Protein [Mass/Vol] 7.6 g/dL 6.4-8.2 [facility] Sodium [Moles/Vol] 142 mmol/L 136-145 [facility] WBC (Bld) [#/Vol] 5.7 10*3/uL 4.4-11.0 [facility] Determination of erythrocyte mean corpuscular volume (MCV)Ordered By: Angela Lion on 07-19-2023 MCV (RBC) [Entitic vol] 104.1 fL 81-99 [facility] Erythrocyte distribution wid th ratioOrdered By: Angela Lion on 07-19-2023 Erythrocyte distribution width (RBC) [Ratio] 12.5 % 11.6-14.6 [facility] Erythrocyte distribution wid th standard deviationOrdered By: Angela Lion on 07-19-2023 Erythrocyte distribution width (RBC) [Entitic vol] 47.8 fL 35.1-43.9 [facility] Hematocrit Auto (Bld) [Volum e fraction]Ordered By: Angela Lion on 07-19-2023 Hematocrit (Bld) [Volume fraction] 40.9 % 37-47 [facility] Immature granulocytes/100 WB C Auto (Bld)Ordered By: Angela Lion on 07-19-2023 Immature granulocytes/100 WBC (Bld) 0.200 % 0.0-0.9 [facility] Comment on above: IG% - Immature Granu locytes (promyelocytes, myelocytes and metamyelocytes) > 1% indicates that a LEFT SHIFT is Present. Laboratory - Chemistry and C hemistry - challengeOrdered By: Angela Lion on 07-19-2023 Albumin/Globulin [Mass ratio] 0.9 {ratio} 0.9-2.4 [facility] ALP [Catalytic activity/Vol] 72 U/L 45-117 [facility] ALT [Catalytic activity/Vol] 15 U/L 13-56 [facility] CO2 [Moles/Vol] 24.0 mmol/L 21.0-32.0 [facility] Globulin (S) [Mass/Vol] 3.9 g/dL 2.2-4.2 [facility] Urea nitrogen/Creatinine [Mass ratio] 23.6 mg/mg 10-20 [facility] - Hematology and Cell countsOrdered By: Angela Lion on 07-19-2023 MCH (RBC) [Entitic mass] 34.1 pg 27.0-32.0 [facility] MCHC (RBC) [Mass/Vol] 32.8 g/dL 32-36 [facility] Nucleated RBC/100 WBC (Bld) [Ratio] 0 % 0-5 [facility] Platelet mean volume (Bld) [Entitic vol] 9.6 fL 6.2-12.0 [facility] Platelets (Bld) [#/Vol] 208 10*3/uL 150-450 [facility] No Panel InformationOrdered By: Angela Lion on 07-19-2023 Estimated GFR (MDRD) Amer 86 mL/min >60 [facility] Comment on above: GFR Calc Estimated GFR (MDRD) Non-Af Amer 71 mL/min >60 [facility] Comment on above: Non- GFR Calc RBC Auto (Bld) [#/Vol]Ordere d By: Angela Lion on 02-15-2024 RBC (Bld) [#/Vol] 3.93 10*6/uL 4.2-5.4 [facility] Serum or plasma calcium ant urement (mass/volume)Ordered By: Angela Lion on 07-19-2023 Calcium [Mass/Vol] 9.2 mg/dL 8.5-10.1 [facility] Serum or plasma creatinine m easurement (mass/volume)Ordered By: Angela Lion on 07-19-2023 Creatinine [Mass/Vol] 0.85 mg/dL 0.55-1.02 [facility] Comment on above: The validity of the calculated GFR & GFRAA in patients over 70 years has not been determined. Clinical correlation is essential. Serum or plasma urea nitroge n measurement (mass/volume)Ordered By: Angela Lion on 07-19-2023 Urea nitrogen [Mass/Vol] 20 mg/dL 7-18 [facility] Thin prep Papanicolaou smear with manual screeningOrdered By: Angela Lion on 07-19-2023 Thin prep Papanicolaou smear with manual screening 3.7 g/dL 3.2-5.0 [facility] Thin prep Papanicolaou smear with manual screening 20 U/L 15-37 [facility] Thin prep Papanicolaou smear with manual screening 5 5-15 [facility] Serum or plasma thyroid stim ulating hormone (TSH) measurement (units/volume)Ordered By: Dania Beck on 06-28-2023 TSH Qn 0.54 uIU/mL 0.358-3.74 [facility] Absolute lymphocyte countOrd ered By: Angela Lion on 04-12-2023 Lymphocytes Auto (Unsp spec) [#/Vol] 2.16 10*3/uL 0.83-4.51 [facility] Basophil percentageOrdered B y: Angela Lion on 04-12-2023 Basophils/100 WBC (Bld) 1.1 % 0-1 [facility] Bilirubin [Mass/Vol] 0.50 mg/dL 0.20-1.[address] [facility] Comment on above: For patients on eltr ombopag therapy, use of Dimension [place] TBIL is not recommended. Chloride [Moles/Vol] 111 mmol/L 98-[address] [facility] Eosinophils/100 WBC (Bld) 1.8 % 0-5 [facility] Glucose [Mass/Vol] 93 mg/dL 74-106 [facility] Neutrophils (Bld) [#/Vol] 3.0 10*3/uL 2.0-7.7 [facility] Neutrophils/100 WBC (Bld) 53.8 % 47-70 [facility] Potassium [Moles/Vol] 4.2 mmol/L 3.5-5.1 [facility] Protein [Mass/Vol] 7.1 g/dL 6.4-8.2 [facility] Sodium [Moles/Vol] 140 mmol/L 136-145 [facility] WBC (Bld) [#/Vol] 5.6 10*3/uL 4.4-11.0 [facility] Blood erythrocytes count (nu mber/volume)Ordered By: Angela Lion on 04-12-2023 RBC (Bld) [#/Vol] 3.58 10*6/uL 4.2-5.4 [facility] Blood hemoglobin measurement (mass/volume)Ordered By: Angela Lion on 04-12-2023 Hemoglobin (Bld) [Mass/Vol] 12.6 g/dL 12.0-15.0 [facility] Blood lymphocytes/100 leukoc ytesOrdered By: Angela Lion on 04-12-2023 Lymphocytes/100 WBC (Bld) 38.3 % 19-41 [facility] Blood monocytes/100 leukocyt esOrdered By: Angela Lion on 04-12-2023 Monocytes/100 WBC (Bld) 4.8 % 0-10 [facility] Blood platelet mean volumeOr dered By: Angela Lion on 04-12-2023 Platelet mean volume (Bld) [Entitic vol] 9.1 fL 6.2-12.0 [facility] Determination of erythrocyte mean corpuscular volume (MCV)Ordered By: Angela Lion on 04-12-2023 MCV (RBC) [Entitic vol] 108.1 fL 81-99 [facility] Hematocrit Auto (Bld) [Volum e fraction]Ordered By: Angela Lion on 04-12-2023 Hematocrit (Bld) [Volume fraction] 38.7 % 37-47 [facility] - Chemistry and C hemistry - challengeOrdered By: Angela Lion on 04-12-2023 ALP [Catalytic activity/Vol] 68 U/L 45-117 [facility] ALT [Catalytic activity/Vol] 17 U/L 13-56 [facility] CO2 [Moles/Vol] 26.0 mmol/L 21.0-32.0 [facility] Globulin (S) [Mass/Vol] 3.8 g/dL 2.2-4.2 [facility] Urea nitrogen/Creatinine [Mass ratio] 17.3 mg/mg 10-20 [facility] - Hematology and Cell countsOrdered By: Angela Lion on 04-12-2023 Erythrocyte distribution width (RBC) [Entitic vol] 49.3 fL 35.1-43.9 [facility] Erythrocyte distribution width (RBC) [Ratio] 12.5 % 11.6-14.6 [facility] Immature granulocytes/100 WBC (Bld) 0.200 % 0.0-0.9 [facility] Comment on above: IG% - Immature Granu locytes (promyelocytes, myelocytes and metamyelocytes) > 1% indicates that a LEFT SHIFT is Present. MCH (RBC) [Entitic mass] 35.2 pg 27.0-32.0 [facility] Nucleated RBC/100 WBC (Bld) [Ratio] 0 % 0-5 [facility] MCHC Auto (RBC) [Mass/Vol]Or dered By: Angela Lion on 04-12-2023 MCHC (RBC) [Mass/Vol] 32.6 g/dL 32-36 [facility] No Panel InformationOrdered By: Angela Lion on 04-12-2023 Estimated GFR (MDRD) Amer 109 mL/min >60 [facility] Comment on above: GFR Calc Estimated GFR (MDRD) Non-Af Amer 90 mL/min >60 [facility] Comment on above: Non- GFR Calc Platelets bldOrdered By: Edmund Lion on 04-12-2023 Platelets (Bld) [#/Vol] 241 10*3/uL 150-450 [facility] Serum or plasma albumin ant urement (mass/volume)Ordered By: Angela Lion on 04-12-2023 Albumin [Mass/Vol] 3.3 g/dL 3.2-5.0 [facility] Serum or plasma albumin/glob ulin mass ratioOrdered By: Angela Lion on 04-12-2023 Albumin/Globulin [Mass ratio] 0.9 {ratio} 0.9-2.4 [facility] Serum or plasma calcium ant urement (mass/volume)Ordered By: Angela Lion on 04-12-2023 Calcium [Mass/Vol] 8.7 mg/dL 8.5-10.1 [facility] Serum or plasma creatinine m easurement (mass/volume)Ordered By: Angela Lion on 04-12-2023 Creatinine [Mass/Vol] 0.69 mg/dL 0.55-1.02 [facility] Comment on above: The validity of the calculated GFR & GFRAA in patients over 70 years has not been determined. Clinical correlation is essential. Serum or plasma urea nitroge n measurement (mass/volume)Ordered By: Angela Lion on 04-12-2023 Urea nitrogen [Mass/Vol] 12 mg/dL 7-18 [facility] Thin prep Papanicolaou smear with manual screeningOrdered By: [facility] on 04-12-2023 Thin prep Papanicolaou smear with manual screening 14 U/L 15-37 [facility] Thin prep Papanicolaou smear with manual screening 3 5-15 [facility] Absolute lymphocyte countOrd ered By: Angela Lion on 01-25-2023 Lymphocytes Auto (Unsp spec) [#/Vol] 1.85 10*3/uL 0.83-4.51 [facility] Basophil percentageOrdered B y: Angela Lion on 01-25-2023 Basophils/100 WBC (Bld) 0.8 % 0-1 [facility] Bilirubin [Mass/Vol] 0.40 mg/dL 0.20-1.[address] [facility] Comment on above: For patients on eltr ombopag therapy, use of Dimension [place] TBIL is not recommended. Chloride [Moles/Vol] 110 mmol/L 98-[address] [facility] Eosinophils/100 WBC (Bld) 1.0 % 0-5 [facility] Glucose [Mass/Vol] 94 mg/dL 74-106 [facility] Neutrophils (Bld) [#/Vol] 3.9 10*3/uL 2.0-7.7 [facility] Neutrophils/100 WBC (Bld) 63.5 % 47-70 [facility] Potassium [Moles/Vol] 3.9 mmol/L 3.5-5.1 [facility] Protein [Mass/Vol] 7.3 g/dL 6.4-8.2 [facility] Sodium [Moles/Vol] 141 mmol/L 136-145 [facility] WBC (Bld) [#/Vol] 6.2 10*3/uL 4.4-11.0 [facility] Blood erythrocytes count (nu mber/volume)Ordered By: Angela Lion on 01-25-2023 RBC (Bld) [#/Vol] 3.58 10*6/uL 4.2-5.4 [facility] Blood hemoglobin measurement (mass/volume)Ordered By: Angela Lion on 01-25-2023 Hemoglobin (Bld) [Mass/Vol] 12.5 g/dL 12.0-15.0 [facility] Blood lymphocytes/100 leukoc ytesOrdered By: Angela Lion on 01-25-2023 Lymphocytes/100 WBC (Bld) 29.8 % 19-41 [facility] Blood monocytes/100 leukocyt esOrdered By: Angela Lion on 01-25-2023 Monocytes/100 WBC (Bld) 4.7 % 0-10 [facility] Blood platelet mean volumeOr dered By: Angela Lion on 01-25-2023 Platelet mean volume (Bld) [Entitic vol] 9.1 fL 6.2-12.0 [facility] Determination of erythrocyte mean corpuscular volume (MCV)Ordered By: Angela Lion on 01-25-2023 MCV (RBC) [Entitic vol] 103.4 fL 81-99 [facility] Hematocrit Auto (Bld) [Volum e fraction]Ordered By: Angela Lion on 01-25-2023 Hematocrit (Bld) [Volume fraction] 37.0 % 37-47 [facility] - Chemistry and C hemistry - challengeOrdered By: Angela Lion on 01-25-2023 ALP [Catalytic activity/Vol] 66 U/L 45-117 [facility] ALT [Catalytic activity/Vol] 20 U/L 13-56 [facility] CO2 [Moles/Vol] 25.0 mmol/L 21.0-32.0 [facility] Globulin (S) [Mass/Vol] 3.7 g/dL 2.2-4.2 [facility] Urea nitrogen/Creatinine [Mass ratio] 19.4 mg/mg 10-20 [facility] - Hematology and Cell countsOrdered By: Angela Lion on 01-25-2023 Erythrocyte distribution width (RBC) [Entitic vol] 49.7 fL 35.1-43.9 [facility] Erythrocyte distribution width (RBC) [Ratio] 13.1 % 11.6-14.6 [facility] Immature granulocytes/100 WBC (Bld) 0.200 % 0.0-0.9 [facility] Comment on above: IG% - Immature Granu locytes (promyelocytes, myelocytes and metamyelocytes) > 1% indicates that a LEFT SHIFT is Present. MCH (RBC) [Entitic mass] 34.9 pg 27.0-32.0 [facility] Nucleated RBC/100 WBC (Bld) [Ratio] 0 % 0-5 [facility] MCHC Auto (RBC) [Mass/Vol]Or dered By: Angela Lion on 01-25-2023 MCHC (RBC) [Mass/Vol] 33.8 g/dL 32-36 [facility] No Panel InformationOrdered By: Angela Lion on 01-25-2023 Estimated GFR (MDRD) Amer 96 mL/min >60 [facility] Comment on above: GFR Calc Estimated GFR (MDRD) Non-Af Amer 80 mL/min >60 [facility] Comment on above: Non- GFR Calc Platelets bldOrdered By: Edmund Lion on 01-25-2023 Platelets (Bld) [#/Vol] 213 10*3/uL 150-450 [facility] Serum or plasma albumin ant urement (mass/volume)Ordered By: Angela Lion on 01-25-2023 Albumin [Mass/Vol] 3.6 g/dL 3.2-5.0 [facility] Serum or plasma albumin/glob ulin mass ratioOrdered By: Angela Lion on 01-25-2023 Albumin/Globulin [Mass ratio] 1.0 {ratio} 0.9-2.4 [facility] Serum or plasma calcium ant urement (mass/volume)Ordered By: Angela Lion on 01-25-2023 Calcium [Mass/Vol] 8.8 mg/dL 8.5-10.1 [facility] Serum or plasma creatinine m easurement (mass/volume)Ordered By: Angela Lion on 01-25-2023 Creatinine [Mass/Vol] 0.77 mg/dL 0.55-1.02 [facility] Comment on above: The validity of the calculated GFR & GFRAA in patients over 70 years has not been determined. Clinical correlation is essential. Serum or plasma urea nitroge n measurement (mass/volume)Ordered By: Angela Lion on 01-25-2023 Urea nitrogen [Mass/Vol] 15 mg/dL 7-18 [facility] Thin prep Papanicolaou smear with manual screeningOrdered By: Angela Lion on 01-25-2023 Thin prep Papanicolaou smear with manual screening 14 U/L 15-37 [facility] Thin prep Papanicolaou smear with manual screening 6 5-15 [facility] Absolute lymphocyte countOrd ered By: Angela Lion on 12-12-2022 Lymphocytes Auto (Unsp spec) [#/Vol] 2.52 10*3/uL 0.83-4.51 [facility] Basophil percentageOrdered B y: Angela Lion on 12-12-2022 Basophils/100 WBC (Bld) 0.6 % 0-1 [facility] Bilirubin [Mass/Vol] 0.30 mg/dL 0.20-1.[address] [facility] Comment on above: For patients on eltr ombopag therapy, use of Dimension [place] TBIL is not recommended. Chloride [Moles/Vol] 111 mmol/L 98-[address] [facility] Eosinophils/100 WBC (Bld) 0.9 % 0-5 [facility] Glucose [Mass/Vol] 89 mg/dL 74-106 [facility] Neutrophils (Bld) [#/Vol] 5.4 10*3/uL 2.0-7.7 [facility] Neutrophils/100 WBC (Bld) 63.5 % 47-70 [facility] Potassium [Moles/Vol] 4.9 mmol/L 3.5-5.1 [facility] Protein [Mass/Vol] 7.8 g/dL 6.4-8.2 [facility] Sodium [Moles/Vol] 139 mmol/L 136-145 [facility] WBC (Bld) [#/Vol] 8.6 10*3/uL 4.4-11.0 [facility] Blood erythrocytes count (nu mber/volume)Ordered By: Angela Lion on 12-12-2022 RBC (Bld) [#/Vol] 3.76 10*6/uL 4.2-5.4 [facility] Blood hemoglobin measurement (mass/volume)Ordered By: Angela Lion on 12-12-2022 Hemoglobin (Bld) [Mass/Vol] 12.6 g/dL 12.0-15.0 [facility] Blood lymphocytes/100 leukoc ytesOrdered By: Angela Lion on 12-12-2022 Lymphocytes/100 WBC (Bld) 29.5 % 19-41 [facility] Blood monocytes/100 leukocyt esOrdered By: Angela Lion on 12-12-2022 Monocytes/100 WBC (Bld) 5.3 % 0-10 [facility] Blood platelet mean volumeOr dered By: Angela Lion on 12-12-2022 Platelet mean volume (Bld) [Entitic vol] 9.1 fL 6.2-12.0 [facility] Determination of erythrocyte mean corpuscular volume (MCV)Ordered By: Angela Lion on 12-12-2022 MCV (RBC) [Entitic vol] 104.8 fL 81-99 [facility] Hematocrit Auto (Bld) [Volum e fraction]Ordered By: Angela Lion on 12-12-2022 Hematocrit (Bld) [Volume fraction] 39.4 % 37-47 [facility] - Chemistry and C hemistry - challengeOrdered By: Angela Lion on 12-12-2022 ALP [Catalytic activity/Vol] 73 U/L 45-117 [facility] ALT [Catalytic activity/Vol] 17 U/L 13-56 [facility] CO2 [Moles/Vol] 25.0 mmol/L 21.0-32.0 [facility] Globulin (S) [Mass/Vol] 4.2 g/dL 2.2-4.2 [facility] Urea nitrogen/Creatinine [Mass ratio] 19.7 mg/mg 10-20 [facility] - Hematology and Cell countsOrdered By: Angela Lion on 12-12-2022 Erythrocyte distribution width (RBC) [Entitic vol] 48.3 fL 35.1-43.9 [facility] Erythrocyte distribution width (RBC) [Ratio] 12.5 % 11.6-14.6 [facility] Immature granulocytes/100 WBC (Bld) 0.200 % 0.0-0.9 [facility] Comment on above: IG% - Immature Granu locytes (promyelocytes, myelocytes and metamyelocytes) > 1% indicates that a LEFT SHIFT is Present. MCH (RBC) [Entitic mass] 33.5 pg 27.0-32.0 [facility] Nucleated RBC/100 WBC (Bld) [Ratio] 0 % 0-5 [facility] MCHC Auto (RBC) [Mass/Vol]Or dered By: Angela Lion on 12-12-2022 MCHC (RBC) [Mass/Vol] 32.0 g/dL 32-36 [facility] No Panel InformationOrdered By: Angela Lion on 12-12-2022 Estimated GFR (MDRD) Amer 79 mL/min >60 [facility] Comment on above: GFR Calc Estimated GFR (MDRD) Non-Af Amer 65 mL/min >60 [facility] Comment on above: Non- GFR Calc Platelets bldOrdered By: Edmund Lion on 12-12-2022 Platelets (Bld) [#/Vol] 259 10*3/uL 150-450 [facility] Serum or plasma albumin ant urement (mass/volume)Ordered By: Angela Lion on 12-12-2022 Albumin [Mass/Vol] 3.6 g/dL 3.2-5.0 [facility] Serum or plasma albumin/glob ulin mass ratioOrdered By: Angela Lion on 12-12-2022 Albumin/Globulin [Mass ratio] 0.9 {ratio} 0.9-2.4 [facility] Serum or plasma calcium ant urement (mass/volume)Ordered By: Angela Lion on 12-12-2022 Calcium [Mass/Vol] 9.4 mg/dL 8.5-10.1 [facility] Serum or plasma creatinine m easurement (mass/volume)Ordered By: Angela Lion on 12-12-2022 Creatinine [Mass/Vol] 0.92 mg/dL 0.55-1.02 [facility] Comment on above: The validity of the calculated GFR & GFRAA in patients over 70 years has not been determined. Clinical correlation is essential. Serum or plasma urea nitroge n measurement (mass/volume)Ordered By: Angela Lion on 12-12-2022 Urea nitrogen [Mass/Vol] 18 mg/dL 7-18 [facility] Thin prep Papanicolaou smear with manual screeningOrdered By: Angela Lion on 12-12-2022 Thin prep Papanicolaou smear with manual screening 19 U/L 15-37 [facility] Thin prep Papanicolaou smear with manual screening 3 5-15 [facility] Absolute lymphocyte countOrd ered By: Angela Lion on 11-21-2022 Lymphocytes Auto (Unsp spec) [#/Vol] 1.66 10*3/uL 0.83-4.51 [facility] Basophil percentageOrdered B y: Angela Lion on 11-21-2022 Basophils/100 WBC (Bld) 0.8 % 0-1 [facility] Bilirubin [Mass/Vol] 0.50 mg/dL 0.20-1.[address] [facility] Comment on above: For patients on eltr ombopag therapy, use of Dimension [place] TBIL is not recommended. Chloride [Moles/Vol] 110 mmol/L 98-[address] [facility] Eosinophils/100 WBC (Bld) 1.9 % 0-5 [facility] Glucose [Mass/Vol] 90 mg/dL 74-106 [facility] Neutrophils (Bld) [#/Vol] 4.2 10*3/uL 2.0-7.7 [facility] Neutrophils/100 WBC (Bld) 65.5 % 47-70 [facility] Potassium [Moles/Vol] 3.7 mmol/L 3.5-5.1 [facility] Protein [Mass/Vol] 8.0 g/dL 6.4-8.2 [facility] Sodium [Moles/Vol] 140 mmol/L 136-145 [facility] WBC (Bld) [#/Vol] 6.4 10*3/uL 4.4-11.0 [facility] Bilirubin Test strip Ql (U)O rdered By: Angela Lion on 11-21-2022 Bilirubin Ql (U) Negative Negative [facility] Blood erythrocytes count (nu mber/volume)Ordered By: Angela Lion on 11-21-2022 RBC (Bld) [#/Vol] 3.87 10*6/uL 4.2-5.4 [facility] Blood hemoglobin measurement (mass/volume)Ordered By: Angela Lion on 11-21-2022 Hemoglobin (Bld) [Mass/Vol] 12.9 g/dL 12.0-15.0 [facility] Blood lymphocytes/100 leukoc ytesOrdered By: Angela Lion on 11-21-2022 Lymphocytes/100 WBC (Bld) 26.0 % 19-41 [facility] Blood monocytes/100 leukocyt esOrdered By: Angela Lion on 11-21-2022 Monocytes/100 WBC (Bld) 5.6 % 0-10 [facility] Blood platelet mean volumeOr dered By: Angela Lion on 11-21-2022 Platelet mean volume (Bld) [Entitic vol] 9.1 fL 6.2-12.0 [facility] Determination of erythrocyte mean corpuscular volume (MCV)Ordered By: Angela Lion on 11-21-2022 MCV (RBC) [Entitic vol] 101.3 fL 81-99 [facility] Dilute Nba's viper venom timeOrdered By: Angela Lion on 11-21-2022 dRVVT Coag (PPP) [Time] 38.0 s 0.0-47.0 [facility] Hematocrit Auto (Bld) [Volum e fraction]Ordered By: Angela Lion on 11-21-2022 Hematocrit (Bld) [Volume fraction] 39.2 % 37-47 [facility] INR in Blood by Coagulation assayOrdered By: Angela Lion on 11-21-2022 INR Coag (Bld) [Relative time] 1.1 {INR} [facility] Ketones Test strip Ql (U)Ord ered By: Angela Lion on 11-21-2022 Ketones Ql (U) Negative Negative [facility] Laboratory - Chemistry and C hemistry - challengeOrdered By: Angela Lion on 11-21-2022 ALP [Catalytic activity/Vol] 82 U/L 45-117 [facility] ALT [Catalytic activity/Vol] 13 U/L 13-56 [facility] CO2 [Moles/Vol] 26.0 mmol/L 21.0-32.0 [facility] Globulin (S) [Mass/Vol] 4.3 g/dL 2.2-4.2 [facility] Urea nitrogen/Creatinine [Mass ratio] 17.9 mg/mg 10-20 [facility] Laboratory - CoagulationOrde red By: Angela Lion on 11-21-2022 aPTT Coag (Bld) [Time] 30.1 s 24.1-36.2 [facility] PT Coag (PPP) [Time] 13.8 s 11.7-14.[address] [facility] Laboratory - Hematology and Cell countsOrdered By: Angela Lion on 11-21-2022 Erythrocyte distribution width (RBC) [Entitic vol] 46.5 fL 35.1-43.9 [facility] Erythrocyte distribution width (RBC) [Ratio] 12.3 % 11.6-14.6 [facility] Immature granulocytes/100 WBC (Bld) 0.200 % 0.0-0.9 [facility] Comment on above: IG% - Immature Granu locytes (promyelocytes, myelocytes and metamyelocytes) > 1% indicates that a LEFT SHIFT is Present. MCH (RBC) [Entitic mass] 33.3 pg 27.0-32.0 [facility] Nucleated RBC/100 WBC (Bld) [Ratio] 0 % 0-5 [facility] Laboratory - Miscellaneous t estsOrdered By: Angela Lion on 11-21-2022 Service comment (Unsp spec) [Interp] Comment . [facility] Comment on above: Results do not indic ate the presence of a LupusAnticoagulant: abnormal high screening results (PTT-LA,dRVVT, mixing studies), may be due to medication (heparin,warfarin, aspirin), Factor inhibitors, anticardiolipinantibodies, or poor specimen integrity.Performed at: [facility] [address] [id number] Director: Chaya Davis MD, Phone: [phone] MCHC Auto (RBC) [Mass/Vol]Or dered By: Angela Lion on 11-21-2022 MCHC (RBC) [Mass/Vol] 32.9 g/dL 32-36 [facility] Nitrite Test strip Ql (U)Ord ered By: Angela Lion on 11-21-2022 Nitrite Ql (U) Negative Negative [facility] No Panel InformationOrdered By: Angela Lion on 11-21-2022 Miscellaneous Test Comment MAILED SPECIMEN [facility] Estimated GFR (MDRD) Amer 87 mL/min >60 [facility] Comment on above: GFR Calc Estimated GFR (MDRD) Non-Af Amer 72 mL/min >60 [facility] Comment on above: Non- GFR Calc Hepatitis B Surface Antigen Non-Reactive Nonreactive [facility] Hepatitis C Antibody Non-Reactive Nonreactive [facility] Comment on above: Non Reactive: < 0.8 Equivocal: >/= 0.8 to < 1.0 Reactive: >/= 1.0The CDC recommends that a reactive/equivocal HCV antibody result be followed up by the HCV Nucleic Acid Amplificationtest ([id number]) Platelets bldOrdered By: Edmund Lion on 11-21-2022 Platelets (Bld) [#/Vol] 225 10*3/uL 150-450 [facility] Protein Test strip Ql (U)Ord ered By: Angela Lion on 11-21-2022 Protein Ql (U) Negative Negative [facility] Serum hepatitis B virus surf kyle antibody IgG detectionOrdered By: Angela Lion on 11-21-2022 HBV surface IgG Ql (S) Reactive [facility] Comment on above: Non Reactive: Incons istent with immunity less than <10 mIU/mL Reactive: Consistent with immunity greater than or equal to 10 mIU/mL Serum or plasma albumin ant urement (mass/volume)Ordered By: Angela Lion on 11-21-2022 Albumin [Mass/Vol] 3.7 g/dL 3.2-5.0 [facility] Serum or plasma albumin/glob ulin mass ratioOrdered By: Angela Lion on 11-21-2022 Albumin/Globulin [Mass ratio] 0.9 {ratio} 0.9-2.4 [facility] Serum or plasma calcium ant urement (mass/volume)Ordered By: Angela Lion on 11-21-2022 Calcium [Mass/Vol] 9.2 mg/dL 8.5-10.1 [facility] Serum or plasma creatinine m easurement (mass/volume)Ordered By: Angela Lion on 11-21-2022 Creatinine [Mass/Vol] 0.84 mg/dL 0.55-1.02 [facility] Comment on above: The validity of the calculated GFR & GFRAA in patients over 70 years has not been determined. Clinical correlation is essential. Serum or plasma urea nitroge n measurement (mass/volume)Ordered By: Angela Lion on 11-21-2022 Urea nitrogen [Mass/Vol] 15 mg/dL 7-18 [facility] Thin prep Papanicolaou smear with manual screeningOrdered By: Angela Lion on 11-21-2022 Thin prep Papanicolaou smear with manual screening 14 U/L 15-37 [facility] Thin prep Papanicolaou smear with manual screening 4 5-15 [facility] Thin prep Papanicolaou smear with manual screening 37.4 sec 0.0-47.6 [facility] Thin prep Papanicolaou smear with manual screening 0.96 Ratio 0.00-1.34 [facility] Thin prep Papanicolaou smear with manual screening 38.8 sec 0.0-43.5 [facility] Thin prep Papanicolaou smear with manual screening Comment: . [facility] Comment on above: No lupus anticoagula nt was detected. Thrombin time in platelet po or plasmaOrdered By: Angela Lion on 11-21-2022 Thrombin time Coag (PPP) [Time] 16.9 sec 0.0-23.0 [facility] Urine blood detectionOrdered By: Angela Lion on 11-21-2022 RBC Ql (U) Negative Negative [facility] Urine clarityOrdered By: Edmund Lion on 11-21-2022 Clarity (U) Clear Clear [facility] Urine color determinationOrd ered By: Angela Lion on 11-21-2022 Color (U) Yellow Yellow [facility] Urine creatinine measurement (mass/volume)Ordered By: Angela Lion on 11-21-2022 Creatinine (U) [Mass/Vol] 49.40 mg/dL NO RANGE EST. [facility] Urine glucose detectionOrder ed By: Angela Lion on 11-21-2022 Glucose Ql (U) Normal mg/dl Normal [facility] Urine leukocyte esterase det ection by dipstickOrdered By: Angela Lion on 11-21-2022 Leukocyte esterase Test strip Ql (U) 25 /ul Negative [facility] Urine pHOrdered By: Angela campa on 11-21-2022 pH (U) 6.5 [pH] 5.0 - 8.0 [facility] Urine protein measurement (m ass/volume)Ordered By: Angela Lion on 11-21-2022 Protein (U) [Mass/Vol] 10.0 mg/dL 0.0-11.8 [facility] Urine protein/creatinine mas s ratioOrdered By: Angela Lion on 11-21-2022 Protein/Creatinine (U) [Mass ratio] 202 mg/g CRE 0-200 [facility] Urine specific gravity measu rementOrdered By: Angela Lion on 11-21-2022 Specific gravity (U) [Rel density] 1.010 1.002-1.030 [facility] Urobilinogen Auto test strip Ql (U)Ordered By: Angela Lion on 11-21-2022 Urobilinogen Ql (U) Normal mg/dl Normal [facility] Vital Signs Date Time Vital Sign Value Performing Clinician Maribell davalos 12-16-2024 12:39-0400 Body height 165.1 cm Dania Beck MD Work Phone: [facility] 12-16-2024 12:39-0400 Body weight 61.23 kg Dania Beck MD Work Phone: [facility] 12-16-2024 12:39-0400 Heart rate 74 /min Dania Beck MD Work Phone: [facility] 12-16-2024 12:39-0400 SaO2% (BldA) [Mass fraction] 94 % Dania Beck MD Work Phone: [facility] 12-03-2024 10:40-0400 Body height 165.1 cm Dania Beck MD Work Phone: [facility] 12-03-2024 10:40-0400 Body mass index (BMI) [Ratio] 22.3 kg/m2 Dania Beck MD Work Phone: [facility] 12-03-2024 10:40-0400 Body temperature 97.5 [degF] Dania Beck MD Work Phone: [facility] 12-03-2024 10:40-0400 Body weight 60.78 kg Dania Beck MD Work Phone: [facility] 12-03-2024 10:40-0400 Diastolic blood pressure 76 mm[Hg] Dania Beck MD Work Phone: [facility] 12-03-2024 10:40-0400 Heart rate 60 /min Dania Beck MD Work Phone: [facility] 12-03-2024 10:40-0400 Respiratory rate 18 /min Dania Beck MD Work Phone: [facility] 12-03-2024 10:40-0400 SaO2% (BldA) [Mass fraction] 97 % Dania Beck MD Work Phone: [facility] 12-03-2024 10:40-0400 Systolic blood pressure 120 mm[Hg] Dania Beck MD Work Phone: [facility] Encounters Encounter Date Encounter Type Care Provider Facility Start: 04-13-2025 End: 04-13-[address] [facility] Facility:[facility] Start: 04-09-2025 End: 04-10-2025 Emergency department patient visit NATIVIDAD BRADLEY Facility:[id number] Start: 01-16-2025 End: 01-16-2025 ambulatory Dania Beck MD Work Phone: -[facility] [place] Start: 01-16-2025 End: 01-16-[address] Angela Lion MD -[facility] [place] Work Phone: Start: 01-16-2025 End: 01-16-[address] 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 Christian quiros DO -[facility] Start: 12-16-2024 End: 12-16-2024 ambulatory Dania Beck MD Work Phone: -Pulmonary Services/Neurology Start: 12-16-2024 End: 12-16-2024 Patient encounter procedure Toya Busby NP-C -Pulmonary Services/Neurology Work Phone: Start: 12-16-2024 End: 12-16-2024 ambulatory Dania Beck MD Work Phone: -[facility] Start: 12-16-2024 End: 12-16-2024 Patient encounter procedure Toya Busby MOTORCOACH OPERATOR-C -[facility] Start: 12-16-2024 End: 12-16-2024 ambulatory Toya Busby MOTORCOACH OPERATOR Facility:[facility] Start: 12-03-2024 End: 12-03-2024 Patient encounter procedure Toya MIR -[facility] Work Phone: Start: 12-03-2024 End: 12-03-2024 ambulatory Dania Beck MD Work Phone: -[facility] Start: 12-03-2024 End: 12-03-2024 ambulatory Dania Beck MD Work Phone: -Pulmonary Services/Neurology Start: 12-03-2024 End: 12-03-[address] Dania Beck MD -Pulmonary Services/Neurology Work Phone: Start: 12-03-2024 End: 12-03-2024 ambulatory Christian Estrella Facility:[facility] Start: 11-20-2024 ambulatory Dania Beck Facility:[facility] Start: 10-28-2024 End: 10-28-2024 ambulatory Dania Beck MD Work Phone: [facility] Work Phone: Start: 10-28-2024 End: 10-28-[address] Dania Beck MD -[facility] [place] Work Phone: Start: 10-28-2024 End: 10-28-2024 ambulatory Dania Beck Facility:[facility] Start: 10-08-2024 End: 10-08-2024 ambulatory Dania Beck MD Work Phone: [facility] Work Phone: Start: 10-08-2024 End: 10-08-[address] Angela Lion MD -Laboratory, [place] Work Phone: Start: 10-08-2024 End: 10-08-2024 ambulatory Angela Lion Facility:[facility] Start: 07-15-2024 End: 07-15-[address] 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, unspecified laterality; Pre-operative cardiovascular examination 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.772] Start: 07-19-2023 End: 07-19-2023 ambulatory [facility] Work Phone: Start: 07-19-2023 End: 07-19-2023 Patient encounter procedure [facility] Work Phone: Start: 06-28-2023 End: 06-28-2023 Patient encounter procedure [facility] Start: 04-12-2023 End: 04-12-2023 ambulatory [facility] Work Phone: Start: 04-12-2023 End: 04-12-2023 Patient encounter procedure [facility] Work Phone: Start: 01-25-2023 End: 01-25-2023 Patient encounter procedure [facility] Work Phone: Start: 12-12-2022 End: 12-12-2022 ambulatory [facility] Work Phone: Start: 12-12-2022 End: 12-12-2022 Patient encounter procedure [facility] Work Phone: Start: 11-21-2022 End: 11-21-2022 Patient encounter procedure [facility], [place] Work Phone: Procedures Date Procedure Procedure Detail Performing Clinician Start: 12-16-2024 Positron emission tomography with computed tomography Dania Beck MD Work Phone: Start: 10-28-2024 X-ray of chest, PA a [...] Author Start: 08-16-2026 Diabetes Screening Diabetes Screening [facility] Start: 12-16-2024 Walking distance 6 minutes [facility] Start: 10-10-2023 Screening for malignant neoplasm of breast Mammogram Screening [facility] Start: 06-04-2023 Advance Directive Discussion Advance Directive Discussion [facility] Start: 06-04-2023 Depression Assessment Depression Assessment [facility] Start: 2022 Pneumococcal Vaccine: 65+ (2 of 2 - PCV) Pneumococcal Vaccine: 65+ (2 of 2 - PCV) [facility] Start: 2022 Screening for osteoporosis Bone Density Screening [facility] Start: 06-05-2011 Urine microalbumin profile DTaP,Tdap,Td Vaccine (1 - Tdap) [facility] Start: 2007 Shingrix Vaccine (1 of 2) Shingrix Vaccine (1 of 2) [facility] Start: 2002 Lipid panel Lipid Screening [facility] Start: 2002 Screening for malignant neoplasm of colon [facility] Start: 1975 Hepatitis C screening Hepatitis C Screening [facility] ECG COMPLETE ECG COMPLETE ECG Routine 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/o org/sys involv (HCC) 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, unspecified laterality Pre-operative cardiovascular examination 08/17/2023 1:23 PM EDT [facility] Work Phone: Positron emission tomography with computed tomography [facility] Walking distance 6 minutes [facility] Payers Date Payer Category Payer Medicare [id number] 2024 Private Health Insurance [id number] 2024 Self-pay 2023 Medicare HU[employer]NA MEDICARE HU[employer]NA GOLD PLUS [id number] 2023-Present [phone] [address] [address] [place] [address] HMO [id number] Self-pay [id number] Unknown [id number] Unknown [id number] .[id number] Unknown [id number] .462 Unknown [id number] .[id number] Unknown [id number] .462 Unknown [id number] .462 Unknown [id number] .462 Unknown [id number] .462 Unknown [id number] .462 Unknown [id number] .462 Unknown [id number] .462 Unknown [id number] .462 Unknown [id number] .462 Social History Date Type Detail Facility Tobacco smoking status TXIS Unknown if ever smoked [facility] Work Phone: Start: 1955 Sex Assigned At Female [facility] Tobacco smoking status TXIS Tobacco smoking consumption unknown [facility] Start: 1955 Sex Assigned At Not on file [facility] Gender identity Not on file [facility] Start: 12-03-2024 Tobacco smoking status NHIS Current Heavy tobacco smoker [facility] Clinical Notes 10-29-2024 to 04-10-2025 Note Date & Type Note Facility 04-10-2025 Note HNO ID: [id number] Author: CARISSA CULP RT(Gilbert) Service: Radiology Author Type: Technologist Type: Progress Notes Filed: 04/10/2025 00:32 Note Text: Radiology Service Progress Note DATE OF SERVICE: April 10, 2025 TIME: 12:31 AM PATIENT IDENTITY VERIFICATION COMPLETED USING TWO (2) STANDARD IDENTIFIERS: Name and Date of confirmed by patient verbally and Name and Date of confirmed by identification band. FALL SCREENING: Has the patient had 2 falls in the last year or 1 fall with injury or currently using an Ambulatory Assistive Device (Walker, Cane, Wheelchair, Crutches, etc.)? Emergency Room Patient: Screened in ED PATIENT GENDER DATA: Assigned female at . status: : No status: NO. PATIENT RELEVANT IMPLANT DATA REVIEWED: Not Applicable PATIENT PRESENTS WITH AN IMPLANTABLE OR ATTACHED RETAIL ATTENDANT: No ALLERGIES: Reviewed and unchanged CONTRAST ALLERGY: NO. EXAM: CT -CONTRAST INDUCED NEPHROPATHY RISK FACTORS: Patient age > 60 years CREATININE: Creatinine Date Value Ref Range Status 04/09/2025 0.94 0.58 - 0.96 mg/dL Final 08/17/2023 0.75 0.58 - 0.96 mg/dL Final Estimated Glomerular Filtration Rate Date Value Ref Range Status 04/09/2025 67 >=60 mL/min/1.73m? Final Comment: Estimated Glomerular Filtration Rate (eGFR) is calculated using the 2020 CKD-EPI creatinine equation. This equation utilizes serum creatinine, sex, and age as parameters. The creatinine assay has traceable calibration to isotope dilution-mass spectrometry. Refer to KDIGO guidelines for clinical interpretation. In patients with unstable renal function, e.g. those with acute kidney injury, the eGFR may not accurately reflect actual GFR. P.O.C.T. RESULTS: POC done: Yes, See Lab Tab April 10, 2025 TREATMENT: N/A PERIPHERAL IV DATA: Ambulatory: A peripheral IV was started in the Left antecubital site with a Angio cath: 20 gauge. RADIOLOGY DEPARTMENT: CT; Exam(s) Completed: CTA Chest. Anesthesia: No SIGNATURE: RT Zack(Gilbert) PATIENT NAME: Black Short DATE: April 10, 2025 TIME: 12:31 AM [facility] 04-09-2025 Note HNO ID: [id number] Author: ABEL KIRK RT(R) Service: ? Author Type: Technologist Type: Progress Notes Filed: 04/09/2025 23:42 Note Text: Radiology Service Progress Note PATIENT NAME: Black Short DATE OF SERVICE: April 09, 2025 TIME: 11:42 PM PATIENT IDENTITY VERIFICATION COMPLETED USING TWO (2) IDENTIFIERS: Name and Date of confirmed by patient verbally. FALL SCREENING: Has the patient had 2 falls in the last year or 1 fall with injury or currently using an Ambulatory Assistive Device (Walker, Cane, Wheelchair, Crutches, etc.)? Emergency Room Patient: Screened in ED PATIENT GENDER DATA: Assigned female at . status: : No status: NO. PATIENT RELEVANT IMPLANT DATA REVIEWED: Not Applicable PATIENT PRESENTS WITH AN IMPLANTABLE OR ATTACHED RETAIL ATTENDANT: No RADIOLOGY DEPARTMENT: General X-ray: Exam(s) Completed: Chest X-Ray PERIPHERAL IV DATA: Not applicable SIGNED BY: RT Godfrey(R) April 09, 2025 11:42 PM [facility] 12-18-2024 Procedure note [facility] 12-03-2024 Evaluation note Diagnosis Onset Date Resolution Abnormal CT scan, chest acute J zackery 2024 10:33am COPD (chronic obstructive pulmonary disease) chronic December 03, 2024 10:33am History of lymphoma chronic December 03, 2024 10:33am Nicotine abuse chronic December 03, 2024 10:33am Rheumatoid arthritis chronic December 03, 2024 10:33am [facility] Work Phone: 1(755) 140-605805-28-2025 Radiology Diagnostic study note [facility] Services [address] [place] [address] Chest PA and Lateral MR#: [id number] Acct: [id number] Name: BLACK SHORT Rep #: [id number] : 1955 F 69 From: Hao Tamez MD PCP: Dr. Dania Beck MD Status: REG CL I Study:Chest PA and Lateral Date of Exam: 10/28/24 Exam# [id number] Ordering Dr: Lynette Beck MD PROCEDURE: CHEST [...] of background of pulmonary emphysema. Reading Location: [id number] CC: Dr. 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, unspecified laterality Pre-operative cardiovascular examination documented in this encounter [facility] note* Diagnosis Onset Date Resolution Status Admit Date Abnormal CT scan, chest acute J zackery 2024 10:33am [facility] Work Phone: Reason for referral (narrative)* Outpatient Procedure (Routine) - Closed Specialty Diagnoses / Procedures Referred By Jordan castaneda [facility] Diagnoses 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/o org/sys involv (HCC) 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, unspecified laterality Pre-operative cardiovascular examination Procedures ECG COMPLETE ECG ROUTINE ECG W/LEAST 12 LDS W/I&R Hunter Ferraro MD [address] [place] [address] [facility] [address] [address] Referral ID Status Reason Start Date Expiration Date V isits Requested Visits Authorized [id number] Closed Auto-Generate d Referral 08/17/2023 08/16/2024 1 1 [facility] for referral (narrative)No reason for [facility] Reason for visit Narrative* Outpatient Procedure (Routine) - Closed Specialty Diagnoses / Procedures Referred By Contac t Referred To [facility] Diagnoses 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/o org/sys involv (HCC) 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, unspecified laterality Pre-operative cardiovascular examination Procedures ECG COMPLETE ECG ROUTINE ECG W/LEAST 12 LDS W/I&R Hunter Ferraro MD [address] [place] [address] [facility] [place] [address] [place] [address] Referral ID Status Reason Start Date Expiration Date V isits Requested Visits Authorized [id number] Closed Auto-Generate d Referral 08/17/2023 08/16/2024 1 1 [facility] Chief Complaint and Reason for Visit [...] scan, chest December 03, 2024 1 0:33am Reason for Visit Admit Date Abnormal CT scan, chest December 03, 2024 1 0:33am COPD (chronic obstructive pulmonary dise ase) December 03, 2024 10:33am History of lymphoma December 03, 2024 10:33 am Nicotine abuse December 03, 2024 10:33 am Rheumatoid arthritis December 03, 2024 10:3 3am Chief Complaint Admit Date PAIN- COPY PCP October 08, 2024 1:53pm Concern for pneumonia October 28, 2024 3:0 3pm PRODUCTIVE COUGH December 03, 2024 9:22a m RLL Nodule December 03, 2024 10:33 am LUNG December 16, 2024 8:15 am J44.9 - Chronic obstructive pulmonary di sease, uns December 16, 2024 11:56am J44.9 - Chronic obstructive pulmonary di sease, uns December 18, 2024 8:52am Chief Complaint Admit Date PAIN- COPY PCP October 08, 2024 1:53pm Concern for pneumonia October 28, 2024 3:0 3pm PRODUCTIVE COUGH December 03, 2024 9:22a m RLL Nodule December 03, 2024 10:33 am LUNG December 16, 2024 8:15 am J44.9 - Chronic obstructive pulmonary di sease, uns December 16, 2024 11:56am J44.9 - Chronic obstructive pulmonary di sease, uns December 18, 2024 8:52am PAIN- COPY PCP January 16, 2025 8: 57am Summary Purpose Family History No Family History [...] 2024 End: December 03, 2024 Toya Busby MOTORCOACH OPERATOR, MOTORCOACH OPERATOR-C Attending Provider Active Start: December 03, 2024 End: December 03, 2024 Team Status: Inactive Member Role/Relationship Status Giovanna Beck MD Primary Care Provider Active St art: December 03, 2024 End: December 03, 2024 Dania Beck MD Attending Provider Active Start : December 03, 2024 End: December 03, 2024 Dania Beck MD Referring Provider Active Start : December 03, 2024 End: December 03, 2024 Team Status: Inactive Member Role/Relationship Status Dates Dania Beck MD Primary Care Provider Active St art: December 16, 2024 End: December 16, 2024 Toya Busby MOTORCOACH OPERATOR, MOTORCOACH OPERATOR-C Attending Provider Active Start: December 16, 2024 End: December 16, 2024 Toya Busby NP, MOTORCOACH OPERATOR-C Referring Provider Active Start: December 16, 2024 End: December 16, 2024 Team Status: Inactive Member Role/Relationship Status Giovanna Beck MD Primary Care Provider Active St art: December 16, 2024 End: December 16, 2024 Toya Busby NP, MOTORCOACH OPERATOR-C Attending Provider Active Start: December 16, 2024 End: December 16, 2024 Toya Busby MOTORCOACH OPERATOR, MOTORCOACH OPERATOR-C Referring Provider Active Start: December 16, 2024 End: December 16, 2024 Team Status: Active Member Role/Relationship Status Giovanna Beck MD Primary Care Provider Active St art: December 18, 2024 Toya Busby MOTORCOACH OPERATOR, MOTORCOACH OPERATOR-C Referring Provider Active Start: December 18, 2024 Toya Busby NP, MOTORCOACH OPERATOR-C Other Provider Active Start: December 18, 2024 Dr. Christian Estrella DO Attending Provider Active S tart: December 18, 2024 Team Status: Inactive Member Role/Relationship Status Giovanna Beck MD Primary Care Provider Active St art: January 16, 2025 End: January 16, 2025 Dr. Angela Lion MD Attending Provider Active Start: January 16, 2025 End: January 16, 2025 Dr. Angela Lion MD Referring Provider Active Start: January 16, 2025 End: January 16, 2025 Goals (unrecognized section and content) Goals may [...] or prosecute any alcohol or drug abuse patient.[facility] the event this information is protected by the Federal Confidentiality of Alcohol and Drug Abuse Patient Records regulations: The Federal rules restrict any use of the information to criminally investigate or prosecute any alcohol or drug abuse patient.[facility] INFORMATION SOURCE (unrecogn ized section and content) DATE CREATED AUTHOR 04/11/2025 [facility] DATE CREATED AUTHOR AUTHOR'S ORGANIZ ATION 04/13/2025 [facility] FOR RECORDS PERTAINING TO PATIENTS WHO [...] BE BASED ON THE PRIMARY CLINICAL RECORDS. [facility]. provides no warranty or guarantee of the accuracy or completeness of information in this document.
== END | disposition home or self-care (01) ==
LOC: ONC 07:03
PROVIDERS: PCP Family Medicine; Referring Provider Nurse Practitioner Acute Care; Visit Provider Nurse Practitioner Acute Care
DX: C34.31 Malignant neoplasm of lower lobe, right bronchus or lung (principal); F17.200 Nicotine dependence, unspecified, uncomplicated
CPT/HCPCS: 78815; A9552